=== PATIENT | female | born 1940 | race Caucasian/White ===

== ENCOUNTER → 2018-02-11 15:45 | Outpatient (CLI) | payer MEDICARE, OTHER, SELFPAY ==
--- NOTE | 2018-02-11 15:48 | BI_ITS ---
MAMMOGRAPHY - BILATERAL SCREENING 3-D FABIOLA SYNTHESIS REASON FOR EXAM: Female, 77 years old. Bilateral Screening 3-D tomosynthesis PERTINENT HISTORY: No significant family history. TECHNIQUE: 2-D mammograms and 3-D Fabiola synthesis of the breast (s) were performed. CAD was performed. COMPARISON: January 27, 2016. FINDINGS: The breast composition is composed of scattered fibroglandular density. Scattered benign calcifications are seen. No dense spiculated masses or suspicious microcalcifications are identified. No architectural distortion is identified. There is no skin thickening or retraction. There has been no significant change since the prior study. BI/SCREENING MAMM (CAD), BILAT IMPRESSION: No mammographic signs of malignancy. Routine yearly mammograms recommended. ASSESSMENT CATEGORY: BIRADS Category 2: Benign. A letter regarding these results will be sent to the patient by the facility within 30 days. FOLLOW UP RECOMMENDATION: Yearly follow up mammogram recommended. (A) Approximately 10% of breast cancers are not detected by mammography. A normal mammogram should not delay biopsy of a clinically suspicious abnormality. Electronically Signed: Dewey De Jesus MD at 8:09 EDT , Service support ,
== END ==
PROVIDERS: Family Provider Family Medicine; PCP Family Medicine; Visit Provider Family Medicine
DX: Z12.31 Encounter for screening mammogram for malignant neoplasm of breast (principal)
CPT/HCPCS: 77063; 77067

== ENCOUNTER → 2018-03-19 06:41 | Outpatient (CLI) | payer MEDICARE, OTHER, SELFPAY ==
[2018-03-19 08:24] LABS: Absolute Lymphocyte Count 1.09 X10^3/ul (0.83-4.51); Absolute Neutrophil Count 4.7 X10^3/uL (2.0-7.7); Basophil# 0.03 X10^3/uL; Basophil% 0.5 % (0-1); Hematocrit 42.9 % (37-47); Lymphocyte # 1.09 X10^3/ul (4.0); Lymphocyte % 16.6 % (19-41); Mean Corp Hgb Conc 32.6 g/gl (32-36); Mean Corpuscular Hgb 31.5 pg (27.0-32.0); Mean Corpuscular Volume 96.4 fL (81-99); Mean Platelet Vol. 10.5 fl (6.2-12.0); Monocyte# 0.57 X10^3/uL; Monocyte% 8.7 % (0-10); Neutrophil # 4.67 X10^3/uL (2.7-7.7); Platelet Count 251 K/mm3 (150-450); RBC Distribution Width CV 13.5 % (11.6-14.6); RBC Distribution Width SD 46.9 fl (35.1-43.9); Red Blood Count 4.45 M/mm3 (4.2-5.4); White Blood Count 6.6 K/mm3 (4.4-11.0)
[2018-03-19 08:39] LABS: POSITIVE COUNT NO; POSITIVE DIFFERENTIAL NO; POSITIVE MORPHOLOGY NO
[2018-03-19 08:52] LABS: Anion Gap 7 (5-15); BUN 26 mg/dL (7-18); BUN/Creat Ratio 28.7 RATIO (10-20); Calcium,Total 9.8 mg/dL (8.5-10.1); Chloride 101 mmol/L (98-107); Cholesterol 198 mg/dL (200); EST Glomerular Filtration Rate 64 mL/min (>60); Est Glom Filt Rate - Afr Amer 77 mL/min (>60); Glucose 92 mg/dL (74-106); High Density Lipoprotein 38 mg/dL; Potassium 3.6 mmol/L (3.5-5.1); Sodium Level 138 mmol/L (136-145); Thyroid Stim Hormone (TSH) 4.27 uIU/mL (0.358-3.74); Triglycerides 124 mg/dL; Very Low Density Lipoprotein 25 mg/dL (5-40)
--- NOTE | 2018-03-19 10:54 | STRESSREP_ITS ---
Stress Test Report Date: 03/19/2018 Procedure: Pharmacologic stress nuclear imaging study Indications: Chest pain; shortness of breath/dyspnea Consent: Per the patient Procedure: The patient underwent pharmacologic (Regadenoson) evaluation with a peak heart rate of 101 beats per minute (71 predicted maximal heart rate) and a peak blood pressure of 160/94 mmHg. The baseline ECG demonstrated atrial fibrillation. The peak pharmacologic ECG demonstrated no obvious ECG changes. There were no additional cardiac dysrhythmias pretest, during pharmacologic infusion, or recovery. There was no complaint of chest discomfort during pharmacologic infusion or recovery. The examination was discontinued secondary to completion of protocol. Impression: 1. Pharmacologic (Regadenoson) evaluation 2. Peak pharmacologic ECG with atrial fibrillation with no obvious ECG changes. 3. There were no additional cardiac dysrhythmias pretest, during pharmacologic infusion, or recovery 4. Nuclear images pending Myocardial perfusion imaging study: Technique: The patient was injected with 11.3 millicuries of technetium 99m Cardiolite and subsequently rest SPECT Cardiolite nuclear imaging was obtained in the horizontal long, vertical long, and short axis views. The patient underwent pharmacologic (Regadenoson) evaluation with a peak heart rate of 101 beats per minute (71 % percent predicted maximal heart rate) and a peak blood pressure of 160/94 mmHg. The patient was injected with 33.9 millicuries of technetium 99m Cardiolite and subsequently stress SPECT Cardiolite nuclear imaging was obtained in the horizontal long, vertical long, and short axis views. A gated Cardiolite study at peak stress was obtained. Interpretation: Rest and stress SPECT Cardiolite nuclear imaging status post realignment, normalization, and attenuation correction demonstrate relative uniform tracer uptake and myocardial perfusion appearing within normal limits. There is end systolic thickening and brightening. The gated Cardiolite study demonstrates myocardial thickening and inward wall motion. The reported LVEF is 83 %. Impression: 1. Rest and stress SPECT Cardiolite nuclear imaging demonstrate relative uniform tracer uptake and myocardial perfusion appearing within normal limits. 2. The gated Cardiolite study reports an LVEF of 83 %. This note was generated with Learn with [employer] software. It may contain incorrect words, spelling, and punctuation that were not noted in checking the note before signing.
== END ==
PROVIDERS: Family Provider Family Medicine; PCP Family Medicine; Visit Provider Physician Assistant Medical
DX: R07.9 Chest pain, unspecified (principal); R06.00 Dyspnea, unspecified; E78.00 Pure hypercholesterolemia, unspecified; E03.9 Hypothyroidism, unspecified; I10 Essential (primary) hypertension; Z96.649 Presence of unspecified artificial hip joint
CPT/HCPCS: 36415; 78452; 80048; 80061; 84443; 85025; 93017; A9500; A4216; J2785

== ENCOUNTER → 2018-03-28 14:31 | Outpatient (CLI) | payer MEDICARE, OTHER, SELFPAY ==
--- NOTE | 2018-03-28 14:31 | DT_ITS ---
This patient was seen during an EMR downtime March 24, 2018 - March 31, 2018. This patient may have a combination of paper and electronic documentation or all paper documentation. All documentation is viewable within the e-chart portion of [employer] for each patient visit.
--- NOTE | 2018-03-28 14:33 | ECHOD_ITS ---
Reason For Study: SOB Procedure This was a 2D Doppler, Color Flow transthoracic echocardiogram. Exam performed in department. Left Ventricle Normal LV size. Moderate concentric left ventricular hypertrophy. Left ventricular systolic function is normal. The estimated ejection fraction is 60 %. Unable to assess diastolic dysfunction due to arrhythmia. No regional wall motion abnormalities noted. Right Ventricle Normal RV size. Normal systolic function. Atria The left atrium is mildly enlarged. Normal right atrium. Mitral Valve Mild focal mitral valve calcification. Tricuspid Valve Normal tricuspid valve. Mild (1+) tricuspid valve insufficiency. Pulmonary artery systolic pressure is 36 mmHg. Aortic Valve Trisinus/trileaflet aortic valve. Mild focal aortic valve calcification. Mild (1+) eccentric aortic valve insufficiency. Pulmonic Valve The pulmonic valve is not well visualized. Great Vessels Calcified aortic root. The pulmonary artery is normal size. and partially collapses. Pericardium/Pleural No pericardial effusion. MMode/2D Measurements & Calculations LVIDd: 3.7 cm IVSd: 1.5 cm Ao root diam: 3.8 cm LVIDs: 2.2 cm LVPWd: 1.3 cm LA dimension: 4.6 cm RVDd: 2.6 cm FS: 40.5 % LAV(MOD-bp): 65.3 ml EDV(MOD-sp4): 60.2 ml SV(MOD-sp4): 36.0 ml LAV(MOD-bp) Indexed: 33.4 ml/m2 ESV(MOD-sp4): 24.2 ml LAV(MOD-sp2): 59.9 ml EF(MOD-sp4): 59.8 % LAV(MOD-sp4): 64.8 ml LA A4 area: 22.6 cm2 RA A4 area: 18.6 cm2 Doppler Measurements & Calculations MV E max regino: 123.0 cm/sec Ao V2 max: 129.6 cm/sec AI max regino: 464.8 cm/sec Ao max P.8 mmHg AI max P.5 mmHg AI dec slope: 205.5 cm/sec2 AI P1/2t: 662.5 msec LV V1 max: 99.8 cm/sec PA V2 max: 68.3 cm/sec TR max regino: 284.8 cm/sec LV V1 max P.0 mmHg TR max P.4 mmHg Interpretation Summary Normal LV size. Moderate concentric left ventricular hypertrophy. Left ventricular systolic function is normal. The estimated ejection fraction is 60 %. Unable to assess diastolic dysfunction due to arrhythmia. Mild (1+) eccentric aortic valve insufficiency. Ordering Physician: Tika Blanco/Rubio Hernández Referring Physician: Christopher Santacruz M.D. Performed By: Kasey Schmidt RDCS
== END ==
PROVIDERS: Family Provider Family Medicine; PCP Family Medicine; Visit Provider Physician Assistant Medical
DX: R07.9 Chest pain, unspecified (principal); R06.00 Dyspnea, unspecified; Z98.890 Other specified postprocedural states
CPT/HCPCS: 93306

== ENCOUNTER → 2018-04-29 15:40 | Outpatient (CLI) | payer MEDICARE, OTHER, SELFPAY ==
--- NOTE | 2018-04-29 15:44 | RAD_ITS ---
STUDY: X-RAY CHEST REASON FOR EXAM: Female, 77 years old. Shortness of breath. TECHNIQUE: PA and lateral views of the chest. COMPARISON: 06/30/2014. FINDINGS: There again are diffuse increased interstitial markings bilaterally for the most part unchanged since the prior examination. No new infiltrate is seen. There is no demonstrated pleural abnormality. There is borderline cardiomegaly. Normal mediastinum and lindsey. Normal visualized pulmonary arteries. There is atherosclerotic tortuosity of the aortic arch and descending thoracic aorta. There is demineralization of the osseous structures. Right shoulder prosthesis again seen. There is no demonstrated abnormality of the visualized soft tissue structures of the upper abdomen. RAD/Chest PA and Lateral IMPRESSION: Prominent markings unchanged prior exam likely due to mild pleural fibrosis. No new infiltrate is seen. Electronically Signed: Marvel Jensen MD at 3:21 EDT Tel , Service support ,
== END ==
PROVIDERS: Family Provider Family Medicine; PCP Family Medicine; Visit Provider Family Medicine
DX: R06.09 Other forms of dyspnea (principal)
CPT/HCPCS: 71046

== ENCOUNTER 2018-10-22 21:27 | Emergency (ER) | payer MEDICARE, OTHER, SELFPAY ==
[2018-10-22 21:29] VITALS: BP 145/96; PULSE 102; RESP 16; TEMP 36.6; O2SAT 98; BMI 33.5
[2018-10-22 22:42] VITALS: PULSE 102; RESP 17; O2SAT 96
--- NOTE | 2018-10-22 23:39 | ED.VISSUMM ---
- ER Visit Summary Date of Service: 10/22/18 Chief Complaint: Nosebleed History of Present Illness: The patient is a 77 F who presents with nosebleed. Her current one has been going on for 4 hours. She is on Xarelto. She states that over the last week she has had 3-4 episodes of epistaxis. This has usually been controlled with pressure but today's was lasting longer and she had some large clots. No chest pain shortness of breath lightheadedness dizziness. She hold her Xarelto yesterday and today. Physical Examination: Afebrile initial heart rate 102 vitals otherwise normal Moist mucous membranes Heart is normal rate Lungs are clear Abdomen soft Alert No active epistaxis I do not appreciate any dried blood currently Test Results: Not indicated Emergency Department Course and Treatment: Afrin was instilled in both naris. Thrombin gel was placed on the left. Bleeding has not recurred during her course here. She was advised to follow-up with ENT should her symptoms continue. She understands to return for new or worsening symptoms. Treatment Plan: [] Disposition: Discharge Impression: Epistaxis This note was generated with [employer] dictation software. It may contain incorrect words, spelling, and punctuation that were not noted in review of the chart prior to signing ED Disposition - Plan for ED Patient: Chief Complaint: Nosebleed Referrals: Christopher Santacruz MD [Primary Care Provider] -
--- NOTE | 2018-10-22 23:42 | ED.DEP ---
ED Disposition - Plan for ED Patient: Chief Complaint: Nosebleed Instructions: Nosebleed Referrals: Christopher Santacruz MD [Primary Care Provider] -
[2018-10-22] MEDS: Oxymetazoline 0.05% 1 SPRAY SPRAY.BTL NASAL (23:44)
[2018-10-22 23:53] VITALS: BP 179/83; PULSE 87; RESP 16; O2SAT 96
== END 2018-10-22 23:53 | disposition home or self-care (01) ==
PROVIDERS: Emergency Provider Emergency Medicine; Family Provider Family Medicine; PCP Family Medicine
DX: R04.0 Epistaxis (principal); I10 Essential (primary) hypertension; I48.91 Unspecified atrial fibrillation; Z86.73 Personal history of transient ischemic attack (TIA), and cerebral infarction without residual deficits
CPT/HCPCS: 30901; 99282

== ENCOUNTER → 2019-04-08 | Outpatient (CLI) | payer MEDICARE, OTHER, SELFPAY ==
[2018-11-21 13:11] VITALS: BMI 33.3
--- NOTE | 2019-04-08 15:59 | MRI_ITS ---
STUDY: MRI LUMBAR SPINE WITHOUT CONTRAST REASON FOR EXAM: Female, 78 years old. Low back pain, bilateral radiculopathy TECHNIQUE: Standardized fat and water weighted pulse sequences were obtained in the sagittal and axial planes. COMPARISON: MRI lumbar spine 03/24/2012 FINDINGS: T12-L1: There is interval worsening degenerative changes with new subchondral geodes and mild edema in the intravertebral discs. No significant central canal or foraminal stenosis There is stable severe lumbar spine levoscoliosis. Normal conus medullaris L1-2: There are mild Schmorl's nodes. There is minimal posterior bulging annulus. There is no central canal or foraminal stenosis. There is mild facet spondylosis. . L2-3: There is increasing loss of intervertebral disc space. No central canal or foraminal stenosis no disc protrusion mild facet spondylosis L3-4: There is mild progression of degenerative changes with new edema within the intervertebral disc. There are enlarging osteophytes and mild endplate irregularities. There is mild posterior bulging annulus. There is no significant central canal stenosis. There is no left foraminal stenosis. There is mild right foraminal stenosis L4-5: There is disc space narrowing which demonstrates interval worsening. There is no disc protrusion. There is borderline central canal narrowing. There is mild left foraminal narrowing. There is no significant right foraminal narrowing. There is increased loss of height when compared to prior exam L5-S1: There is disc space narrowing which demonstrate mild worsening when compared to prior exam. Moderate facet degenerative changes. There is no central canal stenosis there is mild right foraminal stenosis. There is no left foraminal stenosis. Normal visualized sacral ala. Normal visualized paraspinous soft tissue structures. MRI/Spine Lumbar (Routine) IMPRESSION: Stable severe lumbar spine levoscoliosis significant multilevel spondylosis with interval worsening when compared to prior exam Electronically Signed: Soto Daniels, at 23:46 EDT Tel , Service support ,
== END | disposition home or self-care (01) ==
LOC: MRI 15:54
PROVIDERS: Family Provider Family Medicine; PCP Family Medicine; Referring Provider Orthopaedic Surgery Orthopaedic Surgery of the Spine; Visit Provider Orthopaedic Surgery Orthopaedic Surgery of the Spine
DX: M51.36 Other intervertebral disc degeneration, lumbar region (principal)
CPT/HCPCS: 72148

== ENCOUNTER → 2019-07-01 15:19 | Outpatient (CLI) | payer MEDICARE, OTHER, SELFPAY ==
[2019-04-09 14:59] VITALS: BMI 32.1
[2019-07-01 17:28] LABS: Absolute Lymphocyte Count 1.31 X10^3/uL (0.83-4.51); Absolute Neutrophil Count 4.5 X10^3/uL (2.0-7.7); Basophil# 0.08 X10^3/uL; Basophil% 1.2 % (0-1); Eosinophil# 0.28 X10^3/uL; Eosinophils% 4.1 % (0-5); Hematocrit 43.6 % (37-47); Hemoglobin 14.4 g/dL (12.0-15.0); Lymphocyte # 1.31 X10^3/ul (4.0); Lymphocyte % 19.1 % (19-41); Mean Corpuscular Hgb 32.5 pg (27.0-32.0); Mean Corpuscular Volume 98.4 fL (81-99); Mean Platelet Vol. 10.2 fl (6.2-12.0); Monocyte# 0.66 X10^3/uL; Monocyte% 9.6 % (0-10); NRBC Flagged by Analyzer 0 % (0-5); Neutrophil # 4.52 X10^3/uL (2.7-7.7); Neutrophil % 65.7 % (47-70); Platelet Count 279 K/mm3 (150-450); RBC Distribution Width CV 13.3 % (11.6-14.6); RBC Distribution Width SD 48.5 fl (35.1-43.9); Red Blood Count 4.43 M/mm3 (4.2-5.4); White Blood Count 6.9 K/mm3 (4.4-11.0)
[2019-07-01 17:58] LABS: Anion Gap 7 (5-15); BUN 22 mg/dL (7-18); BUN/Creat Ratio 27.2 RATIO (10-20); Calcium,Total 9.8 mg/dL (8.5-10.1); Chloride 103 mmol/L (98-107); Cholesterol 216 mg/dL (200); Creatinine, Serum 0.81 mg/dL (0.55-1.02); EST Glomerular Filtration Rate 73 mL/min (>60); Est Glom Filt Rate - Afr Amer 88 mL/min (>60); Glucose 87 mg/dL (74-106); High Density Lipoprotein 44 mg/dL; Potassium 3.7 mmol/L (3.5-5.1); Sodium Level 140 mmol/L (136-145); Thyroid Stim Hormone (TSH) 4.04 uIU/mL (0.358-3.74); Triglycerides 118 mg/dL; Very Low Density Lipoprotein 24 mg/dL (5-40)
== END ==
PROVIDERS: Family Provider Family Medicine; PCP Family Medicine; Referring Provider Family Medicine; Visit Provider Family Medicine
DX: E03.9 Hypothyroidism, unspecified (principal); E78.00 Pure hypercholesterolemia, unspecified; M54.5 Low back pain; I10 Essential (primary) hypertension
CPT/HCPCS: 36415; 80048; 80061; 84443; 85025

== ENCOUNTER 2019-10-23 12:29 | Emergency (ER) | payer MEDICARE, OTHER, SELFPAY ==
[2019-07-23 15:18] VITALS: BMI 31.8
[2019-10-23 12:38] VITALS: BP 148/104; PULSE 71; RESP 18; TEMP 36.6; O2SAT 97; BMI 31.7
[2019-10-23 14:31] LABS: Hematocrit 41.7 % (37-47); Hemoglobin 13.4 g/dL (12.0-15.0); Mean Corp Hgb Conc 32.1 g/dL (32-36); Mean Corpuscular Hgb 32.4 pg (27.0-32.0); Mean Platelet Vol. 10.1 fl (6.2-12.0); Platelet Count 242 K/mm3 (150-450); RBC Distribution Width CV 13.4 % (11.6-14.6); RBC Distribution Width SD 49.7 fl (35.1-43.9); Red Blood Count 4.13 M/mm3 (4.2-5.4); White Blood Count 7.4 K/mm3 (4.4-11.0)
[2019-10-23] MEDS: Mixture 30 ML Bottle 5 ML TOPICAL (14:49)
[2019-10-23 14:53] VITALS: RESP 18
--- NOTE | 2019-10-23 15:21 | ED.VIS.GEN ---
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 no near-syncope or systemic sx. Narrative: Spontaneous onset nosebleed mostly from the right side. Some from the left, also swallowing blood. No vomiting. Spitting up clots. She is anticoagulated with a novel anticoagulant but did not take it this morning because of the bleeding. She is on for chronic A. fib. No recent illnesses or upper respiratory infection symptoms. She states she usually uses nasal saline daily to try to keep her nose moist. She has had this happen before. 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 (3) Chronic diastolic heart failure Status: Chronic (4) Essential hypertension Status: Chronic (5) Hyperlipidemia Status: Chronic (6) Persistent atrial fibrillation Status: Chronic Past Medical History - Allergies and Home Meds Allergies/Adverse Reactions: Allergies amlodipine Allergy (Verified 07/21/19 13:08) Swelling atorvastatin calcium [From Lipitor] Allergy (Verified 07/21/19 13:08) Unknown diltiazem Allergy (Verified 07/21/19 13:08) Swelling erythromycin base [Erythromycin Base] Allergy (Verified 07/21/19 13:08) Unknown Iodinated Contrast Media Allergy (Verified 07/21/19 13:08) Unknown latex Allergy (Verified 07/21/19 13:08) Unknown Penicillins Allergy (Verified 07/21/19 13:08) Rash pregabalin [From Lyrica] Allergy (Verified 07/21/19 13:08) Swelling Sulfa (Sulfonamide Antibiotics) Allergy (Verified 07/21/19 13:08) Other triamcinolone acetonide [From Kenalog] Allergy (Verified 07/21/19 13:08) Other bumetanide [From Bumex] Adverse Reaction (Severe, Verified 07/21/19 13:08) Red, Splotchy rash furosemide [From Lasix] Adverse Reaction (Severe, Verified 07/21/19 13:08) Red, splotchy rash clarithromycin [From Biaxin] Adverse Reaction (Verified 07/21/19 13:08) Other lisinopril Adverse Reaction (Verified 07/21/19 13:08) Other rosuvastatin calcium [From Crestor] Adverse Reaction (Verified 07/21/19 13:08) Other spironolactone Adverse Reaction (Verified 07/21/19 13:08) Low blood pressure tramadol HCl [From Ultram] Adverse Reaction (Verified 07/21/19 13:08) Vomiting Primary Care Physician: Luis Kaur MD [STAFF PHYSICIAN] - 2 Days (or on Saturday-- call today for appt (or saturday AM if not available today)) Surgical History: rotator cuff repair, total hip arthroplasty, - - D+C Lives: Alone Smoking Status: Never smoker Review of Systems General: Denies: Chills, Fever, Sweats Cardiovascular: Denies: Chest pain, Palpitations Respiratory: Denies: Dyspnea, Cough, Dyspnea on exertion Gastrointestinal: Denies: Abdominal pain, Nausea, Vomiting, Diarrhea, Melena, Hematochezia Genitourinary: Denies: Dysuria, Hematuria, Frequency Skin: Denies: Rash, Wounds Neurological: Denies: Headache, Weakness, Numbness Hematologic: Reports: Easy bruising, Easy bleeding Physical Exam Vital Signs/Narrative: Vital Signs Temp Pulse Resp BP Pulse Ox 10/23/19 14:53 18 10/23/19 12:38 97.9 F 71 18 148/104 H 97 Inital Vital Signs reviewed: Yes General: Well nourished, Well developed, No Acute Distress Head: Normocephalic, Atraumatic Eyes: Perrl, EOMI ENT: - - Blood in posterior oropharynx with mild active bleeding. Blood present in both nares, appears to be active from the right without pulsatile bleeding. Neck: Supple, Nontender Respiratory: No distress Skin: Normal color, No rash Neurological: Alert, Oriented x3, Cranial nerves II-XII grossly intact, Normal Strength, Normal Sensation Psychological: Normal affect, Normal Mood Diagnostic/Tx/Re-eval Laboratory Tests 10/23/19 10/23/19 Range/Units 14:25 13:58 WBC 7.4 Cancelled Corrected WBC Cancelled RBC 4.13 L Cancelled Hgb 13.4 Cancelled Hct 41.7 Cancelled MCV 101.0 H Cancelled MCH 32.4 H Cancelled MCHC 32.1 Cancelled RDW Std Deviation 49.7 H Cancelled RDW Coeff of Yojana 13.4 Cancelled Plt Count 242 Cancelled MPV 10.1 Cancelled Diff Path Review Cancelled - Medical Decision Making I initially had patient evacuate clots from her nose, followed by placing Trina mix solution into her nose, she inhaled it back to her throat, and I then followed with a pledget soaked in the same solution and holding pressure. After 15 minutes she was still oozing so I took another soaked pledget and placed it over the area anteriorly that appeared to be the source at the septum, and placed a nasal clip over it for 10 more minutes. She was still bleeding. I then mixed bovine thrombin and placed it with a piece of gauze against the affected area which seemed to control the bleeding temporarily, but before removing the gauze, bleeding restarted. Therefore, I remove the gauze, suctioned excess matrix and blood away, and reinforced thrombin matrix at the suspected site of bleeding. This also failed. I had the patient again evacuate her right nostril, placed another bolus of matrix against the suspected area of bleeding at the septum anteriorly. Initially bleeding seemed controlled and there was no posterior dripping, but she again started bleeding forward through this. Therefore, I had her blow her nose again evacuate the cavity, I placed another 1 cc of anesthetic that she inhaled, followed by a non-inflatable 5.5 cm rapid Rhino packing. This controlled the bleeding well. I reevaluated her several times afterwards to ensure this. She is feeling fine. I discussed with Dr. Kaur since it is Saturday, he prefers the patient to come as an outpatient after the weekend on Saturday or Saturday. Discussed with the patient she is comfortable with this plan we discussed reasons to return. - Critical Care Time Critical care time (excluding procedures): 30-74 minutes - 35 min, Including time spent:, Discussing w/Patient &/or Family/Clinical Education Academic Coordinator, Performing Direct Patient Care at Bedside - not including procedures Procedures Procedure(s): epistaxis control -- see above ED Disposition - Plan for ED Patient: Disposition: Home or Assisted Living Diagnosis: Acute anterior epistaxis Instructions: Nosebleed Referrals: Luis Kaur MD [STAFF PHYSICIAN] - 2 Days (or on Saturday-- call today for appt (or saturday AM if not available today))
[2019-10-23 17:19] VITALS: BP 123/77; PULSE 64; RESP 15; O2SAT 98
== END 2019-10-23 17:37 | disposition home or self-care (01) ==
PROVIDERS: Emergency Provider Emergency Medicine; Family Provider Family Medicine; PCP Family Medicine
DX: R04.0 Epistaxis (principal); E78.5 Hyperlipidemia, unspecified; I11.0 Hypertensive heart disease with heart failure; I25.10 Atherosclerotic heart disease of native coronary artery without angina pectoris; I50.32 Chronic diastolic (congestive) heart failure; I48.19 Other persistent atrial fibrillation; Z86.73 Personal history of transient ischemic attack (TIA), and cerebral infarction without residual deficits; Z88.0 Allergy status to penicillin; Z88.1 Allergy status to other antibiotic agents; Z88.2 Allergy status to sulfonamides; Z88.8 Allergy status to other drugs, medicaments and biological substances; Z91.040 Latex allergy status
CPT/HCPCS: 30901; 36415; 85027; 99284

== ENCOUNTER → 2019-12-01 14:50 | Outpatient (CLI) | payer MEDICARE, OTHER, SELFPAY ==
[2019-12-01 18:13] LABS: Absolute Lymphocyte Count 1.25 X10^3/uL (0.83-4.51); Absolute Neutrophil Count 4.9 X10^3/uL (2.0-7.7); Basophil# 0.06 X10^3/uL; Basophil% 0.8 % (0-1); Eosinophil# 0.16 X10^3/uL; Eosinophils% 2.3 % (0-5); Hematocrit 39.6 % (37-47); Hemoglobin 12.6 g/dL (12.0-15.0); Lymphocyte # 1.25 X10^3/ul (4.0); Lymphocyte % 17.7 % (19-41); Mean Corp Hgb Conc 31.8 g/dL (32-36); Mean Corpuscular Hgb 31.8 pg (27.0-32.0); Monocyte# 0.69 X10^3/uL; Monocyte% 9.7 % (0-10); NRBC Flagged by Analyzer 0 % (0-5); Neutrophil # 4.91 X10^3/uL (2.7-7.7); Neutrophil % 69.4 % (47-70); Platelet Count 239 K/mm3 (150-450); RBC Distribution Width CV 13.1 % (11.6-14.6); RBC Distribution Width SD 48.3 fl (35.1-43.9); Red Blood Count 3.96 M/mm3 (4.2-5.4); White Blood Count 7.1 K/mm3 (4.4-11.0)
[2019-12-01 18:39] LABS: Ferritin 47 ng/mL (8-252); Iron 104 ug/dL (50-170); Iron Binding Capacity,Total 352 ug/dL (250-450); Magnesium 2.3 mg/dL (1.6-2.6); PERCENT IRON SATURATION 29.5 % (15.0-55.0)
== END ==
PROVIDERS: PCP Family Medicine; Visit Provider Family Medicine
DX: D50.9 Iron deficiency anemia, unspecified (principal); E83.42 Hypomagnesemia
CPT/HCPCS: 36415; 82728; 83540; 83550; 83735; 85025

== ENCOUNTER 2020-01-01 16:47 | Observation (INO) | payer MEDICARE, OTHER, SELFPAY ==
[2020-01-01] VITALS (11 sets, daily range): BP systolic 129–157; BP diastolic 72–89; PULSE 62–85; RESP 16–21; TEMP 36.3–36.7; O2SAT 94–99; BMI 31.4; BMI 30.4
--- NOTE | 2020-01-01 16:58 | EKG12_ITS ---
Test Reason : Blood Pressure : / mmHG Vent. Rate : 075 BPM Atrial Rate : 078 BPM P-R Int : 000 ms QRS Dur : 076 ms QT Int : 384 ms P-R-T Axes : 000 050 073 degrees QTc Int : 428 ms Atrial fibrillation Abnormal ECG Confirmed by IVY DUPONT, FUNMILAYO ([id number]), deputy editor in chief SHAUNA BAEZ ([id number]) on 01/04/2020 1:47:45 PM Referred By: EFFIE Confirmed By:TOPHER HAYNES MD
--- NOTE | 2020-01-01 16:58 | CT_ITS ---
STUDY: CT BRAIN WITHOUT CONTRAST REASON FOR EXAM: Female, 79 years old. N/T RIGHT SIDE FACE, RIGHT ARM WEAKNESS RADIATION DOSAGE (If Supplied By Facility): CTDIvol = ( 44.99 ) mGy, DLP = ( 849.54 ) mGycm TECHNIQUE: Transaxial CT imaging of the brain was performed without administration of intravenous contrast material. Individualized dose optimization techniques were used for this CT. COMPARISON: June 08, 2010 and MRI dated October 03, 2013 FINDINGS: Normal soft tissue structures. Normal calvarium. There is mild cerebral atrophy with widening of the extra-axial spaces and ventricular dilatation. There are areas of decreased attenuation within the white matter tracts of the supratentorial brain, consistent with microvascular disease changes. Normal basal ganglia and thalami. Normal brainstem. Normal cerebellum. There is no intracranial hemorrhage. There are no findings of an acute ischemic infarction. There is persistent opacification of the right maxillary sinus cyst in with a history of sinusitis. CT/Brain/Head without Contrast IMPRESSION: Chronic involutional changes of the brain. Small vessel ischemia. Electronically Signed: Daniela Forbes MD at 18:24 EDT Tel , Service support ,
[2020-01-01 17:00] LABS: Bedside Glucose 74 mg/dL (70-110)
--- NOTE | 2020-01-01 17:03 | ED.DCSUM_ITS ---
History of Present Illness Chief Complaint: Neuro S/Sx Informant: Patient, Significant Other Onset: Yesterday Context: Sudden Onset Timing: Intermittent - Duration 30minutes to 45 minutes Quality and Location: Right Arm Parasthesia, Slurred Speech, - - Patient describes a right homonymous hemianopsia Onset: 2099 on December 30 Current Severity: Gone Maximum Severity: Mild Worsened by: Nothing Relieved by: Nothing Associated Symptoms: Negative for: Headache, Nausea, Vomiting, Chest Pain Narrative: Patient is an elderly woman who presents with strokelike symptoms that started last evening and duration was less than 60 minutes. She contacted her PCP who recommended she come to the emergency department. She presently has no symptoms. She states she has residual weakness right side secondary to remote traumatic injury. She denies headache, she denies visual, ocular auditory symptoms. [place] ringing or ears. She had difficulty with speech according the and remembering things. She also complained of numbness in her right hand and right side of her face. She had no other symptoms. Prior similar symptoms: Yes Recent Illness/Hospitalization: No - Past Medical History (1) AF (paroxysmal atrial fibrillation) Status: Chronic Comment: s/p cardioversion (2) Arterial ischemic stroke Status: Chronic Comment: r thalamus (3) Atherosclerotic heart disease of [place] coronary artery without angina pectoris Status: Chronic (4) Chronic diastolic heart failure Status: Chronic (5) Essential hypertension Status: Chronic (6) Hyperlipidemia Status: Chronic Past Medical History - Allergies and Home Meds Allergies/Adverse Reactions: Allergies amlodipine Allergy (Verified 01/01/20 16:53) Swelling atorvastatin calcium [From Lipitor] Allergy (Verified 01/01/20 16:53) Unknown diltiazem Allergy (Verified 01/01/20 16:53) Swelling erythromycin base [Erythromycin Base] Allergy (Verified 01/01/20 16:53) Unknown Iodinated Contrast Media Allergy (Verified 01/01/20 16:53) Unknown latex Allergy (Verified 01/01/20 16:53) Unknown Penicillins Allergy (Verified 01/01/20 16:53) Rash pregabalin [From Lyrica] Allergy (Verified 01/01/20 16:53) Swelling Sulfa (Sulfonamide Antibiotics) Allergy (Verified 01/01/20 16:53) Other triamcinolone acetonide [From Kenalog] Allergy (Verified 01/01/20 16:53) Other bumetanide [From Bumex] Adverse Reaction (Severe, Verified 01/01/20 16:53) Red, Splotchy rash furosemide [From Lasix] Adverse Reaction (Severe, Verified 01/01/20 16:53) Red, splotchy rash clarithromycin [From Biaxin] Adverse Reaction (Verified 01/01/20 16:53) Other lisinopril Adverse Reaction (Verified 01/01/20 16:53) Other rosuvastatin calcium [From Crestor] Adverse Reaction (Verified 01/01/20 16:53) Other spironolactone Adverse Reaction (Verified 01/01/20 16:53) Low blood pressure tramadol HCl [From Ultram] Adverse Reaction (Verified 01/01/20 16:53) Vomiting Primary Care Physician: Christopher Vizcarra MD [Primary Care Provider] - Prior records reviewed: Yes Surgical History: rotator cuff repair, total hip arthroplasty, - - D+C Lives: Spouse/ Significant Other Smoking Status: Never smoker Alcohol: None Drugs: None - Family History Maternal Family History: Family History (Last Reviewed 01/01/20 @ 17:48 by RYAN WhitakerC) Father CAD (coronary artery disease) Myocardial infarction Mother CVA (cerebral vascular accident) Brother COPD (chronic obstructive pulmonary disease) Colon cancer CAD (coronary artery disease) Paternal Family History: Family History (Last Reviewed 01/01/20 @ 17:48 by RYAN WhitakerC) Father CAD (coronary artery disease) Myocardial infarction Mother CVA (cerebral vascular accident) Brother COPD (chronic obstructive pulmonary disease) Colon cancer CAD (coronary artery disease) Review of Systems General: Denies: Chills, Fever, Sweats Eyes: Reports: Visual changes - bilaterally. Denies: Blurred Vision - bilaterally, Diplopia ENT: Denies: Bilateral ear pain, Rhinorrhea, Sore throat Cardiovascular: Denies: Chest pain, Palpitations Respiratory: Denies: Dyspnea, Cough, Dyspnea on exertion Gastrointestinal: Denies: Abdominal pain, Nausea, Vomiting, Diarrhea, Melena, Hematochezia Genitourinary: Denies: Dysuria, Hematuria, Frequency Musculoskeletal: Denies: Myalgias, Arthralgias, Neck pain, Back pain, Extremity Pain Skin: Denies: Rash, Wounds Neurological: Reports: Weakness, Parasthesia, Numbness Endocrine: Denies: Polyuria, Polydipsia Hematologic: Denies: Easy bruising, Easy bleeding STROKE Vital Signs/Narrative: Vital Signs Temp Pulse Resp BP Pulse Ox 01/01/20 16:48 97.9 F 76 21 H 141/77 H 99 Inital Vital Signs reviewed: Yes - NIHSS Initial 1a Level of Consciousness: 0 1b LOC Questions (Score 2 if aphasic/stupor): 0 1c LOC Commands (Only score 1st attempt): 0 2 Best Gaze (If aphasic, use reflexive mvmts.): 0 3 Visual: 0 4 Facial Palsy: 0 5 Motor Arm Right (UN = amputation/fusion): 0 5 Motor Arm Left: 0 6 Motor Leg Right: 0 6 Motor Leg Left: 0 7 Limb ataxia (Only + if out of proportion): 0 8 Sensory (Aphasia/stupor=0 or 1, coma=2): 0 9 Best Language: 0 10 Dysarthria (mute, coma=2, intubated=UN): 0 11 Extinction and Inattention (only scored if +): 0 Total Score: 0 General: Well nourished, Well developed, Obese Head: Normocephalic, Atraumatic. Negative for: Trauma, Tenderness Eyes: Perrl, EOMI. Negative for: Pale conjunctiva, Scleral icterus ENT: Moist mucous membranes, No rhinorrhea, TM's clear Neck: Supple, Nontender, No lymphadenopathy, No JVD Cardiovascular: Regular rate, No murmurs, Normal S1, Normal S2, Irregular Respiratory: No distress, CTA bilaterally, Chest nontender Abdomen: Soft, Nontender, Nondistended, Normal bowel sounds Back: Nontender, Normal Inspection Extremities: Nontender, No edema Skin: Normal color, No rash Neurological: Alert, Oriented x3, Cranial nerves II-XII grossly intact, Normal Strength, Normal Sensation, - - Patient has weakness right upper extremity if AB duct it past 60 degrees. She reports weakness secondary to traumatic injury. She also has weakness right lower extremity secondary to prior injury. Psychological: Normal affect Diagnostic/Tx/Re-eval Impressions Brain CT 01/01/20 16:58 IMPRESSION: Chronic involutional changes of the brain. Small vessel ischemia. Electronically Signed: Daniela Forbes MD at 18:24 EDT Tel , Service support , 01/01/20 16:58 Brain/Head without Contrast [CT] Stat 01/01/20 17:56 Brain without Contrast [MRI] Urgent 01/01/20 18:12 MRA Head ONLY without Contrast [MRI] Stat MRA Neck without Contrast [MRI] Stat Laboratory Results 01/01/20 01/01/20 01/01/20 16:56 17:00 17:00 WBC 6.7 RBC 4.15 L Hgb 13.5 Hct 41.5 MCV 100.0 H MCH 32.5 H MCHC 32.5 RDW Std Deviation 47.2 H RDW Coeff of Yojana 12.8 Plt Count 240 MPV 10.3 Immature Gran % (Auto) 0.600 Neut % (Auto) 64.8 Lymph % (Auto) 21.7 Elbert % (Auto) 9.3 Eos % (Auto) 2.7 Baso % (Auto) 0.9 Absolute Neuts (auto) 4.3 Absolute Lymphs (auto) 1.45 Nucleated RBC % 0 PT 13.9 INR 1.1 APTT 28.9 Sodium Potassium Chloride Carbon Dioxide Anion Gap BUN Creatinine Estim Creat Clear Calc Est GFR (MDRD) Af Amer Est GFR (MDRD) Non-Af BUN/Creatinine Ratio Glucose Calcium Troponin I Digoxin POC Glucose 74 01/01/20 01/01/20 17:00 17:00 WBC RBC Hgb Hct MCV MCH MCHC RDW Std Deviation RDW Coeff of Yojana Plt Count MPV Immature Gran % (Auto) Neut % (Auto) Lymph % (Auto) Elbert % (Auto) Eos % (Auto) Baso % (Auto) Absolute Neuts (auto) Absolute Lymphs (auto) Nucleated RBC % PT INR APTT Sodium 139 Potassium 4.0 Chloride 104 Carbon Dioxide 31.0 Anion Gap 4 L BUN 26 H Creatinine 0.85 Estim Creat Clear Calc 45.58 Est GFR (MDRD) Af Amer 83 Est GFR (MDRD) Non-Af 68 BUN/Creatinine Ratio 30.5 H Glucose 92 Calcium 10.1 Troponin I < 0.015 Digoxin 1.67 POC Glucose The head reveals chronic changes small vessel disease. Blood work is essentially unremarkable. BUN to creatinine ratio is elevated. - EKG Initial EKG Interpretation: Atrial Fibrillation - EKG reveals atrial fibrillation with a ventricular rate of 75. QRS duration 76 ms per QT duration 384 ms. Kinde is normal. There is no acute ischemic changes. The EKG is from prior dated July 07, 2014. At that time she was in a sinus rhythm. - Medical Decision Making Stroke Team Activated: No Reviewed Inclusion/Exclusion criteria: No Was Patient considered for Endovascular Intervention?: No IV Alteplase (t-PA) Administered: No No contraindications for IV Alteplase (t-PA) administration.: Yes Alteplase (t-PA) risks, benefits, alternative discussed: No ED Disposition - Plan for ED Patient: Disposition: Acute Care Hospital [facility] Diagnosis: TIA (transient ischemic attack), Atrial fibrillation Instructions: VIRAL SYNDROME (Adult) Referrals: Christopher Vizcarra MD [Primary Care Provider] -
[2020-01-01 17:23] LABS: Absolute Lymphocyte Count 1.45 X10^3/uL (0.83-4.51); Absolute Neutrophil Count 4.3 X10^3/uL (2.0-7.7); Basophil# 0.06 X10^3/uL; Basophil% 0.9 % (0-1); Eosinophil# 0.18 X10^3/uL; Eosinophils% 2.7 % (0-5); Hematocrit 41.5 % (37-47); Hemoglobin 13.5 g/dL (12.0-15.0); Lymphocyte # 1.45 X10^3/ul (4.0); Lymphocyte % 21.7 % (19-41); Mean Corp Hgb Conc 32.5 g/dL (32-36); Mean Corpuscular Hgb 32.5 pg (27.0-32.0); Mean Platelet Vol. 10.3 fl (6.2-12.0); Monocyte# 0.62 X10^3/uL; Monocyte% 9.3 % (0-10); NRBC Flagged by Analyzer 0 % (0-5); Neutrophil # 4.33 X10^3/uL (2.7-7.7); Neutrophil % 64.8 % (47-70); Platelet Count 240 K/mm3 (150-450); RBC Distribution Width CV 12.8 % (11.6-14.6); RBC Distribution Width SD 47.2 fl (35.1-43.9); Red Blood Count 4.15 M/mm3 (4.2-5.4); White Blood Count 6.7 K/mm3 (4.4-11.0)
--- NOTE | 2020-01-01 17:40 | PCM.HP.STD ---
Problem List (1) Essential hypertension Status: Chronic (2) Atherosclerotic heart disease of [place] coronary artery without angina pectoris Status: Chronic Qualifiers: [place] vs. transplanted heart: [place] heart Qualified Code(s): I25.10 - Atherosclerotic heart disease of [place] coronary artery without angina pectoris (3) Persistent atrial fibrillation Status: Chronic (4) Chronic diastolic heart failure Status: Chronic (5) Hyperlipidemia Status: Chronic Qualifiers: Hyperlipidemia type: pure hypercholesterolemia Qualified Code(s): E78.00 - Pure hypercholesterolemia, unspecified; E78.0 - Pure hypercholesterolemia (6) AF (paroxysmal atrial fibrillation) Status: Chronic Comment: s/p cardioversion (7) Arterial ischemic stroke Status: Chronic Comment: r thalamus History of Present Illness Date of Admission: 01/01/20 Chief Complaint: Right sided numbness, vision changes. The patient is a 79 year old F who presents to the emergency room due to right facial, arm and leg numbness and right eye vision changes. Patient reports last evening she was watching her tablet when she could no longer see the right side of the screen. Patient then states she attempted to roll herself to plug in the tablets and had difficulty pushing with her legs. She then noticed her right arm and right face felt numb. She states she sat in the chair until her symptoms resolve and later went to bed that night. She woke up this morning and symptoms remained resolved. She contacted her primary care physician to notify them and they referred her to the emergency room for further evaluation. Patient states she is having difficulty finding her words and reports recent forgetfulness. She states she has had difficulty paying bills and has mixed up insurance documents. voices concern over recent forgetfulness as well. Patient has a history of atrial fibrillation, hypertension, chronic diastolic CHF, history of right thalamic CVA, hypothyroidism, GERD. Patient states she has been off of her Eliquis since October due to epistaxis. She was recently seen by Dr. Chavez, ENT who approved patient resuming Eliquis. She has not yet began taking. Past Medical History Past Medical History (Chronic Problems): Chronic Problems (Last Reviewed 07/23/19 @ 15:[address] Rubio Hernández MD) Essential hypertension (Chronic) Atherosclerotic heart disease of [place] coronary artery without angina pectoris (Chronic) Persistent atrial fibrillation (Chronic) Chronic diastolic heart failure (Chronic) Hyperlipidemia (Chronic) AF (paroxysmal atrial fibrillation) (Chronic) s/p cardioversion Arterial ischemic stroke (Chronic) r thalamus Medical History: Medical History (Last Reviewed 07/23/19 @ 15:[address] Rubio Hernández MD) Essential hypertension (Chronic) I10 Atherosclerotic heart disease of [place] coronary artery without angina pectoris (Chronic) I25.10 Persistent atrial fibrillation (Chronic) I48.1 Chronic diastolic heart failure (Chronic) I50.32 Hyperlipidemia (Chronic) E78.5 AF (paroxysmal atrial fibrillation) (Chronic) I48.0 s/p cardioversion Arterial ischemic stroke (Chronic) I63.9 r thalamus Anemia D64.9 Ataxia R27.0 Hemarthrosis of knee M25.069 Hypothyroidism E03.9 Joint pain of leg M25.50 Osteoarthritis Spinal stenosis M48.00 Precordial chest pain R07.2 Shortness of breath R06.02 Syncope and collapse R55 Allergies amlodipine Allergy (Verified 01/01/20 16:53) Swelling atorvastatin calcium [From Lipitor] Allergy (Verified 01/01/20 16:53) Unknown diltiazem Allergy (Verified 01/01/20 16:53) Swelling erythromycin base [Erythromycin Base] Allergy (Verified 01/01/20 16:53) Unknown Iodinated Contrast Media Allergy (Verified 01/01/20 16:53) Unknown latex Allergy (Verified 01/01/20 16:53) Unknown Penicillins Allergy (Verified 01/01/20 16:53) Rash pregabalin [From Lyrica] Allergy (Verified 01/01/20 16:53) Swelling Sulfa (Sulfonamide Antibiotics) Allergy (Verified 01/01/20 16:53) Other triamcinolone acetonide [From Kenalog] Allergy (Verified 01/01/20 16:53) Other bumetanide [From Bumex] Adverse Reaction (Severe, Verified 01/01/20 16:53) Red, Splotchy rash furosemide [From Lasix] Adverse Reaction (Severe, Verified 01/01/20 16:53) Red, splotchy rash clarithromycin [From Biaxin] Adverse Reaction (Verified 01/01/20 16:53) Other lisinopril Adverse Reaction (Verified 01/01/20 16:53) Other rosuvastatin calcium [From Crestor] Adverse Reaction (Verified 01/01/20 16:53) Other spironolactone Adverse Reaction (Verified 01/01/20 16:53) Low blood pressure tramadol HCl [From [facility]] Adverse Reaction (Verified 01/01/20 16:53) Vomiting Home Medications: Ambulatory Orders Medication Instructions Recorded Cyanocobalamin [Vitamin B12] 500 mcg PO MoWeFr@0800 #30 tab 10/12/13 Levothyroxine [Synthroid] 112 mcg PO DAILY@0600 #30 tab 10/12/13 Multivitamins,Ther W-Minerals 1 tab PO DAILY #30 tab 10/12/13 [Multivitamin With Minerals ([facility])] Acetaminophen [Tylenol Extra 500 mg PO Q6H PRN PRN 07/05/14 Strength] Calcium Carb/Vitamin D3/Vit K1 2 ea PO DAILY 07/05/14 [Viactiv Soft Chew Tablet] Loratadine [Claritin] 10 mg PO PRN PRN 07/05/14 Magnesium Oxide 250 mg PO DAILY 07/05/14 Ferrous Gluconate 324 mg PO TUTHSA 10/22/18 apixaban 5 mg tablet 5 mg PO BID #60 tab 11/24/18 metoprolol succinate 50 mg 50 mg PO .COMPLEX #270 tab 02/09/19 tablet,extended release 24 hr omeprazole 40 mg capsule,delayed 40 mg PO DAILY #30 cap 04/09/19 release torsemide 20 mg tablet 20 mg PO BID #180 tab 04/09/19 digoxin 125 mcg (0.125 mg) tablet 125 mcg PO QDAY #90 tab 04/14/19 spironolactone 25 mg tablet 25 mg PO QAM #90 tab 07/23/19 Surgical History: Surgical History (Last Reviewed 01/01/20 @ 17:49 by AUGUSTUS Whitaker) H/O shoulder replacement Z96.619 History of cervical biopsy Z98.890 History of hip replacement Z96.649 Surgical History: rotator cuff repair, total hip arthroplasty, - - D+C, breast biopsy Psychiatric History: No pertinent psych hx 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 Lives: Spouse/ Significant Other Smoking Status: Never smoker Alcohol: None Drugs: None - *Family History Maternal Family History: Family History (Last Reviewed 01/01/20 @ 17:48 by AUGUSTUS Whitaker) Father CAD (coronary artery disease) Myocardial infarction Mother CVA (cerebral vascular accident) Brother COPD (chronic obstructive pulmonary disease) Colon cancer CAD (coronary artery disease) Paternal Family History: Family History (Last Reviewed 01/01/20 @ 17:48 by AUGUSTUS Whitaker) Father CAD (coronary artery disease) Myocardial infarction Mother CVA (cerebral vascular accident) Brother COPD (chronic obstructive pulmonary disease) Colon cancer CAD (coronary artery disease) Review of Systems Constitutional: Denies: Chills, Fever, Weight Change HEENT: Denies: Head Aches, Sinus Congestion, Sinus Drainage Cardiovascular: Reports: Edema - Chronic lower extremity swelling. Denies: Chest Pain, Palpitations Respiratory: Denies: Cough, Shortness of breath at rest, Sputum production Gastrointestinal: Denies: Abdominal Pain, Nausea, Vomiting Genitourinary: Denies: Dysuria Musculoskeletal: Denies: Joint Pain, Joint Tenderness Skin: Denies: Rash, Wounds Neurological: Reports: Numbness - Right arm, right face, right leg, - - Right eye vision changes, - - Memory difficulty, expressive aphasia. Denies: Focal weakness Psychiatric: Denies: Anxiety, Depression, Homicidal Ideations, Suicidal Ideations Hematologic/ Lymphatic: Denies: Easy Bruising, Easy Bleeding VTE Information - Inpt Only VTE Present on Admission: No VTE Mechan Device Prophylaxis: None VTE Pharm Prophylaxis ordered?: Yes - Physical Exam Vitals/I&O's: Vital Signs Temp Pulse Resp BP Pulse Ox 97.9 F 62 18 144/87 H 99 01/01/20 16:48 01/01/20 16:58 01/01/20 16:58 01/01/20 16:58 01/01/20 16:58 Oxygen Delivery Method Room Air Weight: 183 lb 3.266 oz Body Mass Index (BMI) 31.4 Finger Stick Blood Glucose 74 General: Alert, Oriented x3, Cooperative HEENT: Atraumatic, PERRLA, EOMI, Normocephalic Neck: Supple, No JVD, Negative Carotid Bruits Lungs: Clear to auscultation, Normal air movement Cardiovascular: - - Atrial fibrillation, rate controlled Abdomen: Bowel Sounds Present, Soft, Non Tender, Non-Distended Extremities: No clubbing, No cyanosis, Edema - +2 bilateral lower extremity edema Skin: No rashes, No breakdown Musculoskeletal: No Tenderness to Palpation of Joints or Extremities Neurological: Cranial nerves II-XII grossly intact, Neuro grossly intact Psych/Mental Status: Normal Affect, Appropriate Laboratory Results 01/01/20 16:56: POC Glucose 74 01/01/20 17:00: WBC 6.7, RBC 4.15 L, Hgb 13.5, Hct 41.5, MCV 100.0 H, MCH 32.5 H, MCHC 32.5, RDW Std Deviation 47.2 H, RDW Coeff of Yojana 12.8, Plt Count 240, MPV 10.3, Immature Gran % (Auto) 0.600, Neut % (Auto) 64.8, Lymph % (Auto) 21.7, [place] % (Auto) 9.3, Eos % (Auto) 2.7, Baso % (Auto) 0.9, Absolute Neuts (auto) 4.3, Absolute Lymphs (auto) 1.45, Nucleated RBC % 0 01/01/20 17:00: PT Pending, INR Pending, APTT Pending 01/01/20 17:00: Sodium Pending, Potassium Pending, Chloride Pending, Carbon Dioxide Pending, Anion Gap Pending, BUN Pending, Creatinine Pending, Est GFR (MDRD) Af Amer Pending, Est GFR (MDRD) Non-Af Pending, BUN/Creatinine Ratio Pending, Glucose Pending, Calcium Pending, Troponin I Pending Assessment/Plan 1. Probable TIA, History of right thalamic CVA-brain CT pending. CTA of head and neck pending. Obtain MRI of brain. Obtain echocardiogram. PT/OT/ST. Aspirin, statin. Resume Eliquis pending final read brain CT. Plan for neuro consult pending further imaging. 2. Persistent atrial fibrillation-off of Eliquis since October. Okay to resume per ENT. Continue metoprolol, resume Eliquis pending brain CT read. 3. Hypertension-stable, continue metoprolol, digoxin, spironolactone, torsemide. 4. Chronic diastolic CHF-+2 lower extremity edema. Patient reports legs are chronically swollen. No evidence of acute CHF. Echo March 2018 demonstrated an EF of 60%. Continue torsemide, spironolactone regimen. Jonathan wraps bilateral lower extremities. 5. Hypothyroidism-continue Synthroid regimen. 6. GERD-continue PPI. 7. Iron deficiency anemia-stable. DVT prophylaxis-Eliquis This patient was seen by AUGUSTUS Whitaker under the supervision of Dr. Fuentes.
[2020-01-01 17:45] LABS: Anion Gap 4 (5-15); BUN 26 mg/dL (7-18); BUN/Creat Ratio 30.5 RATIO (10-20); Calcium,Total 10.1 mg/dL (8.5-10.1); Chloride 104 mmol/L (98-107); Creatinine, Serum 0.85 mg/dL (0.55-1.02); EST Glomerular Filtration Rate 68 mL/min (>60); Est Glom Filt Rate - Afr Amer 83 mL/min (>60); Estimated Creatinine Clearance 45.58 ml/min; Glucose 92 mg/dL (74-106); Sodium Level 139 mmol/L (136-145)
[2020-01-01 17:51] LABS: International Normalized Ratio 1.1; Prothrombin Time (Protime)PT. 13.9 SECONDS (11.7-14.9)
[2020-01-01 17:52] LABS: Partial Thromboplast Time 28.9 Seconds (24.1-36.2)
--- NOTE | 2020-01-01 17:56 | MRI_ITS ---
STUDY: MRI BRAIN WITHOUT CONTRAST REASON FOR EXAM: Female, 79 years old. TIA -- rt face, arm , leg numbness last PM, vision change, lasted for 1 hour, prev stroke 2013 TECHNIQUE: Standardized multiplanar fat and water weighted pulse sequences were obtained. COMPARISON: CT head 01/01/2020. MRI head 10/03/2013. FINDINGS: No intracranial mass, mass effect, or midline shift. No territorial infarct or acute ischemia. No parenchymal hemorrhage. There is mild cerebral atrophy with widening of the extra-axial spaces and ventricular dilatation. There are multiple white matter hyperintensities, distributed throughout the deep white matter tracts of the cerebral hemispheres, consistent with moderate chronic white matter ischemic changes. There are prominent perivascular spaces (PVS) involving the basal ganglia. There is no extra-axial fluid accumulation. Normal flow voids within the major intracranial circulation suggesting patency by spin echo criteria. Normal sella turcica, pituitary gland, infundibular stalk, optic chiasm and hypothalamus. There are chronic white matter ischemic changes of the katelynn. The midbrain and medulla are otherwise normal. Normal basal cisterns. Normal bilateral temporal bones. Normal bilateral internal auditory canals. No demonstrated orbital abnormality, within the constraints of a routine brain study. Right maxillary sinus is opacified. Normal calvarium and skull base. Normal visualized soft tissue structures. MRI/Brain without Contrast IMPRESSION: 1. No acute findings. 2. Moderately extensive microvascular ischemic changes. Atrophy. 3. Chronic right maxillary sinusitis. Electronically Signed: Yoanna Woods MD at 21:21 EDT Tel , Service support ,
--- NOTE | 2020-01-01 18:01 | ECHOD_ITS ---
Reason For Study: TIA/CVA Procedure This was a 2D Doppler, Color Flow transthoracic echocardiogram. Exam performed portable in patient room. Left Ventricle Normal LV size. The estimated ejection fraction is 65 %. No evidence for diastolic dysfunction. No regional wall motion abnormalities noted. Right Ventricle Normal RV size. Normal systolic function. Atria The left atrium is mildly enlarged. The right atrium is moderately enlarged. No doppler evidence for ASD. Bubble contrast study negative for right to left interatrial shunt. Mitral Valve There is no mitral valve stenosis. Trivial mitral valve insufficiency. Tricuspid Valve There is no tricuspid stenosis. Trivial tricuspid valve insufficiency. Pulmonary artery systolic pressure is 40 mmHg. Aortic Valve Trisinus/trileaflet aortic valve. Aortic sclerosis, no stenosis. There is no aortic stenosis. Mild (1+) aortic valve insufficiency. Pulmonic Valve There is no pulmonic valvular stenosis. Mild (1+) pulmonic valve insufficiency. Great Vessels Normal aortic root. Pericardium/Pleural No pericardial effusion. Medication Performed a rapid injection of agitated mix of 9 cc saline and 1cc air to assess for atrial septal defect. MMode/2D Measurements & Calculations LVIDd: 4.1 cm IVSd: 1.1 cm Ao root diam: 3.8 cm LVIDs: 2.4 cm LVPWd: 1.2 cm RVDd: 3.1 cm FS: 41.5 % LAV(MOD-bp): 59.5 ml LVAd ap4: 15.7 cm2 SV(MOD-sp4): 27.3 ml LAV(MOD-bp) Indexed: 31.6 ml/m2 EDV(MOD-sp4): 37.2 ml LAV(MOD-sp2): 72.8 ml EDV(sp4-el): 39.4 ml LAV(MOD-sp4): 45.6 ml LVAs ap4: 7.0 cm2 ESV(MOD-sp4): 9.8 ml ESV(sp4-el): 9.8 ml EF(MOD-sp4): 73.5 % EF(sp4-el): 75.0 % SV(sp4-el): 29.5 ml LA A4 area: 17.5 cm2 LA dimension(2D): 5.2 cm RA A4 area: 19.8 cm2 Doppler Measurements & Calculations MV E max regino: 109.5 cm/sec Ao V2 max: 126.5 cm/sec AI max regino: 440.0 cm/sec Ao max P.4 mmHg AI max P.4 mmHg Ao V2 mean: 85.8 cm/sec AI dec slope: 144.5 cm/sec2 Ao mean P.3 mmHg AI P1/2t: 891.8 msec Ao V2 VTI: 21.4 cm LV V1 max: 91.7 cm/sec PA V2 max: 55.6 cm/sec TR max regino: 292.4 cm/sec LV V1 max P.4 mmHg TR max P.2 mmHg Interpretation Summary The estimated ejection fraction is 65 %. No evidence for diastolic dysfunction. The left atrium is mildly enlarged. The right atrium is moderately enlarged. Trivial mitral valve insufficiency. Trivial tricuspid valve insufficiency. Pulmonary artery systolic pressure is 40 mmHg. Mild (1+) aortic valve insufficiency. Ordering Physician: Suzette Underwood Referring Physician: Christopher Vizcarra Performed By: Leela Chang, ALDA, RVT
--- NOTE | 2020-01-01 18:12 | MRI_ITS ---
STUDY: MRA NECK WITHOUT CONTRAST REASON FOR EXAM: Female, 79 years old. TIA -- rt face, arm , leg numbness last PM, vision change, lasted for 1 hour, prev stroke 2012 TECHNIQUE: Source images were obtained, MIPs were performed. The study was performed unenhanced. COMPARISON: 10/03/2013. FINDINGS: RIGHT CAROTID ARTERIES: Normal right common carotid artery (CCA). Normal right common carotid bulb. Normal origin of the right internal carotid (ICA) artery without stenosis. Normal visualized cervical portion of the right internal carotid artery. Normal origin of the right external carotid artery (ECA). LEFT CAROTID ARTERIES: Normal left common carotid artery (CCA). Normal left common carotid bulb. Normal origin of the left internal carotid (ICA) artery without stenosis. Normal visualized cervical portion of the left internal carotid artery. Normal origin of the left external carotid artery (ECA). VERTEBRAL ARTERIES: Normal antegrade flow within the bilateral vertebral artery without a hemodynamically significant stenosis. MRI/MRA Neck without Contrast IMPRESSION: Normal bilateral cervical carotid and vertebral arteries. Electronically Signed: Yoanna Woods MD at 21:40 EDT Tel , Service support ,
--- NOTE | 2020-01-01 18:12 | MRI_ITS ---
STUDY: MRA OF THE HEAD WITHOUT CONTRAST REASON FOR EXAM: Female, 79 years old. TIA -- rt face, arm , leg numbness last PM, vision change, lasted for 1 hour, prev stroke 2012 TECHNIQUE: 3-D [id number] (TOF) imaging was performed with MIPs. The study was performed unenhanced. COMPARISON: 10/03/2013. FINDINGS: Normal bilateral petrous and cavernous carotid arteries. Normal anterior cerebral arteries. Nonvisualized anterior communicating artery. Normal M1 and M2 segments of the middle cerebral arteries, with normal M1 bifurcations. Posterior communicating arteries are not visualized. Normal bilateral vertebral arteries. Normal basilar artery with a normal basilar bifurcation. The visualized bilateral superior cerebellar (SCA) arteries are normal. Normal bilateral P1, P2 and visualized P3 segments of the posterior cerebral arteries. There is no demonstrated aneurysm of the [place]. There is no major vessel occlusion or significant stenosis. MRI/MRA Head ONLY without Contrast IMPRESSION: Normal MRA of the head Electronically Signed: Yoanna Woods MD at 21:28 EDT Tel , Service support ,
[2020-01-01 18:51] LABS: Digoxin Level 1.67 ng/mL (0.80-2.00)
[2020-01-01 20:04] LABS: Thyroid Stim Hormone (TSH) 0.79 uIU/mL (0.358-3.74)
--- NOTE | 2020-01-01 20:11 | ED.RN ---
notify inga levinpsych rn nurse that dysphagia screen not done, was charting nih and speaking on phone to other hospital and pt went to floor.
[2020-01-01] MEDS: Gabapentin 100 MG Capsule PO (22:39)
[2020-01-01] MEDS: Metoprolol(XL)Succ 100 MG Tablet PO (22:39)
[2020-01-01] MEDS: APIXABAN 5 MG TABLET PO (22:39)
[2020-01-02] VITALS (9 sets, daily range): BP systolic 120–131; BP diastolic 50–84; PULSE 67–98; RESP 18; TEMP 36.6–37.2; O2SAT 92–96
[2020-01-02] MEDS: Levothyroxine 112 MCG Tablet PO (04:44)
[2020-01-02 07:05] LABS: Cholesterol 176 mg/dL (200); High Density Lipoprotein 40 mg/dL; Triglycerides 119 mg/dL; Very Low Density Lipoprotein 24 mg/dL (5-40)
[2020-01-02] MEDS: Pantoprazole Sodium 40 MG Tablet PO (09:59)
[2020-01-02] MEDS: Metoprolol(XL)Succ 50 MG Tablet PO (09:59)
[2020-01-02] MEDS: APIXABAN 5 MG TABLET PO (10:00)
[2020-01-02] MEDS: Digoxin 125 MCG Tablet PO (10:01)
[2020-01-02] MEDS: Aspirin 81 MG TAB.CHEW PO (10:01)
--- NOTE | 2020-01-02 11:44 | DCINST_ITS ---
- Discharge Diagnoses Current Active Problems: Current Active and Chronic Problems (Last Reviewed 07/23/19 @ 15:[address] Rubio Hernández MD) TIA (transient ischemic attack) (Acute) Atrial fibrillation (Acute) You will use the following diet at home:: No restrictions Discharge Activity: Return to Normal Activity Call your doctor if you observe: Shortness of breath, Dizziness, Fainting spells, Chest pain Additional Instructions: RESUME home Eliquis regimen. Recommend saline nasal spray 2-3 times daily to keep nasal passages moist and prevent recurrent epistaxis. Allergies/Adverse Reactions: Allergies amlodipine Allergy (Verified 01/01/20 16:53) Swelling atorvastatin calcium [From Lipitor] Allergy (Verified 01/01/20 16:53) Unknown diltiazem Allergy (Verified 01/01/20 16:53) Swelling erythromycin base [Erythromycin Base] Allergy (Verified 01/01/20 16:53) Unknown Iodinated Contrast Media Allergy (Verified 01/01/20 16:53) Unknown latex Allergy (Verified 01/01/20 16:53) Unknown Penicillins Allergy (Verified 01/01/20 16:53) Rash pregabalin [From Lyrica] Allergy (Verified 01/01/20 16:53) Swelling Sulfa (Sulfonamide Antibiotics) Allergy (Verified 01/01/20 16:53) Other triamcinolone acetonide [From Kenalog] Allergy (Verified 01/01/20 16:53) Other bumetanide [From Bumex] Adverse Reaction (Severe, Verified 01/01/20 16:53) Red, Splotchy rash furosemide [From Lasix] Adverse Reaction (Severe, Verified 01/01/20 16:53) Red, splotchy rash clarithromycin [From Biaxin] Adverse Reaction (Verified 01/01/20 16:53) Other lisinopril Adverse Reaction (Verified 01/01/20 16:53) Other rosuvastatin calcium [From Crestor] Adverse Reaction (Verified 01/01/20 16:53) Other spironolactone Adverse Reaction (Verified 01/01/20 16:53) Low blood pressure tramadol HCl [From Ultram] Adverse Reaction (Verified 01/01/20 16:53) Vomiting Medications to take at Discharge Cyanocobalamin [Vitamin B12] 500 mcg PO MoWeFr@0800 #30 tab 10/12/13 Levothyroxine [Synthroid] 112 mcg PO DAILY@0600 #30 tab 10/12/13 Multivitamins,Ther W-Minerals [Multivitamin With Minerals (BKC)] 1 tab PO DAILY #30 tab 10/12/13 Acetaminophen [Tylenol] 500 mg PO Q6H PRN PRN 07/05/14 Calcium Carb/Vitamin D3/Vit K1 [Viactiv Soft Chew] 2 ea PO DAILY 07/05/14 Loratadine [Claritin] 10 mg PO PRN PRN 07/05/14 Ferrous Gluconate 324 mg PO TUTHSA 10/22/18 apixaban 5 mg tablet 5 mg PO BID #60 tab 11/24/18 torsemide 20 mg tablet 20 mg PO BID #180 tab 04/09/19 digoxin 125 mcg (0.125 mg) tablet 125 mcg PO QDAY #90 tab 04/14/19 spironolactone 25 mg tablet 25 mg PO QAM #90 tab 07/23/19 Baclofen 10 mg PO BID PRN PRN 01/01/20 Gabapentin [Neurontin] 100 mg PO QHS 01/01/20 Metoprolol Succinate 50 mg PO DAILY 01/01/20 Metoprolol Succinate 100 mg PO QHS 01/01/20 Omeprazole 20 mg PO MOWEFR 01/01/20 Primary Care Physician: Christopher Vizcarra MD [Primary Care Provider] - Please follow up with your Primary Care Physician in: 1 Week Test Results: Test results from this visit will be discussed in further detail at your follow- up appointment, if applicable. Please Follow Up With: Raymundo Marquez MD When: 1 Week Proposed Discharge Date: 01/02/20
--- NOTE | 2020-01-02 11:50 | DS.PCM_ITS ---
<Suzette Underwood - Last Filed: 01/02/20 11:56> Discharge Date and Diagnosis Date of Admission: 01/01/20 Date of Discharge: 01/02/20 - Primary Discharge Diagnosis Active and Suspected Problems (Last Reviewed 07/23/19 @ 15:[address] Rubio Hernández MD) 1. TIA, History of right thalamic CVA 2. Persistent atrial fibrillation 3. Hypertension 4. Chronic diastolic CHF- 5. Hypothyroidism 6. GERD 7. Iron deficiency anemia - Secondary Discharge Diagnosis Chronic Problems (Last Reviewed 07/23/19 @ 15:[address] Rubio Hernánedz MD) Essential hypertension (Chronic) Atherosclerotic heart disease of [place] coronary artery without angina pectoris (Chronic) Persistent atrial fibrillation (Chronic) Chronic diastolic heart failure (Chronic) Hyperlipidemia (Chronic) AF (paroxysmal atrial fibrillation) (Chronic) s/p cardioversion Arterial ischemic stroke (Chronic) r thalamus Hospital Course and Treatment Imaging Results: Diagnostic Data Brain CT 01/01/20 16:58 IMPRESSION: Chronic involutional changes of the brain. Small vessel ischemia. Electronically Signed: Daniela Forbes MD at 18:24 EDT Tel , Service support , Brain MRI 01/01/20 17:56 IMPRESSION: 1. No acute findings. 2. Moderately extensive microvascular ischemic changes. Atrophy. 3. Chronic right maxillary sinusitis. Electronically Signed: Yoanna Woods MD at 21:21 EDT Tel , Service support , Head MRA 01/01/20 18:12 IMPRESSION: Normal MRA of the head Electronically Signed: Yoanna Woods MD at 21:28 EDT Tel , Service support , Neck MRA 01/01/20 18:12 IMPRESSION: Normal bilateral cervical carotid and vertebral arteries. Electronically Signed: Yoanna Woods MD at 21:40 EDT Tel , Service support , Operations: None Procedures: 2-D Echocardiogram Summary of Care Provided: The patient is a 79 year old F admitted 01/01/2020 due to 20-minute episode of right-sided numbness with vision changes. 1. Probable TIA, History of right thalamic CVA-brain CT with chronic changes. MRI of brain demonstrates no acute findings, moderately extensive microvascular ischemic changes. Neck MRA demonstrates normal bilateral cervical carotid and vertebral arteries. Echocardiogram demonstrates an EF of 65%. Patient has been off of Eliquis since October due to prior epistaxis. Eliquis resumed. Follow- up with primary care physician in 1 week. Follow-up with neurology in 1 week as well. Patient has been seen by Dr. Marquez in the past with prior CVA. 2. Persistent atrial fibrillation-off of Eliquis since October. Okay to resume per ENT. Continue metoprolol, resume Eliquis. Recommend nasal saline spray 2-3 times per day to keep nasal passages moist and prevent further epistaxis. 3. Hypertension-stable, continue metoprolol, digoxin, torsemide. Patient's home med list has spironolactone which patient states she is no longer taking. 4. Chronic diastolic CHF- lower extremity edema. Patient reports legs are chronically swollen. No evidence of acute CHF. Echo March 2018 demonstrated an EF of 60%. Continue torsemide, spironolactone regimen. Recommend continued use of JOCELYNN hose bilateral lower extremities. Repeat echo as noted above. 5. Hypothyroidism-continue Synthroid regimen. 6. GERD-continue PPI. 7. Iron deficiency anemia-stable. General: Alert, Oriented x3, Cooperative HEENT: Atraumatic, PERRLA, EOMI, Normocephalic Neck: Supple, No JVD, Negative Carotid Bruits Lungs: Clear to auscultation, Normal air movement Cardiovascular: - - Atrial fibrillation, rate controlled Abdomen: Bowel Sounds Present, Soft, Non Tender, Non-Distended Extremities: No clubbing, No cyanosis, Edema - +1 bilateral lower extremity edema Skin: No rashes, No breakdown Musculoskeletal: No Tenderness to Palpation of Joints or Extremities Neurological: Cranial nerves II-XII grossly intact, Neuro grossly intact Psych/Mental Status: Normal Affect, Appropriate Patient seen and examined prior to discharge. Physical assessment as noted above. Patient is stable for discharge with follow up recommendations as noted above. This patient was seen by AUGUSTUS Whitaker under the supervision of Dr. Ram. - Physical Exam Vitals/I&O's: Vital Signs Temp Pulse Resp BP Pulse Ox 98.4 F 77 18 131/76 H 92 01/02/20 08:40 01/02/20 10:01 01/02/20 08:40 01/02/20 09:59 01/02/20 08:40 Oxygen Delivery Method Room Air Weight: 177 lb 4.026 oz Body Mass Index (BMI) 30.4 Finger Stick Blood Glucose 74 Intake and Output for Last 24 Hours 12/31/19 01/01/20 01/02/20 23:59 23:59 23:59 Intake Total 560 / 560 Balance 560 / 560 Laboratory Results 01/01/20 16:56: POC Glucose 74 01/01/20 17:00: WBC 6.7, RBC 4.15 L, Hgb 13.5, Hct 41.5, MCV 100.0 H, MCH 32.5 H , MCHC 32.5, RDW Std Deviation 47.2 H, RDW Coeff of [place] 12.8, Plt Count 240, MPV 10.3, Immature Gran % (Auto) 0.600, Neut % (Auto) 64.8, Lymph % (Auto) 21.7, [place] % (Auto) 9.3, Eos % (Auto) 2.7, Baso % (Auto) 0.9, Absolute Neuts (auto) 4.3, Absolute Lymphs (auto) 1.45, Nucleated RBC % 0 01/01/20 17:00: PT 13.9, INR 1.1, APTT 28.9 01/01/20 17:00: Sodium 139, Potassium 4.0, Chloride 104, Carbon Dioxide 31.0, Anion Gap 4 L, BUN 26 H, Creatinine 0.85, Estim Creat Clear Calc 45.58, Est GFR (MDRD) Af Amer 83, Est GFR (MDRD) Non-Af 68, BUN/Creatinine Ratio 30.5 H, Glucose 92, Calcium 10.1, Troponin I < 0.015, TSH 0.79 01/01/20 17:00: Digoxin 1.67 01/02/20 05:41: Triglycerides 119, Cholesterol 176, LDL Cholesterol 112, VLDL Cholesterol 24, HDL Cholesterol 40 Current Medications Acetaminophen (Tylenol) 650 mg PO Q6H PRN PRN PRN Reason: Pain Score 1-10/Temp > 100.7 F Apixaban (Eliquis) 5 mg PO BID [facility] Last Admin: 01/02/20 10:00 Dose: 5 mg Documented by: Aspirin (Aspirin, Baby) 81 mg PO DAILY@0800 [facility] Last Admin: 01/02/20 10:01 Dose: 81 mg Documented by: Atorvastatin Calcium (Lipitor) 80 mg PO QHS [facility] Last Admin: 01/01/20 21:21 Dose: Not Given Documented by: Baclofen (Lioresal) 10 mg PO BID PRN PRN PRN Reason: MUSCLE SPASM Digoxin (Lanoxin) 125 mcg PO DAILY [facility] Last Admin: 01/02/20 10:01 Dose: 125 mcg Documented by: [facility]) [facility] Last Admin: 01/01/20 22:39 Dose: 100 mg Documented by: Sodium Chloride () 250 mls @ 15 mls/hr IV .[id number] PRN PRN Reason: Saline Flush Sodium Chloride () 250 mls @ 15 mls/hr IV .[id number] PRN PRN Reason: Additional IVPB Infusion Levothyroxine Sodium (Synthroid) 112 mcg PO DAILY@0600 [facility] Last Admin: 01/02/20 04:44 Dose: 112 mcg Documented by: Metoprolol Succinate (Toprol Xl (Beta [place])) 50 mg PO [facility] Last Admin: 01/02/20 09:59 Dose: 50 mg Documented by: Metoprolol Succinate (Toprol Xl (Beta [place])) 100 mg PO QHS [facility] Last Admin: 01/01/20 22:39 Dose: 100 mg Documented by: Nystatin (Mycostatin Powder) 1 applic TOPICAL BID [facility]; Protocol Last Admin: 01/02/20 02:34 Dose: Not Given Documented by: Ondansetron HCl (Zofran) 4 mg IV Q8H PRN PRN PRN Reason: NAUSEA/VOMITING Pantoprazole Sodium (Protonix) 40 mg PO DAILY [facility] Last Admin: 01/02/20 09:59 Dose: 40 mg Documented by: Sodium Chloride () 10 - 40 ml IV UD PRN PRN Reason: SALINE FLUSH Spironolactone (Aldactone) 25 mg PO QAM [facility] Last Admin: 01/02/20 10:09 Dose: Not Given Documented by: Torsemide (Demadex) 20 mg PO BID [facility] Discharge Diet: No Restrictions Discharge Activity: Return to Normal Activity Call your doctor if you observe: Shortness of breath, Dizziness, Fainting spells, Chest pain Home Medications: Medications to take at Discharge Cyanocobalamin [Vitamin B12] 500 mcg PO MoWeFr@0800 #30 tab 10/12/13 Levothyroxine [Synthroid] 112 mcg PO DAILY@0600 #30 tab 10/12/13 Multivitamins,Ther W-Minerals [Multivitamin With Minerals (BKC)] 1 tab PO DAILY #30 tab 10/12/13 Acetaminophen [Tylenol] 500 mg PO Q6H PRN PRN 07/05/14 Calcium Carb/Vitamin D3/Vit K1 [Viactiv Soft Chew] 2 ea PO DAILY 07/05/14 Loratadine [Claritin] 10 mg PO PRN PRN 07/05/14 Ferrous Gluconate 324 mg PO TUTHSA 10/22/18 apixaban 5 mg tablet 5 mg PO BID #60 tab 11/24/18 torsemide 20 mg tablet 20 mg PO BID #180 tab 04/09/19 digoxin 125 mcg (0.125 mg) tablet 125 mcg PO QDAY #90 tab 04/14/19 spironolactone 25 mg tablet 25 mg PO QAM #90 tab 07/23/19 Baclofen 10 mg PO BID PRN PRN 01/01/20 Gabapentin [Neurontin] 100 mg PO QHS 01/01/20 Metoprolol Succinate 50 mg PO DAILY 01/01/20 Metoprolol Succinate 100 mg PO QHS 01/01/20 Omeprazole 20 mg PO MOWEFR 01/01/20 Primary Care Physician: Christopher Vizcarra MD [Primary Care Provider] - Please follow up with your Primary Care Physician in: 1 Week Please Follow Up With: Raymundo Marquez MD When: 1 Week Disposition: Home with Home Health Minutes spent on discharge:: 35 Patient Condition:: Stable Medical Necessity - Tobacco Use Smoking Status: Never smoker Meaningful Use Info Meaningful Use Diagnoses (Choose all that apply): None applicable <Wade Ram - Last Filed: 01/02/20 13:29> Discharge Date and Diagnosis - Secondary Discharge Diagnosis Chronic Problems (Last Reviewed 07/23/19 @ 15:[address] Rubio Hernández MD) Essential hypertension (Chronic) Atherosclerotic heart disease of [place] coronary artery without angina pectoris (Chronic) Persistent atrial fibrillation (Chronic) Chronic diastolic heart failure (Chronic) Hyperlipidemia (Chronic) AF (paroxysmal atrial fibrillation) (Chronic) s/p cardioversion Arterial ischemic stroke (Chronic) r thalamus Hospital Course and Treatment Summary of Care Provided: The patient is a 79 year old F [] - Physical Exam Vitals/I&O's: Vital Signs Temp Pulse Resp BP Pulse Ox 98.4 F 77 18 131/76 H 92 01/02/20 08:40 01/02/20 10:01 01/02/20 08:40 01/02/20 09:59 01/02/20 08:40 Oxygen Delivery Method Room Air Weight: 177 lb 4.026 oz Body Mass Index (BMI) 30.4 Finger Stick Blood Glucose 74 Intake and Output for Last 24 Hours 12/31/19 01/01/20 01/02/20 23:59 23:59 23:59 Intake Total 560 / 560 Balance 560 / 560 Laboratory Results 01/01/20 16:56: POC Glucose 74 01/01/20 17:00: WBC 6.7, RBC 4.15 L, Hgb 13.5, Hct 41.5, MCV 100.0 H, MCH 32.5 H , MCHC 32.5, RDW Std Deviation 47.2 H, RDW Coeff of [place]oj[place] 12.8, Plt Count 240, MPV 10.3, Immature Gran % (Auto) 0.600, Neut % (Auto) 64.8, Lymph % (Auto) 21.7, [place] % (Auto) 9.3, Eos % (Auto) 2.7, Baso % (Auto) 0.9, Absolute Neuts (auto) 4.3, Absolute Lymphs (auto) 1.45, Nucleated RBC % 0 01/01/20 17:00: PT 13.9, INR 1.1, APTT 28.9 01/01/20 17:00: Sodium 139, Potassium 4.0, Chloride 104, Carbon Dioxide 31.0, Anion Gap 4 L, BUN 26 H, Creatinine 0.85, Estim Creat Clear Calc 45.58, Est GFR (MDRD) Af Amer 83, Est GFR (MDRD) Non-Af 68, BUN/Creatinine Ratio 30.5 H, Glucose 92, Calcium 10.1, Troponin I < 0.015, TSH 0.79 01/01/20 17:00: Digoxin 1.67 01/02/20 05:41: Triglycerides 119, Cholesterol 176, LDL Cholesterol 112, VLDL Cholesterol 24, HDL Cholesterol 40 Current Medications Acetaminophen (Tylenol) 650 mg PO Q6H PRN PRN PRN Reason: Pain Score 1-10/Temp > 100.7 F Apixaban (Eliquis) 5 mg PO BID [facility] Last Admin: 01/02/20 10:00 Dose: 5 mg Documented by: Aspirin (Aspirin, Baby) 81 mg PO DAILY@0800 [facility] Last Admin: 01/02/20 10:01 Dose: 81 mg Documented by: Atorvastatin Calcium (Lipitor) 80 mg PO QHS [facility] Last Admin: 01/01/20 21:21 Dose: Not Given Documented by: Baclofen (Lioresal) 10 mg PO BID PRN PRN PRN Reason: MUSCLE SPASM Digoxin (Lanoxin) 125 mcg PO DAILY [facility] Last Admin: 01/02/20 10:01 Dose: 125 mcg Documented by: Gabapentin (Neurontin) 100 mg PO QHS [facility] Last Admin: 01/01/20 22:39 Dose: 100 mg Documented by: Sodium Chloride () 250 mls @ 15 mls/hr IV .[id number] PRN PRN Reason: Saline Flush Sodium Chloride () 250 mls @ 15 mls/hr IV .[id number] PRN PRN Reason: Additional IVPB Infusion Levothyroxine Sodium (Synthroid) 112 mcg PO DAILY@0600 [facility] Last Admin: 01/02/20 04:44 Dose: 112 mcg Documented by: Metoprolol Succinate (Toprol Xl (Beta Leslie)) 50 mg PO QAM [facility] Last Admin: 01/02/20 09:59 Dose: 50 mg Documented by: Metoprolol Succinate (Toprol Xl (Beta Leslie)) 100 mg PO QHS [facility] Last Admin: 01/01/20 22:39 Dose: 100 mg Documented by: Nystatin (Mycostatin Powder) 1 applic TOPICAL BID [facility]; Protocol Last Admin: 01/02/20 12:41 Dose: Not Given Documented by: Ondansetron HCl (Zofran) 4 mg IV Q8H PRN PRN PRN Reason: NAUSEA/VOMITING Pantoprazole Sodium (Protonix) 40 mg PO DAILY [facility] Last Admin: 01/02/20 09:59 Dose: 40 mg Documented by: Sodium Chloride () 10 - 40 ml IV UD PRN PRN Reason: SALINE FLUSH Spironolactone (Aldactone) 25 mg PO QAM [facility] Last Admin: 01/02/20 10:09 Dose: Not Given Documented by: Torsemide (Demadex) 20 mg PO BID [facility] Addendum: Dr. Ram I personally examined the patient and reviewed the chart. I agree with the above. 79-year-old female with previous history of a stroke presents to the emergency room her right facial, arm and leg numbness. She also had a change in vision in her right eye. This is all since resolved and she had an MRI of her brain as well as an MRI of her head and neck all of which were negative, indicating a possible TIA. She was supposed to be on Eliquis for paroxysmal A. fib however in October she had a nosebleed and it was discontinued. She has since had her nosebleed area cauterized therefore given the TIA, will restart her Eliquis and have her follow-up with her gutter mouth cutter as well as make an outpatient appointment with neurology here to discuss the role of transitioning to only aspirin and holding Eliquis. OBSV E&M: [id number] Observation care discharge
--- NOTE | 2020-01-02 16:22 | CM.UR ---
Had met with patient face to face earlier today to discuss home health care. She chose [facility]. States have had them before. Patient also mentioned that she recently found numerous checks she wrote out but she never mailed. Asked if she would like SW to come to home as well. She is agreeable. explained she can make recommendations for a payee if needed but recommended she talk to family first. States son Tom is coming into town to help get stuff straightened out. Explained will still send SW to see if there are any resources they can benefit from. Verb agreement. Spoke with son, Tom at this time who states he'll be in town tomorrow. discussed the items his mom expressed to me as concerns. States he is aware of them and coming to help straighten it all out. States he will try to set up as much for automatic payments, etc. Faxed consult to [facility] at this time. Ana Cloe RN, CCM.
== END 2020-01-02 11:49 | disposition home or self-care (01) ==
LOC: ED 18:56 → PCU 19:58
PROVIDERS: Admitting Provider Nurse Practitioner Family; Emergency Provider Emergency Medicine; PCP Family Medicine; Visit Provider Family Medicine
DX: G45.9 Transient cerebral ischemic attack, unspecified (principal); I48.19 Other persistent atrial fibrillation; R29.700 NIHSS score 0; I11.0 Hypertensive heart disease with heart failure; E03.9 Hypothyroidism, unspecified; E78.5 Hyperlipidemia, unspecified; I50.32 Chronic diastolic (congestive) heart failure; K21.9 Gastro-esophageal reflux disease without esophagitis; D50.9 Iron deficiency anemia, unspecified; R47.81 Slurred speech; H53.461 Homonymous bilateral field defects, right side; M19.90 Unspecified osteoarthritis, unspecified site; R94.31 Abnormal electrocardiogram [ECG] [EKG]; I08.3 Combined rheumatic disorders of mitral, aortic and tricuspid valves; R20.2 Paresthesia of skin; I25.10 Atherosclerotic heart disease of native coronary artery without angina pectoris; Z79.899 Other long term (current) drug therapy; Z79.01 Long term (current) use of anticoagulants
CPT/HCPCS: 36415; 70450; 70544; 70547; 70551; 80048; 80061; 80162; 82962; 84443; 84484; 85025; 85610; 85730; 92611; 93005; 93306; 94762; 97162; 97166; 97802; 99218; 99284; A4216; G0378

== ENCOUNTER → 2020-05-31 16:18 | Outpatient (CLI) | payer MEDICARE, OTHER, SELFPAY ==
[2020-03-10 17:42] VITALS: BMI 30.8
[2020-05-31 18:24] LABS: ALB/GLOB Ratio 0.7 RATIO (0.9-2.4); AST(SGOT) 26 U/L (15-37); Alanine Aminotransfer ALT/SGPT 25 U/L (13-56); Albumin, Serum 3.2 g/dL (3.2-5.0); Alkaline Phosphatase 82 U/L (45-117); Anion Gap 8 (5-15); BUN 25 mg/dL (7-18); BUN/Creat Ratio 29.5 RATIO (10-20); Calcium,Total 9.5 mg/dL (8.5-10.1); Chloride 103 mmol/L (98-107); Creatinine, Serum 0.85 mg/dL (0.55-1.02); EST Glomerular Filtration Rate 69 mL/min (>60); Est Glom Filt Rate - Afr Amer 83 mL/min (>60); Globulin 4.3 g/dL (2.2-4.2); Glucose 90 mg/dL (74-106); Potassium 4.1 mmol/L (3.5-5.1); Protein, Total 7.5 g/dL (6.4-8.2); Sodium Level 138 mmol/L (136-145); Thyroid Stim Hormone (TSH) 4.29 uIU/mL (0.358-3.74)
== END ==
PROVIDERS: PCP Family Medicine; Visit Provider Family Medicine
DX: E03.9 Hypothyroidism, unspecified (principal); I48.91 Unspecified atrial fibrillation
CPT/HCPCS: 36415; 80053; 84443

== ENCOUNTER → 2021-03-14 15:48 | Outpatient (CLI) | payer MEDICARE, OTHER, SELFPAY ==
[2020-11-10 15:15] VITALS: BMI 30.8
--- NOTE | 2021-03-14 15:55 | RAD_ITS ---
STUDY: X-RAY CHEST REASON FOR EXAM: Female, 80 years old. Exertional SOB TECHNIQUE: Frontal and lateral views COMPARISON: 04/29/2018 FINDINGS: The lungs are expanded. Interstitial densities bilaterally, right more than left. Normal size heart. Normal mediastinum and lindsey. Normal visualized pulmonary arteries. Calcified aortic arch and descending thoracic aorta. Exaggerated kyphosis of the thoracic spine. Right humeral prosthesis is noted. There is no demonstrated abnormality of the visualized soft tissue structures of the upper abdomen. RAD/Chest PA and Lateral IMPRESSION: Interstitial prominence. Electronically Signed: Mark Hobbs DO at 16:10 EDT Tel [phone], Service support ,
[2021-03-14 17:39] LABS: Absolute Lymphocyte Count 1.26 X10^3/uL (0.83-4.51); Absolute Neutrophil Count 5.4 X10^3/uL (2.0-7.7); Basophil# 0.06 X10^3/uL; Basophil% 0.8 % (0-1); Eosinophil# 0.24 X10^3/uL; Eosinophils% 3.1 % (0-5); Hematocrit 41.6 % (37-47); Hemoglobin 13.6 g/dL (12.0-15.0); Lymphocyte # 1.26 X10^3/ul (0.83-4.51); Lymphocyte % 16.5 % (19-41); Mean Corp Hgb Conc 32.7 g/dL (32-36); Mean Corpuscular Hgb 31.9 pg (27.0-32.0); Mean Corpuscular Volume 97.7 fL (81-99); Mean Platelet Vol. 10.5 fl (6.2-12.0); Monocyte# 0.65 X10^3/uL; Monocyte% 8.5 % (0-10); NRBC Flagged by Analyzer 0 % (0-5); Neutrophil # 5.42 X10^3/uL (2.7-7.7); Neutrophil % 70.8 % (47-70); Platelet Count 272 K/mm3 (150-450); RBC Distribution Width CV 13.4 % (11.6-14.6); Red Blood Count 4.26 M/mm3 (4.2-5.4); White Blood Count 7.7 K/mm3 (4.4-11.0)
[2021-03-14 18:17] LABS: ALB/GLOB Ratio 0.8 RATIO (0.9-2.4); AST(SGOT) 24 U/L (15-37); Alanine Aminotransfer ALT/SGPT 24 U/L (13-56); Albumin, Serum 3.5 g/dL (3.2-5.0); Alkaline Phosphatase 86 U/L (45-117); Anion Gap 8 (5-15); BUN 28 mg/dL (7-18); BUN/Creat Ratio 33.8 RATIO (10-20); Chloride 104 mmol/L (98-107); Creatinine, Serum 0.83 mg/dL (0.55-1.02); EST Glomerular Filtration Rate 70 mL/min (>60); Est Glom Filt Rate - Afr Amer 85 mL/min (>60); Globulin 4.4 g/dL (2.2-4.2); Glucose 95 mg/dL (74-106); Potassium 4.2 mmol/L (3.5-5.1); Protein, Total 7.9 g/dL (6.4-8.2); Sodium Level 139 mmol/L (136-145); Thyroid Stim Hormone (TSH) 3.02 uIU/mL (0.358-3.74)
[2021-03-14 18:27] LABS: BNP,B-Type NATRIURETIC PEPTIDE 224.8 pg/mL (0-100)
== END ==
PROVIDERS: PCP Family Medicine; Referring Provider Family Medicine; Visit Provider Family Medicine
DX: I48.91 Unspecified atrial fibrillation (principal); R06.00 Dyspnea, unspecified; E03.9 Hypothyroidism, unspecified
CPT/HCPCS: 36415; 71046; 80053; 83880; 84443; 85025

== ENCOUNTER 2021-04-02 16:25 | Emergency (ER) | payer MEDICARE, OTHER, SELFPAY ==
[2020-11-10 15:15] VITALS: BMI 30.8
[2021-04-02 16:26] VITALS: BP 132/95; PULSE 130; RESP 16; TEMP 37.1; O2SAT 96; BMI 29.6
--- NOTE | 2021-04-02 17:00 | EX.ED.DYSGE1 ---
HPI History of Present Illness Chief Complaint: Nosebleed Narrative Narrative: Patient presenting secondary to a nosebleed. Patient has a history of multiple nosebleeds in the past. She has a history of A. rizwana, on Eliquis for anticoagulation. Patient states that at about 1 PM she had a onset of spontaneous bleeding out of her left nostril. Patient reports that she has had a nose clamp on for a couple of hours and has not had relief of the bleeding and is actually spitting up large clots that are running down the back of her throat. Patient denies there is any trauma associated with this, no pain associated with this. No changes in her medications recently. Patient has had nosebleeds in the past that required packing. She sees Dr. Wes Patel. [facility] Medical History (Updated 04/02/21 @ 17:[address] 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 Chronic diastolic heart failure Chronic low back pain without sciatica CVA (cerebral vascular accident) Essential hypertension Hemarthrosis of knee History of CVA (cerebrovascular accident) (10/06/13) Hyperlipidemia Hypothyroidism Joint pain of leg Minimal cognitive impairment Obstructive sleep apnea Osteoarthritis Persistent atrial fibrillation Precordial chest pain Secondary pulmonary arterial hypertension Shortness of breath Spinal stenosis Syncope and collapse TIA (transient ischemic attack) (01/01/20) Home Medications cyanocobalamin (vitamin B-12) 500 mcg PO MoWeFr@0800 #30 tab 10/12/13 [Rx Last Taken Unknown] levothyroxine 112 mcg PO DAILY@0600 #30 tab 10/12/13 [Rx Last Taken 07/07/14] multivitamin,la-miwy-owuaxrxl 1 tab PO DAILY #30 tab 10/12/13 [Rx Last Taken Unknown] calcium-vitamin D3-vitamin K 2 ea PO DAILY 07/05/14 [History Last Taken Unknown] loratadine 10 mg PO PRN PRN 07/05/14 [History Last Taken Unknown] ferrous gluconate 324 mg PO TUTHSA 10/22/18 [History Last Taken Unknown] gabapentin 100 mg PO QHS 01/01/20 [History Last Taken Unknown] spironolactone 25 mg tablet 12.5 mg PO QAM #90 tab 04/04/20 [Rx Last Taken Unknown] torsemide 20 mg tablet 20 mg PO BID #180 tab 05/04/20 [Rx Last Taken Unknown] acetaminophen 500 mg tablet 500 mg PO Q6H PRN PRN 09/29/20 [History Last Taken Unknown] nitroglycerin 0.4 mg sublingual tablet 0.4 mg SUBLINGUAL Q5-15M PRN #25 tab 09/29/20 [Rx Last Taken Unknown] baclofen 10 mg tablet 10 mg PO TID PRN #90 tab 11/10/20 [Rx Last Taken Unknown] clotrimazole-betamethasone 1 %-0.05 % lotion 1 applic TOPICAL ONCE PRN ml 11/10/20 [History Last Taken Unknown] metoprolol succinate 100 mg tablet,extended release 24 hr See Rx Instructions .ROUTE .COMPLEX #90 tab 12/13/20 [Rx Last Taken Unknown] metoprolol succinate 50 mg tablet,extended release 24 hr See Rx Instructions .ROUTE .COMPLEX #90 tab 12/13/20 [Rx Last Taken Unknown] apixaban 5 mg tablet See Rx Instructions .ROUTE .COMPLEX #180 tab 03/03/21 [Rx Last Taken Unknown] digoxin 125 mcg (0.125 mg) tablet See Rx Instructions .ROUTE .COMPLEX #90 tab 03/03/21 [Rx Last Taken Unknown] cephalexin 500 mg PO Q12 #10 capsule 04/02/21 [Rx Last Taken Unknown] Allergy/AdvReac Type Severity Reaction Status Date / Time amlodipine Allergy Swelling Verified 04/02/21 17:11 atorvastatin calcium Allergy Unknown Verified 04/02/21 17:11 [From Lipitor] diltiazem Allergy Swelling Verified 04/02/21 17:11 erythromycin base Allergy Unknown Verified 04/02/21 17:11 [Erythromycin Base] Iodinated Contrast Media Allergy Unknown Verified 04/02/21 17:11 latex Allergy Unknown Verified 04/02/21 17:11 Penicillins Allergy Rash Verified 04/02/21 17:11 pregabalin [From Lyrica] Allergy Swelling Verified 04/02/21 17:11 Sulfa (Sulfonamide Allergy Other Verified 04/02/21 17:11 Antibiotics) triamcinolone acetonide Allergy Other Verified 04/02/21 17:11 [From Kenalog] bumetanide [From Bumex] AdvReac Severe Red, Verified 04/02/21 17:11 Splotchy rash furosemide [From Lasix] AdvReac Severe Red, Verified 04/02/21 17:11 splotchy rash clarithromycin [From Biaxin] AdvReac Other Verified 04/02/21 17:11 lisinopril AdvReac Other Verified 04/02/21 17:11 rosuvastatin calcium AdvReac Other Verified 04/02/21 17:11 [From Crestor] spironolactone AdvReac Low blood Verified 04/02/21 17:11 pressure tramadol HCl [From Ultram] AdvReac Vomiting Verified 04/02/21 17:11 Family History Father CAD (coronary artery disease) Myocardial infarction Mother CVA (cerebral vascular accident) Brother COPD (chronic obstructive pulmonary disease) Colon cancer CAD (coronary artery disease) Surgical History H/O shoulder replacement History of cardioversion (2013) History of cervical biopsy History of hip replacement History of left heart catheterization (11/04/09) Social History Smoking Status: Never smoker alcohol intake: never substance use type: does not use caffeine: No what type of physical activity do you participate in: none seatbelt use: always do you feel safe at home: Yes ROS ROS ED Constitutional Constitutional ED: Denies fever(s) ENT ENT ED: Reports other Details: Nosebleed Cardiovascular Cardiovascular: Denies chest pain Respiratory/Chest Respiratory/Chest: Denies dyspnea Gastrointestinal Gastrointestinal: Denies vomiting Psychiatric Psychiatric: Denies anxiety EXAM Physical Exam Const Vital Signs: 04/02/21 16:26 Temperature 98.7 F Temperature Source Temporal Pulse Rate 130 H Respiratory Rate 16 Blood Pressure 132/95 H Blood Pressure Mean 107 Pulse Ox 96 Oxygen Delivery Method Room Air Positive well nourished and well developed General Appearance ED: well developed and other Elderly female who is actively spitting up blood upon arrival HEENT HEENT Narrative: Patient has active bleeding coming from the left nostril. She is spitting up large clots. She appears to be protecting her airway. Eyes Eyes Narrative: Bloody drainage coming from the patient's left lacrimal duct Resp normal respiratory effort and clear to auscultation bilaterally Cardio Rate: other Other Details: Tachycardic and irregular, 2+ radial pulses Neuro oriented x3 Sensorium / Orientation: alert Skin no rashes or lesions noted MDM MDM MDM Narrative Medical decision making narrative: Patient presented secondary to a nosebleed. Nose was packed as noted in the procedure note. Patient was observed in the emergency department and did not have any repeat bleeding episodes. Patient's hemoglobin is stable at 12.9. Patient at this point I believe is appropriate for outpatient management. Patient will be discharged with a course of Keflex. Patient is established with Dr. Patel, she was recommended to follow-up. She was educated on signs and symptoms which to return. Lab Data Labs: Laboratory Results - last 24 hr 04/02/21 17:05 WBC 8.9 RBC 3.99 L Hgb 12.9 Hct 39.5 MCV 99.0 MCH 32.3 H MCHC 32.7 RDW Std Deviation 48.4 H RDW Coeff of Yojana 13.2 Plt Count 234 MPV 10.8 Procedures Other Procedures Procedure(s): Patient presented secondary to epistaxis. Patient was having bleeding going down her posterior pharynx despite clamping the nose it became apparent that she was going to require packing. Patient expressed clots from her nostril I was not able to visualize an area that would be amenable to cautery. A 5.5 cm anterior Rhino Rocket was placed and was inflated. Discharge Plan Triage Chief Complaint: Nosebleed ED Provider: Chidi Mason Dx/Rx/DC Orders Clinical Impression: Epistaxis Instructions: ED Epistaxis (Adult) Prescriptions: New cephalexin 500 mg capsule 500 mg PO Q12 Qty: 10 RF: 0 No Action nitroglycerin 0.4 mg tablet, sublingual 0.4 mg SUBLINGUAL Q5-15M PRN (Reason: chest pain) Qty: 25 RF: 3 clotrimazole-betamethasone 1-0.05 % lotion 1 applic TOPICAL ONCE PRNRF: 0 baclofen 10 mg tablet 10 mg PO TID PRN (Reason: Muscle Spasm) Qty: 90 RF: 4 cyanocobalamin (vitamin B-12) 500 MCG tablet 500 mcg PO MoWeFr@0800 Qty: 30 RF: 0 levothyroxine 112 MCG tablet 112 mcg PO DAILY@0600 Qty: 30 RF: 0 multivitamin,td-iyps-jlfrkitl 1 TABLET tablet 1 tab PO DAILY Qty: 30 RF: 0 ferrous gluconate 324 MG tablet 324 mg PO TUTHSA RF: 0 gabapentin 100 MG capsule 100 mg PO QHS RF: 0 calcium-vitamin D3-vitamin K 1 EACH tablet,chewable 2 ea PO DAILY RF: 0 loratadine 10 MG tablet 10 mg PO PRN PRN (Reason: ALLERGIES) RF: 0 spironolactone 25 mg tablet 12.5 mg PO QAM Qty: 90 RF: 3 Hold Instructions: low BP's torsemide 20 mg tablet 20 mg PO BID Qty: 180 RF: 3 acetaminophen 500 mg tablet 500 mg PO Q6H PRN PRN (Reason: Pain) RF: 0 metoprolol succinate 50 mg tablet extended release 24 hr See Rx Instructions .ROUTE .COMPLEX Qty: 90 RF: 3 metoprolol succinate 100 mg tablet extended release 24 hr See Rx Instructions .ROUTE .COMPLEX Qty: 90 RF: 3 Eliquis 5 mg tablet See Rx Instructions .ROUTE .COMPLEX Qty: 180 RF: 3 Hold Instructions: Severe Nosebleeds digoxin 125 mcg (0.125 mg) tablet See Rx Instructions .ROUTE .COMPLEX Qty: 90 RF: 3 Primary Care Provider: Christopher Vizcarra Referrals: Christopher Vizcarra MD [Primary Care Provider] - Wes Chavez MD [STAFF PHYSICIAN] - 3-5 Days Disposition Disposition: Home, self care
[2021-04-02 17:13] LABS: Hematocrit 39.5 % (37-47); Hemoglobin 12.9 g/dL (12.0-15.0); Mean Corp Hgb Conc 32.7 g/dL (32-36); Mean Corpuscular Hgb 32.3 pg (27.0-32.0); Mean Platelet Vol. 10.8 fl (6.2-12.0); Platelet Count 234 K/mm3 (150-450); RBC Distribution Width CV 13.2 % (11.6-14.6); RBC Distribution Width SD 48.4 fl (35.1-43.9); Red Blood Count 3.99 M/mm3 (4.2-5.4); White Blood Count 8.9 K/mm3 (4.4-11.0)
[2021-04-02 18:23] VITALS: BP 128/66; PULSE 78; RESP 17; O2SAT 95
== END 2021-04-02 18:26 | disposition home or self-care (01) ==
PROVIDERS: Emergency Provider Emergency Medicine; PCP Family Medicine
DX: R04.0 Epistaxis (principal); I48.91 Unspecified atrial fibrillation; Z79.01 Long term (current) use of anticoagulants; I48.0 Paroxysmal atrial fibrillation; I25.10 Atherosclerotic heart disease of native coronary artery without angina pectoris; I11.0 Hypertensive heart disease with heart failure; I50.32 Chronic diastolic (congestive) heart failure; G47.33 Obstructive sleep apnea (adult) (pediatric); M54.5 Low back pain; G89.29 Other chronic pain; Z86.73 Personal history of transient ischemic attack (TIA), and cerebral infarction without residual deficits; M19.90 Unspecified osteoarthritis, unspecified site; Z79.899 Other long term (current) drug therapy; E03.9 Hypothyroidism, unspecified; E78.5 Hyperlipidemia, unspecified
CPT/HCPCS: 30901; 85027; 99282

== ENCOUNTER → 2021-05-11 12:34 | Outpatient (CLI) | payer MEDICARE, OTHER, SELFPAY ==
[2021-05-11 11:22] VITALS: BMI 31.8
[2021-05-11 15:58] LABS: Anion Gap 12 (5-15); BUN 17 mg/dL (7-18); BUN/Creat Ratio 21.3 RATIO (10-20); Calcium,Total 9.4 mg/dL (8.5-10.1); Chloride 107 mmol/L (98-107); EST Glomerular Filtration Rate 73 mL/min (>60); Est Glom Filt Rate - Afr Amer 89 mL/min (>60); Glucose 71 mg/dL (74-106); Potassium 4.6 mmol/L (3.5-5.1); Sodium Level 139 mmol/L (136-145)
[2021-05-11 16:05] LABS: Iron 79 ug/dL (50-170)
[2021-05-11 16:16] LABS: Digoxin Level 0.61 ng/mL (0.80-2.00)
[2021-05-12 08:28] LABS: Vitamin B12 318 pg/mL (211-911)
== END ==
PROVIDERS: Nurse Practitioner Family; Physician Assistant Medical; PCP Family Medicine; Referring Provider Family Medicine; Visit Provider Family Medicine
DX: I48.91 Unspecified atrial fibrillation (principal); I11.0 Hypertensive heart disease with heart failure; I50.32 Chronic diastolic (congestive) heart failure; Z86.2 Personal history of diseases of the blood and blood-forming organs and certain disorders involving the immune mechanism; G31.84 Mild cognitive impairment of uncertain or unknown etiology
CPT/HCPCS: 36415; 80048; 80162; 82607; 83540

== ENCOUNTER 2021-11-15 16:30 | Outpatient (CLI) | payer MEDICAID, SELFPAY ==
[2021-11-15 17:52] LABS: Hematocrit 38.2 % (37-47); Hemoglobin 11.9 g/dL (12.0-15.0); Mean Corp Hgb Conc 31.2 g/dL (32-36); Mean Corpuscular Hgb 31.6 pg (27.0-32.0); Mean Corpuscular Volume 101.3 fL (81-99); Mean Platelet Vol. 10.4 fl (6.2-12.0); Platelet Count 273 K/mm3 (150-450); RBC Distribution Width CV 13.5 % (11.6-14.6); RBC Distribution Width SD 50.2 fl (35.1-43.9); Red Blood Count 3.77 M/mm3 (4.2-5.4); White Blood Count 6.8 K/mm3 (4.4-11.0)
[2021-11-15 18:24] LABS: BNP,B-Type NATRIURETIC PEPTIDE 211.4 pg/mL (0-100)
[2021-11-15 18:28] LABS: Vitamin D,25 Hydroxy 36.8 ng/mL
[2021-11-16 08:12] LABS: ALB/GLOB Ratio 0.8 RATIO (0.9-2.4); AST(SGOT) 27 U/L (15-37); Alanine Aminotransfer ALT/SGPT 27 U/L (13-56); Albumin, Serum 3.3 g/dL (3.2-5.0); Alkaline Phosphatase 89 U/L (45-117); Anion Gap 11 (5-15); BUN 26 mg/dL (7-18); BUN/Creat Ratio 29.4 RATIO (10-20); Calcium,Total 9.9 mg/dL (8.5-10.1); Chloride 104 mmol/L (98-107); Cholesterol 202 mg/dL (200); Creatinine, Serum 0.88 mg/dL (0.55-1.02); EST Glomerular Filtration Rate 65 mL/min (>60); Est Glom Filt Rate - Afr Amer 79 mL/min (>60); Globulin 4.3 g/dL (2.2-4.2); Glucose 79 mg/dL (74-106); High Density Lipoprotein 46 mg/dL; Potassium 3.8 mmol/L (3.5-5.1); Protein, Total 7.6 g/dL (6.4-8.2); Sodium Level 139 mmol/L (136-145); Thyroid Stim Hormone (TSH) 2.22 uIU/mL (0.358-3.74); Triglycerides 109 mg/dL; Very Low Density Lipoprotein 22 mg/dL (5-40)
== END 2021-11-15 23:59 | disposition short-term general hospital (02) ==
PROVIDERS: PCP Family Medicine; Referring Provider Family Medicine; Visit Provider Family Medicine
DX: Z00.00 Encounter for general adult medical examination without abnormal findings (principal); I50.32 Chronic diastolic (congestive) heart failure; E55.9 Vitamin D deficiency, unspecified
CPT/HCPCS: 36415; 80053; 80061; 82306; 83880; 84443; 85027

== ENCOUNTER 2021-11-28 15:48 | Outpatient (CLI) | payer MEDICARE, SELFPAY ==
[2021-11-28 17:43] LABS: Absolute Lymphocyte Count 1.59 X10^3/uL (0.83-4.51); Absolute Neutrophil Count 4.4 X10^3/uL (2.0-7.7); Basophil# 0.06 X10^3/uL; Basophil% 0.9 % (0-1); Eosinophil# 0.16 X10^3/uL; Eosinophils% 2.4 % (0-5); Hemoglobin 11.8 g/dL (12.0-15.0); Lymphocyte # 1.59 X10^3/ul (0.83-4.51); Lymphocyte % 23.5 % (19-41); Mean Corp Hgb Conc 31.9 g/dL (32-36); Mean Corpuscular Hgb 31.9 pg (27.0-32.0); Monocyte% 8.8 % (0-10); NRBC Flagged by Analyzer 0 % (0-5); Neutrophil # 4.35 X10^3/uL (2.7-7.7); Neutrophil % 64.1 % (47-70); Platelet Count 255 K/mm3 (150-450); RBC Distribution Width SD 48.4 fl (35.1-43.9); White Blood Count 6.8 K/mm3 (4.4-11.0)
[2021-11-28 17:48] LABS: CRP 3.38 mg/L (0.0-3.0)
[2021-11-28 18:02] LABS: Erythrocyte Sedimentation Rate 46 mm/hr (0-30)
[2021-11-30 10:09] LABS: Immunoglobulin G 1235 mg/dL (586-1602)
== END 2021-11-28 23:59 | disposition home or self-care (01) ==
LOC: MFPLAB 15:51
PROVIDERS: PCP Family Medicine; Referring Provider Family Medicine; Visit Provider Family Medicine
DX: L12.0 Bullous pemphigoid (principal)
CPT/HCPCS: 36415; 82784; 85025; 85652; 86140

== ENCOUNTER → 2022-02-21 | Outpatient (CLI) | payer MEDICARE, SELFPAY ==
[2022-02-21 17:56] LABS: Absolute Lymphocyte Count 1.35 X10^3/uL (0.83-4.51); Absolute Neutrophil Count 5.8 X10^3/uL (2.0-7.7); Basophil# 0.06 X10^3/uL; Basophil% 0.7 % (0-1); Eosinophil# 0.22 X10^3/uL; Eosinophils% 2.7 % (0-5); Hematocrit 40.7 % (37-47); Hemoglobin 12.9 g/dL (12.0-15.0); Lymphocyte # 1.35 X10^3/ul (0.83-4.51); Lymphocyte % 16.5 % (19-41); Mean Corp Hgb Conc 31.7 g/dL (32-36); Mean Corpuscular Hgb 30.9 pg (27.0-32.0); Mean Corpuscular Volume 97.6 fL (81-99); Mean Platelet Vol. 10.8 fl (6.2-12.0); Monocyte# 0.67 X10^3/uL; Monocyte% 8.2 % (0-10); NRBC Flagged by Analyzer 0 % (0-5); Neutrophil # 5.83 X10^3/uL (2.7-7.7); Neutrophil % 71.4 % (47-70); Platelet Count 265 K/mm3 (150-450); RBC Distribution Width CV 14.8 % (11.6-14.6); RBC Distribution Width SD 53.4 fl (35.1-43.9); Red Blood Count 4.17 M/mm3 (4.2-5.4); White Blood Count 8.2 K/mm3 (4.4-11.0)
[2022-02-21 17:57] LABS: Hematocrit 40.9 % (37-47); Hemoglobin 12.9 g/dL (12.0-15.0); Mean Corp Hgb Conc 31.5 g/dL (32-36); Mean Corpuscular Hgb 30.6 pg (27.0-32.0); Mean Corpuscular Volume 97.1 fL (81-99); Mean Platelet Vol. 10.7 fl (6.2-12.0); Platelet Count 272 K/mm3 (150-450); RBC Distribution Width CV 14.9 % (11.6-14.6); RBC Distribution Width SD 53.6 fl (35.1-43.9); Red Blood Count 4.21 M/mm3 (4.2-5.4); White Blood Count 8.2 K/mm3 (4.4-11.0)
[2022-02-21 18:18] LABS: ALB/GLOB Ratio 0.8 RATIO (0.9-2.4); AST(SGOT) 22 U/L (15-37); Alanine Aminotransfer ALT/SGPT 24 U/L (13-56); Albumin, Serum 3.3 g/dL (3.2-5.0); Alkaline Phosphatase 95 U/L (45-117); Anion Gap 6 (5-15); BUN 18 mg/dL (7-18); BUN/Creat Ratio 23.1 RATIO (10-20); Calcium,Total 9.8 mg/dL (8.5-10.1); Chloride 105 mmol/L (98-107); Creatinine, Serum 0.78 mg/dL (0.55-1.02); EST Glomerular Filtration Rate 75 mL/min (>60); Est Glom Filt Rate - Afr Amer 91 mL/min (>60); Globulin 4.1 g/dL (2.2-4.2); Glucose 100 mg/dL (74-106); Potassium 4.1 mmol/L (3.5-5.1); Protein, Total 7.4 g/dL (6.4-8.2); Sodium Level 139 mmol/L (136-145); T4 Free Direct 1.26 ng/dL (0.76-1.46); Thyroid Stim Hormone (TSH) 2.42 uIU/mL (0.358-3.74)
[2022-02-21 18:37] LABS: BNP,B-Type NATRIURETIC PEPTIDE 127.8 pg/mL (0-100)
[2022-02-21 18:38] LABS: Hemoglobin A1c 5.4 % (3.8-5.6)
[2022-02-21 18:40] LABS: International Normalized Ratio 1.1; Prothrombin Time (Protime)PT. 14.1 SECONDS (11.7-14.9)
== END | disposition home or self-care (01) ==
LOC: MFPLAB 15:51
PROVIDERS: Nurse Practitioner Family; PCP Family Medicine; Referring Provider Family Medicine; Visit Provider Family Medicine
DX: R04.0 Epistaxis (principal)
CPT/HCPCS: 36415; 80053; 83036; 83880; 84439; 84443; 85025; 85027; 85610

== ENCOUNTER → 2022-07-23 | Outpatient (CLI) | payer MEDICARE, SELFPAY ==
[2022-07-23 18:13] LABS: Hematocrit 42.5 % (37-47); Hemoglobin 13.7 g/dL (12.0-15.0); Mean Corp Hgb Conc 32.2 g/dL (32-36); Mean Corpuscular Hgb 32.1 pg (27.0-32.0); Mean Corpuscular Volume 99.5 fL (81-99); Platelet Count 284 K/mm3 (150-450); RBC Distribution Width CV 14.1 % (11.6-14.6); RBC Distribution Width SD 51.2 fl (35.1-43.9); Red Blood Count 4.27 M/mm3 (4.2-5.4); White Blood Count 8.3 K/mm3 (4.4-11.0)
[2022-07-23 18:30] LABS: ALB/GLOB Ratio 0.7 RATIO (0.9-2.4); AST(SGOT) 21 U/L (15-37); Alanine Aminotransfer ALT/SGPT 29 U/L (13-56); Albumin, Serum 3.2 g/dL (3.2-5.0); Alkaline Phosphatase 91 U/L (45-117); Anion Gap 7 (5-15); BUN 20 mg/dL (7-18); BUN/Creat Ratio 19.4 RATIO (10-20); Calcium,Total 9.7 mg/dL (8.5-10.1); Chloride 102 mmol/L (98-107); Creatinine, Serum 1.03 mg/dL (0.55-1.02); EST Glomerular Filtration Rate 54 mL/min (>60); Est Glom Filt Rate - Afr Amer 66 mL/min (>60); Globulin 4.3 g/dL (2.2-4.2); Glucose 122 mg/dL (74-106); Potassium 3.3 mmol/L (3.5-5.1); Protein, Total 7.5 g/dL (6.4-8.2); Sodium Level 139 mmol/L (136-145)
[2022-07-23 19:53] LABS: BNP,B-Type NATRIURETIC PEPTIDE 102.8 pg/mL (0-100)
== END | disposition home or self-care (01) ==
LOC: MFPLAB 16:04
PROVIDERS: PCP Family Medicine; Visit Provider Family Medicine
DX: I50.30 Unspecified diastolic (congestive) heart failure (principal)
CPT/HCPCS: 36415; 80053; 83880; 85027

== ENCOUNTER → 2022-10-16 | Outpatient (CLI) | payer MEDICARE, SELFPAY ==
[2022-10-16 17:56] LABS: Anion Gap 10 (5-15); BUN 32 mg/dL (7-18); BUN/Creat Ratio 36.7 RATIO (10-20); Calcium,Total 9.9 mg/dL (8.5-10.1); Chloride 99 mmol/L (98-107); Creatinine, Serum 0.87 mg/dL (0.55-1.02); EST Glomerular Filtration Rate 66 mL/min (>60); Est Glom Filt Rate - Afr Amer 80 mL/min (>60); Glucose 87 mg/dL (74-106); Potassium 3.8 mmol/L (3.5-5.1); Sodium Level 138 mmol/L (136-145)
== END | disposition home or self-care (01) ==
LOC: MFPLAB 14:50
PROVIDERS: PCP Family Medicine; Visit Provider Family Medicine
DX: R60.0 Localized edema (principal); I50.30 Unspecified diastolic (congestive) heart failure
CPT/HCPCS: 36415; 80048; 83880

== ENCOUNTER → 2022-11-08 | Outpatient (CLI) | payer MEDICARE, SELFPAY ==
[2022-11-08 16:32] LABS: Anion Gap 4 (5-15); BUN 20 mg/dL (7-18); BUN/Creat Ratio 21.8 RATIO (10-20); Chloride 103 mmol/L (98-107); Creatinine, Serum 0.92 mg/dL (0.55-1.02); EST Glomerular Filtration Rate 62 mL/min (>60); Est Glom Filt Rate - Afr Amer 75 mL/min (>60); Glucose 101 mg/dL (74-106); Potassium 3.7 mmol/L (3.5-5.1); Sodium Level 139 mmol/L (136-145)
== END | disposition home or self-care (01) ==
LOC: MTLAB 12:50
PROVIDERS: PCP Family Medicine; Referring Provider Family Medicine; Visit Provider Family Medicine
DX: R60.0 Localized edema (principal); I50.30 Unspecified diastolic (congestive) heart failure
CPT/HCPCS: 36415; 80048; 83880

== ENCOUNTER 2022-11-19 17:08 | Outpatient (RCR) | payer MEDICARE, SELFPAY ==
--- NOTE | 2022-11-21 08:53 | HP.OTEVAL ---
Patient's Visit Information DIXIE BURROUGHS is a 81 year old F, referred to Occupational Therapy by Dr. Ricky Kellogg MD, with a diagnosis of LE swelling. Date of Evaluation: 11/20/22 Occupational Therapist: Tika Weeks, OTR/L, CHT - Subjective This 81 year old female was seen for OT eval with dx of BLE lymphedema. pt state a year ago she had a blister on her leg and her dr. took care of it. pt states she has struggled with recurrent blisters that seep for over 4-6 months. pt states she is putting anti stick gauze over her blisters but they don't really get better. pt states she currently has 7 blister. pts caregiver is with her today and confirms. pt arrives with gaze on LE. pt states she sits a lot of the day. will even fall asleep at the kitchen table for 3-4 hours. pt states she just starts to do book work and she falls asleep. pt does sleep in reg. bed. pt states she is on water pill so she is up often to go to the bathroom. - Pain BLE 1 Pain Intensity Range: 3 - Lymphedema (Circumferential Measure) Mid-foot: right 22.5cm left 22.5cm Ankle: right 28cm left 28cm Lower calf: right 27cm left 28cm Largest calf: right 38cm left 40cm Below knee: right 40cm left 38cm - Lower Limb Functional Index Lower Extremity Functional Score: 6 - Goals Demonstrate a 20% reduction in edema by d/c: Yes Demonstrate adequate knowledge skin care/prec by 2nd week: Yes Demonstrate adequate knowledge therapeutic exercises by d/c: Yes Select approp compression garment w/donning/care/wear by d/c: Yes Voice need to replace compression garment every 4-6mo by dc: Yes - Rehabilitation General Assessment: pt arrives to OT with LE edema and seeping wounds ranging in size from 1cmx1.3cm on bilateral LE seepage is yellow in color no odder, pt has thin skin is at risk to continue with seeping wounds- pt would benefit from wound center consultation. today therapist ed. pt and caregiver on not sitting with legs down- use of surepress wraps and absorbing gauze. along with skin care precautions. will see if pt can tolerate surepress wraps- if not will possible need alternative to mtg. swelling. Therapist ed. on POC once wounds stop seeping would rec'd compression socks 20-30mmHg. [employer] as they are more of a cotton sock and would be easier to get on and her skin my tolerate better. pt and pts caregiver demo understanding. therapist ed. pt on need to keep legs elevated not sitting for hours. therapist rec.'d legs not down for more than 45 min. pt and pts caregiver demo understanding. Rehabilitation Potential: Questionable - Anticipated Interventions Education re assistive Equipment, Education re Diagnosis, Education re Life-long lymphedema Management, Education re Self-Bandaging Techniques, Education re Skin Care and Precautions, Education re Correct Donning Tech,Care&Wearing Sched Comp Garments, Caregiver Training, Home Program Other Interventions: pt may benefit from Wound Center consultation - Visit Plan TEXT: Thank you for the opportunity to evaluate your patient. For Medicare and Medicare HMO plans, please review the plan of care and approve it. It will need to be FAXED BACK to us at [phone] for Medicare purposes. Please let me know if there are questions or concerns regarding this plan of care. Physician Signature: Date:
--- NOTE | 2023-01-30 15:19 | HP.OTDCNRP_ITS ---
DIXIE BURROUGHS was seen in my office for initial evaluation on 11/20/22. The following Plan of Care was established for this patient: Pt was seen for OT eval only. No further apts were scheduled and due to time lapse in services pt is d.c. Anticipated Interventions: Education re assistive Equipment, Education re Diagnosis, Education re Life-long lymphedema Management, Education re Self- Bandaging Techniques, Education re Skin Care and Precautions, Education re Correct Donning Tech,Care&Wearing Sched Comp Garments, Caregiver Training, Home Program Other Interventions: pt may benefit from Wound Center consultation This patient was last seen in our office . Pertinent comments regarding their Occupational therapy will appear below: At this point I will be discontinuing this patient from occupational therapy. I would be happy to see this patient again in the future if found appropriate by the physician. Thank you! Tika Weeks, OTR/L, CHT
== END 2022-11-19 19:00 | disposition home or self-care (01) ==
LOC: OT 17:08
PROVIDERS: PCP Family Medicine; Referring Provider Family Medicine; Visit Provider Family Medicine
DX: R60.0 Localized edema (principal)
CPT/HCPCS: 97166; 97530

== ENCOUNTER → 2022-12-07 | Outpatient (CLI) | payer MEDICARE, SELFPAY ==
[2022-12-07 18:13] LABS: Absolute Lymphocyte Count 1.39 X10^3/uL (0.83-4.51); Absolute Neutrophil Count 5.9 X10^3/uL (2.0-7.7); Basophil# 0.07 X10^3/uL; Basophil% 0.8 % (0-1); Eosinophil# 0.22 X10^3/uL; Eosinophils% 2.6 % (0-5); Hematocrit 38.9 % (37-47); Hemoglobin 12.6 g/dL (12.0-15.0); Lymphocyte # 1.39 X10^3/ul (0.83-4.51); Lymphocyte % 16.5 % (19-41); Mean Corp Hgb Conc 32.4 g/dL (32-36); Mean Corpuscular Hgb 32.4 pg (27.0-32.0); Mean Platelet Vol. 10.5 fl (6.2-12.0); Monocyte# 0.84 X10^3/uL; NRBC Flagged by Analyzer 0 % (0-5); Neutrophil % 69.9 % (47-70); Platelet Count 306 K/mm3 (150-450); RBC Distribution Width CV 14.1 % (11.6-14.6); RBC Distribution Width SD 51.6 fl (35.1-43.9); Red Blood Count 3.89 M/mm3 (4.2-5.4); White Blood Count 8.4 K/mm3 (4.4-11.0)
[2022-12-07 18:44] LABS: ALB/GLOB Ratio 0.7 RATIO (0.9-2.4); AST(SGOT) 27 U/L (15-37); Alanine Aminotransfer ALT/SGPT 25 U/L (13-56); Albumin, Serum 2.9 g/dL (3.2-5.0); Alkaline Phosphatase 112 U/L (45-117); Anion Gap 9 (5-15); BUN 25 mg/dL (7-18); Calcium,Total 9.5 mg/dL (8.5-10.1); Chloride 104 mmol/L (98-107); Creatinine, Serum 0.86 mg/dL (0.55-1.02); EST Glomerular Filtration Rate 67 mL/min (>60); Est Glom Filt Rate - Afr Amer 81 mL/min (>60); Globulin 4.2 g/dL (2.2-4.2); Glucose 99 mg/dL (74-106); Potassium 3.3 mmol/L (3.5-5.1); Prealbumin 16.4 mg/dL (20.0-40.0); Protein, Total 7.1 g/dL (6.4-8.2); Sodium Level 141 mmol/L (136-145)
== END | disposition home or self-care (01) ==
LOC: MFPLAB 14:58
PROVIDERS: PCP Family Medicine; Referring Provider Family Medicine; Visit Provider Internal Medicine
DX: L97.929 Non-pressure chronic ulcer of unspecified part of left lower leg with unspecified severity (principal)
CPT/HCPCS: 36415; 80053; 84134; 85025; 86140

== ENCOUNTER 2022-12-10 15:15 | Outpatient (RCR) | payer MEDICARE, SELFPAY ==
[2022-12-06 10:27] VITALS: BP 153/99; PULSE 111; RESP 22; TEMP 37.1
--- NOTE | 2022-12-06 13:36 | PCM.WC.HP ---
History of Present Illness Date of Service: 12/06/22 Chief Complaint: Bilateral Lower Extremity Ulcer History of Wound: Ms. Saucedo is an 81-year-old who presents today due to nonhealing bilateral lower extremity ulcerations. Initially noted in September, she denies any known precipitating factor but prior to this, has had worsening bilateral lower extremity swelling and blistering. Has been trying to manage this at home without any significant improvement. Has noted worsening of left lower extremity posterior ulcers. Was on antibiotics briefly in September. She also states that she was put on steroids as well. None of this helped. Mostly sedentary sitting for long hours. Has been unable to wear compression consistently due to pain and difficulty with putting it on. No chills, fever or feeling of unwell. FOR[facility]LY [facility] Medical History (Updated 12/06/22 @ 13:[address] 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 Bilateral edema of lower extremity Cataracts, bilateral Cerebrovascular disease Chronic diastolic heart failure Chronic low back pain without sciatica CVA (cerebral vascular accident) Essential hypertension Frequent nosebleeds Hemarthrosis of knee History of CVA (cerebrovascular accident) (10/06/13) History of TIA (transient ischemic attack) Hyperlipidemia Hypothyroidism Joint pain of leg Left leg cellulitis Minimal cognitive impairment Obstructive sleep apnea Osteoarthritis Persistent atrial fibrillation Precordial chest pain Secondary pulmonary arterial hypertension Shingles Shortness of breath Spinal stenosis Syncope and collapse TIA (transient ischemic attack) (01/01/20) Ulcer of left lower extremity with fat layer exposed Ulcer of right lower extremity with fat layer exposed Home Medications levothyroxine 112 mcg tablet 112 mcg PO DAILY@0600 #30 tabs 10/12/13 [Rx Last Taken 07/07/14] multivitamin,vo-sasv-qhwltvit 27 mg-0.4 mg tablet 1 tab PO DAILY #30 tabs 10/12/13 [Rx Last Taken Unknown] loratadine 10 mg tablet 10 mg PO PRN PRN ALLERGIES 07/05/14 [History Last Taken Unknown] ferrous gluconate 324 mg (37.5 mg iron) tablet 324 mg PO TUTHSA 10/22/18 [History Last Taken Unknown] nitroglycerin 0.4 mg sublingual tablet 0.4 mg sublingual Q5-15M PRN chest pain #25 tabs 09/29/20 [Rx Last Taken Unknown] clotrimazole-betamethasone 1 %-0.05 % lotion 1 applic topical ONCE PRN OTHER 11/10/20 [History Last Taken Unknown] valacyclovir 1 gram tablet (Valtrex) 1,000 mg PO TID #21 tabs 11/27/21 [Rx Last Taken Unknown] digoxin 125 mcg (0.125 mg) tablet See Rx Instructions .Route .COMPLEX #90 tabs 04/06/22 [Rx Last Taken Unknown] spironolactone 25 mg tablet 12.5 mg PO QAM 1/ tab is temporary so please give 90 tablets #90 tabs 06/28/22 [Rx Last Taken Unknown] torsemide 20 mg tablet 20 mg PO BID #180 tabs 06/28/22 [Rx Last Taken Unknown] sertraline 25 mg tablet 75 mg PO DAILY 10/02/22 [History Last Taken Unknown] apixaban 5 mg tablet 5 mg PO BID #180 tabs 10/19/22 [Rx Last Taken Unknown] metoprolol succinate 50 mg tablet,extended release 24 hr 25 mg PO BID #180 tabs 10/26/22 [Rx Last Taken Unknown] owfmylbawwbo-fwy-gppbxec-FA 200 mg-0.4 mg chewable tablet tab PO 12/06/22 [History Last Taken Unknown] Allergy/AdvReac Type Severity Reaction Status Date / Time amlodipine Allergy Swelling Verified 12/06/22 11:03 atorvastatin calcium Allergy Unknown Verified 12/06/22 11:03 [From Lipitor] diltiazem Allergy Swelling Verified 12/06/22 11:03 erythromycin base Allergy Unknown Verified 12/06/22 11:03 [Erythromycin Base] Iodinated Contrast Media Allergy Unknown Verified 12/06/22 11:03 latex Allergy Unknown Verified 12/06/22 11:03 Penicillins Allergy Rash Verified 10/02/22 15:26 pregabalin [From Lyrica] Allergy Swelling Verified 12/06/22 11:03 Sulfa (Sulfonamide Allergy Other Verified 12/06/22 11:03 Antibiotics) triamcinolone acetonide Allergy Other Verified 12/06/22 11:03 [From Kenalog] bumetanide [From Bumex] AdvReac Severe Red, Verified 12/06/22 11:03 Splotchy rash furosemide [From Lasix] AdvReac Severe Red, Verified 12/06/22 11:03 splotchy rash clarithromycin [From Biaxin] AdvReac Other Verified 12/06/22 11:03 lisinopril AdvReac Other Verified 12/06/22 11:03 rosuvastatin calcium AdvReac Other Verified 12/06/22 11:03 [From Crestor] spironolactone AdvReac Low blood Verified 12/06/22 11:03 pressure tramadol HCl [From Ultram] AdvReac Vomiting Verified 12/06/22 11:03 Family History Father CAD (coronary artery disease) Myocardial infarction Mother CVA (cerebral vascular accident) Brother COPD (chronic obstructive pulmonary disease) Colon cancer CAD (coronary artery disease) Surgical History H/O shoulder replacement History of cardioversion (2013) History of cervical biopsy History of hip replacement History of left heart catheterization (11/04/09) Social History Smoking Status: Never smoker alcohol intake: never substance use type: does not use caffeine: No what type of physical activity do you participate in: none seatbelt use: always do you feel safe at home: Yes ROS Constitutional Constitutional: Denies difficulty sleeping, fatigue, fever(s), increased appetite or night sweats Eyes Eyes: Denies bloody eye, burning, change in eye color, discharge from eye(s), discongugate gaze, excessive blinking or irritation ENT HEENT: Denies dysphagia, ear discharge, epistaxis, foreign body in nose, halitosis, headache(s), hoarseness, lip swelling or loss taste/smell Cardiovascular Cardiovascular: Reports edema and leg ulcers; Denies bluish discoloration of hand/feet, chest pain with activity, cold extremities, cyanosis or paroxysmal nocturnal dyspnea Respiratory/Chest Respiratory/Chest: Denies difficulty clearing secretions, excessive phlegm production, hemoptysis, hoarseness, inability to speak, mouth breathing or pain on inspiration Gastrointestinal Gastrointestinal: Denies chewing difficulty, coffee ground emesis, cramping, diarrhea, dry heaves or early satiety Genitourinary Genitourinary: Denies anuria, difficulty urinating, flank pain, genital pain, hematuria or itching Musculoskeletal Musculoskeletal: Reports extremity pain; Denies muscle spasms, muscle weakness, numbness, radiating pain into limb or tingling Integumentary Integumentary: Denies change in pigmentation, furuncle, hirsutism, jaundice, nail changes, photosensitivity or pruritus Neurologic Neurologic: Denies confusion, convulsions, disequilibrium, focal weakness, headache(s), lack of coordination or loss of vision Psychiatric Psychiatric: Denies depression, difficulty concentrating, hallucinations, homicidal ideation, hopelessness, irritability or memory loss Endocrine Endocrinology: Denies cold intolerance, deepening of the voice, excessive sweating, fatigue, flushing, heat intolerance or increase in ring/shoe/hat size Hematologic/Lymphatic Hematologic/Lymphatic: Denies easy bruising or lymphadenopathy Allergic/Immunologic Allergic/Immunologic: Denies itchy eyes, lip swelling, rhinitis, throat swelling, tongue swelling, hives, urticaria or wheezing Vital Signs Vital Signs Vital Signs: 12/06/22 10:27 Temperature 98.7 F Temperature Source Temporal Pulse Rate 111 H Respiratory Rate 22 H Blood Pressure 153/99 H Blood Pressure Mean 117 Blood Pressure Source Monitor Physical Exam Const alert, oriented x3 and no apparent distress General Appearance: cooperative, comfortable and well kempt HEENT normocephalic, head/scalp atraumatic and hearing grossly normal bilaterally Head and Scalp: normal to inspection and normocephalic Eyes EOMs intact bilaterally Neck full ROM and supple General: normal visual inspection Resp normal respiratory effort and normal air movement Effort and Inspection: able to speak in complete sentences Cardio regular rate, S1 normal heart sound and S2 normal heart sound Rhythm: abnormal rhythm GI soft to palpation and non-tender Extremity General Extremity: edema Skin Wounds: wounds noted Neuro oriented x3, CN's II-XII intact bilaterally, moves all extremities and no focal motor deficits Psych mental status grossly normal, thought process normal, cooperative, affect normal and speech normal Debridement Note Debridement Note Wound debrided: Left lower extremity (medial) Type of Debridement: Excisional debridement Anesthesia Used: 5% Lidocaine Gel Depth: Down to and including healthy tissue and in the subcutaneous layer Percentage of wound debrided: 100 Instrument Used: 3mm curette Tissue Removed: Slough and devitalized tissue Severity: Fat Layer Exposed Amount of bleeding with debridement: Mild Bleeding Controlled with: Pressure Patient tolerated procedure: Patient tolerated procedure well Post-Debridement Measurements and Additional Note: Post-Debridement Measurements/Treatment - Nurse 1 - General Ulcer Assessment Start: 12/06/22 10:27 Freq: Status: Active Protocol: YECENIA Activity Type Activity Date Activity User E-sign Co-sign Detail Recorded Client Recorded Date Recorded By Document 12/06/22 10:27 DL [id number] 12/06/22 10:59 DL 12/06/22 10:27 WC - Today's Visit Information Type of service Initial Visit Arrival Mode Ambulatory, Walker Transfer Assistance None Patient Identification Verified (Name & Yes ) Patient Requires Transmission-Based No Precautions Vital Signs Temperature (97.8 F-99.1 F) 98.7 F Temperature Source Temporal Pulse Rate (60-100) 111 H Pulse Location Monitor Respiratory Rate (12-18) 22 H Respiratory rate source Observation Blood Pressure (90/60-120/80) 153/99 H Blood Pressure Mean 117 Source Monitor Pain Scale: 0-10 Numeric Is Patient Pain Free? Yes Lower Extremity Assessment/ Foot Assessment/ Toe Nail Assessment Left -Posterior Tibial Palpable No -Posterior Tibial Doppler Monophasic -Dorsalis Pedis Palpable No -Dorsalis Pedis Doppler Monophasic -Extremity Color Red,Hemosiderin -Hair Growth on Legs No -Hair Growth on Toes No -Temperature of Extremity Warm -Capillary Refill Greater than 3 Seconds -Dependent Rubor Yes -Blanched when Elevated No -Lipodermatosclerosis No -Other Deformity No -Prior Foot Ulcer No -Charcot Joint No -Prior Amputation No -Thick Yes -Discolored Yes -Deformed Yes -Improper Length & Hygeine No Right -Posterior Tibial Palpable No -Posterior Tibial Doppler Monophasic -Dorsalis Pedis Palpable No -Dorsalis Pedis Doppler Monophasic -Extremity Color Red,Hemosiderin -Hair Growth on Legs No -Hair Growth on Toes No -Temperature of Extremity Warm -Capillary Refill Greater than 3 Seconds -Dependent Rubor Yes -Blanched when Elevated Yes -Lipodermatosclerosis No -Other Deformity No -Prior Foot Ulcer No -Charcot Joint No -Prior Amputation No -Thick Yes -Discolored Yes -Deformed Yes -Improper Length & Hygeine No Neuropathy Assessment Feet - Top Side and Bottom <Entered> (a) Communication Assessment Preferred language Hungarian Able to Read Yes Able to Write Yes Communication Tools None Right Hearing Abillity Normal Left Hearing Abillity Normal Visual Assistive Devices Glasses Teaching Assessment Preferences Verbal,Written, Demonstration Barriers to Learning None Readiness To Learn Good Willingness to Engage in Self Management Med Activies Readiness to Engage in Self Management Med Activities Anxiety Level Calm Cooperation Cooperative Perception Coherent Interest in Health Problem Asks Questions Education Importance Acknowledges Need Does Patient Smoke tobacco or other No substances Smoking Status Never smoker Is Patient Diabetic No Functional Assessment Recent Decline in Ability to Perform Denies Any Declines Culture/Moravian/Logistics Planning Manager Cultural/Moravian Needs that may affect No Treatment Plan Would you allow our hospital seating captain to No meet you for the purpose of spiritual/ emotional support? Logistics Planning Manager to contact place of christianity No Teaching: Wound Center Discharge Instructions -Person Taught Patient Dressing Your Wound -Person Taught Patient *Welcome to the Wound Center -Person Taught Patient (a) 1 - + WC - Nurse 1 - General Ulcer Measurement Start: 12/06/22 10:27 Freq: Status: Active Protocol: Activity Type Activity Date Activity User E-sign Co-sign Detail Recorded Client Recorded Date Recorded By Document 12/06/22 10:27 DL [id number] 12/06/22 10:59 DL 12/06/22 10:27 Wound Center Nurse 1 #3 LLE Post Cluster -Current Size (cm) - Length 8.4 -Current Size (cm) - Width 5 -Current Size (cm) - Depth 0.1 -Total Square Cm 42.0 -Photo Taken Yes -Exudate Amt Medium -Exudate Type Serosanguineous -Wound Margin Distinct, Outline Attached -Granulation Amt None Present (0 %) -Necrosis Amt Large (67-100%) -Necrotic Tissue Type Adherent Slough -Structure Exposed N/A -Texture (Samantha-wound Skin Appearance) Localized Edema ,Scarring -Moisture (Samantha-wound Skin Appearance) No Abnormality -Color (Samantha-wound Skin Appearance) Erythema -Temperature (Samantha-wound Skin No Abnormality Appearance) (Pt Warm) -Tenderness on Palpation (Samantha-wound No Skin Appearance) -Ulcer Cleansing Rinsed/ Irrigated with Saline -Foul Odor after Cleansing No -Anesthetic Used 5% Lidocaine Gel #2 LLE Med -Current Size (cm) - Length 1.1 -Current Size (cm) - Width 0.5 -Current Size (cm) - Depth 0.1 -Total Square Cm 0.55 -Photo Taken Yes -Exudate Amt Medium -Exudate Type Serosanguineous -Wound Margin Distinct, Outline Attached -Granulation Amt None Present (0 %) -Necrosis Amt Large (67-100%) -Necrotic Tissue Type Adherent Slough -Structure Exposed N/A -Texture (Samantha-wound Skin Appearance) Localized Edema ,Scarring -Moisture (Samantha-wound Skin Appearance) No Abnormality -Color (Samantha-wound Skin Appearance) Erythema -Temperature (Samantha-wound Skin No Abnormality Appearance) (Pt Warm) -Tenderness on Palpation (Samantha-wound No Skin Appearance) -Ulcer Cleansing Rinsed/ Irrigated with Saline -Foul Odor after Cleansing No -Anesthetic Used 5% Lidocaine Gel #1 RLE MED -Current Size (cm) - Length 0.5 -Current Size (cm) - Width 1.1 -Current Size (cm) - Depth 0.1 -Total Square Cm 0.55 -Photo Taken Yes -Exudate Amt Medium -Exudate Type Serosanguineous -Wound Margin Distinct, Outline Attached -Granulation Amt None Present (0 %) -Necrosis Amt Large (67-100%) -Necrotic Tissue Type Adherent Slough -Structure Exposed N/A -Texture (Samantha-wound Skin Appearance) Scarring -Moisture (Samantha-wound Skin Appearance) No Abnormality -Color (Samantha-wound Skin Appearance) Erythema -Temperature (Samantha-wound Skin No Abnormality Appearance) (Pt Warm) -Tenderness on Palpation (Samantha-wound No Skin Appearance) -Ulcer Cleansing Soap and Water -Foul Odor after Cleansing No -Anesthetic Used 5% Lidocaine Gel Right Calf (cm) 41 Right Ankle (cm) 26 Left Calf (cm) 42 Left Ankle (cm) 25.5 WC - Nurse 2 - General Ulcer CM Notes Start: 12/06/22 10:27 Freq: Status: Active Protocol: Activity Type Activity Date Activity User E-sign Co-sign Detail Recorded Client Recorded Date Recorded By Document 12/06/22 11:18 MW [id number] 12/06/22 11:36 MW 12/06/22 11:18 Wound Center Nurse 2 #3 LLE Post Cluster -Time 11:18 -Correct Patient Yes -Correct Side, Site, Position Yes -Correct Procedure Yes -Procedure Performed Yes -Type of Procedure Debridement -Clinical Debridement Subcutaneous -Tissue Removed Subcutaneous -Post Debridement (cm) - Length 8.5 -Post Debridement (cm) - Width 5.6 -Post Debridement (cm) - Depth 0.1 -Total Square (Post) (cm) 47.60 -Area of Debridement (cm) - Length 8.5 -Area of Debridement (cm) - Width 5.6 -Total Square (Area) (cm) 47.60 -Tunneling No -Undermining/Tunneling No -Circular Undermining No -Wound/Ulcer Outcome Not Healed -Ulcer Cleansing Rinsed/ Irrigated with Saline -Foul Odor after Cleansing No -Bioengineered Tissue No -Bleeding Controlled with Pressure -Treatment Response Procedure Tolerated Well -Offloading No -Debridement - Subq, 1st 20sq cm Yes #2 LLE Med -Time 11:20 -Correct Patient Yes -Correct Side, Site, Position Yes -Correct Procedure Yes -Procedure Performed Yes -Type of Procedure Debridement -Clinical Debridement Subcutaneous -Post Debridement (cm) - Length 1.5 -Post Debridement (cm) - Width 0.7 -Post Debridement (cm) - Depth 0.1 -Total Square (Post) (cm) 1.05 -Area of Debridement (cm) - Length 1.5 -Area of Debridement (cm) - Width 0.7 -Total Square (Area) (cm) 1.05 -Tunneling No -Undermining/Tunneling No -Circular Undermining No -Wound/Ulcer Outcome Not Healed -Ulcer Cleansing Rinsed/ Irrigated with Saline -Foul Odor after Cleansing No -Bioengineered Tissue No -Bleeding Controlled with Pressure -Treatment Response Procedure Tolerated Well -Offloading No -Debridement - Subq, 1st 20sq cm No #1 RLE MED -Time 11:20 -Correct Patient Yes -Correct Side, Site, Position Yes -Correct Procedure Yes -Procedure Performed Yes -Type of Procedure Debridement -Clinical Debridement Subcutaneous -Tissue Removed Subcutaneous -Post Debridement (cm) - Length 1.0 -Post Debridement (cm) - Width 1.0 -Post Debridement (cm) - Depth 0.1 -Total Square (Post) (cm) 1.00 -Area of Debridement (cm) - Length 1.0 -Area of Debridement (cm) - Width 1.0 -Total Square (Area) (cm) 1.00 -Tunneling No -Undermining/Tunneling No -Circular Undermining No -Wound/Ulcer Outcome Not Healed -Ulcer Cleansing Rinsed/ Irrigated with Saline -Foul Odor after Cleansing No -Bioengineered Tissue No -Bleeding Controlled with Pressure -Treatment Response Procedure Tolerated Well -Offloading No -Debridement - Subq, 1st 20sq cm No Pain Scale: 0-10 Numeric Is Patient Pain Free? Yes - Nurse 3 - General Ulcer D/C NN Start: 12/06/22 10:27 Freq: Status: Active Protocol: Activity Type Activity Date Activity User E-sign Co-sign Detail Recorded Client Recorded Date Recorded By Document 12/06/22 12:15 DL [id number] 12/06/22 12:19 DL 12/06/22 12:15 Wound Care Center Nurse 3 #3 LLE Post Cluster -Ulcer Cleansing Rinsed/ Irrigated with Saline -Foul Odor after Cleansing No -Primary Dressing Applied Aquacel AG 4x4, Optilok 6.5x10 -Primary Dressing Covered/Secured with Dry Gauze & Roll Gauze -Aquacel AG 4x4 1 -Optilok 6.5x10 1 #2 LLE Med -Ulcer Cleansing Rinsed/ Irrigated with Saline -Other Dressing Aqaucel Ag, Superabsorber -Primary Dressing Covered/Secured with Dry Gauze & Roll Gauze, Secured with Tape #1 RLE MED -Ulcer Cleansing Rinsed/ Irrigated with Saline -Foul Odor after Cleansing No -Other Dressing aquacel Ag -Primary Dressing Covered/Secured with Dry Gauze & Roll Gauze, Secured with Tape triston -Multi-Layered Wrap Application Multi-Layer Comp - Bilat ($ ) Treatment Response Procedure Tolerated Well Pain Scale: 0-10 Numeric Is Patient Pain Free? Yes - Visit Discharge Discharge Condition Stable Ambulatory Status Ambulatory, Walker Transportation Private [facility] Facility Type Home Health Orders Sent Yes Additional Wound Wound debrided: Right lower extremity (medial) Type of Debridement: Excisional debridement Anesthesia Used: 5% Lidocaine Gel Depth: Down to and including healthy tissue and in the subcutaneous layer Percentage of wound debrided: 100 Instrument Used: 3mm curette Tissue Removed: Slough and devitalized tissue Severity: Fat Layer Exposed Amount of bleeding with debridement: Mild Bleeding Controlled with: Pressure Patient tolerated procedure: Patient tolerated procedure well Additional Wound Wound debrided: Left lower extremity (posterior cluster) Type of Debridement: Excisional debridement Anesthesia Used: 5% Lidocaine Gel Depth: Down to and including healthy tissue and in the subcutaneous layer Percentage of wound debrided: 100 Instrument Used: 5mm curette Tissue Removed: Slough and devitalized tissue Severity: Fat Layer Exposed Amount of bleeding with debridement: Mild Bleeding Controlled with: Pressure Patient tolerated procedure: Patient tolerated procedure well Charges/Coding Visit Charges Office Visits / Consults: [id number] OV L4 New Procedures Integumentary [id number]: [id number] Julieth subq tissue 20 sq cm/< Assessment/Plan Assessment/Plan (1) Ulcer of right lower extremity with fat layer exposed: CODE(S): L97.912 - Non-pressure chronic ulcer of unspecified part of right lower leg with fat layer exposed (2) Ulcer of left lower extremity with fat layer exposed: CODE(S): L97.922 - Non-pressure chronic ulcer of unspecified part of left lower leg with fat layer exposed (3) Left leg cellulitis: CODE(S): L03.116 - Cellulitis of left lower limb (4) Bilateral edema of lower extremity: CODE(S): R60.0 - Localized edema (5) Secondary pulmonary arterial hypertension: CODE(S): I27.21 - Secondary pulmonary arterial hypertension (6) Chronic diastolic heart failure: CODE(S): I50.32 - Chronic diastolic (congestive) heart failure PLAN: Plan Debridement done as documented above, procedure was well-tolerated. Significant left lower extremity pain, erythema and warmth concerning for cellulitis. Cultures taken from the lower extremity ulcer (posterior). Will empirically start on Keflex and doxycycline for left leg cellulitis. Will review culture and sensitivity and change if needed. For now, Aquacel extra to all ulcers, cover with gauze and superabsorbent dressing. Due to significant bilateral lower extremity edema and difficulty with compression use, will start 3M for compression. Apply lightly. Come in for nurse visit on Saturday and change. Lengthy discussion had with patient on the need for leg elevation and exercise as tolerated. Documented history of pulmonary hypertension and chronic diastolic heart failure which could also be contributing to her lower extremity edema, she follows up with cardiology. She states that she is working on increasing her protein intake. Vitamin C, D and zinc also recommended. CBC, CMP, CRP and pre albumin ordered, will review. Her questions were answered and she was advised to call with any further questions or concerns. Follow-up in a week with me. This note was generated with Searchlesation software. It may contain incorrect words, spelling, and punctuation that were not noted in checking the note before signing.
[2022-12-10 15:22] VITALS: BP 160/79; PULSE 99; RESP 22; TEMP 36.4
== END 2022-12-18 23:59 | disposition home or self-care (01) ==
LOC: WC 15:15
PROVIDERS: PCP Family Medicine; Visit Provider Internal Medicine
DX: L97.912 Non-pressure chronic ulcer of unspecified part of right lower leg with fat layer exposed (principal); L97.922 Non-pressure chronic ulcer of unspecified part of left lower leg with fat layer exposed; I11.0 Hypertensive heart disease with heart failure; I50.32 Chronic diastolic (congestive) heart failure; I25.10 Atherosclerotic heart disease of native coronary artery without angina pectoris; G89.29 Other chronic pain; L90.5 Scar conditions and fibrosis of skin; L03.116 Cellulitis of left lower limb; G62.9 Polyneuropathy, unspecified; E78.5 Hyperlipidemia, unspecified; R60.0 Localized edema
CPT/HCPCS: 11042; 11045; 29581; 87070; 87075; 87077; 87186; 87205; 99213; G0463

== ENCOUNTER 2022-12-15 15:17 | Emergency (ER) | payer MEDICARE, SELFPAY ==
[2022-12-15] VITALS (7 sets, daily range): BP systolic 143–182; BP diastolic 75–156; PULSE 80–95; RESP 16–20; TEMP 36.6; O2SAT 94–96; BMI 33.6
--- NOTE | 2022-12-15 15:31 | CT_ITS ---
We are attempting to reach an attending provider to discuss findings. An addendum with communication details will be sent when the communication is complete. INDICATION: Head injury on anticoagulation EXAMINATION: CT BRAIN - CT Head or Brain W/O Contrast Injection TECHNIQUE: Multiple axial images were obtained of the head without intravenous contrast. A radiation dose optimization technique was used for this scan. IV Contrast dosage and agent: None. COMPARISON: 01/01/2020 FINDINGS: BRAIN PARENCHYMA: Acute parenchymal hemorrhage right thalamus with mild adjacent edema, 0.9 x 0.9 x 0.8 cm. No acute territorial infarction. No intracranial mass or mass effect. Volume loss with low attenuation of the periventricular white matter typical of chronic small vessel disease. Posterior fossa structures are unremarkable. CSF SPACES: Appropriate for age. No hydrocephalus. Basal cisterns are patent. CALVARIUM, SKULL BASE, PARANASAL SINUSES AND MASTOID AIR CELLS: Persistent opacification right maxillary sinus. No acute fractures. CT/Brain/Head without Contrast IMPRESSION: Acute parenchymal hematoma right thalamus. Volume loss with low attenuation of the periventricular white matter typical of chronic small vessel disease. Electronically Signed: Toby Hill MD at 16:35 EST ,
--- NOTE | 2022-12-15 15:31 | CT_ITS ---
INDICATION: Trauma, fall, injury EXAMINATION: CT FACIAL BONES - CT Maxillofacial W/O Contrast Injection TECHNIQUE: Helically acquired images were obtained of the facial bones. A radiation dose optimization technique was used for this scan. IV Contrast dosage and agent: None. COMPARISON: Noncontrast head CT same date FINDINGS: SOFT TISSUES: Mild right sided facial swelling. No discrete fluid collections. VISUALIZED PARANASAL SINUSES: Total opacification right maxillary sinus with mild bony sclerosis. VISUALIZED MASTOID AIR CELLS: Clear. FACIAL BONES, MANDIBLE AND TMJs: No displaced facial bone fracture. No lytic or blastic abnormality. VISUALIZED DENTITION: No periodontal osseous erosion. ORBITAL CONTENTS: Both globes, extraocular muscles and retrobulbar fat appear unremarkable. CT/Sinus/Facial Bone IMPRESSION: No acute fracture of the maxillofacial bones. Chronic right maxillary sinusitis with total opacification. Electronically Signed: Toby Hill MD at 16:39 EST ,
--- NOTE | 2022-12-15 15:31 | EKG12_ITS ---
Test Reason : Blood Pressure : / mmHG Vent. Rate : 072 BPM Atrial Rate : 000 BPM P-R Int : 000 ms QRS Dur : 072 ms QT Int : 358 ms P-R-T Axes : 000 042 109 degrees QTc Int : 392 ms Atrial fibrillation Low voltage QRS Nonspecific T wave abnormality Poor R wave progression Abnormal ECG Confirmed by SHANNON DUPONT, ADORE ([id number]), society editor ANG STARKS ([id number]) on 12/18/2022 9:11:00 AM Referred By: Confirmed By:ADORE ORTEGA MD
--- NOTE | 2022-12-15 15:35 | ED.VIS.FALL ---
HPI HPI - Fall History of Present Illness Chief Complaint: Fall Narrative Narrative: 82-year-old female, lives at home alone, had a mechanical fall this morning. She states she has a high bed and usually sits on the side of it. She has a quad cane next to her to get up and then reaches for her rollator. She states that earlier this morning, she was sitting on the edge of the bed, used her quad cane, and reached for the rollator, but fell forward, and the handle of the rollator hit her right upper lip. She denies hitting her head otherwise or loss of consciousness, but does take a blood thinner for atrial fibrillation. She had to lay on the floor for an hour and a half because she was trapped by the quad cane and her walker. She was able to get to the phone. Regarding the cut above her right upper lip and under her nose, she states that her tetanus immunization was last year. She denies other injuries. No neck pain. While she states she does not have a headache per se, she states that it feels different. No other symptoms. 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 Bilateral edema of lower extremity Cataracts, bilateral Cerebrovascular disease Chronic diastolic heart failure Chronic low back pain without sciatica CVA (cerebral vascular accident) Essential hypertension Frequent nosebleeds Hemarthrosis of knee History of CVA (cerebrovascular accident) (10/06/13) History of TIA (transient ischemic attack) Hyperlipidemia Hypothyroidism Joint pain of leg Left leg cellulitis Minimal cognitive impairment Obstructive sleep apnea Osteoarthritis Persistent atrial fibrillation Precordial chest pain Secondary pulmonary arterial hypertension Shingles Shortness of breath Spinal stenosis Syncope and collapse TIA (transient ischemic attack) (01/01/20) Ulcer of left lower extremity with fat layer exposed Ulcer of right lower extremity with fat layer exposed Home Medications levothyroxine 112 mcg tablet 112 mcg PO DAILY@0600 #30 tabs 10/12/13 [Rx Last Taken 07/07/14] multivitamin,co-uojk-xrujsqov 27 mg-0.4 mg tablet 1 tab PO DAILY #30 tabs 10/12/13 [Rx Last Taken Unknown] loratadine 10 mg tablet 10 mg PO PRN PRN ALLERGIES 09/15/14 [History Last Taken Unknown] ferrous gluconate 324 mg (37.5 mg iron) tablet 324 mg PO TUTHSA 10/22/18 [History Last Taken Unknown] nitroglycerin 0.4 mg sublingual tablet 0.4 mg sublingual Q5-15M PRN chest pain #25 tabs 09/29/20 [Rx Last Taken Unknown] clotrimazole-betamethasone 1 %-0.05 % lotion 1 applic topical ONCE PRN OTHER 11/10/20 [History Last Taken Unknown] valacyclovir 1 gram tablet (Valtrex) 1,000 mg PO TID #21 tabs 11/27/21 [Rx Last Taken Unknown] digoxin 125 mcg (0.125 mg) tablet See Rx Instructions .Route .COMPLEX #90 tabs 04/06/22 [Rx Last Taken Unknown] spironolactone 25 mg tablet 12.5 mg PO QAM 1 tab is temporary so please give 90 tablets #90 tabs 06/28/22 [Rx Last Taken Unknown] torsemide 20 mg tablet 20 mg PO BID #180 tabs 06/28/22 [Rx Last Taken Unknown] sertraline 25 mg tablet 75 mg PO DAILY 10/02/22 [History Last Taken Unknown] apixaban 5 mg tablet 5 mg PO BID #180 tabs 10/19/22 [Rx Last Taken Unknown] metoprolol succinate 50 mg tablet,extended release 24 hr 25 mg PO BID #180 tabs 10/26/22 [Rx Last Taken Unknown] qipfmuqkqopi-hwm-hdpsuyy-FA 200 mg-0.4 mg chewable tablet tab PO 12/06/22 [History Last Taken Unknown] Allergy/AdvReac Type Severity Reaction Status Date / Time amlodipine Allergy Swelling Verified 12/06/22 11:03 atorvastatin calcium Allergy Unknown Verified 12/06/22 11:03 [From Lipitor] diltiazem Allergy Swelling Verified 12/06/22 11:03 erythromycin base Allergy Unknown Verified 12/06/22 11:03 [Erythromycin Base] Iodinated Contrast Media Allergy Unknown Verified 12/06/22 11:03 latex Allergy Unknown Verified 12/06/22 11:03 Penicillins Allergy Rash Verified 10/02/22 15:26 pregabalin [From Lyrica] Allergy Swelling Verified 12/06/22 11:03 Sulfa (Sulfonamide Allergy Other Verified 12/06/22 11:03 Antibiotics) triamcinolone acetonide Allergy Other Verified 12/06/22 11:03 [From Kenalog] bumetanide [From Bumex] AdvReac Severe Red, Verified 12/06/22 11:03 Splotchy rash furosemide [From Lasix] AdvReac Severe Red, Verified 12/06/22 11:03 splotchy rash clarithromycin [From Biaxin] AdvReac Other Verified 12/06/22 11:03 lisinopril AdvReac Other Verified 12/06/22 11:03 rosuvastatin calcium AdvReac Other Verified 12/06/22 11:03 [From Crestor] spironolactone AdvReac Low blood Verified 12/06/22 11:03 pressure tramadol HCl [From Ultram] AdvReac Vomiting Verified 12/06/22 11:03 Family History Father CAD (coronary artery disease) Myocardial infarction Mother CVA (cerebral vascular accident) Brother COPD (chronic obstructive pulmonary disease) Colon cancer CAD (coronary artery disease) Surgical History H/O shoulder replacement History of cardioversion (2013) History of cervical biopsy History of hip replacement History of left heart catheterization (11/04/09) Social History Smoking Status: Never smoker alcohol intake: never substance use type: does not use caffeine: No what type of physical activity do you participate in: none seatbelt use: always do you feel safe at home: Yes ROS ROS ED ROS Narrative Constitutional: No fever, no chills. HEENT: No sore throat. No neck pain. No loss of vision. No rhinorrhea.Cut above right upper lip and under nose. Cardiovascular: No chest pain. No palpitations. No pedal edema. Respiratory: No cough, no shortness of breath. Abdominal: No abdominal pain. No nausea. No vomiting. Genitourinary: No dysuria. No hematuria. Musculoskeletal: No myalgias. Left knee pain, cannot keep left arm and leg still, feels restless. Neurologic: No headaches, but states feels different.. No dizziness. No lightheadedness. Skin: No rash. No change in color. Psychiatric: No depression. No anxiety. EXAM Physical Exam Narrative Exam Narrative: Afebrile. Vital signs noted. GCS 15. ABCs intact. HEENT: Normocephalic. Atraumatic. PERRL, EOMI. Neck soft and supple. No point tenderness or step off. 0.5 cm laceration above right upper lip, no active bleeding. Cardiovascular: Regular rate and rhythm. No murmurs, rubs, or gallops appreciated. Respiratory: No tachypnea. Lungs clear to auscultation bilaterally. Gastrointestinal: Abdomen soft, nontender, with normoactive bowel sounds. No rebound or guarding. Neurological: Awake. Alert. Nonfocal, nonlateralizing. Skin: No rash. Normal color. No pallor. Musculoskeletal: No pedal edema. Full range of motion extremities. Pelvis stable. Const Vital Signs: 12/15/22 15:20 12/15/22 15:19 Temperature 97.9 F Temperature Source Temporal Pulse Rate 95 Respiratory Rate 20 H Respiratory Effort Normal Blood Pressure 182/156 H Blood Pressure Mean 164 Pulse Ox 96 96 Oxygen Delivery Method Nasal Cannula Nasal Cannula Oxygen Flow Rate (L/min) 2 2 MDM MDM MDM Narrative Medical decision making narrative: Given her head injury on anticoagulation, CT of the brain and maxillofacial will be obtained. With suspicion for CHF, laboratory work was performed. This was along with chest x-ray, knee x-ray because she stated she had left knee pain to the statistical technician, pelvis x-ray was also obtained. In review of her laboratory work, she has a normal white count of 8.4, hemoglobin normal at 13.2, platelet count normal at 300. BMP is grossly unremarkable with a normal sodium of 142 and a normal potassium of 3.5, BUN is slightly elevated at 19 with a creatinine of 0.72. She was given 5 mg of hydralazine for elevated blood pressure. BNP only slightly elevated at 188.6. I interpreted her chest x-ray and see no evidence of CHF, or pneumonia. There is cardiomegaly. I reviewed the radiology report which confirms this. I reviewed her pelvic x-ray and interpreted it and see no evidence of an acute fracture. Radiology report on this was also reviewed. I reviewed the report on her facial CT which shows no evidence of an acute fracture. I did receive a call from the radiologist and discussed the results with him directly. There is a thalamic bleed on the right/hematoma without significant edema or mass shift that is approximately 9 mm. As she has a traumatic intraparenchymal bleed, I discussed with the patient the need for transfer. She would like to go to [facility] as her first choice. I then discussed the patient with Dr. Lynn with trauma services, along with Dr. Torrez. She has been accepted to the emergency department there. Based on the situation and her being on an anticoagulant, they suggested either [facility] or [facility] be started. I placed the order for [facility], and will arrange for transfer. Currently, patient is in stable condition. Critical care time 32 minutes. Disposition is transfer in stable but guarded condition. Lab Data Attestation: I reviewed the patient's lab results. Labs: Laboratory Results - last 24 hr 12/15/22 12/15/22 12/15/22 15:44 15:44 15:44 WBC 8.4 RBC 4.14 L Hgb 13.2 Hct 40.4 MCV 97.6 MCH 31.9 MCHC 32.7 RDW Std Deviation 50.2 H RDW Coeff of Yojana 13.9 Plt Count 300 MPV 9.8 Immature Gran % (Auto) 0.200 Neut % (Auto) 80.3 H Lymph % (Auto) 11.4 L Baldwin % (Auto) 5.6 Eos % (Auto) 1.5 Baso % (Auto) 1.0 Absolute Neuts (auto) 6.7 Absolute Lymphs (auto) 0.96 Nucleated RBC % 0 Sodium 142 Potassium 3.5 Chloride 106 Carbon Dioxide 31.0 Anion Gap 5 BUN 19 H Creatinine 0.72 Estim Creat Clear Calc 35.26 Est GFR (MDRD) Af Amer 100 Est GFR (MDRD) Non-Af 83 BUN/Creatinine Ratio 26.5 H Glucose 103 Calcium 10.1 Total Creatine Kinase 42 B-Natriuretic Peptide 188.6 H Radiography Diagnostic Testing: Clinical Impression(s) from Imaging Studies Brain CT 12/15/22 15:31 IMPRESSION: Acute parenchymal hematoma right thalamus. Volume loss with low attenuation of the periventricular white matter typical of chronic small vessel disease. Electronically Signed: Toby Hill MD at 16:35 EST , ADDENDUM: 12/15/22 1653 IMPRESSION: Acute parenchymal hematoma right thalamus. Volume loss with low attenuation of the periventricular white matter typical of chronic small vessel disease. N.B. : The above Results were Read Back by Toby Hill MD to Fahad Orta MD, and understanding confirmed on 12/15/2022 16:46:54 (ET). Electronically Signed: Toby Hill MD at 16:35 EST , Facial/Sinus 12/15/22 15:31 IMPRESSION: No acute fracture of the maxillofacial bones. Chronic right maxillary sinusitis with total opacification. Electronically Signed: Toby Hill MD at 16:39 EST , Pelvis X-Ray 12/15/22 15:39 IMPRESSION: No acute bony abnormality. Electronically Signed: Toby Hill MD at 16:56 EST , Chest X-Ray 12/15/22 16:13 IMPRESSION: Cardiomegaly with mild vascular prominence. Electronically Signed: Toby Hill MD at 16:54 EST , Knee X-Ray 12/15/22 16:16 IMPRESSION: Degenerative changes without acute bony abnormality. Electronically Signed: Toby Hill MD at 16:51 EST , Critical Care Time Critical care time (excluding procedures): 30-74 minutes (32 minutes), Including time spent:, Discussing w/Patient &/or Family/Claims Correspondence Clerk, Discussing w/Consultants, Arranging Admission or Transfer and Performing Direct Patient Care at Bedside Discharge Plan Triage Chief Complaint: Fall ED Provider: Fahad Orta Dx/Rx/DC Orders Clinical Impression: Intracranial hemorrhage following injury, Anticoagulant long-term use, Persistent atrial fibrillation, Essential hypertension, Facial laceration Prescriptions: No Action nitroglycerin 0.4 mg tablet, sublingual 0.4 mg SUBLINGUAL Q5-15M PRN (Reason: chest pain) Qty: 25 3RF Rx Instructions: do not exceed 3 doses per episode clotrimazole-betamethasone 1-0.05 % lotion 1 applic TOPICAL ONCE PRN (Reason: OTHER) valacyclovir [Valtrex] 1 gram tablet 1,000 mg PO TID Qty: 21 0RF sertraline 25 mg tablet 75 mg PO DAILY levothyroxine 112 MCG tablet 112 mcg PO DAILY@0600 Qty: 30 0RF Label Comments: TREATS HYPOTHYROIDISM multivitamin,ma-qoxj-yfqlowmk 1 TABLET tablet 1 tab PO DAILY Qty: 30 0RF Label Comments: DIETARY SUPPLEMENT ferrous gluconate 324 MG tablet 324 mg PO TUTHSA VIACTIV Multi-Vitamin 200-0.4 mg Tablet,Chewable PO loratadine 10 MG tablet 10 mg PO PRN PRN (Reason: ALLERGIES) Label Comments: ANTIHISTAMINE digoxin 125 mcg (0.125 mg) tablet See Rx Instructions .ROUTE .COMPLEX Qty: 90 3RF Dose Instruction: TAKE 1 TABLET BY MOUTH EVERY DAY Rx Instructions: TAKE 1 TABLET BY MOUTH EVERY DAY torsemide 20 mg tablet 20 mg PO BID Qty: 180 3RF spironolactone 25 mg tablet 12.5 mg PO QAM Qty: 90 3RF Hold Instructions: low BP's apixaban 5 mg tablet 5 mg PO BID Qty: 180 3RF Hold Instructions: On hold for now: nosebleeds metoprolol succinate 50 mg tablet extended release 24 hr 25 mg PO BID Qty: 180 3RF Primary Care Provider: Ricky Kellogg Referrals: Ricky Kellogg MD [Primary Care Provider] - Disposition Disposition: Acute Care Hospital Discharge Location: [facility]
--- NOTE | 2022-12-15 15:39 | RAD_ITS ---
INDICATION: Trauma, fall EXAMINATION/TECHNIQUE: X-RAY - XR Pelvis 1 or 2 Views COMPARISON: None. FINDINGS: PELVIC BONES: No displaced fracture, destructive or sclerotic lesions. Note that overlapping bowel shadows may however obscure fine detail. Sacroiliac joints are unremarkable. No widening of the pubic symphysis. HIPS: Right hip prosthesis partially imaged, no pathologic lucency. No left hip fracture. SOFT TISSUES: Vascular calcifications present. RAD/Pelvis 1 or 2 Views IMPRESSION: No acute bony abnormality. Electronically Signed: Toby Hill MD at 16:56 EST ,
[2022-12-15 16:03] LABS: Absolute Lymphocyte Count 0.96 X10^3/uL (0.83-4.51); Absolute Neutrophil Count 6.7 X10^3/uL (2.0-7.7); Basophil# 0.08 X10^3/uL; Eosinophil# 0.13 X10^3/uL; Eosinophils% 1.5 % (0-5); Hematocrit 40.4 % (37-47); Hemoglobin 13.2 g/dL (12.0-15.0); Lymphocyte # 0.96 X10^3/ul (0.83-4.51); Lymphocyte % 11.4 % (19-41); Mean Corp Hgb Conc 32.7 g/dL (32-36); Mean Corpuscular Hgb 31.9 pg (27.0-32.0); Mean Corpuscular Volume 97.6 fL (81-99); Mean Platelet Vol. 9.8 fl (6.2-12.0); Monocyte# 0.47 X10^3/uL; Monocyte% 5.6 % (0-10); NRBC Flagged by Analyzer 0 % (0-5); Neutrophil # 6.74 X10^3/uL (2.7-7.7); Neutrophil % 80.3 % (47-70); Platelet Count 300 K/mm3 (150-450); RBC Distribution Width CV 13.9 % (11.6-14.6); RBC Distribution Width SD 50.2 fl (35.1-43.9); Red Blood Count 4.14 M/mm3 (4.2-5.4); White Blood Count 8.4 K/mm3 (4.4-11.0)
[2022-12-15 16:07] LABS: BNP,B-Type NATRIURETIC PEPTIDE 188.6 pg/mL (0-100)
[2022-12-15 16:12] LABS: Anion Gap 5 (5-15); BUN 19 mg/dL (7-18); BUN/Creat Ratio 26.5 RATIO (10-20); CPK Total, Creatine Kinase 42 U/L (26-192); Calcium,Total 10.1 mg/dL (8.5-10.1); Chloride 106 mmol/L (98-107); Creatinine, Serum 0.72 mg/dL (0.55-1.02); EST Glomerular Filtration Rate 83 mL/min (>60); Est Glom Filt Rate - Afr Amer 100 mL/min (>60); Estimated Creatinine Clearance 35.26 ml/min; Glucose 103 mg/dL (74-106); Potassium 3.5 mmol/L (3.5-5.1); Sodium Level 142 mmol/L (136-145)
--- NOTE | 2022-12-15 16:13 | RAD_ITS ---
INDICATION: shortness of breath EXAMINATION/TECHNIQUE: X-RAY - portable supine AP chest x-ray COMPARISON: 03/14/2021 FINDINGS: LINES/DEVICES: None. LUNGS: Mild vascular prominence with background of coarse interstitial markings. No consolidations or pleural effusions. MEDIASTINUM AND CARDIOVASCULAR STRUCTURES: Stable mild cardiomegaly. BONES AND SOFT TISSUES: Right shoulder prosthesis. No acute bony changes. RAD/Chest 1 View (Portable) IMPRESSION: Cardiomegaly with mild vascular prominence. Electronically Signed: Toby Hill MD at 16:54 EST ,
--- NOTE | 2022-12-15 16:16 | RAD_ITS ---
INDICATION: Trauma, fall, pain EXAMINATION/TECHNIQUE: X-RAY - LEFT XR Knee 1 or 2 Views 2 VIEWS COMPARISON: None. FINDINGS: SOFT TISSUES: No soft tissue swelling or gas. No radiopaque foreign body. BONES/JOINTS: No acute fracture. Moderately severe tricompartmental degenerative changes. No sclerotic or destructive changes observed. RAD/Knee 1 or 2 Views IMPRESSION: Degenerative changes without acute bony abnormality. Electronically Signed: Toby Hill MD at 16:51 EST ,
[2022-12-15] MEDS: hydrALAZINE 20 MG/ML Vial 5 MG IV (16:48)
[2022-12-15] MEDS: Labetalol (Prefilled) 20 MG/4 ML IV ×2 (17:06→17:41)
[2022-12-15 17:14] LABS: International Normalized Ratio 1.2; Partial Thromboplast Time 38.1 Seconds (24.1-36.2); Prothrombin Time (Protime)PT. 15.1 SECONDS (11.7-14.9)
--- NOTE | 2022-12-15 18:14 | ED.RN ---
Patient remains NPO per doctor's order. Dysphagia screen not completed.
== END 2022-12-15 18:22 | disposition short-term general hospital (02) ==
PROVIDERS: Emergency Provider Emergency Medicine; PCP Family Medicine; Visit Provider Emergency Medicine
DX: S06.300A Unspecified focal traumatic brain injury without loss of consciousness, initial encounter (principal); I11.0 Hypertensive heart disease with heart failure; I50.32 Chronic diastolic (congestive) heart failure; I48.19 Other persistent atrial fibrillation; S01.81XA Laceration without foreign body of other part of head, initial encounter; W19.XXXA Unspecified fall, initial encounter; Z79.01 Long term (current) use of anticoagulants; I25.10 Atherosclerotic heart disease of native coronary artery without angina pectoris; E78.5 Hyperlipidemia, unspecified
CPT/HCPCS: 70450; 70486; 71045; 72170; 73560; 80048; 82550; 83880; 85025; 85610; 85730; 93005; 99285; J7168; A4216; J3490

== ENCOUNTER 2023-01-10 18:33 | Inpatient (IN) | payer MEDICARE, SELFPAY ==
[2023-01-10 18:43] VITALS: BP 134/79; PULSE 108; RESP 18; TEMP 36.8; O2SAT 93; BMI 27.9
[2023-01-10 19:00] VITALS: PULSE 108; RESP 16; O2SAT 93
--- NOTE | 2023-01-10 20:36 | PCM.HP.STD ---
HPI - General General Date of Admission: 01/10/23 Date of Service: 01/11/23 Chief Complaint: Here for rehabilitation. HPI Narrative DIXIE BURROUGHS, is a 82 Female who presents with followin12/15/2022 [facility] Emergency Department fell, hit head, on Eliquis. CT brain showed right intracranial hemorrhage. Transfer to [facility]. Neurosurgery recommend no surgery. Failed modified barium swallow, G-tube inserted. Tube feeding via G-tube. 12/24/2022 Admit to [facility] in [place]. PT/OT/ST. 01/10/2023 Admit to TCU with debility, here for rehabilitation, strengthening, prior to discharge home. Resident lives in [place], [place], but her family live in [place], [place]. [facility] Medical History AF (paroxysmal atrial fibrillation) Anemia Ataxia Atherosclerotic heart disease of [place] coronary artery without angina pectoris Bilateral edema of lower extremity Cataracts, bilateral Cerebrovascular disease Chronic diastolic heart failure Chronic low back pain without sciatica CVA (cerebral vascular accident) Essential hypertension Frequent nosebleeds Hemarthrosis of knee History of CVA (cerebrovascular accident) (10/06/13) History of TIA (transient ischemic attack) Hyperlipidemia Hypothyroidism Joint pain of leg Left leg cellulitis Minimal cognitive impairment Obstructive sleep apnea Osteoarthritis Persistent atrial fibrillation Precordial chest pain Secondary pulmonary arterial hypertension Shingles Shortness of breath Spinal stenosis Syncope and collapse TIA (transient ischemic attack) (01/01/20) Ulcer of left lower extremity with fat layer exposed Ulcer of right lower extremity with fat layer exposed Home Medications loratadine 10 mg tablet 10 mg PO PRN PRN ALLERGIES 07/05/14 [History Last Taken Unknown] ferrous gluconate 324 mg (37.5 mg iron) tablet 324 mg PO TUTHSA Supplement 10/22/18 [History Last Taken Unknown] nitroglycerin 0.4 mg sublingual tablet 0.4 mg sublingual Q5-15M PRN chest pain #25 tabs 09/29/20 [Rx Last Taken Unknown] clotrimazole-betamethasone 1 %-0.05 % lotion 1 applic topical ONCE PRN OTHER 11/10/20 [History Last Taken Unknown] sertraline 25 mg tablet 75 mg feeding tube DAILY Mood 10/02/22 [History Last Taken Unknown] sffuhedgakcq-nfi-tladdbv-FA 200 mg-0.4 mg chewable tablet 1 tab PO DAILY Supplement 12/06/22 [History Last Taken Unknown] acetaminophen 650 mg tablet 650 mg PO Q6H PRN Pain 1-10 01/10/23 [History Last Taken Unknown] aluminum-mag hydroxide-simethicone 200 mg-200 mg-20 mg/5 mL oral susp 5 ml PO Q3H PRN Constipation 01/10/23 [History Last Taken Unknown] amlodipine 5 mg tablet 5 mg PO DAILY BP 01/10/23 [History Last Taken Unknown] apixaban 5 mg tablet 5 mg PO BID Blood Thinner 01/10/23 [History Last Taken Unknown] bisacodyl 5 mg rectal suppository 10 mg ID X1 PRN Constipation 01/10/23 [History Last Taken Unknown] cholecalciferol (vitamin D3) 25 mcg (1,000 unit) tablet 25 mcg feeding tube DAILY Supplement 01/10/23 [History Last Taken Unknown] digoxin 125 mcg (0.125 mg) tablet 125 mcg feeding tube DAILY Heart 01/10/23 [History Last Taken Unknown] levothyroxine 112 mcg tablet 150 mcg feeding tube DAILY@0600 Thyroid 01/10/23 [History Last Taken Unknown] magnesium hydroxide 400 mg/5 mL oral suspension (Milk of Magnesia) 2,400 mg feeding tube X1 Constipation 01/10/23 [History Last Taken Unknown] metoprolol succinate 50 mg tablet,extended release 24 hr 37.5 mg PO BID BP 01/10/23 [History Last Taken Unknown] multivitamin,rt-ooxf-efckjugs 27 mg-0.4 mg tablet 1 tablet PO DAILY Supplement 01/10/23 [History Last Taken Unknown] spironolactone 25 mg tablet 12.5 mg feeding tube QAM BP 01/10/23 [History Last Taken Unknown] torsemide 20 mg tablet 20 mg feeding tube BID CHF 01/10/23 [History Last Taken Unknown] valacyclovir 1 gram tablet (Valtrex) 1,000 mg PO TID Check with primary doctor 01/10/23 [History Last Taken Unknown] Allergy/AdvReac Type Severity Reaction Status Date / Time amlodipine Allergy Swelling Verified 12/06/22 11:03 atorvastatin calcium Allergy Unknown Verified 12/06/22 11:03 [From Lipitor] diltiazem Allergy Swelling Verified 12/06/22 11:03 erythromycin base Allergy Unknown Verified 12/06/22 11:03 [Erythromycin Base] Iodinated Contrast Media Allergy Unknown Verified 12/06/22 11:03 latex Allergy Unknown Verified 12/06/22 11:03 Penicillins Allergy Rash Verified 10/02/22 15:26 pregabalin [From Lyrica] Allergy Swelling Verified 12/06/22 11:03 Sulfa (Sulfonamide Allergy Other Verified 12/06/22 11:03 Antibiotics) triamcinolone acetonide Allergy Other Verified 12/06/22 11:03 [From Kenalog] bumetanide [From Bumex] AdvReac Severe Red, Verified 12/06/22 11:03 Splotchy rash furosemide [From Lasix] AdvReac Severe Red, Verified 12/06/22 11:03 splotchy rash clarithromycin [From Biaxin] AdvReac Other Verified 12/06/22 11:03 lisinopril AdvReac Other Verified 12/06/22 11:03 rosuvastatin calcium AdvReac Other Verified 12/06/22 11:03 [From Crestor] spironolactone AdvReac Low blood Verified 12/06/22 11:03 pressure tramadol HCl [From Ultram] AdvReac Vomiting Verified 12/06/22 11:03 Family History Father CAD (coronary artery disease) Myocardial infarction Mother CVA (cerebral vascular accident) Brother COPD (chronic obstructive pulmonary disease) Colon cancer CAD (coronary artery disease) Surgical History H/O shoulder replacement History of cardioversion (2013) History of cervical biopsy History of hip replacement History of left heart catheterization (11/04/09) no surgical history Social History (Updated 01/10/23 @ 20:[address] Chase Irvin MD) housing: assisted living facility Smoking Status: Never smoker alcohol intake: never substance use type: does not use caffeine: No what type of physical activity do you participate in: none seatbelt use: always do you feel safe at home: Yes ROS Gastrointestinal Gastrointestinal: Reports dysphagia Neurologic Neurologic: Reports abnormal movements and focal weakness Vital Signs Vital Signs Vital Signs: 01/10/23 18:43 Temperature 98.3 F Temperature Source Temporal Pulse Rate 108 H Respiratory Rate 18 Blood Pressure 134/79 H Blood Pressure Mean 97 Blood Pressure Source Monitor Blood Pressure Position Semi-Fowlers Blood Pressure Location Right Arm Pulse Ox 93 Oxygen Delivery Method Room Air Physical Exam Const alert General Appearance: cooperative HEENT normocephalic Eyes PERRL and EOMs intact bilaterally Neck supple, no JVD and no carotid bruits Resp normal respiratory effort, normal air movement and clear to auscultation bilaterally Cardio regular rate and regular rhythm GI normal to inspection, nondistended, normoactive bowel sounds, non-tender and non-distended GI Narrative: G-tube. Extremity normal capillary refill General Extremity: Negative for edema Skin no rashes or lesions noted General Skin Exam: no breakdown Neuro Neuro Narrative: Left hemiparesis. Psych affect normal Appearance: appropriate Results Lab / Micro Data Result Diagrams: 01/11/23 04:58 01/11/23 04:58 Micro: Microbiology 01/10/23 19:00 Nasal Secretion SARS-CoV-2 Antigen (Rapid) - Final Assessment & Plan Assessment/Plan (1) Debility: (2) Intracranial hemorrhage on right side following injury: (3) Dysphagia: (4) Hypothyroidism: (5) Allergic rhinitis: (6) Iron deficiency anemia: (7) Coronary artery disease: (8) Atrial fibrillation: (9) Depression: (10) Heart failure with preserved ejection fraction: (11) Obstructive sleep apnea: PLAN: Plan 82 year old female with below past medical history hospitalized for right intracranial hemorrhage, complicated by dysphagia requiring g-tube placement, admitted to TCU with debility, here for rehabilitation, strengthening, prior to discharge home. Debility - PT/OT. Dysphagia - ST. Pain - Tylenol 975mg q8 Bowel - Dulcolax 10mg pr x 1 prn, MOM 30ml po x 1 prn. Adult immunization - Administer pneumonia vaccine, covid19 vaccine, flu vaccine as appropriate. DVT prophylaxis - Hold, brain bleed. Hypertension - Metoprolol succinate 37.5mg bid, Amlodipine 5mg daily. Chronic diastolic heart failure - Metoprolol succinate 37.5mg bid, Digoxin 125mcg daily, Aldactone 12.5mg daily, Torsemide 20mg daily. Nutrition - Jevity 1.5 55ml/hour. Hypothyroidism - Levothyroxine 150mcg daily. Indigestion - Mylanta II 15ml po q6h prn. Skin irritation - Calmoseptine topical bid. Tinea Corporis - Nystatin powder topical bid. Depression - Sertraline 75mg daily, stable chronic fci use, GDR not recommended.
[2023-01-10] MEDS: Jevity 1.5 1,000 ML 55 ML GT (22:10)
[2023-01-11 05:54] LABS: Absolute Lymphocyte Count 1.45 X10^3/uL (0.83-4.51); Absolute Neutrophil Count 6.2 X10^3/uL (2.0-7.7); Basophil# 0.07 X10^3/uL; Basophil% 0.8 % (0-1); Eosinophil# 0.51 X10^3/uL; Eosinophils% 5.7 % (0-5); Hematocrit 39.8 % (37-47); Hemoglobin 12.9 g/dL (12.0-15.0); Lymphocyte # 1.45 X10^3/ul (0.83-4.51); Lymphocyte % 16.2 % (19-41); Mean Corp Hgb Conc 32.4 g/dL (32-36); Mean Corpuscular Hgb 32.1 pg (27.0-32.0); Mean Platelet Vol. 10.8 fl (6.2-12.0); Monocyte# 0.72 X10^3/uL; NRBC Flagged by Analyzer 0 % (0-5); Neutrophil # 6.18 X10^3/uL (2.7-7.7); Platelet Count 304 K/mm3 (150-450); RBC Distribution Width CV 13.7 % (11.6-14.6); RBC Distribution Width SD 50.1 fl (35.1-43.9); Red Blood Count 4.02 M/mm3 (4.2-5.4)
[2023-01-11] MEDS: Menthol/Lanolin/Calamine/Znox 113 GM Tube 1 APPLIC TOPICAL ×2 (06:12→17:21)
[2023-01-11] MEDS: Nystatin Powder 15gm Bottle 1 APPLIC TOPICAL ×2 (06:13→17:21)
[2023-01-11] MEDS: amLODIPine 5 MG Tablet GT (06:13)
[2023-01-11] MEDS: Levothyroxine 150 MCG Tablet GT (06:14)
[2023-01-11] MEDS: Sertraline 50 MG Tablet 75 MG GT (06:14)
[2023-01-11 06:15] VITALS: BP 132/82; PULSE 90
[2023-01-11] MEDS: Digoxin 125 MCG Tablet GT (06:15)
[2023-01-11 06:17] VITALS: BP 132/82; PULSE 90
[2023-01-11] MEDS: Metoprolol(XL)Succ 50 MG Tablet 37.5 MG PO ×2 (06:17→17:18)
[2023-01-11 06:19] LABS: Anion Gap 7 (5-15); BUN 33 mg/dL (7-18); BUN/Creat Ratio 47.8 RATIO (10-20); Calcium,Total 9.8 mg/dL (8.5-10.1); Chloride 101 mmol/L (98-107); Creatinine, Serum 0.69 mg/dL (0.55-1.02); EST Glomerular Filtration Rate 86 mL/min (>60); Est Glom Filt Rate - Afr Amer 104 mL/min (>60); Estimated Creatinine Clearance 36.81 ml/min; Glucose 120 mg/dL (74-106); Potassium 3.3 mmol/L (3.5-5.1); Sodium Level 140 mmol/L (136-145)
[2023-01-11] MEDS: Acetaminophen 650 MG/20 ML UDC GT (06:42)
[2023-01-11] MEDS: Potassium Chloride Oral Soln 20 MEQ/15 ML UDC 40 MEQ GT (09:59)
[2023-01-11] MEDS: Spironolactone 25 MG Tablet 12.5 MG GT (10:00)
[2023-01-11] MEDS: Tuberculin,Purif.prot.deriv. 50 TU/ML Vial 0.1 ML ID (10:00)
--- NOTE | 2023-01-11 11:47 | NURSING ---
Core Machine Tender Note; activity Asset: Nola Peoples is independent in her choice of daily activities but will nee some assistance with setting up some of the word puzzles due to her stroke. She has a smartphone she will use along with reading or looking at [employer] magazines. She did state her family will visit w/her daily and is not interested in group activities at this time, will continue to do social visit and encourage small group activities for social well-being.
[2023-01-11] MEDS: Acetaminophen 650 MG/20 ML UDC 975 MG GT ×2 (13:53→21:56)
--- NOTE | 2023-01-11 15:35 | CHAPLAIN ---
Type of Pastoral Visit _x__ Initial Visit ___ Follow-up Visit ___ On-call Visit ___ General Patient Visit ___ Spiritual Assessment ___ Family Conference ___ Bereavement ___ Rapid Response ___ Code Blue ___ Other (describe below) Pastoral Care Referral From _x__ Patient ___ Family ___ Nurse ___ Physician ___ Mattress And Boxsprings Supervisor ___ Machine Strap Buckler ___ Other (describe below) Sacrament/Intervention ___ Active listening ___ Anointing ___ Yazidi ___ Bereavement ___ Communion ___ Geena exploration ___ ___ Life review _x__ Prayer ___ Reconciliation ___ Sacrament of Sick _x__ Supportive presence ___ Wedding ___ Other (describe below) Pastoral Comments introduced self and role to patient; pt is trying to rest so she asked if just a prayer could be given now; offered prayer; pt welcomes this educational sign language interpreter to return at another time; son of pt is in the room at bedside and also offered support; pt is member of the [employer]; pt says her concern is recovery from the stroke
[2023-01-11 16:00] VITALS: BP 132/82; PULSE 74; RESP 16; TEMP 37; O2SAT 98
--- NOTE | 2023-01-11 16:35 | CASEMGMT ---
Social Work Met with patient to complete initial assessment. Introduced self and role. Verified contacts. Son, Tom, present in room and pt granted permission to complete assessment with son present. Discussed code status and MOLST form. Educated to code status options in depth. Pt requesting DNR-CCA, no intubation. Pt noted, once feeding tube is removed, pt's wish is to not have another one placed. MOLST placed in Dr folder. Verbally notified STEAM HOIST OPERATOR of DNR, to place bracelet, and have DNR form signed. SW educated to [facility] insurance with NRD 01/14 and continued stay is not guaranteed with each review. Pt lived at home alone, with DESIGN ANALYST assistance, prior to stroke on Dec 14, 2022. Since stroke, pt was at [facility] (unclear if that was MI or SNF) however, pt/son report, pt was not receiving the care she needed and family moved her back to [facility]. Pt has [facility] [facility] [employer] 4 hrs, M-W-F, and another aid once/wk and MOW 5x/wk. SW provided resources for grab bars and medical alerts. Discussed DC plan A and B. Pt explained she is in her second marriage of 30 years. lives at [facility]. Pt wants to be with but says [facility] doesn't provide good care or answers call-lights timely and prefers to be elsewhere. has son, Corbin, and dtr Patrizia, that live in the [facility]. Son, Tom, is from [place] and very involved and POA. Tom is advocating for [facility] or [facility], if pt cannot return home. Pt is agreeable to these options. Pt/son and this worker discussed further about pt's mental health. Pt admits to being anxiety and depressed at times as evidenced by staying hyper-focused on completing tasks, i.e bills, paperwork, and not being able to move on to another task until it is completed. Son provided the example of pt has stayed up for 24 hours straight, sitting in the same spot, not going to bed, until paperwork was completed, and has done that more than once. 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 Son stated pt was started on Zoloft by PCP about 6-8 months ago and has not seen a major improvement. Pt admits to not wanting to move on with tasks, getting overwhelmed by having too many things to do, or not wanting to get out of bed to start her day. Pt is agreeable to psychiatry referral and medication management. Pt actively does Teletherapy with Nell Navarro at [facility]. Pt started with her about 15 years ago d/t issues with pt's stepdtr. Pt shared dtr is a recovering alcoholic and prior to recovery, there were many issues that impacted pt and . Since was placed in a SNF in 2019, pt began completing therapy individually and focusing on her anxiety/depression. SW provided ongoing active listening and support. Educated to the connection of physical and mental health in recovery, especially since a stroke, and those impacts. SW offered to notify Dr. Irvin on history and request for ongoing mental health care. Pt and son expressed appreciation. SW offered ongoing supportive visits and following for discharge planning. SW left written communication for Dr. Irvin on psychiatry referral and medication management during stay. Anca Mallory, WEIGHT GUESSER SWING DRIVER
[2023-01-11 17:18] VITALS: BP 132/85; PULSE 64
--- NOTE | 2023-01-11 18:31 | PN.TCU_ITS ---
Subjective Subjective Reviewed SW note. Resident suffering depression, anxiety, possible obsessive compulsive disorder. Objective Data Objective Data Vital Signs: Vital Signs Temp Pulse Resp BP Pulse Ox O2 Del Method 98.6 F 64 16 132/85 H 98 Room Air 01/11/23 16:00 01/11/23 17:18 01/11/23 16:00 01/11/23 17:18 01/11/23 16:00 01/11/23 16:00 Oxygen Delivery Method Room Air Weight: 73.936 kg Body Mass Index (BMI) 27.9 Lab / Micro Data Result Diagrams: 01/11/23 04:58 01/11/23 04:58 Labs: Laboratory Results - last 24 hr 01/11/23 04:58: WBC 9.0, RBC 4.02 L, Hgb 12.9, Hct 39.8, MCV 99.0, MCH 32.1 H, MCHC 32.4, RDW Std Deviation 50.1 H, RDW Coeff of Yojana 13.7, Plt Count 304, MPV 10.8, Immature Gran % (Auto) 0.300, Neut % (Auto) 69.0, Lymph % (Auto) 16.2 L, Pennington % (Auto) 8.0, Eos % (Auto) 5.7 H, Baso % (Auto) 0.8, Absolute Neuts (auto) 6.2, Absolute Lymphs (auto) 1.45, Nucleated RBC % 0 01/11/23 04:58: Sodium 140, Potassium 3.3 L, Chloride 101, Carbon Dioxide 32.0, Anion Gap 7, BUN 33 H, Creatinine 0.69, Estim Creat Clear Calc 36.81, Est GFR (MDRD) Af Amer 104, Est GFR (MDRD) Non-Af 86, BUN/Creatinine Ratio 47.8 H, Glucose 120 H, Calcium 9.8 Micro: Microbiology 01/10/23 19:00 Nasal Secretion SARS-CoV-2 Antigen (Rapid) - Final Assessment & Plan Assessment/Plan (1) Depression: (2) Anxiety: (3) Obsessive compulsive disorder: PLAN: Plan Depression - Sertraline 75mg daily. Schedule appointment with Dr. Argueta to help with medication management. Anxiety - Schedule appointment with Dr. Argueta to help with medication management. Obsessive compulsive disorder - Schedule appointment with Dr. Argueta to help with medication management.
[2023-01-11 21:24] VITALS: PULSE 76; RESP 18; O2SAT 92
[2023-01-11] MEDS: Jevity 1.5. 1,000 ML Bottle 240 ML GT (21:57)
[2023-01-12] MEDS: Nystatin Powder 15gm Bottle 1 APPLIC TOPICAL ×2 (04:57→18:49)
[2023-01-12] MEDS: Menthol/Lanolin/Calamine/Znox 113 GM Tube 1 APPLIC TOPICAL ×2 (04:57→18:48)
[2023-01-12] MEDS: Levothyroxine 150 MCG Tablet GT (04:59)
[2023-01-12] MEDS: Torsemide 20 MG Tablet GT (04:59)
[2023-01-12] MEDS: Sertraline 50 MG Tablet 75 MG GT (04:59)
[2023-01-12] MEDS: Acetaminophen 650 MG/20 ML UDC 975 MG GT ×3 (05:00→22:02)
[2023-01-12 05:02] VITALS: BP 133/82; PULSE 77
[2023-01-12] MEDS: Metoprolol(XL)Succ 50 MG Tablet 37.5 MG PO ×2 (05:02→18:49)
[2023-01-12 08:05] LABS: Anion Gap 5 (5-15); BUN 29 mg/dL (7-18); BUN/Creat Ratio 42.3 RATIO (10-20); Calcium,Total 9.9 mg/dL (8.5-10.1); Chloride 105 mmol/L (98-107); Creatinine, Serum 0.69 mg/dL (0.55-1.02); EST Glomerular Filtration Rate 87 mL/min (>60); Est Glom Filt Rate - Afr Amer 105 mL/min (>60); Estimated Creatinine Clearance 36.81 ml/min; Glucose 103 mg/dL (74-106); Potassium 3.5 mmol/L (3.5-5.1); Sodium Level 140 mmol/L (136-145)
[2023-01-12] MEDS: amLODIPine 5 MG Tablet GT (08:29)
[2023-01-12] MEDS: Spironolactone 25 MG Tablet 12.5 MG GT (08:29)
[2023-01-12 08:30] VITALS: BP 128/75; PULSE 64
[2023-01-12] MEDS: Digoxin 125 MCG Tablet GT (08:30)
[2023-01-12 08:43] VITALS: PULSE 78; RESP 16; O2SAT 98
--- NOTE | 2023-01-12 12:34 | NURSING ---
Held lunch time jevity due to patient eating 25% of meal and having lulu crackers and applesauce with speech. Patient states that she feels full and is afraid of feeling sick with having more.
[2023-01-12 13:55] VITALS: BP 128/80; PULSE 79; RESP 16; TEMP 36.8; O2SAT 98
--- NOTE | 2023-01-12 15:18 | PCM.CONS.GEN ---
Assessment & Plan Assessment/Plan (1) Chronic pain of toe of left foot: (2) Chronic pain of toe of right foot: (3) Tinea unguium: PLAN: Plan Patient seen and evaluated Recommended lotion application daily to the foot and lower extremity. Instructed to not rub lotion between digits. I reviewed the patient's case. The etiology of thickened toenails was briefly reviewed including fungus or microtrauma. The nails 1, 2, 3, 4, and 5 of the left and right foot were debrided with a nail nipper after verbal consent was obtained without incident. The nails 1, 2, 3, 4, and 5 of the left and right foot were debrided in length and thickness to reduce pressure, potential fungal load, and to prevent wound formation. The patient tolerated this well. The patient elects proceed with palliative care only at this time with the nails and will hold off on further work-up. To follow-up with the [facility] and ankle Center if needed in the future for any foot or ankle problems. She would like to continue to have nails trimmed in her salon as they also paint them. To wear protective and supportive shoes. To check feet daily and keep webspaces clean and dry. To moisturize skin to preserve skin integrity was also recommended. Podiatry to sign off Please do not hesitate to reach out for any questions or concerns podiatry will be happy to reevaluate. Chidi Arce Jr. D.P.M. [facility] [phone] HPI Consult Data Date of Consult: 01/12/23 HPI Narrative Reason for Consultation: Thickened, elongated nails 1 through 5 of the left and right foot HPI Narrative: DIXIE BURROUGHS, is a 82 F who presents to the [facility] transitional care unit for strengthening and rehabilitation prior to discharge home. She was consulted to podiatry for elongated, thickened nails 1 through 5 of the left and right foot. She states she normally has her nails done at the salon but due to recent health issues was unable to keep this appointment. Patient is not diabetic. She asked for assistance today in trimming her nails. [facility] Medical History AF (paroxysmal atrial fibrillation) Anemia Ataxia Atherosclerotic heart disease of [place] coronary artery without angina pectoris Bilateral edema of lower extremity Cataracts, bilateral Cerebrovascular disease Chronic diastolic heart failure Chronic low back pain without sciatica CVA (cerebral vascular accident) Essential hypertension Frequent nosebleeds Hemarthrosis of knee History of CVA (cerebrovascular accident) (10/06/13) History of TIA (transient ischemic attack) Hyperlipidemia Hypothyroidism Joint pain of leg Left leg cellulitis Minimal cognitive impairment Obstructive sleep apnea Osteoarthritis Persistent atrial fibrillation Precordial chest pain Secondary pulmonary arterial hypertension Shingles Shortness of breath Spinal stenosis Syncope and collapse TIA (transient ischemic attack) (01/01/20) Ulcer of left lower extremity with fat layer exposed Ulcer of right lower extremity with fat layer exposed Home Medications loratadine 10 mg tablet 10 mg PO PRN PRN ALLERGIES 07/05/14 [History Last Taken Unknown] ferrous gluconate 324 mg (37.5 mg iron) tablet 324 mg PO TUTHSA Supplement 10/22/18 [History Last Taken Unknown] nitroglycerin 0.4 mg sublingual tablet 0.4 mg sublingual Q5-15M PRN chest pain #25 tabs 09/29/20 [Rx Last Taken Unknown] clotrimazole-betamethasone 1 %-0.05 % lotion 1 applic topical ONCE PRN OTHER 11/10/20 [History Last Taken Unknown] sertraline 25 mg tablet 75 mg feeding tube DAILY Mood 10/02/22 [History Last Taken Unknown] vjidwyfgguuy-ioj-knfqjjh-FA 200 mg-0.4 mg chewable tablet 1 tab PO DAILY Supplement 12/06/22 [History Last Taken Unknown] acetaminophen 650 mg tablet 650 mg PO Q6H PRN Pain 1-10 01/10/23 [History Last Taken Unknown] aluminum-mag hydroxide-simethicone 200 mg-200 mg-20 mg/5 mL oral susp 5 ml PO Q3H PRN Constipation 01/10/23 [History Last Taken Unknown] amlodipine 5 mg tablet 5 mg PO DAILY BP 01/10/23 [History Last Taken Unknown] apixaban 5 mg tablet 5 mg PO BID Blood Thinner 01/10/23 [History Last Taken Unknown] bisacodyl 5 mg rectal suppository 10 mg [place] X1 PRN Constipation 01/10/23 [History Last Taken Unknown] cholecalciferol (vitamin D3) 25 mcg (1,000 unit) tablet 25 mcg feeding tube DAILY Supplement 01/10/23 [History Last Taken Unknown] digoxin 125 mcg (0.125 mg) tablet 125 mcg feeding tube DAILY Heart 01/10/23 [History Last Taken Unknown] levothyroxine 112 mcg tablet 150 mcg feeding tube DAILY@0600 Thyroid 01/10/23 [History Last Taken Unknown] magnesium hydroxide 400 mg/5 mL oral suspension (Milk of Magnesia) 2,400 mg feeding tube X1 Constipation 01/10/23 [History Last Taken Unknown] metoprolol succinate 50 mg tablet,extended release 24 hr 37.5 mg PO BID BP 01/10/23 [History Last Taken Unknown] multivitamin,qc-qekd-olfausbp 27 mg-0.4 mg tablet 1 tablet PO DAILY Supplement 01/10/23 [History Last Taken Unknown] spironolactone 25 mg tablet 12.5 mg feeding tube QAM BP 01/10/23 [History Last Taken Unknown] torsemide 20 mg tablet 20 mg feeding tube BID CHF 01/10/23 [History Last Taken Unknown] valacyclovir 1 gram tablet (Valtrex) 1,000 mg PO TID Check with primary doctor 01/10/23 [History Last Taken Unknown] Allergy/AdvReac Type Severity Reaction Status Date / Time amlodipine Allergy Swelling Verified 12/06/22 11:03 atorvastatin calcium Allergy Unknown Verified 12/06/22 11:03 [From Lipitor] diltiazem Allergy Swelling Verified 12/06/22 11:03 erythromycin base Allergy Unknown Verified 12/06/22 11:03 [Erythromycin Base] Iodinated Contrast Media Allergy Unknown Verified 12/06/22 11:03 latex Allergy Unknown Verified 12/06/22 11:03 Penicillins Allergy Rash Verified 10/02/22 15:26 pregabalin [From Lyrica] Allergy Swelling Verified 12/06/22 11:03 Sulfa (Sulfonamide Allergy Other Verified 12/06/22 11:03 Antibiotics) triamcinolone acetonide Allergy Other Verified 12/06/22 11:03 [From Kenalog] bumetanide [From Bumex] AdvReac Severe Red, Verified 12/06/22 11:03 Splotchy rash furosemide [From Lasix] AdvReac Severe Red, Verified 12/06/22 11:03 splotchy rash clarithromycin [From Biaxin] AdvReac Other Verified 12/06/22 11:03 lisinopril AdvReac Other Verified 12/06/22 11:03 rosuvastatin calcium AdvReac Other Verified 12/06/22 11:03 [From Crestor] spironolactone AdvReac Low blood Verified 12/06/22 11:03 pressure tramadol HCl [From Ultram] AdvReac Vomiting Verified 12/06/22 11:03 Family History Father CAD (coronary artery disease) Myocardial infarction Mother CVA (cerebral vascular accident) Brother COPD (chronic obstructive pulmonary disease) Colon cancer CAD (coronary artery disease) Surgical History H/O shoulder replacement History of cardioversion (2013) History of cervical biopsy History of hip replacement History of left heart catheterization (11/04/09) Social History (Updated 01/10/23 @ 20:[address] Chase Irvin MD) housing: assisted living facility Smoking Status: Never smoker alcohol intake: never substance use type: does not use caffeine: No what type of physical activity do you participate in: none seatbelt use: always do you feel safe at home: Yes ROS Constitutional Constitutional: Denies body ache(s), chills or fever(s) Eyes Eyes: Denies blurry vision, change in vision or diplopia ENT HEENT: Denies dysphagia, nasal congestion or sore throat Cardiovascular Cardiovascular: Denies chest pain, claudication or cold extremities Respiratory/Chest Respiratory/Chest: Denies chest congestion, cough or dyspnea Gastrointestinal Gastrointestinal: Denies abdominal pain, constipation, diarrhea, nausea or vomiting Genitourinary Genitourinary: Denies dysuria, flank pain, urinary frequency or urinary hesitancy Musculoskeletal Musculoskeletal: Denies joint pain, joint stiffness or joint swelling Integumentary Integumentary: Denies lesions, pruritus or rash Neurologic Neurologic: Denies numbness, seizures or tingling Psychiatric Psychiatric: Denies confusion Endocrine Endocrinology: Denies cold intolerance or heat intolerance Hematologic/Lymphatic Hematologic/Lymphatic: Denies lymphadenopathy Allergic/Immunologic Allergic/Immunologic: Denies asthma Physical Exam Const alert, oriented x3 and no apparent distress General Appearance: cooperative HEENT normocephalic Eyes General Eye: normal appearance of both eyes Neck General: normal visual inspection Lymph Lymphatic: no lymphadenopathy noted and no lymphedema noted Resp normal respiratory effort Cardio regular rate and regular rhythm Extremity normal capillary refill, no calf tenderness and no pedal edema Extremity Narrative: DP and PT pulses weakly palpable. Capillary fill time less than 5 seconds to the digits. Hair growth absent to the digits/foot with normal temperature gradient. Musculoskeletal: Muscle strength 5 of 5 age-appropriate no pain to palpation to bones of foot or ankle. Pain to palpation of nails 1 through 5 of the left and right foot. Dermatologic: Skin is xerotic in nature to the plantar foot. Varicosities noted to the lower extremity bilateral. Nails 1, 2, 3, 4, and 5 of the left and right foot are thickened, elongated, painted, crumbly, incurvated, with subungual debris's. No rashes or lesions noted, no subcutaneous nodules, no ecchymosis noted bilaterally. Skin no rashes or lesions noted, skin turgor normal and no jaundice Neuro oriented x3 and moves all extremities Lab / Micro Data Result Diagrams: 01/11/23 04:58 01/12/23 07:09 Labs: Laboratory Results - last 24 hr 01/12/23 07:09: Sodium 140, Potassium 3.5, Chloride 105, Carbon Dioxide 30.0, Anion Gap 5, BUN 29 H, Creatinine 0.69, Estim Creat Clear Calc 36.81, Est GFR (MDRD) Af Amer 105, Est GFR (MDRD) Non-Af 87, BUN/Creatinine Ratio 42.3 H, Glucose 103, Calcium 9.9 Micro: Microbiology 01/12/23 06:30 Nasal Secretion SARS-CoV-2 Antigen (Rapid) - Final
[2023-01-12 18:49] VITALS: BP 128/80; PULSE 79
[2023-01-12] MEDS: Jevity 1.5. 1,000 ML Bottle 240 ML GT ×2 (18:52→22:03)
--- NOTE | 2023-01-13 02:29 | NURSING ---
Podiatry consult marked as complete for toe pain. Seen per Dr. Arce on 01/12. Toenails trimmed and toe pain addressed- refer to provider note.
[2023-01-13] MEDS: Sertraline 50 MG Tablet 75 MG GT (05:25)
[2023-01-13] MEDS: Levothyroxine 150 MCG Tablet GT (05:25)
[2023-01-13] MEDS: Torsemide 20 MG Tablet GT (05:25)
[2023-01-13] MEDS: Menthol/Lanolin/Calamine/Znox 113 GM Tube 1 APPLIC TOPICAL ×2 (05:25→18:38)
[2023-01-13] MEDS: Nystatin Powder 15gm Bottle 1 APPLIC TOPICAL ×2 (05:25→18:38)
[2023-01-13 05:26] VITALS: BP 126/69; PULSE 71
[2023-01-13] MEDS: Metoprolol(XL)Succ 50 MG Tablet 37.5 MG PO ×2 (05:26→18:39)
[2023-01-13] MEDS: Acetaminophen 650 MG/20 ML UDC 975 MG GT ×3 (05:28→22:00)
[2023-01-13 08:37] VITALS: BP 119/67; PULSE 68
[2023-01-13] MEDS: Digoxin 125 MCG Tablet GT (08:37)
[2023-01-13] MEDS: Spironolactone 25 MG Tablet 12.5 MG GT (08:39)
[2023-01-13] MEDS: amLODIPine 5 MG Tablet GT (08:39)
[2023-01-13 13:27] VITALS: BP 130/80; PULSE 78; RESP 16; TEMP 36.4; O2SAT 98
[2023-01-13 18:39] VITALS: PULSE 88
[2023-01-13] MEDS: Jevity 1.5. 1,000 ML Bottle 240 ML GT ×2 (18:39→22:00)
[2023-01-13 20:16] VITALS: BP 127/69; PULSE 84; RESP 19; TEMP 36.6; O2SAT 97
[2023-01-13 20:17] VITALS: PULSE 84; RESP 19; O2SAT 97
[2023-01-14 04:58] VITALS: BP 130/87; PULSE 86
[2023-01-14] MEDS: Metoprolol(XL)Succ 50 MG Tablet 37.5 MG PO (04:58)
[2023-01-14] MEDS: Sertraline 50 MG Tablet 75 MG GT (04:59)
[2023-01-14] MEDS: Nystatin Powder 15gm Bottle 1 APPLIC TOPICAL ×2 (05:00→17:41)
[2023-01-14] MEDS: Levothyroxine 150 MCG Tablet GT (05:00)
[2023-01-14] MEDS: Torsemide 20 MG Tablet GT (05:00)
[2023-01-14] MEDS: Acetaminophen 650 MG/20 ML UDC 975 MG GT (05:01)
[2023-01-14] MEDS: Menthol/Lanolin/Calamine/Znox 113 GM Tube 1 APPLIC TOPICAL ×2 (05:41→17:42)
[2023-01-14 08:46] VITALS: PULSE 80
[2023-01-14] MEDS: Digoxin 125 MCG Tablet GT (08:46)
[2023-01-14] MEDS: amLODIPine 5 MG Tablet GT (08:48)
[2023-01-14] MEDS: Spironolactone 25 MG Tablet 12.5 MG GT (08:48)
--- NOTE | 2023-01-14 09:58 | PCM.PN.DRR ---
TCU RX Drug Regimen Review Subjective: TCU Admission. 82 YOF presented to the ER with a fall while on Eliquis. Hospitalized for right intracranial hemorrhage, complicated by dysphagia requiring g-tube placement. Admitted to [facility] in [place]. Admitted to TCU with debility for strengthening and rehabilitation. Objective: Allergies amlodipine Allergy (Verified 12/06/22 11:03) Swelling atorvastatin calcium [From Lipitor] Allergy (Verified 12/06/22 11:03) Unknown diltiazem Allergy (Verified 12/06/22 11:03) Swelling erythromycin base [Erythromycin Base] Allergy (Verified 12/06/22 11:03) Unknown Iodinated Contrast Media Allergy (Verified 12/06/22 11:03) Unknown latex Allergy (Verified 12/06/22 11:03) Unknown Penicillins Allergy (Verified 10/02/22 15:26) Rash pregabalin [From Lyrica] Allergy (Verified 12/06/22 11:03) Swelling Sulfa (Sulfonamide Antibiotics) Allergy (Verified 12/06/22 11:03) Other triamcinolone acetonide [From Kenalog] Allergy (Verified 12/06/22 11:03) Other bumetanide [From Bumex] Adverse Reaction (Severe, Verified 12/06/22 11:03) Red, Splotchy rash furosemide [From Lasix] Adverse Reaction (Severe, Verified 12/06/22 11:03) Red, splotchy rash clarithromycin [From Biaxin] Adverse Reaction (Verified 12/06/22 11:03) Other lisinopril Adverse Reaction (Verified 12/06/22 11:03) Other rosuvastatin calcium [From Crestor] Adverse Reaction (Verified 12/06/22 11:03) Other spironolactone Adverse Reaction (Verified 12/06/22 11:03) Low blood pressure tramadol HCl [From Ultram] Adverse Reaction (Verified 12/06/22 11:03) Vomiting Current Medications Generic Name Dose Route Start Last Admin Trade Name Freq PRN Reason Stop Dose Admin Acetaminophen 975 mg 01/11/23 14:00 01/14/23 05:01 Acetaminophen 650 Mg/20 Ml Udc GT 975 mg Q8 KARLA Administration Al Hydroxide/Mg Hydroxide 15 ml 01/10/23 19:23 Mag Hydrox/Al Hydrox/Simeth 30 Ml Udc GT Q6H PRN PRN HEARTBURN Amlodipine Besylate 5 mg 01/12/23 08:00 01/14/23 08:48 Amlodipine 5 Mg Tablet GT 5 mg DAILY@0800 KARLA Administration Bisacodyl 10 mg 01/10/23 19:25 Bisacodyl 10 Mg Suppository RC X1 PRN Constipation Calamine/Phenol 1 applic 01/11/23 06:00 01/14/23 05:41 Menthol/Lanolin/Calamine/Znox 113 Gm Tube TOPICAL 1 applic BID [facility] Administration Protocol Digoxin 125 mcg 01/12/23 08:00 01/14/23 08:46 Digoxin 125 Mcg Tablet GT 125 mcg DAILY@0800 [facility] Administration Enteral Nutritional Formula 240 ml 01/14/23 08:00 01/14/23 08:56 Jevity 1.5. 1,000 Ml Bottle GT Not Given 0800,1200,1700,2200 [facility] Levothyroxine Sodium 150 mcg 01/11/23 06:00 01/14/23 05:00 Levothyroxine 150 Mcg Tablet GT 150 mcg DAILY@0600 KARLA Administration Magnesium Hydroxide 30 ml 01/10/23 19:06 Magnesium Hydroxide 30 Ml Udc GT X1 PRN Constipation Metoprolol Succinate 37.5 mg 01/11/23 06:00 01/14/23 04:58 Metoprolol(Xl)Succ 50 Mg Tablet PO 37.5 mg BID [facility] Administration Nystatin 1 applic 01/11/23 06:00 01/14/23 05:00 Nystatin Powder 15gm Bottle TOPICAL 1 applic BID [facility] Administration Protocol Sertraline HCl 75 mg 01/11/23 06:00 01/14/23 04:59 Sertraline 50 Mg Tablet GT 75 mg DAILY KARLA Administration Sodium Chloride 10 - 40 ml 01/10/23 19:06 0.9% Saline Lock 10 Ml Syringe IV UD PRN SALINE FLUSH Spironolactone 12.5 mg 01/11/23 10:00 01/14/23 08:48 Spironolactone 25 Mg Tablet GT 12.5 mg QAM KARLA Administration Torsemide 20 mg 01/12/23 06:00 01/14/23 05:00 Torsemide 20 Mg Tablet GT 20 mg DAILY KARLA Administration Tuberculin PPD 0.1 ml 01/18/23 10:00 Tuberculin,Purif.Prot.Deriv. 50 Tu/Ml Vial ID 01/18/23 10:01 X1 ONE Problem List (Last Reviewed 01/10/23 @ 20:[address] Chase Irvin MD) Tinea unguium (Acute) Chronic pain of toe of right foot (Acute) Chronic pain of toe of left foot (Acute) Obsessive compulsive disorder (Acute) Anxiety (Acute) Obstructive sleep apnea (Acute) Heart failure with preserved ejection fraction (Acute) Depression (Acute) Atrial fibrillation (Acute) Coronary artery disease (Acute) Iron deficiency anemia (Acute) Allergic rhinitis (Acute) Hypothyroidism (Acute) Dysphagia (Acute) Intracranial hemorrhage on right side following injury (Acute) Debility (Acute) Vital Signs Temp Pulse Resp BP Pulse Ox O2 Del Method 97.8 F 80 19 H 130/87 H 97 Room Air 01/13/23 20:16 01/14/23 08:46 01/13/23 20:17 01/14/23 04:58 01/13/23 20:17 01/13/23 20:17 Oxygen Delivery Method Room Air Weight: 73.936 kg Body Mass Index (BMI) 27.9 Sodium 140 mmol/L (136-145) 01/12/23 07:09 Potassium 3.5 mmol/L (3.5-5.1) 01/12/23 07:09 Chloride 105 mmol/L (98-107) 01/12/23 07:09 Carbon Dioxide 30.0 mmol/L (21.0-32.0) 01/12/23 07:09 Anion Gap 5 (5-15) 01/12/23 07:09 BUN 29 mg/dL (7-18) H 01/12/23 07:09 Creatinine 0.69 mg/dL (0.55-1.02) 01/12/23 07:09 Est GFR (MDRD) Af Amer 105 mL/min (>60) 01/12/23 07:09 Est GFR (MDRD) Non-Af 87 mL/min (>60) 01/12/23 07:09 BUN/Creatinine Ratio 42.3 RATIO (10-20) H 01/12/23 07:09 Glucose 103 mg/dL (74-106) 01/12/23 07:09 Assessment/Plan: 1. Pain: acetaminophen 975mg GT Q8. Please continue to monitor for increased pain. 2. Bowel: bisacodyl 10mg RC x1 PRN constipation and MOM 30mL GT x1 PRN constipation. Resident has not had any doses so far. Please continue to monitor for constipation and PRN usage. Last documented bowel movement 01/14. No PRN doses have been given. 3. Hypertension/CHF: metoprolol succinate 37.5mg PO BID, amlodipine 5mg GT daily, digoxin 12.5mg GT daily spironolactone 12.5mg GT daily and torsemide 20mg GT daily. Please continue to monitor BP (last 130/87), HR (last 80), swelling, vomiting, renal function and potassium (last 3.5mmol/L). Please consider ordering a digoxin level if clinically appropriate as the last level was from 05/11/21. Thanks. Please consider changing metoprolol succinate to tartrate as the long acting formulation can not be crushed for G-tube administration. Thanks. 4. Hypothyroidism: levothyroxine 150mcg GT daily. Please continue to monitor TSH (last 02/21/22) and S/S of hypo/hyperthyroidism. 5. Indigestion: Mylanta II 15mL GT Q6H PRN heartburn. No PRN doses have been given. Please continue to monitor for S/S of heartburn and PRN usage. Assessment/Plan for indications treated with psychotropic medications: 1. Depression: sertraline 75mg GT daily. Please see physician note regarding GDR. Patient to have appointment with Dr. Argueta. Please continue to monitor for suicidal ideation (black box warning), falls/fractures (BEERs list) and sodium (last 140mmol/L). Medical chart and medication regimen reviewed. The following medication irregularities or issues were identified: *1. Digoxin 12.5mg GT daily. Please consider ordering a digoxin level if clinically appropriate as the last level was from 05/11/21. Thanks. *2. Metoprolol succinate 37.5mg PO BID. Please consider changing metoprolol succinate to tartrate as the long acting formulation can not be crushed for G-tube administration. Thanks. Date of Note:: 01/14/23
[2023-01-14 13:21] VITALS: BP 98/56; PULSE 69; RESP 18; TEMP 36.3; O2SAT 99
[2023-01-14] MEDS: Acetaminophen 325 MG Tablet 975 MG PO ×2 (13:44→22:17)
--- NOTE | 2023-01-14 15:49 | NURSING ---
Patient updated that staff member tested covid positive. Son updated by phone.
[2023-01-14 17:41] VITALS: BP 129/70; PULSE 88
[2023-01-14] MEDS: Metoprolol Tartrate 25 MG Tablet 37.5 MG PO (17:41)
[2023-01-15] MEDS: Acetaminophen 325 MG Tablet 975 MG PO ×3 (06:05→21:59)
[2023-01-15 06:06] VITALS: BP 111/81; PULSE 86
[2023-01-15] MEDS: Metoprolol Tartrate 25 MG Tablet 37.5 MG PO ×2 (06:06→18:09)
[2023-01-15] MEDS: Levothyroxine 150 MCG Tablet PO (06:07)
[2023-01-15] MEDS: Sertraline 50 MG Tablet 75 MG PO (06:08)
[2023-01-15] MEDS: Torsemide 20 MG Tablet PO (06:08)
[2023-01-15] MEDS: Nystatin Powder 15gm Bottle 1 APPLIC TOPICAL ×2 (06:24→18:12)
[2023-01-15] MEDS: Menthol/Lanolin/Calamine/Znox 113 GM Tube 1 APPLIC TOPICAL ×2 (06:24→18:11)
[2023-01-15 08:35] VITALS: BP 107/56; PULSE 77
[2023-01-15] MEDS: Digoxin 125 MCG Tablet PO (08:35)
[2023-01-15] MEDS: amLODIPine 5 MG Tablet PO (08:36)
[2023-01-15 08:44] VITALS: BP 107/56; PULSE 77
--- NOTE | 2023-01-15 09:19 | NURSING ---
Pt did not need jevity bolus due to eating over 50% at breakfast.
[2023-01-15] MEDS: Spironolactone 25 MG Tablet 12.5 MG PO (10:41)
[2023-01-15 15:07] VITALS: BP 119/73; PULSE 73; RESP 22; TEMP 36.4; O2SAT 93
--- NOTE | 2023-01-15 16:17 | CHAPLAIN ---
Type of Pastoral Visit ___ Initial Visit _x__ Follow-up Visit ___ On-call Visit ___ General Patient Visit ___ Spiritual Assessment ___ Family Conference ___ Bereavement ___ Rapid Response ___ Code Blue ___ Other (describe below) Pastoral Care Referral From _x__ Patient ___ Family ___ Nurse ___ Physician ___ Associate Account Manager ___ Treasury Representative ___ Other (describe below) Sacrament/Intervention _x__ Active listening ___ Anointing ___ Voodoo ___ Bereavement ___ Communion ___ Geena exploration ___ _x__ Life review _x_ Prayer ___ Reconciliation ___ Sacrament of Sick _x__ Supportive presence ___ Wedding ___ Other (describe below) Pastoral Comments patient remembers the first brief meeting with this rn orthopaedic and invites the same in to visit today; pt believes she has had some improvements and even small ones but encouraged; pt welcomes time to talk about life and current affair; pt is hopeful about a return to home/family; pt asks for prayer support
[2023-01-15 18:09] VITALS: BP 119/73; PULSE 73
[2023-01-15 22:00] VITALS: O2SAT 94
[2023-01-16] VITALS (7 sets, daily range): BP systolic 97–129; BP diastolic 57–81; PULSE 64–98; RESP 18–21; TEMP 36.4; O2SAT 94–98; BMI 27.0
[2023-01-16] MEDS: Sertraline 50 MG Tablet 75 MG PO (06:36)
[2023-01-16] MEDS: Metoprolol Tartrate 25 MG Tablet 37.5 MG PO ×2 (06:37→18:35)
[2023-01-16] MEDS: Levothyroxine 150 MCG Tablet PO (06:37)
[2023-01-16] MEDS: Torsemide 20 MG Tablet PO (06:37)
[2023-01-16] MEDS: Acetaminophen 325 MG Tablet 975 MG PO ×3 (06:38→22:16)
[2023-01-16] MEDS: Nystatin Powder 15gm Bottle 1 APPLIC TOPICAL ×2 (06:39→18:41)
[2023-01-16] MEDS: Menthol/Lanolin/Calamine/Znox 113 GM Tube 1 APPLIC TOPICAL ×2 (06:39→18:35)
[2023-01-16] MEDS: Digoxin 125 MCG Tablet PO (08:47)
[2023-01-16] MEDS: amLODIPine 5 MG Tablet PO (08:51)
--- NOTE | 2023-01-16 11:08 | CASEMGMT ---
Addendum entered by Anca Mallory 01/17/23 12:41: Spoke with both SNFs and pt is accepted. [facility] is [facility] but does have OON benefits. [facility] is in network. SW updated son via email of OON benefits and both acceptance. Confirmed [facility] is [facility]. [facility] did provide videos for a virtual tour for pt. SW forwarded to son and will show pt. Will continue to follow. Original Note: Social Work IDT met with patient and son, Tom, via conference call for care plan meeting. Discussed patient's progress in PT/OT/ST/SN. Educated to [facility] insurance with NRD 01/22 and EDC 01/31. IDT is recommending SNF stay at [facility], at this time. Pt and son are in agreement for a referral to [facility] then [facility] second. SW to place referrals to both SNFs. Pt and son is aware the SNF will be private pay. Will continue to follow. Referral made to [facility] to [facility] and [facility]. BIMS () and PHQ-9 () completed for MDS assessment. SW explored positive responses. Pt reports all positive answers are due to stroke and being fidgety, that is difficult to focus on activities and feeling more tired than usual. Pt denies being depressed. SW to monitor. JOSE MARTIN Vidal
[2023-01-16] MEDS: Spironolactone 25 MG Tablet 12.5 MG PO (11:57)
--- NOTE | 2023-01-16 15:54 | NURSING ---
Flushed PEG tube with 60mL of water to keep patent, no issues.
[2023-01-17] MEDS: Nystatin Powder 15gm Bottle 1 APPLIC TOPICAL ×2 (05:57→17:51)
[2023-01-17] MEDS: Menthol/Lanolin/Calamine/Znox 113 GM Tube 1 APPLIC TOPICAL ×2 (05:58→17:50)
[2023-01-17 05:59] VITALS: PULSE 97
[2023-01-17] MEDS: Levothyroxine 150 MCG Tablet PO (05:59)
[2023-01-17] MEDS: Torsemide 20 MG Tablet PO (05:59)
[2023-01-17] MEDS: Acetaminophen 325 MG Tablet 975 MG PO ×3 (05:59→20:30)
[2023-01-17] MEDS: Metoprolol Tartrate 25 MG Tablet 37.5 MG PO ×2 (05:59→17:46)
[2023-01-17 06:01] VITALS: BP 127/68; PULSE 97; RESP 17
[2023-01-17] MEDS: Sertraline 50 MG Tablet 75 MG PO (06:01)
--- NOTE | 2023-01-17 06:49 | NURSING ---
Patient requesting her thyroid pill to be given at least 30 minutes before other meds in the morning and the time was changed to 0500 per patient request.
[2023-01-17 08:06] VITALS: PULSE 68
[2023-01-17] MEDS: amLODIPine 5 MG Tablet PO (08:06)
[2023-01-17] MEDS: Digoxin 125 MCG Tablet PO (08:06)
[2023-01-17] MEDS: Spironolactone 25 MG Tablet 12.5 MG PO (08:07)
[2023-01-17 09:26] VITALS: PULSE 68; RESP 16; O2SAT 91
[2023-01-17] MEDS: NYSTATIN 500,000 UNIT/5 ML UDC 500000 UNIT PO ×3 (11:43→20:30)
[2023-01-17 13:25] VITALS: BP 121/71; PULSE 76; RESP 18; TEMP 36.2; O2SAT 96
--- NOTE | 2023-01-17 17:20 | RAD_ITS ---
STUDY: X-RAY - ABDOMEN/PELVIS REASON FOR EXAM: Female, 82 years old. Nausea TECHNIQUE: Frontal views COMPARISON: None. FINDINGS: Normal visualized lung bases. There is an unremarkable bowel gas pattern. There is no demonstrated free abdominal air. There is a gastrostomy tube in place over the stomach. Normal soft tissue structures. There is a right hip prosthesis in place. Degenerative vertebral changes and scoliosis at the lumbar spine. RAD/Abdomen Single View IMPRESSION: No acute pathology of the abdomen and pelvis. Electronically Signed: Mark Hobbs DO at 18:21 EDT Reading Location ID and State: [facility] / [place] Tel [phone], Service support ,
[2023-01-17 17:46] VITALS: BP 121/71; PULSE 76
[2023-01-17] MEDS: Lactulose 20 GM/30 ML UDC GT (20:29)
[2023-01-18 00:02] LABS: Mucous, Urine 0 SEEN /hpf (<or=2+); Red Blood Cells-Urine 0 SEEN /hpf (0-5)
[2023-01-18 00:05] LABS: Color, Urine Yellow (Yellow); Glucose, Dipstick Normal (Normal); Ketone-Dipstick Negative (Negative); Leukocyte Esterase-Dipstick 100 /ul (Negative); Nitrite-Dipstick Negative (Negative); Occult Blood-Urine 10 /ul (Negative); Protein-Dipstick 15 mg/dl (Negative); Urine Bilirubin Dipstick Negative (Negative); Urine Clarity Clear (Clear); Urine Urobilinogen Normal (Normal)
[2023-01-18 00:24] LABS: Bacteria 2+ /hpf (None Seen); Squamous Epithelial Cells - UA 10-25 SEEN /hpf (5-10); White Blood Cells 10-25 SEEN /hpf (0-5)
[2023-01-18] MEDS: Menthol/Lanolin/Calamine/Znox 113 GM Tube 1 APPLIC TOPICAL ×2 (04:55→17:48)
[2023-01-18] MEDS: Nystatin Powder 15gm Bottle 1 APPLIC TOPICAL ×2 (04:55→17:50)
[2023-01-18] MEDS: Levothyroxine 150 MCG Tablet PO (04:57)
[2023-01-18] MEDS: Acetaminophen 325 MG Tablet 975 MG PO ×3 (05:52→20:13)
[2023-01-18 05:53] VITALS: BP 122/80; PULSE 66
[2023-01-18] MEDS: Metoprolol Tartrate 25 MG Tablet 37.5 MG PO ×2 (05:53→17:49)
[2023-01-18] MEDS: Sertraline 50 MG Tablet 75 MG PO (05:54)
[2023-01-18] MEDS: Torsemide 20 MG Tablet PO (05:55)
[2023-01-18] MEDS: NYSTATIN 500,000 UNIT/5 ML UDC 500000 UNIT PO ×4 (05:55→20:13)
[2023-01-18 05:56] LABS: Absolute Lymphocyte Count 1.61 X10^3/uL (0.83-4.51); Absolute Neutrophil Count 5.5 X10^3/uL (2.0-7.7); Basophil# 0.09 X10^3/uL; Basophil% 1.1 % (0-1); Eosinophil# 0.43 X10^3/uL; Eosinophils% 5.1 % (0-5); Hematocrit 41.7 % (37-47); Hemoglobin 13.3 g/dL (12.0-15.0); Lymphocyte # 1.61 X10^3/ul (0.83-4.51); Lymphocyte % 19.1 % (19-41); Mean Corp Hgb Conc 31.9 g/dL (32-36); Mean Corpuscular Hgb 31.6 pg (27.0-32.0); Mean Platelet Vol. 10.7 fl (6.2-12.0); Monocyte# 0.71 X10^3/uL; Monocyte% 8.4 % (0-10); NRBC Flagged by Analyzer 0 % (0-5); Neutrophil # 5.53 X10^3/uL (2.7-7.7); Neutrophil % 65.8 % (47-70); Platelet Count 305 K/mm3 (150-450); RBC Distribution Width CV 14.1 % (11.6-14.6); RBC Distribution Width SD 51.1 fl (35.1-43.9); Red Blood Count 4.21 M/mm3 (4.2-5.4); White Blood Count 8.4 K/mm3 (4.4-11.0)
[2023-01-18 06:00] VITALS: BMI 27.0
[2023-01-18 06:35] LABS: Anion Gap 4 (5-15); BUN 26 mg/dL (7-18); Calcium,Total 9.9 mg/dL (8.5-10.1); Chloride 105 mmol/L (98-107); Creatinine, Serum 0.63 mg/dL (0.55-1.02); EST Glomerular Filtration Rate 95 mL/min (>60); Est Glom Filt Rate - Afr Amer 115 mL/min (>60); Estimated Creatinine Clearance 36.81 ml/min; Glucose 100 mg/dL (74-106); Potassium 3.1 mmol/L (3.5-5.1); Sodium Level 140 mmol/L (136-145)
[2023-01-18] MEDS: Spironolactone 25 MG Tablet 12.5 MG PO (09:23)
[2023-01-18 09:24] VITALS: BP 122/80; PULSE 66
[2023-01-18] MEDS: Digoxin 125 MCG Tablet PO (09:24)
[2023-01-18] MEDS: Potassium Chloride Oral Tablet 20 MEQ 60 MEQ PO (09:25)
[2023-01-18] MEDS: amLODIPine 5 MG Tablet PO (09:25)
[2023-01-18] MEDS: Ondansetron ODT 4 MG Tablet 8 MG PO (09:29)
[2023-01-18 10:00] VITALS: PULSE 84; RESP 16; O2SAT 95
--- NOTE | 2023-01-18 10:13 | NURSING ---
Stock Replenisher Note; MDS Complete
[2023-01-18] MEDS: Tuberculin,Purif.prot.deriv. 50 TU/ML Vial 0.1 ML ID (10:37)
[2023-01-18 14:27] VITALS: BP 124/72; PULSE 79; RESP 18; TEMP 36.3; O2SAT 96
[2023-01-18 17:49] VITALS: PULSE 79
[2023-01-19] MEDS: Levothyroxine 150 MCG Tablet PO (05:08)
[2023-01-19 05:13] VITALS: BMI 27.1
[2023-01-19] MEDS: NYSTATIN 500,000 UNIT/5 ML UDC 500000 UNIT PO ×4 (06:22→22:06)
[2023-01-19] MEDS: Torsemide 20 MG Tablet PO (06:23)
[2023-01-19] MEDS: Acetaminophen 325 MG Tablet 975 MG PO ×3 (06:23→22:06)
[2023-01-19] MEDS: Sertraline 50 MG Tablet 75 MG PO (06:23)
[2023-01-19 06:24] VITALS: BP 132/86; PULSE 99
[2023-01-19] MEDS: Nystatin Powder 15gm Bottle 1 APPLIC TOPICAL ×2 (06:24→18:35)
[2023-01-19] MEDS: Metoprolol Tartrate 25 MG Tablet 37.5 MG PO ×2 (06:24→18:33)
[2023-01-19] MEDS: Menthol/Lanolin/Calamine/Znox 113 GM Tube 1 APPLIC TOPICAL ×2 (06:24→18:35)
[2023-01-19] MEDS: Potassium Chloride Oral Tablet 20 MEQ PO (08:33)
[2023-01-19 08:34] VITALS: BP 118/77; PULSE 64
[2023-01-19] MEDS: amLODIPine 5 MG Tablet PO (08:34)
[2023-01-19] MEDS: Digoxin 125 MCG Tablet PO (08:34)
[2023-01-19] MEDS: Spironolactone 25 MG Tablet 12.5 MG PO (09:54)
[2023-01-19 10:00] VITALS: PULSE 80; RESP 18; O2SAT 93
--- NOTE | 2023-01-19 11:05 | NURSING ---
dr florentino updated on urine culture results, no new orders at this time. does want pt to have lactulose via PEG tube for constipation per KUB results.
[2023-01-19] MEDS: Lactulose 20 GM/30 ML UDC GT (13:25)
[2023-01-19 14:39] VITALS: BP 94/61; PULSE 81; RESP 18; TEMP 36.2; O2SAT 94
--- NOTE | 2023-01-19 18:00 | NURSING ---
LACTULOSE GIVEN AT 1330. STILL NO RESULTS.
[2023-01-19 18:31] VITALS: BP 126/75; PULSE 101
[2023-01-19 18:33] VITALS: BP 126/75; PULSE 101
[2023-01-19] MEDS: Magnesium Hydroxide 30 ML UDC PO (22:05)
[2023-01-20] MEDS: Levothyroxine 150 MCG Tablet PO (04:45)
[2023-01-20] MEDS: Menthol/Lanolin/Calamine/Znox 113 GM Tube 1 APPLIC TOPICAL ×2 (04:45→17:05)
[2023-01-20] MEDS: Nystatin Powder 15gm Bottle 1 APPLIC TOPICAL ×2 (04:46→17:06)
[2023-01-20 05:48] VITALS: BMI 27.2
[2023-01-20] MEDS: Acetaminophen 325 MG Tablet 975 MG PO ×3 (06:06→21:54)
[2023-01-20 06:07] VITALS: BP 122/83; PULSE 99
[2023-01-20] MEDS: Metoprolol Tartrate 25 MG Tablet 37.5 MG PO ×2 (06:07→17:07)
[2023-01-20] MEDS: Sertraline 50 MG Tablet 75 MG PO (06:08)
[2023-01-20] MEDS: Torsemide 20 MG Tablet PO (06:08)
[2023-01-20] MEDS: NYSTATIN 500,000 UNIT/5 ML UDC 500000 UNIT PO ×4 (06:13→21:53)
[2023-01-20 08:09] LABS: Anion Gap 6 (5-15); BUN 25 mg/dL (7-18); BUN/Creat Ratio 34.9 RATIO (10-20); Calcium,Total 10.1 mg/dL (8.5-10.1); Chloride 106 mmol/L (98-107); Creatinine, Serum 0.72 mg/dL (0.55-1.02); EST Glomerular Filtration Rate 83 mL/min (>60); Est Glom Filt Rate - Afr Amer 100 mL/min (>60); Estimated Creatinine Clearance 36.81 ml/min; Glucose 100 mg/dL (74-106); Potassium 4.3 mmol/L (3.5-5.1); Sodium Level 139 mmol/L (136-145)
[2023-01-20] MEDS: Potassium Chloride Oral Tablet 20 MEQ PO (08:28)
[2023-01-20 08:29] VITALS: BP 125/71; PULSE 66
[2023-01-20] MEDS: amLODIPine 5 MG Tablet PO (08:29)
[2023-01-20] MEDS: Digoxin 125 MCG Tablet PO (08:29)
[2023-01-20 08:39] VITALS: BP 125/71; PULSE 66
[2023-01-20] MEDS: Spironolactone 25 MG Tablet 12.5 MG PO (10:57)
[2023-01-20 12:10] VITALS: PULSE 63; RESP 18; O2SAT 96
--- NOTE | 2023-01-20 12:55 | NURSING ---
SSE GIVEN AT 11:15 PER ORDER. RESULTS AT 11:45 OF MED,HARD/FORMED STOOL. PT TOLERATED WELL WILL CONTINUE TO MONITOR.
[2023-01-20 15:26] VITALS: BP 138/79; PULSE 88; RESP 16; TEMP 36.7; O2SAT 89
[2023-01-20 17:07] VITALS: BP 138/79; PULSE 88
[2023-01-21] MEDS: Menthol/Lanolin/Calamine/Znox 113 GM Tube 1 APPLIC TOPICAL ×2 (04:46→16:40)
[2023-01-21] MEDS: Nystatin Powder 15gm Bottle 1 APPLIC TOPICAL ×2 (04:46→16:40)
[2023-01-21] MEDS: Levothyroxine 150 MCG Tablet PO (04:46)
[2023-01-21] MEDS: Acetaminophen 325 MG Tablet 975 MG PO ×3 (05:58→21:57)
[2023-01-21 05:59] VITALS: BP 117/76; PULSE 94
[2023-01-21] MEDS: Metoprolol Tartrate 25 MG Tablet 37.5 MG PO ×2 (05:59→16:39)
[2023-01-21] MEDS: Sertraline 50 MG Tablet 75 MG PO (05:59)
[2023-01-21] MEDS: NYSTATIN 500,000 UNIT/5 ML UDC 500000 UNIT PO ×4 (05:59→21:57)
[2023-01-21] MEDS: Torsemide 20 MG Tablet PO (06:00)
[2023-01-21 07:55] VITALS: PULSE 94
[2023-01-21] MEDS: Digoxin 125 MCG Tablet PO (07:55)
[2023-01-21] MEDS: amLODIPine 5 MG Tablet PO (07:55)
[2023-01-21] MEDS: Potassium Chloride Oral Tablet 20 MEQ PO (07:55)
[2023-01-21] MEDS: Spironolactone 25 MG Tablet 12.5 MG PO (07:56)
--- NOTE | 2023-01-21 13:43 | MDS.RN ---
Information for the mds was obtained from review of the clinical record, interview of resident, staff, and direct observation of resident's care.
[2023-01-21 14:35] VITALS: BP 109/73; PULSE 91; RESP 16; TEMP 36.2; O2SAT 93
[2023-01-21 16:39] VITALS: PULSE 91
[2023-01-21 22:00] VITALS: PULSE 79; RESP 18; O2SAT 93
[2023-01-22] MEDS: Levothyroxine 150 MCG Tablet PO (05:10)
[2023-01-22] MEDS: Menthol/Lanolin/Calamine/Znox 113 GM Tube 1 APPLIC TOPICAL ×2 (06:19→17:10)
[2023-01-22] MEDS: NYSTATIN 500,000 UNIT/5 ML UDC 500000 UNIT PO ×4 (06:19→22:28)
[2023-01-22] MEDS: Acetaminophen 325 MG Tablet 975 MG PO ×3 (06:19→22:27)
[2023-01-22] MEDS: Torsemide 20 MG Tablet PO (06:19)
[2023-01-22] MEDS: Sertraline 50 MG Tablet 75 MG PO (06:20)
[2023-01-22 06:22] VITALS: BP 124/64; PULSE 69
[2023-01-22] MEDS: Metoprolol Tartrate 25 MG Tablet 37.5 MG PO ×2 (06:22→17:07)
[2023-01-22] MEDS: Nystatin Powder 15gm Bottle 1 APPLIC TOPICAL ×2 (06:30→17:11)
[2023-01-22] MEDS: Potassium Chloride Oral Tablet 20 MEQ PO (09:10)
[2023-01-22 09:11] VITALS: BP 111/62; PULSE 70
[2023-01-22] MEDS: Digoxin 125 MCG Tablet PO (09:11)
[2023-01-22] MEDS: amLODIPine 5 MG Tablet PO (09:14)
[2023-01-22] MEDS: Spironolactone 25 MG Tablet 12.5 MG PO (09:15)
[2023-01-22 09:51] VITALS: BP 111/62; PULSE 74; RESP 18; TEMP 36.4; O2SAT 92
[2023-01-22 10:00] VITALS: O2SAT 95
[2023-01-22 10:28] VITALS: BMI 27.0
--- NOTE | 2023-01-22 10:36 | NURSING ---
Addendum entered by Magalie Donohue 01/23/23 10:26: Called and left [facility]/ medical records, requesting return call to have records sent today if possible. Original Note: Call from Dr. Marcos, updated her that consult order says she was consulted to removed PEG. She needs records on what kind was placed to determine if can be removed at bedside. Faxed med record request to [facility]. Will update Dr. Marcos when info received.
--- NOTE | 2023-01-22 10:52 | CON.PCM.SX_ITS ---
Assessment & Plan Assessment/Plan (1) PEG (percutaneous endoscopic gastrostomy) adjustment/replacement/removal: PLAN: Plan We will get the operative report of her PEG tube placement to find out what kind of tube was placed whether it can be removed externally or should be removed endoscopically. Did also discussed with patient's son Ean over the phone. Patient is currently tolerating a diet well p.o. Mary Ann Marcos M.D. Pager: [phone] [facility] [address] [place] [address], Outpatient Pavilion, [address] [place] [address] Office: [phone] HPI Consult Data Date of Consult: 01/23/23 HPI Narrative HPI Narrative: DIXIE BURROUGHS, is a 82 F who mended to the TCU after having a stroke and being transferred from in [place]. Patient did have a PEG tube placed while she was at . Patient states she has not been using it for about a week and she has been able to tolerate food. 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 Bilateral edema of lower extremity Cataracts, bilateral Cerebrovascular disease Chronic diastolic heart failure Chronic low back pain without sciatica CVA (cerebral vascular accident) Essential hypertension Frequent nosebleeds Hemarthrosis of knee History of CVA (cerebrovascular accident) (10/06/13) History of TIA (transient ischemic attack) Hyperlipidemia Hypothyroidism Joint pain of leg Left leg cellulitis Minimal cognitive impairment Obstructive sleep apnea Osteoarthritis Persistent atrial fibrillation Precordial chest pain Secondary pulmonary arterial hypertension Shingles Shortness of breath Spinal stenosis Syncope and collapse TIA (transient ischemic attack) (01/01/20) Ulcer of left lower extremity with fat layer exposed Ulcer of right lower extremity with fat layer exposed Home Medications loratadine 10 mg tablet 10 mg PO PRN PRN ALLERGIES 07/05/14 [History Last Taken Unknown] ferrous gluconate 324 mg (37.5 mg iron) tablet 324 mg PO TUTHSA Supplement 10/22/18 [History Last Taken Unknown] nitroglycerin 0.4 mg sublingual tablet 0.4 mg sublingual Q5-15M PRN chest pain #25 tabs 09/29/20 [Rx Last Taken Unknown] clotrimazole-betamethasone 1 %-0.05 % lotion 1 applic topical ONCE PRN OTHER 11/10/20 [History Last Taken Unknown] sertraline 25 mg tablet 75 mg feeding tube DAILY Mood 10/02/22 [History Last Taken Unknown] nbjjnhdoalxe-zaq-nuekayp-FA 200 mg-0.4 mg chewable tablet 1 tab PO DAILY Supple ment 12/06/22 [History Last Taken Unknown] acetaminophen 650 mg tablet 650 mg PO Q6H PRN Pain 1-10 01/10/23 [History Last Taken Unknown] aluminum-mag hydroxide-simethicone 200 mg-200 mg-20 mg/5 mL oral susp 5 ml PO Q3H PRN Constipation 01/10/23 [History Last Taken Unknown] amlodipine 5 mg tablet 5 mg PO DAILY BP 01/10/23 [History Last Taken Unknown] apixaban 5 mg tablet 5 mg PO BID Blood Thinner 01/10/23 [History Last Taken Unknown] bisacodyl 5 mg rectal suppository 10 mg MA X1 PRN Constipation 01/10/23 [History Last Taken Unknown] cholecalciferol (vitamin D3) 25 mcg (1,000 unit) tablet 25 mcg feeding tube DAILY Supplement 01/10/23 [History Last Taken Unknown] digoxin 125 mcg (0.125 mg) tablet 125 mcg feeding tube DAILY Heart 01/10/23 [History Last Taken Unknown] levothyroxine 112 mcg tablet 150 mcg feeding tube DAILY@0600 Thyroid 01/10/23 [History Last Taken Unknown] magnesium hydroxide 400 mg/5 mL oral suspension (Milk of Magnesia) 2,400 mg feeding tube X1 Constipation 01/10/23 [History Last Taken Unknown] metoprolol succinate 50 mg tablet,extended release 24 hr 37.5 mg PO BID BP 0 01/10/23 [History Last Taken Unknown] multivitamin,aa-vxbu-qtgdgtpg 27 mg-0.4 mg tablet 1 tablet PO DAILY Supplement 01/10/23 [History Last Taken Unknown] spironolactone 25 mg tablet 12.5 mg feeding tube QAM BP 01/10/23 [History Last Taken Unknown] torsemide 20 mg tablet 20 mg feeding tube BID CHF 01/10/23 [History Last Taken Unknown] valacyclovir 1 gram tablet (Valtrex) 1,000 mg PO TID Check with primary doctor 01/10/23 [History Last Taken Unknown] Allergy/AdvReac Type Severity Reaction Status Date / Time amlodipine Allergy Swelling Verified 12/06/22 11:03 atorvastatin calcium Allergy Unknown Verified 12/06/22 11:03 [From Lipitor] diltiazem Allergy Swelling Verified 12/06/22 11:03 erythromycin base Allergy Unknown Verified 12/06/22 11:03 [Erythromycin Base] Iodinated Contrast Media Allergy Unknown Verified 12/06/22 11:03 latex Allergy Unknown Verified 12/06/22 11:03 Penicillins Allergy Rash Verified 10/02/22 15:26 pregabalin [From Lyrica] Allergy Swelling Verified 12/06/22 11:03 Sulfa (Sulfonamide Allergy Other Verified 12/06/22 11:03 Antibiotics) triamcinolone acetonide Allergy Other Verified 12/06/22 11:03 [From Kenalog] bumetanide [From Bumex] AdvReac Severe Red, Verified 12/06/22 11:03 Splotchy rash furosemide [From Lasix] AdvReac Severe Red, Verified 12/06/22 11:03 splotchy rash clarithromycin [From Biaxin] AdvReac Other Verified 12/06/22 11:03 lisinopril AdvReac Other Verified 12/06/22 11:03 rosuvastatin calcium AdvReac Other Verified 12/06/22 11:03 [From Crestor] spironolactone AdvReac Low blood Verified 12/06/22 11:03 pressure tramadol HCl [From Ultram] AdvReac Vomiting Verified 12/06/22 11:03 Family History Father CAD (coronary artery disease) Myocardial infarction Mother CVA (cerebral vascular accident) Brother COPD (chronic obstructive pulmonary disease) Colon cancer CAD (coronary artery disease) Surgical History H/O shoulder replacement History of cardioversion (2013) History of cervical biopsy History of hip replacement History of left heart catheterization (11/04/09) Social History (Updated 01/10/23 @ 20:[address] Chase Irvin MD) housing: assisted living facility Smoking Status: Never smoker alcohol intake: never substance use type: does not use caffeine: No what type of physical activity do you participate in: none seatbelt use: always do you feel safe at home: Yes Physical Exam Const alert Lab / Micro Data Result Diagrams: 01/18/23 05:11 01/20/23 07:00 Micro: Microbiology 01/22/23 06:30 Nasal Secretion SARS-CoV-2 Antigen (Rapid) - Final
[2023-01-22 17:07] VITALS: PULSE 93
[2023-01-23] MEDS: Nystatin Powder 15gm Bottle 1 APPLIC TOPICAL ×2 (06:07→17:34)
[2023-01-23] MEDS: Menthol/Lanolin/Calamine/Znox 113 GM Tube 1 APPLIC TOPICAL ×2 (06:07→17:29)
[2023-01-23] MEDS: Levothyroxine 150 MCG Tablet PO (06:08)
[2023-01-23 06:51] VITALS: BP 150/87; PULSE 88
[2023-01-23] MEDS: Acetaminophen 325 MG Tablet 975 MG PO ×3 (06:51→21:16)
[2023-01-23] MEDS: Metoprolol Tartrate 25 MG Tablet 37.5 MG PO ×2 (06:51→17:36)
[2023-01-23] MEDS: NYSTATIN 500,000 UNIT/5 ML UDC 500000 UNIT PO (06:51)
[2023-01-23] MEDS: Torsemide 20 MG Tablet PO (06:51)
[2023-01-23] MEDS: Sertraline 50 MG Tablet 75 MG PO (06:52)
[2023-01-23 08:59] VITALS: BP 105/57; PULSE 65
[2023-01-23] MEDS: Digoxin 125 MCG Tablet PO (08:59)
[2023-01-23] MEDS: Potassium Chloride Oral Tablet 20 MEQ PO (08:59)
[2023-01-23] MEDS: amLODIPine 5 MG Tablet PO (08:59)
[2023-01-23] MEDS: Spironolactone 25 MG Tablet 12.5 MG PO (09:00)
[2023-01-23 09:06] VITALS: BP 105/57; PULSE 65
[2023-01-23 13:48] VITALS: BP 118/58; PULSE 86; RESP 18; TEMP 37.6; O2SAT 93
--- NOTE | 2023-01-23 15:25 | NURSING ---
Addendum entered by Brien Ladd 01/23/23 17:25: DR. OLEARY WILL PULL PEG TUBE TOMORROW 01/24/23 AT BED SIDE AT 10:45 AM. PT WILL BE NPO 4 HRS BEFORE AND 4 HOURS AFTER. RN AWARE Original Note: IN TO SEE PT. PLANS TO REMOVE PEG TUBE ON 01/24/23 AROUND 11AM. PT IS TO BE NPO 4 HOURS BEFORE AND AFTER PROCEDURE. DR. OLEARY STATED SHE WOULD CALL TO LET US KNOW FOR SURE WHAT TIME. BUT KNOW BREAKFAST OR LUNCH FOR PT. RN AWARE
--- NOTE | 2023-01-23 17:05 | PN_ITS ---
Progress Note was able to get pt PEG records- placed by IR [employer] [facility] 20 Fr--and on exam it is at 4 cm at the skin. Will plan to pull at bedside tomorrow about 10:45 am- pt will be NPO 4 hrs before and after---ok for meds w sips.
--- NOTE | 2023-01-23 17:18 | EX.PCM.CON.S ---
Assessment & Plan Assessment/Plan (1) PEG (percutaneous endoscopic gastrostomy) adjustment/replacement/removal: PLAN: Plan Will get records from for the type of PEG placed to know whether I can remove at bedside or need EGD. Also d/w Tom her son. Pt and son agreeable with plan. HPI Consult Data Date of Consult: 01/22/23 HPI Narrative Reason for Consultation: Peg removal HPI Narrative: DIXIE BURROUGHS, is a 82 F who admitted to TCU s/p CVA which she was initially transferred to from [place] in late Nov, pt was admitted to TCU 01/10. Pt had Peg placed at and has been currently eating by mouth for about 1 week and no longer needs the tube. Pt would like it removed. 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 Bilateral edema of lower extremity Cataracts, bilateral Cerebrovascular disease Chronic diastolic heart failure Chronic low back pain without sciatica CVA (cerebral vascular accident) Essential hypertension Frequent nosebleeds Hemarthrosis of knee History of CVA (cerebrovascular accident) (10/06/13) History of TIA (transient ischemic attack) Hyperlipidemia Hypothyroidism Joint pain of leg Left leg cellulitis Minimal cognitive impairment Obstructive sleep apnea Osteoarthritis Persistent atrial fibrillation Precordial chest pain Secondary pulmonary arterial hypertension Shingles Shortness of breath Spinal stenosis Syncope and collapse TIA (transient ischemic attack) (01/01/20) Ulcer of left lower extremity with fat layer exposed Ulcer of right lower extremity with fat layer exposed Home Medications loratadine 10 mg tablet 10 mg PO PRN PRN ALLERGIES 07/05/14 [History Last Taken Unknown] ferrous gluconate 324 mg (37.5 mg iron) tablet 324 mg PO TUTHSA Supplement 10/22/18 [History Last Taken Unknown] nitroglycerin 0.4 mg sublingual tablet 0.4 mg sublingual Q5-15M PRN chest pain #25 tabs 09/29/20 [Rx Last Taken Unknown] clotrimazole-betamethasone 1 %-0.05 % lotion 1 applic topical ONCE PRN OTHER 11/10/20 [History Last Taken Unknown] sertraline 25 mg tablet 75 mg feeding tube DAILY Mood 10/02/22 [History Last Taken Unknown] hnnqqwkysvzo-nub-mmuikke-FA 200 mg-0.4 mg chewable tablet 1 tab PO DAILY Supplement 12/06/22 [History Last Taken Unknown] acetaminophen 650 mg tablet 650 mg PO Q6H PRN Pain 1-10 01/10/23 [History Last Taken Unknown] aluminum-mag hydroxide-simethicone 200 mg-200 mg-20 mg/5 mL oral susp 5 ml PO Q3H PRN Constipation 01/10/23 [History Last Taken Unknown] amlodipine 5 mg tablet 5 mg PO DAILY BP 01/10/23 [History Last Taken Unknown] apixaban 5 mg tablet 5 mg PO BID Blood Thinner 01/10/23 [History Last Taken Unknown] bisacodyl 5 mg rectal suppository 10 mg [place] X1 PRN Constipation 01/10/23 [History Last Taken Unknown] cholecalciferol (vitamin D3) 25 mcg (1,000 unit) tablet 25 mcg feeding tube DAILY Supplement 01/10/23 [History Last Taken Unknown] digoxin 125 mcg (0.125 mg) tablet 125 mcg feeding tube DAILY Heart 01/10/23 [History Last Taken Unknown] levothyroxine 112 mcg tablet 150 mcg feeding tube DAILY@0600 Thyroid 01/10/23 [History Last Taken Unknown] magnesium hydroxide 400 mg/5 mL oral suspension (Milk of Magnesia) 2,400 mg feeding tube X1 Constipation 01/10/23 [History Last Taken Unknown] metoprolol succinate 50 mg tablet,extended release 24 hr 37.5 mg PO BID BP 01/10/23 [History Last Taken Unknown] multivitamin,bb-daab-jsdpypvg 27 mg-0.4 mg tablet 1 tablet PO DAILY Supplement 01/10/23 [History Last Taken Unknown] spironolactone 25 mg tablet 12.5 mg feeding tube QAM BP 01/10/23 [History Last Taken Unknown] torsemide 20 mg tablet 20 mg feeding tube BID CHF 01/10/23 [History Last Taken Unknown] valacyclovir 1 gram tablet (Valtrex) 1,000 mg PO TID Check with primary doctor 01/10/23 [History Last Taken Unknown] Allergy/AdvReac Type Severity Reaction Status Date / Time amlodipine Allergy Swelling Verified 12/06/22 11:03 atorvastatin calcium Allergy Unknown Verified 12/06/22 11:03 [From Lipitor] diltiazem Allergy Swelling Verified 12/06/22 11:03 erythromycin base Allergy Unknown Verified 12/06/22 11:03 [Erythromycin Base] Iodinated Contrast Media Allergy Unknown Verified 12/06/22 11:03 latex Allergy Unknown Verified 12/06/22 11:03 Penicillins Allergy Rash Verified 10/02/22 15:26 pregabalin [From Lyrica] Allergy Swelling Verified 12/06/22 11:03 Sulfa (Sulfonamide Allergy Other Verified 12/06/22 11:03 Antibiotics) triamcinolone acetonide Allergy Other Verified 12/06/22 11:03 [From Kenalog] bumetanide [From Bumex] AdvReac Severe Red, Verified 12/06/22 11:03 Splotchy rash furosemide [From Lasix] AdvReac Severe Red, Verified 12/06/22 11:03 splotchy rash clarithromycin [From Biaxin] AdvReac Other Verified 12/06/22 11:03 lisinopril AdvReac Other Verified 12/06/22 11:03 rosuvastatin calcium AdvReac Other Verified 12/06/22 11:03 [From Crestor] spironolactone AdvReac Low blood Verified 12/06/22 11:03 pressure tramadol HCl [From Ultram] AdvReac Vomiting Verified 12/06/22 11:03 Family History Father CAD (coronary artery disease) Myocardial infarction Mother CVA (cerebral vascular accident) Brother COPD (chronic obstructive pulmonary disease) Colon cancer CAD (coronary artery disease) Surgical History H/O shoulder replacement History of cardioversion (2013) History of cervical biopsy History of hip replacement History of left heart catheterization (11/04/09) Social History (Updated 01/10/23 @ 20:[address] Chase Irvin MD) housing: assisted living facility Smoking Status: Never smoker alcohol intake: never substance use type: does not use caffeine: No what type of physical activity do you participate in: none seatbelt use: always do you feel safe at home: Yes ROS Constitutional Constitutional: Denies anorexia Eyes Eyes: Reports loss of vision ENT HEENT: Denies dysphagia Cardiovascular Cardiovascular: Denies chest pain Respiratory/Chest Respiratory/Chest: Denies cough Gastrointestinal Gastrointestinal: Denies abdominal pain, constipation, nausea or vomiting Musculoskeletal Musculoskeletal: Denies joint swelling Integumentary Integumentary: Denies jaundice Psychiatric Psychiatric: Denies anxiety Hematologic/Lymphatic Hematologic/Lymphatic: Denies easy bleeding Physical Exam Const alert, oriented x3 and no apparent distress General Appearance: cooperative HEENT Head and Scalp: normal to inspection Resp normal respiratory effort Cardio Rate: regular rate GI soft to palpation, non-tender and non-distended GI Narrative: PEG present- currently at 7cm at skin--pt is currently eating/ has abdominal binder on Inspection: GI tube present Skin no rashes or lesions noted Neuro Neuro Narrative: left UE has involuntary twitches. Speech: speech normal Psych affect normal Lab / Micro Data Result Diagrams: 01/18/23 05:11 01/20/23 07:00 Charges/Coding Visit Charges Inpatient E&M: 71796 Init Hosp L3
[2023-01-23 17:36] VITALS: BP 118/58; PULSE 86
[2023-01-23 20:00] VITALS: PULSE 84; RESP 18; O2SAT 96
[2023-01-24] VITALS (7 sets, daily range): BP systolic 84–145; BP diastolic 56–88; PULSE 71–96; RESP 16–17; TEMP 36.5; O2SAT 93–95
[2023-01-24] MEDS: Levothyroxine 150 MCG Tablet PO (05:00)
[2023-01-24] MEDS: Sertraline 50 MG Tablet 75 MG PO (05:50)
[2023-01-24] MEDS: Torsemide 20 MG Tablet PO (05:50)
[2023-01-24] MEDS: Nystatin Powder 15gm Bottle 1 APPLIC TOPICAL ×2 (05:50→18:48)
[2023-01-24] MEDS: Menthol/Lanolin/Calamine/Znox 113 GM Tube 1 APPLIC TOPICAL ×2 (05:50→18:47)
[2023-01-24] MEDS: Metoprolol Tartrate 25 MG Tablet 37.5 MG PO ×2 (05:50→22:01)
[2023-01-24] MEDS: Acetaminophen 325 MG Tablet 975 MG PO ×3 (05:50→22:00)
--- NOTE | 2023-01-24 10:49 | NURSING ---
CALLED PT SON AND UPDATED HIM ON DR. OLEARY TAKING THE PEG TUBE OUT TODAY. SON VERY HAPPY AND THANKED THIS NURSE.
--- NOTE | 2023-01-24 11:23 | NURSING ---
Dr. Marcos came up to unit, removed pt's PEG tube at 1110 with no complications. Sterile gauze placed to area. Clean area and cover with gauze while healing. Pt allowed to eat/drink in 4 hours.
--- NOTE | 2023-01-24 11:50 | PN.SURG_ITS ---
Subjective Subjective Patient has no complaints. Objective Data Objective Data Vital Signs: Vital Signs Temp Pulse Resp BP Pulse Ox O2 Del Method 99.6 F H 92 18 128/86 H 96 Room Air 01/23/23 13:48 01/24/23 05:50 01/23/23 20:00 01/24/23 05:50 01/23/23 20:00 01/23/23 20:00 Oxygen Delivery Method Room Air Weight: 157 lb 6 oz Body Mass Index (BMI) 27.0 Intake & Output: Intake and Output for Last 24 Hours 01/22/23 01/23/23 01/24/23 23:59 23:59 23:59 Intake Total 1160 / 1160 740 / 740 Balance 1160 / 1160 740 / 740 Lab / Micro Data Result Diagrams: 01/18/23 05:11 01/20/23 07:00 Micro: Microbiology 01/22/23 06:30 Nasal Secretion SARS-CoV-2 Antigen (Rapid) - Final 01/17/23 23:50 Urine, Clean Catch Urine Culture - Final Mixed Gram Pos & Gram Neg Org 01/15/23 06:22 Nasal Secretion SARS-CoV-2 Antigen (Rapid) - Final 01/14/23 05:45 Nasal Secretion SARS-CoV-2 Antigen (Rapid) - Final 01/12/23 06:30 Nasal Secretion SARS-CoV-2 Antigen (Rapid) - Final 01/10/23 19:00 Nasal Secretion SARS-CoV-2 Antigen (Rapid) - Final Physical Exam Const oriented x3 and no apparent distress Resp normal respiratory effort GI GI Narrative: PEG tube in place. Soft, nontender. PEG tube removed with traction?patient tolerated well. 4 x 4 gauze placed over the top. Assessment & Plan Assessment/Plan (1) PEG (percutaneous endoscopic gastrostomy) adjustment/replacement/removal: PLAN: Plan Patient tolerated removal of PEG tube with no issues. Keep patient n.p.o. for another 4 hours and okay to go back to regular diet. Keep 4 x 4 gauze over this area until it is healed. Also called and left voicemail for patient's son letting him know the procedure went well. Mary Ann Marcos M.D. Pager: [phone] [facility] [address] [place] [address], Outpatient Pavilion, [address] [place] [id number] Office: [phone] Charges/Coding Visit Charges Inpatient E&M: 23214 Subs Hosp L3
[2023-01-24] MEDS: Potassium Chloride Oral Tablet 20 MEQ PO (16:41)
[2023-01-25] VITALS (7 sets, daily range): BP systolic 95–114; BP diastolic 49–69; PULSE 83–89; RESP 14–18; TEMP 36.5–36.9; O2SAT 94–99
[2023-01-25 07:48] LABS: Absolute Lymphocyte Count 1.32 X10^3/uL (0.83-4.51); Absolute Neutrophil Count 7.5 X10^3/uL (2.0-7.7); Basophil# 0.07 X10^3/uL; Basophil% 0.7 % (0-1); Eosinophil# 0.26 X10^3/uL; Eosinophils% 2.6 % (0-5); Hemoglobin 14.5 g/dL (12.0-15.0); Lymphocyte # 1.32 X10^3/ul (0.83-4.51); Lymphocyte % 13.1 % (19-41); Mean Corp Hgb Conc 32.2 g/dL (32-36); Mean Corpuscular Hgb 32.2 pg (27.0-32.0); Mean Corpuscular Volume 99.8 fL (81-99); Mean Platelet Vol. 10.2 fl (6.2-12.0); Monocyte# 0.82 X10^3/uL; Monocyte% 8.2 % (0-10); NRBC Flagged by Analyzer 0 % (0-5); Neutrophil # 7.52 X10^3/uL (2.7-7.7); Neutrophil % 74.8 % (47-70); Platelet Count 287 K/mm3 (150-450); RBC Distribution Width CV 14.4 % (11.6-14.6); RBC Distribution Width SD 52.7 fl (35.1-43.9); Red Blood Count 4.51 M/mm3 (4.2-5.4); White Blood Count 10.1 K/mm3 (4.4-11.0)
[2023-01-25] MEDS: Levothyroxine 150 MCG Tablet PO (08:15)
[2023-01-25 08:32] LABS: Anion Gap 5 (5-15); BUN 25 mg/dL (7-18); BUN/Creat Ratio 39.4 RATIO (10-20); Chloride 106 mmol/L (98-107); Creatinine, Serum 0.63 mg/dL (0.55-1.02); EST Glomerular Filtration Rate 95 mL/min (>60); Est Glom Filt Rate - Afr Amer 115 mL/min (>60); Estimated Creatinine Clearance 36.81 ml/min; Glucose 97 mg/dL (74-106); Potassium 3.7 mmol/L (3.5-5.1); Sodium Level 137 mmol/L (136-145)
[2023-01-25] MEDS: Menthol/Lanolin/Calamine/Znox 113 GM Tube 1 APPLIC TOPICAL ×2 (08:52→18:56)
[2023-01-25] MEDS: Nystatin Powder 15gm Bottle 1 APPLIC TOPICAL ×2 (08:53→18:57)
[2023-01-25] MEDS: Metoprolol Tartrate 25 MG Tablet 37.5 MG PO (08:53)
[2023-01-25] MEDS: Sertraline 50 MG Tablet 75 MG PO (08:54)
[2023-01-25] MEDS: Acetaminophen 325 MG Tablet 975 MG PO ×3 (08:54→22:33)
[2023-01-25] MEDS: Torsemide 20 MG Tablet PO (08:54)
[2023-01-25] MEDS: Spironolactone 25 MG Tablet 12.5 MG PO (09:47)
[2023-01-25] MEDS: Digoxin 125 MCG Tablet PO (09:47)
[2023-01-25] MEDS: amLODIPine 5 MG Tablet PO (09:47)
[2023-01-25] MEDS: Potassium Chloride Oral Tablet 20 MEQ PO (09:50)
--- NOTE | 2023-01-25 13:05 | PCM.PN.SRG ---
Subjective Subjective Currently having lunch-- has no complaints about her abdomen. Objective Data Objective Data Vital Signs: Vital Signs Temp Pulse Resp BP Pulse Ox O2 Del Method 97.7 F L 84 18 95/49 L 99 Room Air 01/25/23 08:13 01/25/23 10:00 01/25/23 10:00 01/25/23 12:17 01/25/23 10:00 01/25/23 10:00 Oxygen Delivery Method Room Air Weight: 157 lb 6 oz Body Mass Index (BMI) 27.0 Intake & Output: Intake and Output for Last 24 Hours 01/23/23 01/24/23 01/25/23 23:59 23:59 23:59 Intake Total 740 / 740 240 / 240 480 / 480 Balance 740 / 740 240 / 240 480 / 480 Lab / Micro Data Result Diagrams: 01/25/23 07:40 01/25/23 07:40 Labs: Laboratory Results - last 24 hr 01/25/23 07:40: WBC 10.1, RBC 4.51, Hgb 14.5, Hct 45.0, MCV 99.8 H, MCH 32.2 H, MCHC 32.2, RDW Std Deviation 52.7 H, RDW Coeff of [place] 14.4, Plt Count 287, MPV 10.2, Immature Gran % (Auto) 0.600, Neut % (Auto) 74.8 H, Lymph % (Auto) 13.1 L, [place] % (Auto) 8.2, Eos % (Auto) 2.6, Baso % (Auto) 0.7, Absolute Neuts (auto) 7.5, Absolute Lymphs (auto) 1.32, Nucleated RBC % 0 01/25/23 07:40: Sodium 137, Potassium 3.7, Chloride 106, Carbon Dioxide 26.0, Anion Gap 5, BUN 25 H, Creatinine 0.63, Estim Creat Clear Calc 36.81, Est GFR (MDRD) Af Amer 115, Est GFR (MDRD) Non-Af 95, BUN/Creatinine Ratio 39.4 H, Glucose 97, Calcium 10.0 Micro: Microbiology 01/22/23 06:30 Nasal Secretion SARS-CoV-2 Antigen (Rapid) - Final 01/17/23 23:50 Urine, Clean Catch Urine Culture - Final Mixed Gram Pos & Gram Neg Org 01/15/23 06:22 Nasal Secretion SARS-CoV-2 Antigen (Rapid) - Final 01/14/23 05:45 Nasal Secretion SARS-CoV-2 Antigen (Rapid) - Final 01/12/23 06:30 Nasal Secretion SARS-CoV-2 Antigen (Rapid) - Final 01/10/23 19:00 Nasal Secretion SARS-CoV-2 Antigen (Rapid) - Final Physical Exam Narrative Abdomen: previous PEG site dressed clean dry and intact soft, nontender Assessment & Plan Assessment/Plan (1) PEG (percutaneous endoscopic gastrostomy) adjustment/replacement/removal: PLAN: Plan Patient is doing well PEG site healing continue continue covering with 4 x 4 until healed. Call with any questions Mary Ann Marcos M.D. Pager: [phone] [facility] [address] [place] [address], [address] [place] [address] Office: [phone]
[2023-01-25] MEDS: Arthritis Pain Compound 60 CLICK TUBE TOPICAL (18:56)
[2023-01-26] MEDS: Levothyroxine 150 MCG Tablet PO (05:30)
[2023-01-26 06:15] VITALS: BP 118/73; PULSE 69
[2023-01-26] MEDS: Metoprolol Tartrate 25 MG Tablet 37.5 MG PO ×2 (06:15→18:28)
[2023-01-26] MEDS: Acetaminophen 325 MG Tablet 975 MG PO ×3 (06:16→22:09)
[2023-01-26] MEDS: Baclofen 10 MG Tablet 5 MG PO (06:17)
[2023-01-26] MEDS: Torsemide 20 MG Tablet PO (06:17)
[2023-01-26] MEDS: Sertraline 50 MG Tablet 75 MG PO (06:18)
[2023-01-26] MEDS: Menthol/Lanolin/Calamine/Znox 113 GM Tube 1 APPLIC TOPICAL ×2 (06:23→18:28)
[2023-01-26] MEDS: Nystatin Powder 15gm Bottle 1 APPLIC TOPICAL ×2 (06:23→18:29)
[2023-01-26] MEDS: Arthritis Pain Compound 60 CLICK TUBE TOPICAL ×2 (10:05→18:28)
[2023-01-26] MEDS: Potassium Chloride Oral Tablet 20 MEQ PO (10:06)
[2023-01-26 10:07] VITALS: PULSE 88
[2023-01-26] MEDS: Digoxin 125 MCG Tablet PO (10:07)
[2023-01-26 14:38] VITALS: BP 154/67; PULSE 89; RESP 16; TEMP 36.5; O2SAT 93
[2023-01-26 18:28] VITALS: PULSE 89
[2023-01-27] MEDS: Arthritis Pain Compound 60 CLICK TUBE TOPICAL ×2 (05:13→17:45)
[2023-01-27] MEDS: Levothyroxine 150 MCG Tablet PO (05:18)
[2023-01-27 06:02] VITALS: BP 132/72; PULSE 68
[2023-01-27] MEDS: Metoprolol Tartrate 25 MG Tablet 37.5 MG PO ×2 (06:02→17:44)
[2023-01-27] MEDS: Torsemide 20 MG Tablet PO (06:06)
[2023-01-27] MEDS: Sertraline 50 MG Tablet 75 MG PO (06:07)
[2023-01-27] MEDS: Acetaminophen 325 MG Tablet 975 MG PO ×3 (06:08→21:33)
[2023-01-27] MEDS: Nystatin Powder 15gm Bottle 1 APPLIC TOPICAL ×2 (06:17→17:48)
[2023-01-27] MEDS: Menthol/Lanolin/Calamine/Znox 113 GM Tube 1 APPLIC TOPICAL ×2 (06:17→17:51)
[2023-01-27 08:15] VITALS: PULSE 68
[2023-01-27] MEDS: Digoxin 125 MCG Tablet PO (08:15)
[2023-01-27] MEDS: Potassium Chloride Oral Tablet 20 MEQ PO (08:16)
[2023-01-27 14:31] VITALS: BP 103/61; PULSE 89; RESP 16; TEMP 36.9; O2SAT 96
[2023-01-27 17:44] VITALS: PULSE 86
[2023-01-27 19:44] VITALS: PULSE 72; RESP 20; O2SAT 92
[2023-01-27] MEDS: Baclofen 10 MG Tablet 5 MG PO (19:58)
[2023-01-28] MEDS: Nystatin Powder 15gm Bottle 1 APPLIC TOPICAL ×2 (04:59→13:53)
[2023-01-28] MEDS: Levothyroxine 150 MCG Tablet PO (04:59)
[2023-01-28] MEDS: Menthol/Lanolin/Calamine/Znox 113 GM Tube 1 APPLIC TOPICAL ×2 (05:46→13:52)
[2023-01-28] MEDS: Arthritis Pain Compound 60 CLICK TUBE TOPICAL ×2 (05:46→17:34)
[2023-01-28] MEDS: Torsemide 20 MG Tablet PO (05:46)
[2023-01-28 05:47] VITALS: BP 128/77; PULSE 101
[2023-01-28] MEDS: Acetaminophen 325 MG Tablet 975 MG PO ×3 (05:47→22:09)
[2023-01-28] MEDS: Metoprolol Tartrate 25 MG Tablet 37.5 MG PO ×2 (05:47→17:34)
[2023-01-28] MEDS: Sertraline 50 MG Tablet 75 MG PO (05:48)
[2023-01-28 08:23] VITALS: BP 121/68; PULSE 72
[2023-01-28] MEDS: Potassium Chloride Oral Tablet 20 MEQ PO (08:23)
[2023-01-28] MEDS: Digoxin 125 MCG Tablet PO (08:23)
[2023-01-28 10:00] VITALS: PULSE 110; RESP 20; O2SAT 97
[2023-01-28] MEDS: Baclofen 10 MG Tablet 5 MG PO (10:16)
--- NOTE | 2023-01-28 11:57 | ED.RN ---
Pt coughing on eggs at breakfast. Non productive. Rt lung crackles in all lobes. Left note for Dr Irvin. RN aware.
[2023-01-28 14:36] VITALS: BP 72/46; PULSE 109; RESP 17; TEMP 36.4; O2SAT 94
[2023-01-28 15:25] VITALS: BP 99/69; PULSE 96
--- NOTE | 2023-01-28 15:35 | NURSING ---
Pt coughing while eating eggs for breakfast. Cough weak and non-productive. Auscultated lungs; RT lung crackles in all lobes. Left note for Dr Irvin.
--- NOTE | 2023-01-28 16:09 | CASEMGMT ---
Social Work Insurance issued LCD 01/30, DC 01/31. SW emailed son to update him. Son would like to speak with therapists about pt's progress, and he is interested in appealing. Son would also to inquire to nursing about changes in pt's blood pressure. SW referred son to call nurse's station. SW updated [employer] TECHNICIAN to contact son for update. SW provided son appeal information. SW spoke with pt and updated on DC date. Plan remains DC to [facility], private pay with part B PT/OT/ST. Discussed transport. Pt agreeable to cot transport. [facility] Scheduled cot transport via [facility] [employer] nut picker. PASRR completed. Plan: DC 01/31, [place], [facility], part B PT/OT/ST JOSE MARTIN Vidal
[2023-01-28 17:34] VITALS: BP 124/78; PULSE 77
--- NOTE | 2023-01-28 18:20 | RAD_ITS ---
STUDY: XR Chest 2 Views 01/28/2023 6:26 PM REASON FOR EXAM: Female, 82 years old. CHEST PAIN Aspiration. COMPARISON: 12.15.22 TECHNIQUE: XR Chest 2 Views FINDINGS: There is no demonstrated pleural abnormality. Total right shoulder arthroplasty. Pulmonary fibrosis. Normal heart size. Normal mediastinum. Normal lindsey. Prominent appearing increased interstitial lung markings. Normal visualized pulmonary arteries. There is atherosclerotic calcification of the aortic arch with tortuosity. There are diffuse degenerative changes of the visualized thoracic spine. There is degenerative osteoarthritis of the bilateral shoulders. There is no demonstrated abnormality of the visualized soft tissue structures of the upper abdomen. RAD/Chest PA and Lateral IMPRESSION: There are no acute findings. Electronically Signed: Ameya Kulkarni MD at 18:54 EDT ,
--- NOTE | 2023-01-28 19:16 | DS.PCM_ITS ---
Providers Date of Admission: 01/10/23 Primary Care Physician: Dr. Ricky Kellogg MD Consultations 01/11/23 13:27 Consult: Podiatry Routine Consulting Provider: Chidi Arce Reason for Consult: toe pain EMERGENT Consult: No Notified: Yes Date Notified: 01/11/23 Time Notified: 13:27 Method of Notification: Text Comments:: pt seen on 01/12/23- rounded on unit 01/21/23 17:11 Consult: General Surgery Routine Consulting Provider: Mary Ann Marcos Reason for Consult: PEG removal. EMERGENT Consult: No Notified: Yes Date Notified: 01/21/23 Time Notified: 17:11 Method of Notification: Verbal Reason For Visit: CVA Diagnosis Discharge Diagnosis (1) PEG (percutaneous endoscopic gastrostomy) adjustment/replacement/removal: Status: Acute Code(s): Z43.1 - Encounter for attention to gastrostomy Plan Depression - Sertraline 75mg daily. Schedule appointment with Dr. Argueta to help with medication management. Anxiety - Schedule appointment with Dr. Argueta to help with medication management. Obsessive compulsive disorder - Schedule appointment with Dr. Argueta to help with medication management. Medications at Discharge Home Medications acetaminophen 325 mg tablet 975 mg PO Q8 #0 tabs 01/28/23 baclofen 10 mg tablet 5 mg PO TID PRN Muscle Spasm #0 tabs 01/28/23 digoxin 125 mcg (0.125 mg) tablet 125 mcg PO DAILY@0800 #0 tabs 01/28/23 levothyroxine 150 mcg tablet 150 mcg PO DAILY@0500 #0 tabs 01/28/23 menthol 0.44 %-zinc oxide 20.6 % topical ointment (Calmoseptine) 1 applic topical BID #0 grams 01/28/23 metoprolol tartrate 25 mg tablet 37.5 mg PO BID #0 tabs 01/28/23 nystatin 100,000 unit/gram topical powder (Nyamyc) 1 applic topical BID #0 grams 01/28/23 potassium chloride 20 mEq tablet,extended release(part/cryst) (Klor-Con M) 20 meq PO DAILYCM #0 tabs 01/28/23 sertraline 50 mg tablet 75 mg PO DAILY #0 tabs 01/28/23 torsemide 20 mg tablet 20 mg PO DAILY #0 tabs 01/28/23 Hospital Course Operations None Procedures Peg tube placement Summary of Care Provided Minutes Spent on Discharge: 35 Hospital Course: 82 year old female with below past medical history hospitalized for right intracranial hemorrhage, complicated by dysphagia requiring g-tube placement, admitted to TCU with debility, here for rehabilitation, strengthening, prior to discharge home. Resident to see Dr. Argueta for depression, anxiety, obsessive compulsive disorder. 01/24/2023 Dr. Marcos removed PEG. 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 Discharge to [facility] 01/31/2023, Intermediate, Part B PT/OT/ST. Physical Exam Const alert General Appearance: cooperative HEENT normocephalic Eyes PERRL and EOMs intact bilaterally Neck supple, no JVD and no carotid bruits Resp normal respiratory effort, normal air movement and clear to auscultation bilaterally Cardio regular rate and regular rhythm GI normal to inspection, nondistended, normoactive bowel sounds, non-tender and non-distended Extremity normal capillary refill General Extremity: Negative for edema Skin no rashes or lesions noted General Skin Exam: no breakdown Neuro Neuro Narrative: Left sided hemiparesis. Gait (Neuro): spastic hemiparesis Psych affect normal Appearance: appropriate Weight / BMI Weight Weight: 71.384 kg Body Mass Index (BMI) 27.0 ABG / Lab / Microbiology Data Result Diagrams: 01/25/23 07:40 01/25/23 07:40 Microbiology: Microbiology 01/22/23 06:30 Nasal Secretion SARS-CoV-2 Antigen (Rapid) - Final 01/17/23 23:50 Urine, Clean Catch Urine Culture - Final Mixed Gram Pos & Gram Neg Org 01/15/23 06:22 Nasal Secretion SARS-CoV-2 Antigen (Rapid) - Final 01/14/23 05:45 Nasal Secretion SARS-CoV-2 Antigen (Rapid) - Final 01/12/23 06:30 Nasal Secretion SARS-CoV-2 Antigen (Rapid) - Final 01/10/23 19:00 Nasal Secretion SARS-CoV-2 Antigen (Rapid) - Final Radiography Diagnostic Testing: Radiology Impression Chest X-Ray 01/28/23 18:20 IMPRESSION: There are no acute findings. Electronically Signed: Ameya Kulkarni MD at 18:54 EDT , D/C Instructions Discharge Diet: No restrictions and - (small portions, 1:1 supervision, no straws; fortified foods tid as able) Discharge Activity: Return to Normal Activity, May Shower and Use Walker Weight Bearing Status: Weight bearing as tolerated Call your doctor if you observe: Fever of 101 or Higher, Inability to urinate, Inability to have a bowel movement, Shortness of breath, Dizziness, Fainting spells, Swelling in the ankles, Chest pain and Uncontrolled pain Additional Instructions: small portions, 1:1 supervision, no straws; fortified foods tid as able Please Follow Up With: Eddie Argueta, DO When: As scheduled. Meaningful Use Info Meaningful Use Diagnoses (Choose all that apply): Hemorrhagic CVA CVA Therapy Assessed for PT,OT and/or ST?: Yes Discharge Plan Admission Admit Date/Time: 01/10/23 18:33 Primary Reason for Your Visit: Debility. Attending Provider: Chase Irvin Chi Primary Care Provider: Ricky Kellogg Consulting Providers: Chidi Arce ; Mary Ann Marcso Instructions Additional Instructions / Restrictions: small portions, 1:1 supervision, no straws; fortified foods tid as able Discharge Orders/Prescriptions Prescriptions: New acetaminophen 325 mg Tablet 975 mg PO Q8 Qty: 0 0RF torsemide 20 mg Tablet 20 mg PO DAILY Qty: 0 0RF levothyroxine 150 mcg Tablet 150 mcg PO DAILY@0500 Qty: 0 0RF digoxin 125 mcg (0.125 mg) Tablet 125 mcg PO DAILY@0800 Qty: 0 0RF sertraline 50 mg Tablet 75 mg PO DAILY Qty: 0 0RF baclofen 10 mg Tablet 5 mg PO TID PRN (Reason: Muscle Spasm) Qty: 0 0RF menthol-zinc oxide [Calmoseptine] 0.44-20.6 % Ointment 1 applic topical BID Qty: 0 0RF Protocol: *Topical Application Instructions APPLICATION INSTRUCTIONS: Apply to buttock potassium chloride [Klor-Con M20] 20 mEq Tablet,Er Particles/Crystals 20 meq PO DAILYCM Qty: 0 0RF nystatin [Nyamyc] 100,000 unit/gram Powder 1 applic topical BID Qty: 0 0RF Protocol: *Topical Application Instructions APPLICATION INSTRUCTIONS: Apply to groin metoprolol tartrate 25 mg Tablet 37.5 mg PO BID Qty: 0 0RF Discontinued nitroglycerin 0.4 mg tablet, sublingual 0.4 mg SUBLINGUAL Q5-15M PRN (Reason: chest pain) Qty: 25 3RF Rx Instructions: do not exceed 3 doses per episode clotrimazole-betamethasone 1-0.05 % lotion 1 applic TOPICAL ONCE PRN (Reason: OTHER) sertraline 25 mg tablet 75 mg feeding tube DAILY ferrous gluconate 324 MG tablet 324 mg PO TUTHSA VIACTIV Multi-Vitamin 200-0.4 mg Tablet,Chewable 1 tab PO DAILY torsemide 20 mg tablet 20 mg feeding tube BID metoprolol succinate 50 mg tablet extended release 24 hr 37.5 mg PO BID valacyclovir [Valtrex] 1 gram tablet 1,000 mg PO TID spironolactone 25 mg tablet 12.5 mg feeding tube QAM digoxin 125 mcg (0.125 mg) tablet 125 mcg feeding tube DAILY Rx Instructions: TAKE 1 TABLET BY MOUTH EVERY DAY levothyroxine 112 MCG tablet 150 mcg feeding tube DAILY@0600 Label Comments: TREATS HYPOTHYROIDISM multivitamin,[id number] 1 TABLET tablet 1 tablet PO DAILY Label Comments: DIETARY SUPPLEMENT apixaban 5 mg tablet 5 mg PO BID bisacodyl 5 mg Suppository 10 mg MD X1 PRN (Reason: Constipation) amlodipine 5 mg Tablet 5 mg PO DAILY acetaminophen 650 mg Tablet 650 mg PO Q6H PRN (Reason: Pain 1-10) magnesium hydroxide [Milk of Magnesia] 400 mg/5 mL Suspension 2,400 mg feeding tube X1 alum-mag hydroxide-simeth [Mylanta] 200-200-20 mg/5 mL Suspension 5 ml PO Q3H PRN (Reason: Constipation) cholecalciferol (vitamin D3) 25 mcg (1,000 unit) Tablet 25 mcg feeding tube DAILY loratadine 10 MG tablet 10 mg PO PRN PRN (Reason: ALLERGIES) Label Comments: ANTIHISTAMINE Referrals / Follow Up: Ricky Kellogg MD [Primary Care Provider] - Disposition Disposition (needs filled in before D/C Order can be placed): NonSkilled NH/Intermed Care
--- NOTE | 2023-01-28 19:26 | PCM.TXEXTCAR ---
Diet Diet Order/Speech Therapy: 01/24/23 13:07 Diet: Regular - General Type of Dietary Supplement:: 8 oz CIB @ B, EP @ L&D Is pt able to select menu?: Yes Diet Comments: small portions, 1:1 supervision, no straws; fortified foods tid as able Routine Orders/Code Status Code Status: DNRCC-A (No intubation.) Wound(s) cleft: Wound Type: Moisture associated Dressing Change: Calmoseptine BLE scabbing: Wound Type: Scabs from previous blisters PEG site: Wound Type: Surgical Incision Dressing Change: Dry Sterile Dressing Therapies Weight Bearing: Weight bearing as tolerated Extremity Affected:: Bilateral Lower Physical Therapy: Eval and Treat Occupational Therapy: Eval and Treat Speech Therapy: Eval and Treat Problem/Diagnosis (1) PEG (percutaneous endoscopic gastrostomy) adjustment/replacement/removal: Status: Acute Code(s): Z43.1 - Encounter for attention to gastrostomy Plan Depression - Sertraline 75mg daily. Schedule appointment with Dr. Argueta to help with medication management. Anxiety - Schedule appointment with Dr. Argueta to help with medication management. Obsessive compulsive disorder - Schedule appointment with Dr. Argueta to help with medication management. Allergies/Procedures Done in Hospital Allergies amlodipine Allergy (Verified 12/06/22 11:03) Swelling atorvastatin calcium [From Lipitor] Allergy (Verified 12/06/22 11:03) Unknown diltiazem Allergy (Verified 12/06/22 11:03) Swelling erythromycin base [Erythromycin Base] Allergy (Verified 12/06/22 11:03) Unknown Iodinated Contrast Media Allergy (Verified 12/06/22 11:03) Unknown latex Allergy (Verified 12/06/22 11:03) Unknown Penicillins Allergy (Verified 10/02/22 15:26) Rash pregabalin [From Lyrica] Allergy (Verified 12/06/22 11:03) Swelling Sulfa (Sulfonamide Antibiotics) Allergy (Verified 12/06/22 11:03) Other triamcinolone acetonide [From Kenalog] Allergy (Verified 12/06/22 11:03) Other bumetanide [From Bumex] Adverse Reaction (Severe, Verified 12/06/22 11:03) Red, Splotchy rash furosemide [From Lasix] Adverse Reaction (Severe, Verified 12/06/22 11:03) Red, splotchy rash clarithromycin [From Biaxin] Adverse Reaction (Verified 12/06/22 11:03) Other lisinopril Adverse Reaction (Verified 12/06/22 11:03) Other rosuvastatin calcium [From Crestor] Adverse Reaction (Verified 12/06/22 11:03) Other spironolactone Adverse Reaction (Verified 12/06/22 11:03) Low blood pressure tramadol HCl [From Ultram] Adverse Reaction (Verified 12/06/22 11:03) Vomiting Procedures: Peg tube placement (Removed 01/24/2023.) Type of Care/Length of Stay Estimated LOS: More Than 30 Days Type of Care Needed: Intermediate Rehab Potential: Fair Prognosis: Fair Additional Orders/Day of Discharge Additional Orders: part B therapies Day of Discharge: 01/31/23 Dietary and Speech Recommendations Dietitian Recommendations/Changes: Provide small portions at meals per res request. Will discontinue Jevity 1.5 240 ml if po intake <50% at meals as no longer indicated Will continue to provide 8 oz CIB w/ breakfast and ensure pudding at lunch and dinner for increased nutrition if consumed. Will continue to provide fortified foods at meals as able. Daily weights. Follow Up Care Please Follow Up With: Eddie Argueta DO When: WILLIAN Discharge Plan Admission Admit Date/Time: 01/10/23 18:33 Primary Reason for Your Visit: Debility. Attending Provider: Chase Irvin Chi Primary Care Provider: Ricky Kellogg Consulting Providers: Chidi Arce ; Mary Ann Marcos Instructions Additional Instructions / Restrictions: small portions, 1:1 supervision, no straws; fortified foods tid as able Discharge Orders/Prescriptions Prescriptions: New acetaminophen 325 mg Tablet 975 mg PO Q8 Qty: 0 0RF torsemide 20 mg Tablet 20 mg PO DAILY Qty: 0 0RF levothyroxine 150 mcg Tablet 150 mcg PO DAILY@0500 Qty: 0 0RF digoxin 125 mcg (0.125 mg) Tablet 125 mcg PO DAILY@0800 Qty: 0 0RF sertraline 50 mg Tablet 75 mg PO DAILY Qty: 0 0RF baclofen 10 mg Tablet 5 mg PO TID PRN (Reason: Muscle Spasm) Qty: 0 0RF menthol-zinc oxide [Calmoseptine] 0.44-20.6 % Ointment 1 applic topical BID Qty: 0 0RF Protocol: *Topical Application Instructions APPLICATION INSTRUCTIONS: Apply to buttock potassium chloride [Klor-Con M20] 20 mEq Tablet,Er Particles/Crystals 20 meq PO DAILYCM Qty: 0 0RF nystatin [Nyamyc] 100,000 unit/gram Powder 1 applic topical BID Qty: 0 0RF Protocol: *Topical Application Instructions APPLICATION INSTRUCTIONS: Apply to groin metoprolol tartrate 25 mg Tablet 37.5 mg PO BID Qty: 0 0RF Discontinued nitroglycerin 0.4 mg tablet, sublingual 0.4 mg SUBLINGUAL Q5-15M PRN (Reason: chest pain) Qty: 25 3RF Rx Instructions: do not exceed 3 doses per episode clotrimazole-betamethasone 1-0.05 % lotion 1 applic TOPICAL ONCE PRN (Reason: OTHER) sertraline 25 mg tablet 75 mg feeding tube DAILY ferrous gluconate 324 MG tablet 324 mg PO TUTHSA VIACTIV Multi-Vitamin 200-0.4 mg Tablet,Chewable 1 tab PO DAILY torsemide 20 mg tablet 20 mg feeding tube BID metoprolol succinate 50 mg tablet extended release 24 hr 37.5 mg PO BID valacyclovir [Valtrex] 1 gram tablet 1,000 mg PO TID spironolactone 25 mg tablet 12.5 mg feeding tube QAM digoxin 125 mcg (0.125 mg) tablet 125 mcg feeding tube DAILY Rx Instructions: TAKE 1 TABLET BY MOUTH EVERY DAY levothyroxine 112 MCG tablet 150 mcg feeding tube DAILY@0600 Label Comments: TREATS HYPOTHYROIDISM multivitamin,[id number] 1 TABLET tablet 1 tablet PO DAILY Label Comments: DIETARY SUPPLEMENT apixaban 5 mg tablet 5 mg PO BID bisacodyl 5 mg Suppository 10 mg [place] X1 PRN (Reason: Constipation) amlodipine 5 mg Tablet 5 mg PO DAILY acetaminophen 650 mg Tablet 650 mg PO Q6H PRN (Reason: Pain 1-10) magnesium hydroxide [Milk of Magnesia] 400 mg/5 mL Suspension 2,400 mg feeding tube X1 alum-mag hydroxide-simeth [Mylanta] 200-200-20 mg/5 mL Suspension 5 ml PO Q3H PRN (Reason: Constipation) cholecalciferol (vitamin D3) 25 mcg (1,000 unit) Tablet 25 mcg feeding tube DAILY loratadine 10 MG tablet 10 mg PO PRN PRN (Reason: ALLERGIES) Label Comments: ANTIHISTAMINE Referrals / Follow Up: Ricky Kellogg MD [Primary Care Provider] - Disposition Disposition (needs filled in before D/C Order can be placed): NonSkilled NH/Intermed Care
[2023-01-29] MEDS: Levothyroxine 150 MCG Tablet PO (06:03)
[2023-01-29] MEDS: Sertraline 50 MG Tablet 75 MG PO (06:31)
[2023-01-29] MEDS: Acetaminophen 325 MG Tablet 975 MG PO ×3 (06:32→21:17)
[2023-01-29 06:33] VITALS: BP 140/87; PULSE 99
[2023-01-29] MEDS: Torsemide 20 MG Tablet PO (06:33)
[2023-01-29] MEDS: Metoprolol Tartrate 25 MG Tablet 37.5 MG PO ×2 (06:33→17:51)
[2023-01-29] MEDS: Menthol/Lanolin/Calamine/Znox 113 GM Tube 1 APPLIC TOPICAL ×2 (06:34→17:54)
[2023-01-29] MEDS: Nystatin Powder 15gm Bottle 1 APPLIC TOPICAL ×2 (06:34→17:54)
[2023-01-29] MEDS: Arthritis Pain Compound 60 CLICK TUBE TOPICAL ×2 (06:34→17:52)
[2023-01-29 07:44] VITALS: BP 131/74; PULSE 60
[2023-01-29] MEDS: Digoxin 125 MCG Tablet PO (07:44)
[2023-01-29] MEDS: Potassium Chloride Oral Tablet 20 MEQ PO (07:44)
[2023-01-29] MEDS: Baclofen 10 MG Tablet 5 MG PO (09:58)
[2023-01-29 10:00] VITALS: BMI 27.1
[2023-01-29 13:46] VITALS: BP 92/57; PULSE 106; RESP 16; TEMP 36.5; O2SAT 94
[2023-01-29 17:51] VITALS: PULSE 106
[2023-01-29 20:08] VITALS: PULSE 78; RESP 18; O2SAT 96
[2023-01-29 20:25] VITALS: BP 123/66; PULSE 78; RESP 18; TEMP 36.3; O2SAT 96
[2023-01-30] MEDS: Levothyroxine 150 MCG Tablet PO (05:21)
[2023-01-30] MEDS: Arthritis Pain Compound 60 CLICK TUBE TOPICAL ×2 (05:23→17:36)
[2023-01-30] MEDS: Menthol/Lanolin/Calamine/Znox 113 GM Tube 1 APPLIC TOPICAL ×2 (05:23→17:35)
[2023-01-30] MEDS: Nystatin Powder 15gm Bottle 1 APPLIC TOPICAL ×2 (05:24→17:34)
[2023-01-30 06:12] VITALS: BP 122/73; PULSE 99
[2023-01-30] MEDS: Sertraline 50 MG Tablet 75 MG PO (06:12)
[2023-01-30] MEDS: Metoprolol Tartrate 25 MG Tablet 37.5 MG PO ×2 (06:12→17:35)
[2023-01-30] MEDS: Torsemide 20 MG Tablet PO (06:13)
[2023-01-30] MEDS: Acetaminophen 325 MG Tablet 975 MG PO ×3 (06:13→22:20)
[2023-01-30] MEDS: Potassium Chloride Oral Tablet 20 MEQ PO (08:07)
[2023-01-30 08:08] VITALS: BP 117/81; PULSE 83
[2023-01-30] MEDS: Digoxin 125 MCG Tablet PO (08:08)
[2023-01-30 13:39] VITALS: BP 97/68; PULSE 65; RESP 14; TEMP 37.1; O2SAT 96
[2023-01-30] MEDS: Baclofen 10 MG Tablet 5 MG PO (13:46)
[2023-01-30 17:35] VITALS: BP 128/70; PULSE 93
[2023-01-31] MEDS: Levothyroxine 150 MCG Tablet PO (05:24)
[2023-01-31] MEDS: Arthritis Pain Compound 60 CLICK TUBE TOPICAL (06:11)
[2023-01-31 06:12] VITALS: BP 136/85; PULSE 101
[2023-01-31] MEDS: Metoprolol Tartrate 25 MG Tablet 37.5 MG PO (06:12)
[2023-01-31] MEDS: Sertraline 50 MG Tablet 75 MG PO (06:12)
[2023-01-31] MEDS: Torsemide 20 MG Tablet PO (06:13)
[2023-01-31] MEDS: Acetaminophen 325 MG Tablet 975 MG PO (06:13)
[2023-01-31] MEDS: Menthol/Lanolin/Calamine/Znox 113 GM Tube 1 APPLIC TOPICAL (06:15)
[2023-01-31] MEDS: Nystatin Powder 15gm Bottle 1 APPLIC TOPICAL (06:15)
[2023-01-31 08:01] VITALS: PULSE 96
[2023-01-31] MEDS: Digoxin 125 MCG Tablet PO (08:01)
[2023-01-31] MEDS: Potassium Chloride Oral Tablet 20 MEQ PO (08:01)
[2023-01-31 09:34] VITALS: PULSE 95; RESP 16; O2SAT 96
--- NOTE | 2023-01-31 10:47 | CASEMGMT ---
Social Work BIMS () and PHQ-9 (07/17) completed for MDS assessment. Pt reports positive responses remain related to change in functional status, being fidgety, and not having the ability to function at her baseline. Pt is discharging to a SNF and will receive ongoing follow up. JOSE MARTIN VidalW
[2023-01-31] MEDS: Baclofen 10 MG Tablet 5 MG PO (11:41)
[2023-01-31 14:00] VITALS: BP 136/85; PULSE 95; RESP 16; TEMP 37.1; O2SAT 96
== END 2023-01-31 13:15 | disposition intermediate care facility (04) | DRG 949 ==
PROVIDERS: Admitting Provider Family Medicine Geriatric Medicine; PCP Family Medicine; Visit Provider Family Medicine Geriatric Medicine
DX: S06.34AD Traumatic hemorrhage of right cerebrum with loss of consciousness status unknown, subsequent encounter (principal); I50.32 Chronic diastolic (congestive) heart failure; I48.19 Other persistent atrial fibrillation; I11.0 Hypertensive heart disease with heart failure; D50.9 Iron deficiency anemia, unspecified; B35.4 Tinea corporis; B35.1 Tinea unguium; I25.10 Atherosclerotic heart disease of native coronary artery without angina pectoris; Z93.1 Gastrostomy status; E03.9 Hypothyroidism, unspecified; G47.33 Obstructive sleep apnea (adult) (pediatric); E78.5 Hyperlipidemia, unspecified; W19.XXXD Unspecified fall, subsequent encounter; F41.9 Anxiety disorder, unspecified; I69.391 Dysphagia following cerebral infarction; R13.10 Dysphagia, unspecified; F32.A Depression, unspecified; Z79.899 Other long term (current) drug therapy; Z79.890 Hormone replacement therapy; Z79.01 Long term (current) use of anticoagulants; F42.9 Obsessive-compulsive disorder, unspecified
CPT/HCPCS: 36415; 71046; 74018; 80048; 81001; 85025; 87086; 87088; 87426; 87811; 92526; 92610; 92611; 97110; 97116; 97162; 97166; 97530; 97535; 97802; 97803

== ENCOUNTER → 2023-02-01 | Outpatient (REF) | payer MEDICARE, SELFPAY ==
[2023-02-01 07:01] LABS: Absolute Lymphocyte Count 1.63 X10^3/uL (0.83-4.51); Basophil# 0.08 X10^3/uL; Basophil% 0.9 % (0-1); Eosinophil# 0.35 X10^3/uL; Eosinophils% 3.9 % (0-5); Hematocrit 42.2 % (37-47); Hemoglobin 13.8 g/dL (12.0-15.0); Lymphocyte # 1.63 X10^3/ul (0.83-4.51); Lymphocyte % 18.2 % (19-41); Mean Corp Hgb Conc 32.7 g/dL (32-36); Mean Corpuscular Hgb 32.2 pg (27.0-32.0); Mean Corpuscular Volume 98.6 fL (81-99); Mean Platelet Vol. 10.7 fl (6.2-12.0); Monocyte# 0.86 X10^3/uL; Monocyte% 9.6 % (0-10); NRBC Flagged by Analyzer 0 % (0-5); Neutrophil # 6.03 X10^3/uL (2.7-7.7); Neutrophil % 67.1 % (47-70); Platelet Count 313 K/mm3 (150-450); RBC Distribution Width CV 14.1 % (11.6-14.6); RBC Distribution Width SD 51.6 fl (35.1-43.9); Red Blood Count 4.28 M/mm3 (4.2-5.4)
[2023-02-01 07:36] LABS: AST(SGOT) 24 U/L (15-37); Alanine Aminotransfer ALT/SGPT 24 U/L (13-56); Anion Gap 5 (5-15); BUN 26 mg/dL (7-18); BUN/Creat Ratio 39.9 RATIO (10-20); Chloride 104 mmol/L (98-107); Creatinine, Serum 0.65 mg/dL (0.55-1.02); EST Glomerular Filtration Rate 92 mL/min (>60); Est Glom Filt Rate - Afr Amer 112 mL/min (>60); Glucose 97 mg/dL (74-106); Magnesium 2.3 mg/dL (1.6-2.6); Potassium 3.8 mmol/L (3.5-5.1); Sodium Level 136 mmol/L (136-145); Thyroid Stim Hormone (TSH) 8.47 uIU/mL (0.358-3.74)
[2023-02-01 07:39] LABS: Digoxin Level 0.96 ng/mL (0.80-2.00)
== END ==
LOC: OLS.WHLEAS 05:00
PROVIDERS: PCP Family Medicine; Visit Provider Internal Medicine
DX: I48.0 Paroxysmal atrial fibrillation (principal); S06.30AD Unspecified focal traumatic brain injury with loss of consciousness status unknown, subsequent encounter; R53.81 Other malaise; G31.84 Mild cognitive impairment of uncertain or unknown etiology; G47.33 Obstructive sleep apnea (adult) (pediatric)
CPT/HCPCS: 36415; 80048; 80162; 83735; 84443; 84450; 84460; 85025

== ENCOUNTER 2023-02-03 12:34 | Observation (INO) | payer MEDICARE, SELFPAY ==
[2023-02-03] VITALS (13 sets, daily range): BP systolic 143–188; BP diastolic 85–117; PULSE 90–117; RESP 17–28; TEMP 36.1–37; O2SAT 92–98; BMI 32.0; BMI 28.4; BMI 24.7
--- NOTE | 2023-02-03 12:50 | CT_ITS ---
We are attempting to reach an attending provider to discuss findings. An addendum with communication details will be sent when the communication is complete. HISTORY: Neuro deficit, acute, stroke suspected. TECHNIQUE: Multiple axial images were obtained of the head without intravenous contrast. A radiation dose optimization technique was used for this scan. 248 images. COMPARISON: 12/15/2022. FINDINGS: BRAIN PARENCHYMA: Multiple foci and zones of low attenuation in the bilateral cerebral white matter compatible with chronic small vessel ischemic gliosis. No acute intra-axial hemorrhage identified with interval resolution of the right thalamic hemorrhage. CSF SPACES: Generalized volume loss. No midline shift or other significant mass effect. No acute extra-axial hemorrhage seen. OTHER: Intact calvarium. Chronic right maxillary sinusitis with atelectasis. Bilateral lens resections. ASPECTS Score for Acute Strokes: 10 CT/STROKE Brain/Head without Cont IMPRESSION: No acute intracranial process identified. Chronic involutional and white matter changes. Resolution of right thalamic hemorrhage. Electronically Signed: Carlene Alan MD at 13:09 EDT ,
--- NOTE | 2023-02-03 12:50 | EKG12_ITS ---
Test Reason : STROKE ALERT Blood Pressure : / mmHG Vent. Rate : 095 BPM Atrial Rate : 000 BPM P-R Int : 000 ms QRS Dur : 072 ms QT Int : 336 ms P-R-T Axes : 000 -20 -62 degrees QTc Int : 422 ms Atrial fibrillation Septal infarct , age undetermined Inferior infarct , age undetermined Abnormal ECG Confirmed by RAOUL HOOD ([id number]), development editor ANG STARKS ([id number]) on 02/06/2023 1:37:11 PM Referred By: BLAYNE Confirmed By:RAOUL HOOD
[2023-02-03 12:59] LABS: Absolute Lymphocyte Count 1.34 X10^3/uL (0.83-4.51); Absolute Neutrophil Count 6.8 X10^3/uL (2.0-7.7); Basophil# 0.07 X10^3/uL; Basophil% 0.7 % (0-1); Eosinophil# 0.31 X10^3/uL; Eosinophils% 3.3 % (0-5); Hematocrit 41.6 % (37-47); Hemoglobin 13.4 g/dL (12.0-15.0); Lymphocyte # 1.34 X10^3/ul (0.83-4.51); Lymphocyte % 14.3 % (19-41); Mean Corp Hgb Conc 32.2 g/dL (32-36); Mean Corpuscular Hgb 31.7 pg (27.0-32.0); Mean Corpuscular Volume 98.3 fL (81-99); Mean Platelet Vol. 10.1 fl (6.2-12.0); Monocyte# 0.78 X10^3/uL; Monocyte% 8.4 % (0-10); NRBC Flagged by Analyzer 0 % (0-5); Neutrophil # 6.79 X10^3/uL (2.7-7.7); Neutrophil % 72.8 % (47-70); Platelet Count 329 K/mm3 (150-450); RBC Distribution Width CV 13.9 % (11.6-14.6); RBC Distribution Width SD 50.3 fl (35.1-43.9); Red Blood Count 4.23 M/mm3 (4.2-5.4); White Blood Count 9.3 K/mm3 (4.4-11.0)
[2023-02-03 13:09] LABS: International Normalized Ratio 1.1
[2023-02-03 13:10] LABS: Partial Thromboplast Time 34.7 Seconds (24.1-36.2)
[2023-02-03 13:16] LABS: Anion Gap 3 (5-15); BUN 29 mg/dL (7-18); BUN/Creat Ratio 33.7 RATIO (10-20); Calcium,Total 9.9 mg/dL (8.5-10.1); Chloride 110 mmol/L (98-107); Creatinine, Serum 0.86 mg/dL (0.55-1.02); EST Glomerular Filtration Rate 67 mL/min (>60); Est Glom Filt Rate - Afr Amer 81 mL/min (>60); Glucose 103 mg/dL (74-106); Potassium 4.1 mmol/L (3.5-5.1); Sodium Level 139 mmol/L (136-145); Troponin-I HS 18 pg/mL (3.0-54.0)
[2023-02-03] MEDS: LORazepam 2 MG/ML Syringe 1 MG IV (13:39)
--- NOTE | 2023-02-03 13:59 | EX.ED.DYSGE1 ---
HPI History of Present Illness Chief Complaint: Neuro S/Sx Narrative Narrative: Patient is a 82-year-old female who is presenting to the ER from [facility] with strokelike concerns. Patient was last known normal by son at 1030 this morning. He was talking to her on the phone, and patient was talking clearly with no difficulty. Patient had a significant change since 10:30 AM when son went to go see her at the nursing facility. Patient was not speaking and was aphasic. Patient's son stated this was a complete change from talking on the phone at 10:30 AM, and now patient is speaking in minimal words at this time. Patient also states that the patient was working with a nurse at the nursing facility going over medications, milligrams, and setting up her medications. Patient was at [facility] for 3 weeks previously, patient had a hemorrhagic stroke about 6 weeks ago. At the hemorrhagic stroke, patient was sent to [facility]. Patient then came back to the [facility] for 3 weeks and then was placed to the current retirement facility she is at. Patient had a recent fall. No trauma. Patient has no headache. Patient has no neck pain, chest pain or shortness of breath. Patient does have a resting tremor, patient son states that the tremors are worse today. When discussing patient's case and testing that would be done, it was noted that patient does have an IV dye allergy. Patient thinks she may have a rash to the IV dye or iodine contrast. Patient is not aware of any type of airway issue, angioedema, or any difficulty breathing with IV dye. opto mechanical technician was doing investigating as well, and found out that there was a critical allergy that was listed in a cardiology note from years ago. Patient will not be given IV dye today on the side of caution. In speaking to the patient, her mouth is extremely dry. Patient does have a resting tremor that is slightly worse at this time according to son. Patient will call commands, she will squeeze the hands, she will move her feet, she does follow commands with no difficulty. Patient has no facial droop. Patient speaking in 1 or 2 words. Patient son is at bedside, he is an excellent source of history. Patient on no blood thinners that we are aware of. Patient has multiple allergies, please hear nursing report. Patient also has significant past medical history that is positive for focal traumatic brain injury, mild cognitive impairment, obstructive sleep apnea, pulmonary artery hypertension, diagnosis heart failure, A-fib, hypertension, anxiety, depression. Please see to the long-term report for complete medical history. Pertinent positive medications at the patient on his digoxin and levothyroxine, please see her MAR as well Patient is a DNR CCA, DO NOT INTUBATE [facility] Medical History AF (paroxysmal atrial fibrillation) Anemia Ataxia Atherosclerotic heart disease of [place] coronary artery without angina pectoris Bilateral edema of lower extremity Cataracts, bilateral Cerebrovascular disease Chronic diastolic heart failure Chronic low back pain without sciatica CVA (cerebral vascular accident) Essential hypertension Frequent nosebleeds Hemarthrosis of knee History of CVA (cerebrovascular accident) (10/06/13) History of TIA (transient ischemic attack) Hyperlipidemia Hypothyroidism Joint pain of leg Left leg cellulitis Minimal cognitive impairment Obstructive sleep apnea Osteoarthritis Persistent atrial fibrillation Precordial chest pain Secondary pulmonary arterial hypertension Shingles Shortness of breath Spinal stenosis Syncope and collapse TIA (transient ischemic attack) (01/01/20) Ulcer of left lower extremity with fat layer exposed Ulcer of right lower extremity with fat layer exposed Home Medications acetaminophen 325 mg tablet 975 mg PO Q8 #0 tabs 01/28/23 [Rx Last Taken 02/03/23] baclofen 10 mg tablet 5 mg PO TID PRN Muscle Spasm #0 tabs 01/28/23 [Rx Last Taken 02/03/23] digoxin 125 mcg (0.125 mg) tablet 125 mcg PO DAILY@0800 #0 tabs 01/28/23 [Rx Last Taken 02/03/23] levothyroxine 150 mcg tablet 150 mcg PO DAILY@0500 #0 tabs 01/28/23 [Rx Last Taken 02/03/23] metoprolol tartrate 25 mg tablet 37.5 mg PO BID #0 tabs 01/28/23 [Rx Last Taken 02/03/23] nystatin 100,000 unit/gram topical powder (Nyamyc) 1 applic topical BID #0 grams 01/28/23 [Rx Last Taken 02/03/23] potassium chloride 20 mEq tablet,extended release(part/cryst) (Klor-Con M) 20 meq PO DAILYCM #0 tabs 01/28/23 [Rx Last Taken 02/03/23] sertraline 50 mg tablet 75 mg PO DAILY #0 tabs 01/28/23 [Rx Last Taken 02/03/23] torsemide 20 mg tablet 20 mg PO DAILY #0 tabs 01/28/23 [Rx Last Taken 02/03/23] zinc oxide 20 % topical ointment 1 applic topical BID RASH 02/03/23 [History Last Taken 02/03/23] Allergy/AdvReac Type Severity Reaction Status Date / Time amlodipine Allergy Swelling Verified 02/03/23 13:31 atorvastatin calcium Allergy Unknown Verified 02/03/23 13:31 [From Lipitor] diltiazem Allergy Swelling Verified 02/03/23 13:31 erythromycin base Allergy Unknown Verified 02/03/23 13:31 [Erythromycin Base] Iodinated Contrast Media Allergy Unknown Verified 02/03/23 13:31 latex Allergy Unknown Verified 02/03/23 13:31 Penicillins Allergy Rash Verified 02/03/23 13:31 pregabalin [From Lyrica] Allergy Swelling Verified 02/03/23 13:31 Sulfa (Sulfonamide Allergy Other Verified 02/03/23 13:31 Antibiotics) triamcinolone acetonide Allergy Other Verified 02/03/23 13:31 [From Kenalog] bumetanide [From Bumex] AdvReac Severe Red, Verified 02/03/23 13:31 Splotchy rash furosemide [From Lasix] AdvReac Severe Red, Verified 02/03/23 13:31 splotchy rash clarithromycin [From Biaxin] AdvReac Other Verified 02/03/23 13:31 lisinopril AdvReac Other Verified 02/03/23 13:31 rosuvastatin calcium AdvReac Other Verified 02/03/23 13:31 [From Crestor] spironolactone AdvReac Low blood Verified 02/03/23 13:31 pressure tramadol HCl [From Ultram] AdvReac Vomiting Verified 02/03/23 13:31 Family History Father CAD (coronary artery disease) Myocardial infarction Mother CVA (cerebral vascular accident) Brother COPD (chronic obstructive pulmonary disease) Colon cancer CAD (coronary artery disease) Surgical History H/O shoulder replacement History of cardioversion (2013) History of cervical biopsy History of hip replacement History of left heart catheterization (11/04/09) Social History (Updated 01/10/23 @ 20:[address] Chase Irvin MD) housing: assisted living facility Smoking Status: Never smoker alcohol intake: never substance use type: does not use caffeine: No what type of physical activity do you participate in: none seatbelt use: always do you feel safe at home: Yes ROS ROS ED ROS Narrative REVIEW OF SYSTEMS: Unless otherwise stated in this report the patient's positive and negative responses for review of systems for constitutional, eyes, ENT, cardiovascular, respiratory, gastrointestinal, neurological, , musculoskeletal, and integument systems and related systems to the presenting problem are either stated in the history of present illness or were not pertinent or were negative for the symptoms and/or complaints related to the presenting medical problem. EXAM Physical Exam Narrative Exam Narrative: Vital signs reviewed and patient is not hypoxic. General: The patient appears well and in no apparent distress. Patient is resting comfortably on cart, but she does have resting tremors that are slightly worse than baseline according to son. Patient is aphasic, she is only speaking 1 or 2 words intermittently. Patient does follow commands appropriately.. Not toxic, lethargic, or listless. Skin: Warm, dry, no pallor noted. There is no rash noted. Head: Normocephalic, atraumatic, patient was speaking remotely in 1 or 2 words, but overall is aphasic. No facial changes, no slurred speech, no facial droop. Patient does have a positive gag reflex. Eye: Normal conjunctiva, no drainage, EOMI. PERRL. Ears, Nose, Mouth, and Throat: oral mucosa is extremely dry. Nares patent. Mouth without vesicles. Ear canals patent. Tm's without Erythema Cardiovascular: Regular Rate and Rhythm, no murmurs, gallops, or rubs Respiratory: Patient is in no distress, no accessory muscle use, lungs are clear to auscultation, no wheezing, rales or rhonchi Back: non-tender, no CVA tenderness bilaterally to percussion. NO CTLS midline or paracervicl tenderness to palpation. GI: Soft, no tenderness to palpation, no masses appreciated. No rebound, guarding, or rigidity noted. Musculoskeletal: The patient has full range of motion of all extremities and joints with no difficulty. Patient has no motor, no sensory deficits. Neurological: A&O x4, normal speech, no focal neurological deficits. NIH 3, patient is not able to say age, month, patient does have mild to moderate aphasia as well. Psychiatric: Cooperative Const Vital Signs: 02/03/23 12:43 02/03/23 12:43 02/03/23 13:00 Temperature 97.3 F L 97.3 F L Temperature Source Temporal Oral Pulse Rate 115 H 113 H 117 H Respiratory Rate 24 H 24 H 28 H Blood Pressure 143/98 H 143/98 H 159/94 H Blood Pressure Mean 113 113 115 Pulse Ox 98 98 98 Oxygen Delivery Method Room Air Room Air Room Air 02/03/23 13:16 02/03/23 13:20 02/03/23 13:32 Temperature Temperature Source Pulse Rate 103 H 104 H Respiratory Rate 27 H 26 H Blood Pressure 156/96 H 149/117 H Blood Pressure Mean 116 127 Pulse Ox 94 93 Oxygen Delivery Method Room Air Room Air Room Air 02/03/23 14:00 02/03/23 14:30 02/03/23 14:45 Temperature Temperature Source Pulse Rate 97 95 Respiratory Rate 17 24 H Blood Pressure 159/108 H 173/105 H 170/110 H Blood Pressure Mean 125 127 130 Pulse Ox 92 93 Oxygen Delivery Method Room Air Room Air 02/03/23 14:45 02/03/23 14:45 02/03/23 15:15 Temperature 97 F L Temperature Source Temporal Pulse Rate 90 Respiratory Rate 18 Blood Pressure 165/110 H 170/110 H 154/85 H Blood Pressure Mean 128 130 108 Pulse Ox 94 Oxygen Delivery Method Room Air [facility] Lab Data Attestation: I reviewed the patient's lab results. Labs: Laboratory Results - last 24 hr 02/03/23 02/03/23 02/03/23 12:45 12:45 12:45 WBC 9.3 RBC 4.23 Hgb 13.4 Hct 41.6 MCV 98.3 MCH 31.7 MCHC 32.2 RDW Std Deviation 50.3 H RDW Coeff of Yojana 13.9 Plt Count 329 MPV 10.1 Immature Gran % (Auto) 0.500 Neut % (Auto) 72.8 H Lymph % (Auto) 14.3 L Sandoval % (Auto) 8.4 Eos % (Auto) 3.3 Baso % (Auto) 0.7 Absolute Neuts (auto) 6.8 Absolute Lymphs (auto) 1.34 Nucleated RBC % 0 PT 14.0 INR 1.1 APTT 34.7 Sodium 139 Potassium 4.1 Chloride 110 H Carbon Dioxide 26.0 Anion Gap 3 L BUN 29 H Creatinine 0.86 Est GFR (MDRD) Af Amer 81 Est GFR (MDRD) Non-Af 67 BUN/Creatinine Ratio 33.7 H Glucose 103 Calcium 9.9 Troponin I High Sens 18 Radiography Chest X-Ray - ED: 1 View and Read by ED Physician (Chest x-ray shows no acute cardiopulmonary disease, no infiltrate, no effusion) Diagnostic Testing: Clinical Impression(s) from Imaging Studies Brain CT 02/03/23 12:50 IMPRESSION: No acute intracranial process identified. Chronic involutional and white matter changes. Resolution of right thalamic hemorrhage. Electronically Signed: Carlene Alan MD at 13:09 EDT Reading Location ID and State: [facility] / [place] Tel , Service support , ADDENDUM: 02/03/23 1316 IMPRESSION: No acute intracranial process identified. Chronic involutional and white matter changes. Resolution of right thalamic hemorrhage. N.B. : The above Results were Read Back by Carlene Alan MD to Dr Noe Zambrano MD, and understanding confirmed on 02/03/2023 13:09:53 (ET). Electronically Signed: Carlene Alan MD at 13:09 EDT , Chest X-Ray 02/03/23 14:05 IMPRESSION: No significant interval change. Chronic interstitial opacities in the lungs. Electronically Signed: Carlene Alan MD at 14:15 EDT , EKG Initial EKG: Attestation: I personally reviewed and interpreted this EKG as follows: Comments: EKG interpretation. Irregular irregular rhythm at 95 beats a minute. Normal axis deviation. No acute ST elevation, artifact noted, nonspecific ST changes. QTc of 422 Additional Tests and Interventions Additional Tests or Interventions: Patient signed has been at bedside, he has been extremely helpful with patient's history, physical, and information. 1308 CT was read as negative by the radiologist, verbal report was given on the phone 1314 I spoke to the neurologist from the [facility]. Dr. Wetzel. She agreed there is no other further recommendation at this time. She is aware of the IV contrast/iodine contrast that we are unaware of exactly what the allergy is, anywhere from a rash to a possible critical allergy . She agreed to not perform CTA of the head neck at this time, just to perform the MRI of the brain without contrast and MRI of the brain on the inpatient floor. No other recommendations at this time the patient can be admitted at [facility]. Patient has bilateral blood pressures were done, please see nursing notes. Patient's blood pressures were 165/110 in left arm, 170/110 in the right arm, IV labetalol was going to be given for a one-time dose, then patient's blood pressure was 150 over 80 approx 30 minutes later when the IV labetalol was going to be given. IV labetalol was not given. There was a lengthy conversation with Dr. Rma, admitting hospitalist. He had a lengthy conversation with the son about patient's future potential TIAs, stroke care, possible hospice or palliative care. Please see his consultation note. Patient had a urine test ordered by the admitting hospitalist prior to going up to the hospital floor, Dr. Ram will follow up on the results of this. Patient will be admitted to the PCU for observation. Patient was comfortable after the dose of Ativan that she was given. Patient's son was very thankful for help and care in the ER. Discharge Plan Dx/Rx/DC Orders Clinical Impression: TIA (transient ischemic attack) Disposition Disposition: Acute Care Hospital [facility] [place] Discharge Date/Time: 02/03/23 15:45
--- NOTE | 2023-02-03 14:05 | RAD_ITS ---
HISTORY: Neuro deficit, acute, stroke suspected. TECHNIQUE: XR Chest 1 View. COMPARISON: 01/28/2023. FINDINGS: CARDIOMEDIASTINAL BORDERS: Unchanged mild cardiomegaly, prominent pulmonary arteries of the [place], and calcification of the aorta. LUNGS: Persistent mild interstitial opacities in the lungs. PLEURA: No pleural effusion or pneumothorax seen. OSSEOUS STRUCTURES: Right shoulder arthroplasty. RAD/Chest 1 View IMPRESSION: No significant interval change. Chronic interstitial opacities in the lungs. Electronically Signed: Carlene Alan MD at 14:15 EDT ,
--- NOTE | 2023-02-03 15:22 | ED.RN ---
PER DR TRUONG, [facility] CANCELLED AT THIS TIME. UNABLE TO OBTAIN
[2023-02-03] MEDS: Aspirin 300 MG Suppository RC (15:31)
--- NOTE | 2023-02-03 16:11 | CDU_ITS ---
Reason For Study: CVA Rt. Velocities/BP Lt. Velocities/BP Prox CCA 38.1/9.7 cm/sec. Prox CCA 54.3/11.6 cm/sec. Mid CCA 45.6/9 cm/sec. Mid CCA 55.2/14.2 cm/sec. Dist CCA 88.3/17.9 cm/sec. Dist CCA 62.2/14.2 cm/sec. Prox ICA 43.3/12.6 cm/sec. Prox ICA 45.6/14.2 cm/sec. Mid ICA 39.7/12.6 cm/sec. Mid ICA 53.5/16 cm/sec. Dist ICA 40.9/15.1 cm/sec. Dist ICA 31.9/10.2 cm/sec. Rt. ICA/CCA = 0.95. Lt. ICA/CCA = 0.97. Prox ECA 121.1/9.7 cm/sec. Prox ECA 50.9/7.2 cm/sec. Rt. Vert. 24.7/7.2 cm/sec. Lt. Vert. 27.3/5.2 cm/sec. Right Extracranial There is heterogeneous, irregular atherosclerotic plaque noted in the right common carotid artery. There is heterogeneous, smooth atherosclerotic plaque noted in the right internal carotid artery. There is homogeneous, smooth atherosclerotic plaque noted in the right external carotid artery. Antegrade flow is noted in the right vertebral artery. Left Extracranial There is homogeneous, smooth atherosclerotic plaque noted in the left common carotid artery. There is heterogeneous, irregular atherosclerotic plaque noted in the left internal carotid artery. There is homogeneous, smooth atherosclerotic plaque noted in the left external carotid artery. Antegrade flow is noted in the left vertebral artery. Procedure Carotid Duplex 88248. This is a Carotid Duplex examination using B-mode, color flow and specral Doppler. Exam performed portable in patient room. VL/Carotid Duplex Ultrasound Interpretation Summary Mild (<50%) stenosis right extracranial internal carotid. Mild (<50%) stenosis left extracranial internal carotid. Patent and antegrade vertebrals bilaterally. Ordering Physician: Wade Ram Referring Physician: Sabino Kellogg MD Performed By: Alessandra Valdez RVT
--- NOTE | 2023-02-03 16:11 | ECHOD_ITS ---
Reason For Study: TIA/CVA Procedure This was a 2D Doppler, Color Flow transthoracic echocardiogram. Technically difficult due to patient flailing left arm. Exam performed portable in patient room. Left Ventricle Normal left ventricle. The estimated ejection fraction is 55-60 %. Right Ventricle Normal right ventricle. Normal systolic function. Atria Normal left atrium. Normal right atrium. Mitral Valve There is mild to moderate mitral annular calcification. Trivial mitral valve insufficiency. Aortic Valve Normal aortic valve. Trivial aortic valve insufficiency. Pulmonic Valve The pulmonic valve is not well visualized. Great Vessels Normal aortic root. Pericardium/Pleural No pericardial effusion. MMode/2D Measurements & Calculations LVIDd: 4.6 cm IVSd: 1.2 cm Ao root diam: 4.1 cm LVIDs: 3.3 cm LVPWd: 1.1 cm FS: 29.5 % LAV(MOD-bp): 73.6 ml LVAd ap4: 16.7 cm2 SV(MOD-sp4): 26.8 ml LAV(MOD-sp2): 77.0 ml LVLd ap4: 5.6 cm LAV(MOD-sp4): 70.6 ml EDV(MOD-sp4): 43.1 ml EDV(sp4-el): 42.6 ml LVAs ap4: 9.1 cm2 LVLs ap4: 4.8 cm ESV(MOD-sp4): 16.4 ml ESV(sp4-el): 14.7 ml EF(MOD-sp4): 62.1 % EF(sp4-el): 65.6 % SV(sp4-el): 27.9 ml LA A4 area: 23.5 cm2 RA A4 area: 17.3 cm2 Doppler Measurements & Calculations MV E max sunny: 34.4 cm/sec Lat Peak E' Sunny: 9.3 cm/sec Med Peak E' Sunny: 5.4 cm/sec MV A max sunny: 88.0 cm/sec E/E' lat: 3.7 E/E' med: 6.4 MV E/A: 0.39 Ao V2 max: 127.6 cm/sec AI max sunny: 534.9 cm/sec LV V1 max: 95.4 cm/sec Ao max P.7 mmHg AI max P.5 mmHg LV V1 max P.7 mmHg Ao V2 mean: 94.6 cm/sec AI dec slope: 166.5 cm/sec2 LV V1 mean P.8 mmHg Ao mean P.9 mmHg AI P1/2t: 941.0 msec LV V1 mean: 61.5 cm/sec Ao V2 VTI: 19.4 cm LV V1 VTI: 16.5 cm AV (velocity ratio): 0.85 PA V2 max: 113.1 cm/sec TR max sunny: 293.7 cm/sec PA V2 mean: 76.9 cm/sec TR max P.5 mmHg ECHO/Echo Complete Interpretation Summary The estimated ejection fraction is 55-60 %. Normal LV systolic function. No previous study to compare Ordering Physician: Wade Ram Performed By: Kena Abdul RCS
--- NOTE | 2023-02-03 16:14 | HP.PCM.HOS_ITS ---
HPI - General General Date of Admission: 02/03/23 HPI Narrative DIXIE BURROUGHS, is a 82 F who presents from a residential with concerns of a stroke. According to her son he spoke to her this morning and she was completely lucid and normal on the phone with normal speech and this was around 10:30 in the morning. And then he came in to visit her later in the afternoon and she was nonverbal and her speech was garbled. 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 Prior to my evaluation she had been given some Ativan and is unable to take part in these discussions. CT of the brain is negative for new hemorrhagic stroke and it shows that her old thalamic stroke from 6 weeks ago had resolved. There is no leukocytosis or fever and no signs of another illness, chest x-ray was unremarkable. Unfortunate CTA of the head and neck could not be done because there is some concern for significant allergy to contrast dye. [facility] Medical History AF (paroxysmal atrial fibrillation) Anemia Ataxia Atherosclerotic heart disease of [place] coronary artery without angina pectoris Bilateral edema of lower extremity Cataracts, bilateral Cerebrovascular disease Chronic diastolic heart failure Chronic low back pain without sciatica CVA (cerebral vascular accident) Essential hypertension Frequent nosebleeds Hemarthrosis of knee History of CVA (cerebrovascular accident) (10/06/13) History of TIA (transient ischemic attack) Hyperlipidemia Hypothyroidism Joint pain of leg Left leg cellulitis Minimal cognitive impairment Obstructive sleep apnea Osteoarthritis Persistent atrial fibrillation Precordial chest pain Secondary pulmonary arterial hypertension Shingles Shortness of breath Spinal stenosis Syncope and collapse TIA (transient ischemic attack) (01/01/20) Ulcer of left lower extremity with fat layer exposed Ulcer of right lower extremity with fat layer exposed Home Medications acetaminophen 325 mg tablet 975 mg PO Q8 #0 tabs 01/28/23 [Rx Last Taken 02/03/23] baclofen 10 mg tablet 5 mg PO TID PRN Muscle Spasm #0 tabs 01/28/23 [Rx Last Taken 02/03/23] digoxin 125 mcg (0.125 mg) tablet 125 mcg PO DAILY@0800 #0 tabs 01/28/23 [Rx Last Taken 02/03/23] levothyroxine 150 mcg tablet 150 mcg PO DAILY@0500 #0 tabs 01/28/23 [Rx Last Taken 02/03/23] metoprolol tartrate 25 mg tablet 37.5 mg PO BID #0 tabs 01/28/23 [Rx Last Taken 02/03/23] nystatin 100,000 unit/gram topical powder (Nyamyc) 1 applic topical BID #0 grams 01/28/23 [Rx Last Taken 02/03/23] potassium chloride 20 mEq tablet,extended release(part/cryst) (Klor-Con M) 20 meq PO DAILYCM #0 tabs 01/28/23 [Rx Last Taken 02/03/23] sertraline 50 mg tablet 75 mg PO DAILY #0 tabs 01/28/23 [Rx Last Taken 02/03/23] torsemide 20 mg tablet 20 mg PO DAILY #0 tabs 01/28/23 [Rx Last Taken 02/03/23] zinc oxide 20 % topical ointment 1 applic topical BID RASH 02/03/23 [History Last Taken 02/03/23] Allergy/AdvReac Type Severity Reaction Status Date / Time amlodipine Allergy Swelling Verified 02/03/23 13:31 atorvastatin calcium Allergy Unknown Verified 02/03/23 13:31 [From Lipitor] diltiazem Allergy Swelling Verified 02/03/23 13:31 erythromycin base Allergy Unknown Verified 02/03/23 13:31 [Erythromycin Base] Iodinated Contrast Media Allergy Unknown Verified 02/03/23 13:31 latex Allergy Unknown Verified 02/03/23 13:31 Penicillins Allergy Rash Verified 02/03/23 13:31 pregabalin [From Lyrica] Allergy Swelling Verified 02/03/23 13:31 Sulfa (Sulfonamide Allergy Other Verified 02/03/23 13:31 Antibiotics) triamcinolone acetonide Allergy Other Verified 02/03/23 13:31 [From Kenalog] bumetanide [From Bumex] AdvReac Severe Red, Verified 02/03/23 13:31 Splotchy rash furosemide [From Lasix] AdvReac Severe Red, Verified 02/03/23 13:31 splotchy rash clarithromycin [From Biaxin] AdvReac Other Verified 02/03/23 13:31 lisinopril AdvReac Other Verified 02/03/23 13:31 rosuvastatin calcium AdvReac Other Verified 02/03/23 13:31 [From Crestor] spironolactone AdvReac Low blood Verified 02/03/23 13:31 pressure tramadol HCl [From Ultram] AdvReac Vomiting Verified 02/03/23 13:31 Family History Father CAD (coronary artery disease) Myocardial infarction Mother CVA (cerebral vascular accident) Brother COPD (chronic obstructive pulmonary disease) Colon cancer CAD (coronary artery disease) Surgical History H/O shoulder replacement History of cardioversion (2013) History of cervical biopsy History of hip replacement History of left heart catheterization (11/04/09) Social History (Updated 01/10/23 @ 20:[address] Chase Irvin MD) housing: assisted living facility Smoking Status: Never smoker alcohol intake: never substance use type: does not use caffeine: No what type of physical activity do you participate in: none seatbelt use: always do you feel safe at home: Yes ROS Review of Systems ROS Unobtainable: due to mental status Vital Signs Vital Signs Vital Signs: 02/03/23 12:43 02/03/23 12:43 02/03/23 13:00 Temperature 97.3 F L 97.3 F L Temperature Source Temporal Oral Pulse Rate 115 H 113 H 117 H Respiratory Rate 24 H 24 H 28 H Blood Pressure 143/98 H 143/98 H 159/94 H Blood Pressure Mean 113 113 115 Blood Pressure Source Blood Pressure Position Blood Pressure Location Pulse Ox 98 98 98 Oxygen Delivery Method Room Air Room Air Room Air 02/03/23 13:16 02/03/23 13:20 02/03/23 13:32 Temperature Temperature Source Pulse Rate 103 H 104 H Respiratory Rate 27 H 26 H Blood Pressure 156/96 H 149/117 H Blood Pressure Mean 116 127 Blood Pressure Source Blood Pressure Position Blood Pressure Location Pulse Ox 94 93 Oxygen Delivery Method Room Air Room Air Room Air 02/03/23 14:00 02/03/23 14:30 02/03/23 14:45 Temperature Temperature Source Pulse Rate 97 95 Respiratory Rate 17 24 H Blood Pressure 159/108 H 173/105 H 170/110 H Blood Pressure Mean 125 127 130 Blood Pressure Source Blood Pressure Position Blood Pressure Location Pulse Ox 92 93 Oxygen Delivery Method Room Air Room Air 02/03/23 14:45 02/03/23 14:45 02/03/23 15:15 Temperature 97 F L Temperature Source Temporal Pulse Rate 90 Respiratory Rate 18 Blood Pressure 165/110 H 170/110 H 154/85 H Blood Pressure Mean 128 130 108 Blood Pressure Source Blood Pressure Position Blood Pressure Location Pulse Ox 94 Oxygen Delivery Method Room Air 02/03/23 16:05 Temperature 97.6 F L Temperature Source Temporal Pulse Rate 105 H Respiratory Rate 18 Blood Pressure 155/110 H Blood Pressure Mean 125 Blood Pressure Source Monitor Blood Pressure Position Semi-Fowlers Blood Pressure Location Right Arm Pulse Ox 98 Oxygen Delivery Method Room Air Weight Weight: 162 lb 11.218 oz Body Mass Index (BMI) 24.7 Physical Exam Narrative General: Alert but sleepy, disoriented, Cooperative, No apparent distress HEENT: Atraumatic, PERRLA, EOMI, Normocephalic Oral: Dry mucosa Neck: Supple, No JVD Lungs: Diminished, Normal air movement, No rhonchi, No wheeze, No rales Cardiovascular: Tachycardic, Regular Rhythm, Normal S1, Normal S2, No murmurs Abdomen: Soft, Non Tender, Non-Distended, No Hepato-splenomegaly Extremities: No edema, Capillary Refill Less than 3 Seconds Skin: No rashes, No breakdown Musculoskeletal: No Tenderness to Palpation of Joints or Extremities Neurological: Significant choreatic movements that occurred after her last stroke unable to obtain an appropriate NIH Psych/Mental Status: Flat affect Results Lab / Micro Data Result Diagrams: 02/03/23 12:45 02/03/23 12:45 Labs: Laboratory Results - last 24 hr 02/03/23 12:45: WBC 9.3, RBC 4.23, Hgb 13.4, Hct 41.6, MCV 98.3, MCH 31.7, MCHC 32.2, RDW Std Deviation 50.3 H, RDW Coeff of [place]oj[place] 13.9, Plt Count 329, MPV 10.1, Immature Gran % (Auto) 0.500, Neut % (Auto) 72.8 H, Lymph % (Auto) 14.3 L, [place] % (Auto) 8.4, Eos % (Auto) 3.3, Baso % (Auto) 0.7, Absolute Neuts (auto) 6.8, Absolute Lymphs (auto) 1.34, Nucleated RBC % 0 02/03/23 12:45: PT 14.0, INR 1.1, APTT 34.7 02/03/23 12:45: Sodium 139, Potassium 4.1, Chloride 110 H, Carbon Dioxide 26.0, Anion Gap 3 L, BUN 29 H, Creatinine 0.86, Est GFR (MDRD) Af Amer 81, Est GFR (MDRD) Non-Af 67, BUN/Creatinine Ratio 33.7 H, Glucose 103, Calcium 9.9, Troponin I High Sens [address] 02/03/23 12:50 IMPRESSION: No acute intracranial process identified. Chronic involutional and white matter changes. Resolution of right thalamic hemorrhage. Electronically Signed: Carlene Alan MD at 13:09 EDT Reading Location ID and State: [facility] / [place] Tel , Service support , ADDENDUM: 02/03/23 1316 IMPRESSION: No acute intracranial process identified. Chronic involutional and white matter changes. Resolution of right thalamic hemorrhage. N.B. : The above Results were Read Back by Carlene Alan MD to Dr Noe Zambrano MD, and understanding confirmed on 02/03/2023 13:09:53 (ET). Electronically Signed: Carlene Alan MD at 13:09 EDT , Chest X-Ray 02/03/23 14:05 IMPRESSION: No significant interval change. Chronic interstitial opacities in the lungs. Electronically Signed: Carlene Alan MD at 14:15 EDT , Assessment & Plan Assessment/Plan (1) CVA (cerebral vascular accident): QUALIFIERS: CVA mechanism: unspecified Qualified Code(s): I63.9 - Cerebral infarction, unspecified PLAN: Plan 1. Rule out CVA in the setting of A-fib with a recent history of hemorrhagic stroke ? She was doing fine until this morning when her son noticed that she was not talking ? Work-up so far in the ER is unremarkable, CT of the brain is negative with no head bleed ? We will obtain an MRI and an echo in the morning she is allergic to contrast so can do an MRA of the head without contrast and then carotid Dopplers ? Given her age and her symptomatology we will check a UA just to be sure that this is not infectious ? She may need medication for the MRI given her chorea and it is possible that we may not get a good image, this was discussed with the son ? I had a 30-minute discussion with the son on advance care planning given the fact that her [id number] score is a 7 which puts her stroke risk at around 10 %/year. We discussed the fact that she has had episodes of significant nosebleeds as well as the recent thalamic hemorrhage 6 weeks ago. She has a high risk of recurrent ischemic strokes but she is also at risk for hemorrhagic issues given her history. We discussed prognosis as well as goals of care if her mental status does not improve. He is receptive to hospice but not at the moment. I also brought up with him that she is having difficulty eating and she recently had a PEG tube removed and that he will have to think about whether or not she would want another PEG tube inserted if she is unable to past her dysphagia evaluation ? We will allow permissive hypertension for now as she is unable to take medications 2. HTN/HLD/A-fib/chronic diastolic CHF ? We will allow permissive hypertension ? We will have as needed labetalol and hydralazine available ? Can restart her home medications in the next 24 to 48 hours if she passes her dysphagia evaluations ? She is allergic to statins, will continue with gentle IV fluid hydration as she is unable to take any oral fluid 3. Hypothyroidism ? Stable ? Can continue Synthroid when able to take p.o. 4. Anxiety/depression ? Stable ? Can continue with her home Zoloft when she is able to take p.o. DVT: SCDs 78 minutes was spent in direct patient care as well as documentation, chart review, discussing her care with colleagues Charges/Coding Visit Charges Inpatient E&M: 74338 Init Hosp L3 Procedures Hospitalists Procedures: [id number] Advncd Care Plan 30 Min
[2023-02-03] MEDS: 0.9% Normal Saline 1,000 ML 75 ML IV (16:47)
[2023-02-04] VITALS (10 sets, daily range): BP systolic 140–180; BP diastolic 72–116; PULSE 91–115; RESP 16–20; TEMP 36.4–37.1; O2SAT 93–96; BMI 24.7
[2023-02-04] MEDS: 0.9% Normal Saline 1,000 ML 75 ML IV ×2 (03:34→15:59)
[2023-02-04 06:07] LABS: Glucose, Dipstick Normal (Normal); Ketone-Dipstick 5 mg/dl (Negative); Leukocyte Esterase-Dipstick Negative /ul (Negative); Nitrite-Dipstick Negative (Negative); Occult Blood-Urine 10 /ul (Negative); Protein-Dipstick 15 mg/dl (Negative); Specific Gravity, Urine 1.015 (1.002-1.030); Urine Bilirubin Dipstick Negative (Negative); Urine Urobilinogen Normal (Normal); Urine pH 6.5 (5.0 - 8.0)
[2023-02-04 06:11] LABS: Color, Urine Yellow (Yellow); Urine Clarity Clear (Clear)
[2023-02-04 06:47] LABS: Absolute Lymphocyte Count 1.04 X10^3/uL (0.83-4.51); Absolute Neutrophil Count 6.8 X10^3/uL (2.0-7.7); Basophil# 0.08 X10^3/uL; Basophil% 0.9 % (0-1); Eosinophil# 0.24 X10^3/uL; Eosinophils% 2.7 % (0-5); Hematocrit 42.1 % (37-47); Hemoglobin 13.5 g/dL (12.0-15.0); Lymphocyte # 1.04 X10^3/ul (0.83-4.51); Lymphocyte % 11.6 % (19-41); Mean Corp Hgb Conc 32.1 g/dL (32-36); Mean Corpuscular Hgb 31.9 pg (27.0-32.0); Mean Corpuscular Volume 99.5 fL (81-99); Mean Platelet Vol. 10.2 fl (6.2-12.0); Monocyte# 0.78 X10^3/uL; Monocyte% 8.7 % (0-10); NRBC Flagged by Analyzer 0 % (0-5); Neutrophil # 6.79 X10^3/uL (2.7-7.7); Neutrophil % 75.8 % (47-70); Platelet Count 306 K/mm3 (150-450); RBC Distribution Width CV 14.1 % (11.6-14.6); RBC Distribution Width SD 51.3 fl (35.1-43.9); Red Blood Count 4.23 M/mm3 (4.2-5.4)
[2023-02-04 07:13] LABS: Anion Gap 6 (5-15); BUN 19 mg/dL (7-18); Calcium,Total 9.8 mg/dL (8.5-10.1); Chloride 108 mmol/L (98-107); Cholesterol 168 mg/dL (200); Creatinine, Serum 0.59 mg/dL (0.55-1.02); EST Glomerular Filtration Rate 103 mL/min (>60); Est Glom Filt Rate - Afr Amer 124 mL/min (>60); Glucose 85 mg/dL (74-106); High Density Lipoprotein 31 mg/dL; Potassium 3.8 mmol/L (3.5-5.1); Sodium Level 138 mmol/L (136-145); Triglycerides 115 mg/dL; Very Low Density Lipoprotein 23 mg/dL (5-40)
--- NOTE | 2023-02-04 09:15 | MRI_ITS ---
EXAM: MR HEAD WITHOUT INTRAVENOUS CONTRAST CLINICAL INDICATION: CVA TECHNIQUE: Multiplanar and multisequence MR images of the brain were obtained without intravenous contrast. This report was created using [employer] report generation technology. COMPARISON: MRI brain without contrast 01/01/2020. CT head without contrast 02/03/2023. FINDINGS: BRAIN AND EXTRA-AXIAL SPACES: T2 FLAIR hyperintensity foci in the periventricular white matter are confluent chronic white matter ischemic changes. The included the bilateral centrum semiovale. No intra- or extra-axial hemorrhage. No intracranial mass or mass effect. Posterior fossa structures are unremarkable. No hydrocephalus. Basal cisterns are patent. No diffusion restriction to suspect acute or subacute ischemic infarct. No remote cortical-based ischemic infarct. SELLA: Unremarkable. Normal sella turcica, pituitary gland, infundibular stalk, optic chiasm and hypothalamus. AUDITORY SYSTEM: Unremarkable. The internal auditory canals are patent. BONES/JOINTS: Unremarkable. No discrete lytic or blastic abnormalities. SINUSES: Unremarkable as visualized. Clear. MASTOID AIR CELLS: Unremarkable as visualized. Clear. ORBITS: Unremarkable as visualized. Both globes, extraocular muscles, optic nerves and retrobulbar fat appear unremarkable. VASCULATURE: Unremarkable as visualized. Normal flow voids in the major intracranial circulation. MRI/Brain without Contrast IMPRESSION: 1. No MRI evidence of acute or subacute ischemic infarct or acute intracranial abnormality. 2. Progression of chronic white matter ischemic changes in both cerebral hemispheres when compared to 01/01/2020. Electronically Signed: Fahad Carrington MD at 10:51 EDT ,
--- NOTE | 2023-02-04 09:15 | MRI_ITS ---
STUDY: MRA OF THE HEAD WITHOUT CONTRAST REASON FOR EXAM: Female, 82 years old. CVA TECHNIQUE: 3-D [id number] (TOF) imaging was performed with MIPs. The study was performed unenhanced. COMPARISON: MRA head 01/01/2020. FINDINGS: Normal bilateral petrous carotid arteries. Minimal nonocclusive plaque in the right medial paraclinoid internal carotid artery. Widely patent cavernous segments of the right internal carotid artery with a normal supraclinoid bifurcation. Minimal occlusive plaque in the posterior C4 cavernous segment of the left internal carotid artery. Widely patent cavernous segments of the left internal card artery with a normal left supraclinoid ICA bifurcation. High-grade stenosis at the right A1 A2 junction. Widely patent remaining right A1 segment. 50% stenosis in the proximal half of the left A1 segment. Normal intact anterior communicating artery (ACOM). Segmental high-grade stenosis of the midline A2 segments and the anterior pericallosal arteries. Less than 50% stenosis of the right distal M1 segment and bifurcation. Minimal irregular plaques without significant stenosis of the right M2 segments. Minimal plaques along the left M1 segment and M2 segments without significant stenosis. 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 The aneurysmal sac is directed cephalad. This was previously approximately 3 mm long with a 3 mm wide fundus and a 2 mm wide neck. No visible right posterior communicating artery (PCOM). No visible left posterior communicating artery (PCOM). Minimal plaques without significant stenosis along the intradural segments of the vertebral arteries, right is slightly more dominant. 50% stenosis of the distal basilar artery proximal to the origins of the superior cerebellar arteries. High-grade stenosis at the origin of the left superior cerebellar artery with multiple high-grade segmental stenosis. Widely patent right superior cerebellar artery. High-grade stenosis of the right P1 segment origin. High-grade segmental stenosis of both posterior cerebral arteries (P2 and P3 segments). There is a saccular aneurysm of the left distal M1 segment as described above. No acute or subacute ischemic infarct throughout the brain parenchyma. MRI/MRA Head ONLY without Contrast IMPRESSION: 1. 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 The aneurysmal sac is directed cephalad. This was previously approximately 3 mm long, 3 mm wide fundus and a 2 mm wide neck. This is feasible for endovascular coil therapy. 2. High-grade stenosis of the right A1 A2 junction, 50% stenosis in the proximal half of the left A1 segment and segmental high-grade stenosis of the midline A2 segments and the anterior pericallosal arteries. This is unchanged. 3. Less than 50% stenosis of the right distal M1 segment and bifurcation with minimal irregular plaques along the right M2 segments. This is unchanged. 4. 50% stenosis of the distal basilar artery proximal to the origins of the superior cerebellar arteries. This is unchanged. 5. High-grade stenosis at the origin of the most superior cerebellar artery and segmental high-grade stenosis of the remaining left superior cerebellar artery. Widely patent right superior cerebellar artery. These are unchanged. 6. High-grade stenosis of the right P1 segment portion and segmental high-grade stenosis of the bilateral P2 and P3 segments of both posterior cerebral arteries. These are unchanged. Electronically Signed: Fahad Carrington MD at 11:11 EDT ,
--- NOTE | 2023-02-04 09:38 | PCM.PN.HOSP ---
Reason for Visit Reason for Visit: Diagnoses Cerebral infarction, unspecified (02/03/23) Concern for stroke. Abnormal imaging MRI. Objective Data Objective Data Vital Signs: Vital Signs Temp Pulse Resp BP Pulse Ox O2 Del Method 97.5 F L 106 H 18 140/94 H 94 Room Air 02/04/23 07:21 02/04/23 07:21 02/04/23 07:21 02/04/23 07:21 02/04/23 07:21 02/04/23 07:21 Oxygen Delivery Method Room Air Weight: 162 lb 11.218 oz Body Mass Index (BMI) 24.7 Intake & Output: Intake and Output for Last 24 Hours 02/02/23 02/03/23 02/04/23 23:59 23:59 23:59 Intake Total 0 / 0 808.75 / 808.75 Balance 0 / 0 808.75 / 808.75 Lab / Micro Data Result Diagrams: 02/04/23 06:03 02/04/23 06:03 Labs: Laboratory Results - last 24 hr 02/03/23 12:45: WBC 9.3, RBC 4.23, Hgb 13.4, Hct 41.6, MCV 98.3, MCH 31.7, MCHC 32.2, RDW Std Deviation 50.3 H, RDW Coeff of [place] 13.9, Plt Count 329, MPV 10.1, Immature Gran % (Auto) 0.500, Neut % (Auto) 72.8 H, Lymph % (Auto) 14.3 L, [place] % (Auto) 8.4, Eos % (Auto) 3.3, Baso % (Auto) 0.7, Absolute Neuts (auto) 6.8, Absolute Lymphs (auto) 1.34, Nucleated RBC % 0 02/03/23 12:45: PT 14.0, INR 1.1, APTT 34.7 02/03/23 12:45: Sodium 139, Potassium 4.1, Chloride 110 H, Carbon Dioxide 26.0, Anion Gap 3 L, BUN 29 H, Creatinine 0.86, Est GFR (MDRD) Af Amer 81, Est GFR (MDRD) Non-Af 67, BUN/Creatinine Ratio 33.7 H, Glucose 103, Calcium 9.9, Troponin I High Sens 18 02/04/23 05:15: Urine Color Yellow, Urine Clarity Clear, Urine pH 6.5, Ur Specific [place] 1.015, Urine Protein 15 H, Urine Glucose (UA) Normal, Urine Ketones 5 H, Urine Occult Blood 10 H, Urine Nitrite Negative, Urine Bilirubin Negative, Urine Urobilinogen Normal, Ur Leukocyte Esterase Negative 02/04/23 06:03: WBC 9.0, RBC 4.23, Hgb 13.5, Hct 42.1, MCV 99.5 H, MCH 31.9, MCHC 32.1, RDW Std Deviation 51.3 H, RDW Coeff of [place]oj[place] 14.1, Plt Count 306, MPV 10.2, Immature Gran % (Auto) 0.300, Neut % (Auto) 75.8 H, Lymph % (Auto) 11.6 L, [place] % (Auto) 8.7, Eos % (Auto) 2.7, Baso % (Auto) 0.9, Absolute Neuts (auto) 6.8, Absolute Lymphs (auto) 1.04, Nucleated RBC % 0 02/04/23 06:03: Sodium 138, Potassium 3.8, Chloride 108 H, Carbon Dioxide 24.0, Anion Gap 6, BUN 19 H, Creatinine 0.59, Estim Creat Clear Calc 43.00, Est GFR (MDRD) Af Amer 124, Est GFR (MDRD) Non-Af 103, BUN/Creatinine Ratio 32.0 H, Glucose 85, Calcium 9.8, Triglycerides 115, Cholesterol 168, LDL Cholesterol 114, VLDL Cholesterol 23, HDL Cholesterol 31 L Radiography Diagnostic Testing: Radiology Impression Brain CT 02/03/23 12:50 IMPRESSION: No acute intracranial process identified. Chronic involutional and white matter changes. Resolution of right thalamic hemorrhage. Chest X-Ray 02/03/23 14:05 IMPRESSION: No significant interval change. Chronic interstitial opacities in the lungs. Electronically Signed: Carlene Alan MD at 14:15 EDT , Physical Exam Narrative Seen and examined. Patient was admitted yesterday for concern of stroke as she was nonverbal initially but then garbled speech. Patient also found decreased right-sided strength. Was in about 6 weeks ago for hemorrhagic stroke with left-sided weakness. Physical exam General: Alert, Oriented x3, Cooperative HEENT: Atraumatic, PERRLA, EOMI, Normocephalic Oral: No Gingival or Mucosal Lesions/ Ulcerations Neck: Supple, No JVD, Negative Carotid Bruits Lungs: Air entry diminished in bilateral lung bases. No crepitation/rhonchi Cardiovascular: Mild sinus tachycardia. Normal S1, Normal S2, No murmurs Abdomen: Bowel Sounds Present, Soft, Non Tender, Non-Distended : No renal angle tenderness. No suprapubic tenderness. Extremities: No edema, Capillary Refill Less than 3 Seconds Skin: No rashes, No breakdown Musculoskeletal: No Tenderness to Palpation of Joints or Extremities Neurological: Mild language deficit, dysarthria. Right-sided weakness. Residual left-sided weakness from previous stroke. Psych/Mental Status: Normal Affect, Appropriate. Assessment & Plan Assessment/Plan (1) CVA (cerebral vascular accident): QUALIFIERS: CVA mechanism: unspecified Qualified Code(s): I63.9 - Cerebral infarction, unspecified PLAN: Plan 82-year-old [facility], patient was completely lucid as per the son in the morning on day of admission. Her speech sounded normal about 10:30 in the morning. After that. Patient was found to be nonverbal speech was garbled as per the son yesterday afternoon. Patient had hemorrhagic stroke about 6 weeks ago and had but is improving. Walking 1. Rule out CVA in the setting of A-fib with a recent history of hemorrhagic stroke: CT head was negative for acute bleed. MRI brain is negative for acute or subacute ischemic infarct and no acute intracranial abnormality. MRI brain reported as Left distal M1 segment saccular aneurysm measuring 3.7 mm long, 3.8 mm wide fundus and a 2.3 mm wide neck. The aneurysmal sac is directed cephalad. This was previously approximately 3 mm long, 3 mm wide fundus and a 2 mm wide neck. In our system, last MRA head December 2019 MRA head was reported normal. SOC consulted to further clarify as MRI or also reported multiple stenoses in other branches of [place] of [place] but unchanged. Last echo in December 2019 reported EF 65% with no evidence for diastolic dysfunction. Bubble contrast study was negative for [id number] interatrial shunt. Modified barium swallow is also being done. 02/04: CT angio from 12/15/2022 reported significant calcification of bilateral carotid terminals with difficult to ascertain degree of stenosis. Proximal portion of anterior cerebral and middle cerebral normal. Bilateral intracranial vertebral arteries vertebrobasilar junction basilar artery and proximal posterior cerebral arteries normal. Bilateral intracranial ICA unremarkable. 1 cm intraparenchymal hemorrhage within the right anterior thalamic/hypothalamic region with mild associated vasogenic edema. No significant mass effect. Calcified and noncalcified atheromatous disease of bilateral CCA worse on the right less than 50% stenosis. I talked to the patient's son and other family members present in the room. With that new finding of MRI and does not have access to the previous imaging 01/01/2020 reported significant change and therefore transfer call was started to . The neurosurgeon from call back and a new MRI brain and MRI findings were discussed. He thinks enlargement of the saccular aneurysm is not big or growth rate is not significant to require urgent transfer or acute intervention. He advised outpatient follow-up with neurosurgery. I called the son again and notified about my conversation with the neurosurgeon. My colleague discussed with the patient's son, power of disability attorney for health, w that her [id number] score is a 7 which puts her stroke risk at around 10 %/year. We discussed the fact that she has had episodes of significant nosebleeds as well as the recent thalamic hemorrhage 6 weeks ago. She has a high risk of recurrent ischemic strokes but she is also at risk for hemorrhagic issues given her history. We discussed prognosis as well as goals of care if her mental status does not improve. He is receptive to hospice but not at the moment. She also had PEG tube which was recently removed and son will decide upon further PEG tube insertion. Patient on permissive hypertension for now as she is unable to take medications 2. HTN/HLD/A-fib/chronic diastolic CHF ? permissive hypertension ? The patient on as needed labetalol and hydralazine available ? Can restart her home medications in the next 24 to 48 hours if she passes her dysphagia evaluations ? She is allergic to statins, will continue with gentle IV fluid hydration as she is unable to take any oral fluid 3. Hypothyroidism ? Stable ? Can continue Synthroid when able to take p.o. 4. Anxiety/depression ? Stable ? Can continue with her home Zoloft when she is able to take p.o. DVT: SCDs Clinical Impression(s) from Imaging Studies Brain CT 02/03/23 12:50 IMPRESSION: No acute intracranial process identified. Chronic involutional and white matter changes. Resolution of right thalamic hemorrhage. Electronically Signed: Carlene Alan MD at 13:09 EDT , ADDENDUM: 02/03/23 1316 IMPRESSION: No acute intracranial process identified. Chronic involutional and white matter changes. Resolution of right thalamic hemorrhage. N.B. : The above Results were Read Back by Carlene Alan MD to Dr Noe Zambrano MD, and understanding confirmed on 02/03/2023 13:09:53 (ET). Electronically Signed: Carlene Alan MD at 13:09 EDT , Chest X-Ray 02/03/23 14:05 IMPRESSION: No significant interval change. Chronic interstitial opacities in the lungs. Electronically Signed: Carlene Alan MD at 14:15 EDT , Brain MRI 02/04/23 09:15 IMPRESSION: 1. No MRI evidence of acute or subacute ischemic infarct or acute intracranial abnormality. 2. Progression of chronic white matter ischemic changes in both cerebral hemispheres when compared to 01/01/2020. Electronically Signed: Fahad Carrington MD at 10:51 EDT , Head MRA 02/04/23 09:15 IMPRESSION: 1. 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 The aneurysmal sac is directed cephalad. This was previously approximately 3 mm long, 3 mm wide fundus and a 2 mm wide neck. This is feasible for endovascular coil therapy. 2. High-grade stenosis of the right A1 A2 junction, 50% stenosis in the proximal half of the left A1 segment and segmental high-grade stenosis of the midline A2 segments and the anterior pericallosal arteries. This is unchanged. 3. Less than 50% stenosis of the right distal M1 segment and bifurcation with minimal irregular plaques along the right M2 segments. This is unchanged. 4. 50% stenosis of the distal basilar artery proximal to the origins of the superior cerebellar arteries. This is unchanged. 5. High-grade stenosis at the origin of the most superior cerebellar artery and segmental high-grade stenosis of the remaining left superior cerebellar artery. Widely patent right superior cerebellar artery. These are unchanged. 6. High-grade stenosis of the right P1 segment portion and segmental high-grade stenosis of the bilateral P2 and P3 segments of both posterior cerebral arteries. These are unchanged. Electronically Signed: Fahad Carrington MD at 11:11 EDT , Charges/Coding Addendum Addendum: Total time of the visit including total time spent in counseling or coordination of care, (more than 50% of the total time, spent in obtaining medical information from nurses and other ancillary care providers,explaining to the patient about labs, imaging, diagnosis and management of active complex medical conditions), transfer line coordinator, discussion with neurosurgeon, review of labs and imaging clinical update to patient's son and family is 70 minutes Visit Charges Inpatient E&M: [id number] [facility] Hosp L3
--- NOTE | 2023-02-04 10:11 | CASEMGMT ---
Updates sent to [facility] Anna Duong
[2023-02-04] MEDS: Aspirin 300 MG Suppository RC (12:20)
--- NOTE | 2023-02-04 13:37 | TELEMED_ITS ---
[facility] Telemed has confirmed receipt of a request for visit. This document confirms receipt of the order initiating the consult. To find the results of the consultation, please view the patient's reports for the scanned Telemed Consult.
--- NOTE | 2023-02-04 14:04 | SP.MBSS_ITS ---
Modified Barium Swallow - Patient Information Study Date: 02/04/23 Study Time: 13:30 Direct Billable Minutes: 130 Total Minutes procedure & reportin Diagnosis: CVA (I69.3) Referring Physician: Catalino Ibarra Reason for Referral: Objectively assess swallow function, risk for aspiration, and determine recommendations for least restrictive diet textures and compensatory strategies to improve safety of swallow. Medical History: Richelle Saucedo is a 82yo F who presents from longterm home w/ concerns for stroke-like symptoms characterized by garbled speech, non-verbal. Admitted to PCU for observation. Patient failed RN dysphagia screen, therefore speech therapy was consulted. Patient showing overt s/s of penetration/aspiration during Bedside Swallow Evaluation. Recommendations for MBSS prior to diet advancement d/t patient's history. This patient is known to this speech therapist from prior TCU admission (December 2022-January 2023). [facility] re: Patient presented to [facility] ED on 12/15/22 after falling and hitting her head. CT brain showed R intracranial hemorrhage. Patient then was transferred to [facility] for further work-up and treatment. Speech therapy was consulted where she failed MBSS and alternative means of nutrition and hydration was recommended. G-tube was inserted at . Patient was transferred to [facility] for additional rehabilitation where she participated in MBSS on 01/09/23 w/ recommendations for mechanical soft w/ chopped meats and thin liquids. No aspiration observed during study. Recommended strategies re: double swallows, slow rate of intake, no straws. Patient transferred to [facility] TCU on 01/10/23 to continue rehabilitation where she tolerated soft and bite size textures / thin liquids w/ little to no difficulty. G-tube was removed prior to d/c to longterm facility for long-term care. Current Diet Ordered: NPO Mental Status: Impaired - mild to moderate cognitive impairment Respiratory Status: Oxygenating on Room Air - Penetration-Aspiration Scale Penetration-Aspiration Scale: OBJECTIVE ASSESSMENT OF SWALLOW FUNCTION (QUANTITATIVE ? PER TRIAL): PENETRATION / ASPIRATION SCALE (STONE): 1 = does not enter airway 2 = enters airway/above vocal folds/ejected 3 = enters airway/above vocal folds/not ejected 4 = enters airway/contacts vocal folds/ejected 5 = enters airway/contacts vocal folds/not ejected 6 = enters airway/below vocal folds/ejected 7 = enters airway/below vocal folds/not ejected despite effort 8 = enters airway/below vocal folds/no effort VIDEOFLOROSCOPIC SCALE SCORE (STONE): Grade I = aspiration of material that has penetrated into the laryngeal vestibule, intact cough reflex Grade II = aspiration < 10 % of the bolus, intact cough reflex Grade III = aspiration of < 10 % of the bolus, reduced cough reflex or aspiration of > 10 % of the bolus, intact cough reflex Grade IV = aspiration of > 10 % of the bolus, reduced cough reflex - Penetration-Aspiration Scale Score Thin Liquid via teaspoon Result: 1= does not enter airway Thin Liquid via small single sip from cup Result: 1= does not enter airway Thin Liquid via small single sip from cup Trial 2 Result: 2= enter airway/above vocal folds/ejected Thin Liquid via single sip from straw Result: 4= enters airway/contacts vocal folds/ejected Pudding Result: 1= does not enter airway Cookie Result: 1= does not enter airway Thin Liquid via small single sip from cup Trial 3 Result: 1= does not enter airway - Oral Phase Labial Seal: No Labial Escape Tongue Control During Bolus Hold: Escape to lateral buccal cavity/floor of mouth Bolus Preparation/Mastication: Slow prolonged chewing/mashing with complete r ecollection Bolus Transport/Lingual Motion: Slowed tongue motion Oral Residue: Residue collection on oral structures - Pharyngeal Phase Initiation of Pharyngeal Swallow: Bolus head in valleculae Soft Palate Elevation: No bolus between soft palate and pharyngeal wall Laryngeal Elevation: Partial superior movement thyroid cart/partial apprx aryt- epig petiole Anterior Hyoid Excursion: Partial anterior movement Epiglottic Movement: Partial inversion Laryngeal Vestibule Closure at Height of Swallow: Incomplete; narrow column of air/contrast in laryngeal vestibule Pharyngeal Stripping Wave: Present - diminished Pharyngoesophageal Segment Opening: Complete distension and complete duration; no obstruction of flow Tongue Base Retraction: Narrow column of contrast between tongue base & post. pharyngeal wall Pharyngeal Residue: Trace residue within or on pharyngeal structures - Treatment Strategies Effects of treatment strategies attemped:: double swallow = effective - Diagnosis/Impression Diagnosis: mild oropharyngeal dysphagia R13.12 Impression: Patient presents w/ mild oropharyngeal dysphagia. Oral phase primarily marked by... - mild mastication insufficiency d/t rotary chewing - suboptimal lingual control w/ slowed AP transit - swallow onset delay resulting in premature bolus loss to the valleculae Pharyngeal phase primarily marked by... - reduced laryngeal elevation and anterior hyoid excursion - delayed epiglottic inversion w/ penetration observed w/ thin via cup 1x and thin via straw 1x which was fully ejected from the airway - no aspiration observed across all consistencies - cued dry swallow to eliminate oral and pharyngeal residues which was effective - Recommendations Diet: Regular Textures - Easy to Chew, Thin Liquids Compensatory Strategies: Small Bites, Small Sips, No Straws, Slow Rate, Feed only when alert, Multiple Swallows, Alternate bites/solids and sips/liquids, Sitting upright, Remain sitting upright for 30 minutes after PO intake, Minimize/decrease distractions, Assist with verbal cues to use recommended strategies Supervision: 1:1 Close Supervision Recommend Repeat Modified Barium Swallow: No Need for Skilled Speech Therapy Services: Yes Comment: Will recommend the patient for continued dysphagia therapy to address mild deficits in oropharyngeal swallow function. Would consider the patient for oropharyngeal strengthening to improve lingual coordination, laryngeal elevation and hyoid excursion. The patient would benefit from thorough education regarding diet recommendations and recommended compensatory strategies. Education Completed: 1. Described result of evaluation., 2. Pt understands evaluation & agrees with goals and treatment plan. - Status Active ST Patient: Active - Contact Information [facility] Speech Therapy:: La Puri M.A. [facility]CHIEF TECHNOLOGIST Speech-Language Pathologist [facility] [address] [place] [address] [email or web address] [phone] 02/04/23 15:00
--- NOTE | 2023-02-04 16:23 | CASEMGMT ---
ZHEN POZO in to complete TELLEZ form. ZHEN POZO explained TELLEZ form, patient voiced understanding. Patient signed TELLEZ form and filed in chart. Patient provided copy of signed TELLEZ Form. Patient had no further questions or concerns at this time.
[2023-02-04] MEDS: Metoprolol Tartrate 25 MG Tablet 37.5 MG PO ×2 (16:44→21:03)
[2023-02-04] MEDS: Acetaminophen 325 MG Tablet 975 MG PO (21:03)
[2023-02-05] VITALS (7 sets, daily range): BP systolic 109–147; BP diastolic 70–88; PULSE 65–78; RESP 14–20; TEMP 36.6; O2SAT 94–98; BMI 24.7
[2023-02-05] MEDS: Levothyroxine 150 MCG Tablet PO (04:48)
[2023-02-05] MEDS: Acetaminophen 325 MG Tablet 975 MG PO ×2 (05:32→13:58)
[2023-02-05] MEDS: Potassium Chloride Oral Tablet 20 MEQ PO (09:07)
[2023-02-05] MEDS: Metoprolol Tartrate 25 MG Tablet 37.5 MG PO (09:07)
[2023-02-05] MEDS: Torsemide 20 MG Tablet PO (09:07)
[2023-02-05] MEDS: Sertraline 50 MG Tablet 75 MG PO (09:09)
[2023-02-05] MEDS: Digoxin 125 MCG Tablet PO (09:10)
--- NOTE | 2023-02-05 10:07 | CASEMGMT ---
AMILCAR called patient's son Tom and confirmed the plan is for patient to return to [place]. AMILCAR let Tom know that patient may be returning to [place] today. Maryam Westbrook HELP DESK ASSOCIATE NARDA
--- NOTE | 2023-02-05 11:10 | PCM.TXEXTCAR ---
Diet Diet Order/Speech Therapy: 02/04/23 16:21 Diet: Regular - General Food consistency:: Easy to Chew Liquid Consistency:: Regular/Thin Is pt able to select menu?: Yes Diet Comments: 1:1 supervision, no straws. Routine Orders/Code Status Suppository Type: Dulcolax 10mg Suppository Frequency: Daily PRN Code Status: DNRCC-A Therapies Weight Bearing: Weight bearing as tolerated Extremity Affected:: Bilateral Lower Physical Therapy: Eval and Treat Occupational Therapy: Eval and Treat Speech Therapy: Eval and Treat Problem/Diagnosis (1) CVA (cerebral vascular accident): Status: Chronic Code(s): I63.9 - Cerebral infarction, unspecified Plan 82-year-old female was brought from retirement for concern of a stroke, patient was completely lucid as per the son in the morning on day of admission. Her speech sounded normal about 10:30 in the morning. After that. Patient was found to be nonverbal speech was garbled as per the son yesterday afternoon. Patient had hemorrhagic stroke about 6 weeks ago and had but is improving. Walking 1. Rule out CVA in the setting of A-fib with a recent history of hemorrhagic stroke: CT head was negative for acute bleed. MRI brain is negative for acute or subacute ischemic infarct and no acute intracranial abnormality. MRI brain reported as Left distal M1 segment saccular aneurysm measuring 3.7 mm long, 3.8 mm wide fundus and a 2.3 mm wide neck. The aneurysmal sac is directed cephalad. This was previously approximately 3 mm long, 3 mm wide fundus and a 2 mm wide neck. In our system, last MRA head December 2019 MRA head was reported normal. SOC consulted to further clarify as MRI or also reported multiple stenoses in other branches of [place] but unchanged. Last echo in December 2019 reported EF 65% with no evidence for diastolic dysfunction. Bubble contrast study was negative for [id number] interatrial shunt. Modified barium swallow is also being done. 02/04: CT angio from 12/15/2022 reported significant calcification of bilateral carotid terminals with difficult to ascertain degree of stenosis. Proximal portion of anterior cerebral and middle cerebral normal. Bilateral intracranial vertebral arteries vertebrobasilar junction basilar artery and proximal posterior cerebral arteries normal. Bilateral intracranial ICA unremarkable. 1 cm intraparenchymal hemorrhage within the right anterior thalamic/hypothalamic region with mild associated vasogenic edema. No significant mass effect. Calcified and noncalcified atheromatous disease of bilateral CCA worse on the right less than 50% stenosis. I talked to the patient's son and other family members present in the room. With that new finding of MRI and does not have access to the previous imaging 01/01/2020 reported significant change and therefore transfer call was started to . The neurosurgeon from call back and a new MRI brain and MRI findings were discussed. He thinks enlargement of the saccular aneurysm is not big or growth rate is not significant to require urgent transfer or acute intervention. He advised outpatient follow-up with neurosurgery. I called the son again and notified about my conversation with the neurosurgeon. My colleague discussed with the patient's son, power of corporate associate attorney for health, w that her [id number] score is a 7 which puts her stroke risk at around 10 %/year. We discussed the fact that she has had episodes of significant nosebleeds as well as the recent thalamic hemorrhage 6 weeks ago. She has a high risk of recurrent ischemic strokes but she is also at risk for hemorrhagic issues given her history. We discussed prognosis as well as goals of care if her mental status does not improve. He is receptive to hospice but not at the moment. She also had PEG tube which was recently removed and son will decide upon further PEG tube insertion. Patient on permissive hypertension for now as she is unable to take medications 2. HTN/HLD/A-fib/chronic diastolic CHF ? permissive hypertension ? The patient on as needed labetalol and hydralazine available ? Can restart her home medications in the next 24 to 48 hours if she passes her dysphagia evaluations ? She is allergic to statins, will continue with gentle IV fluid hydration as she is unable to take any oral fluid 3. Hypothyroidism ? Stable ? Can continue Synthroid when able to take p.o. 4. Anxiety/depression ? Stable ? Can continue with her home Zoloft when she is able to take p.o. DVT: SCDs Clinical Impression(s) from Imaging Studies Brain CT 02/03/23 12:50 IMPRESSION: No acute intracranial process identified. Chronic involutional and white matter changes. Resolution of right thalamic hemorrhage. Electronically Signed: Carlene Alan MD at 13:09 EDT , ADDENDUM: 02/03/23 1316 IMPRESSION: No acute intracranial process identified. Chronic involutional and white matter changes. Resolution of right thalamic hemorrhage. N.B. : The above Results were Read Back by Carlene Alan MD to Dr Noe Zambrano MD, and understanding confirmed on 02/03/2023 13:09:53 (ET). Electronically Signed: Carlene Alan MD at 13:09 EDT , Chest X-Ray 02/03/23 14:05 IMPRESSION: No significant interval change. Chronic interstitial opacities in the lungs. Electronically Signed: Carlene Alan MD at 14:15 EDT , Brain MRI 02/04/23 09:15 IMPRESSION: 1. No MRI evidence of acute or subacute ischemic infarct or acute intracranial abnormality. 2. Progression of chronic white matter ischemic changes in both cerebral hemispheres when compared to 01/01/2020. Electronically Signed: Fahad Carrington MD at 10:51 EDT , Head MRA 02/04/23 09:15 IMPRESSION: 1. 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 The aneurysmal sac is directed cephalad. This was previously approximately 3 mm long, 3 mm wide fundus and a 2 mm wide neck. This is feasible for endovascular coil therapy. 2. High-grade stenosis of the right A1 A2 junction, 50% stenosis in the proximal half of the left A1 segment and segmental high-grade stenosis of the midline A2 segments and the anterior pericallosal arteries. This is unchanged. 3. Less than 50% stenosis of the right distal M1 segment and bifurcation with minimal irregular plaques along the right M2 segments. This is unchanged. 4. 50% stenosis of the distal basilar artery proximal to the origins of the superior cerebellar arteries. This is unchanged. 5. High-grade stenosis at the origin of the most superior cerebellar artery and segmental high-grade stenosis of the remaining left superior cerebellar artery. Widely patent right superior cerebellar artery. These are unchanged. 6. High-grade stenosis of the right P1 segment portion and segmental high-grade stenosis of the bilateral P2 and P3 segments of both posterior cerebral arteries. These are unchanged. Electronically Signed: Fahad Carrington MD at 11:11 EDT , Allergies/Procedures Done in Hospital Allergies amlodipine Allergy (Verified 02/03/23 13:31) Swelling atorvastatin calcium [From Lipitor] Allergy (Verified 02/03/23 13:31) Unknown diltiazem Allergy (Verified 02/03/23 13:31) Swelling erythromycin base [Erythromycin Base] Allergy (Verified 02/03/23 13:31) Unknown Iodinated Contrast Media Allergy (Verified 02/03/23 13:31) Unknown latex Allergy (Verified 02/03/23 13:31) Unknown Penicillins Allergy (Verified 02/03/23 13:31) Rash pregabalin [From Lyrica] Allergy (Verified 02/03/23 13:31) Swelling Sulfa (Sulfonamide Antibiotics) Allergy (Verified 02/03/23 13:31) Other triamcinolone acetonide [From Kenalog] Allergy (Verified 02/03/23 13:31) Other bumetanide [From Bumex] Adverse Reaction (Severe, Verified 02/03/23 13:31) Red, Splotchy rash furosemide [From Lasix] Adverse Reaction (Severe, Verified 02/03/23 13:31) Red, splotchy rash clarithromycin [From Biaxin] Adverse Reaction (Verified 02/03/23 13:31) Other lisinopril Adverse Reaction (Verified 02/03/23 13:31) Other rosuvastatin calcium [From Crestor] Adverse Reaction (Verified 02/03/23 13:31) Other spironolactone Adverse Reaction (Verified 02/03/23 13:31) Low blood pressure tramadol HCl [From Ultram] Adverse Reaction (Verified 02/03/23 13:31) Vomiting Type of Care/Length of Stay Estimated LOS: Convalescent Care Less Than 30 days Type of Care Needed: Skilled Rehab Potential: Fair Prognosis: Fair Additional Orders/Day of Discharge Day of Discharge: 02/05/23 Dietary and Speech Recommendations Dietitian Recommendations/Changes: Recommend PO diet as tolerated to Cardiac with consistency/texture as per TELE GROUT SEWER LINE REPAIRER. If PO nutrition remains contraindicated, recommend enteral nutrition support to meet estimated pro/energy needs. ONS as needed as deemed safe for PO. Discharge Plan Admission Admit Date/Time: 02/03/23 15:52 Primary Reason for Your Visit: Concern for stroke. Attending Provider: Catalino Ibarra Primary Care Provider: Ricky Kellogg Consulting Providers: Wade Ram Instructions Additional Instructions / Restrictions: Follow-up with the neurologist Dr.Cathy Aguirre neurologist in 2 weeks. Follow-up with neurosurgery Dr. Marlon Caban in 4 weeks for left MCA aneurysm. Discharge Orders/Prescriptions Prescriptions: New aspirin 81 mg tablet,chewable 81 mg PO DAILY Qty: 30 0RF ezetimibe [Zetia] 10 mg tablet 10 mg PO DAILY Qty: 30 0RF Continued acetaminophen 325 mg Tablet 975 mg PO Q8 Qty: 0 0RF torsemide 20 mg Tablet 20 mg PO DAILY Qty: 0 0RF levothyroxine 150 mcg Tablet 150 mcg PO DAILY@0500 Qty: 0 0RF digoxin 125 mcg (0.125 mg) Tablet 125 mcg PO DAILY@0800 Qty: 0 0RF sertraline 50 mg Tablet 75 mg PO DAILY Qty: 0 0RF baclofen 10 mg Tablet 5 mg PO TID PRN (Reason: Muscle Spasm) Qty: 0 0RF potassium chloride [Klor-Con M20] 20 mEq Tablet,Er Particles/Crystals 20 meq PO DAILYCM Qty: 0 0RF nystatin [Nyamyc] 100,000 unit/gram Powder 1 applic topical BID Qty: 0 0RF Protocol: *Topical Application Instructions APPLICATION INSTRUCTIONS: Apply to groin metoprolol tartrate 25 mg Tablet 37.5 mg PO BID Qty: 0 0RF zinc oxide 20 % Ointment 1 applic TOPICAL BID Referrals / Follow Up: Ricky Kellogg MD [Primary Care Provider] - In 1 Week Disposition Disposition (needs filled in before D/C Order can be placed): [facility] (1) CVA (cerebral vascular accident) Qualifiers: CVA mechanism: unspecified Qualified Code(s): I63.9 - Cerebral infarction, unspecified
--- NOTE | 2023-02-05 14:20 | PCM.DC.SUM ---
Providers Date of Admission: 02/03/23 Primary Care Physician: Dr. Ricky Kellogg MD Reason For Visit: CVA RULEOUT Diagnosis Discharge Diagnosis (1) CVA (cerebral vascular accident): Status: Chronic Code(s): I63.9 - Cerebral infarction, unspecified Qualifiers: CVA mechanism: unspecified Qualified Code(s): I63.9 - Cerebral infarction, unspecified Plan 82-year-old female was brought from [facility] for concern of a stroke, patient was completely lucid as per the son in the morning on day of admission. Her speech sounded normal about 10:30 in the morning. After that. Patient was found to be nonverbal speech was garbled as per the son yesterday afternoon. Patient had hemorrhagic stroke about 6 weeks ago and had but is improving. Walking 1. Rule out CVA in the setting of A-fib with a recent history of hemorrhagic stroke: CT head was negative for acute bleed. MRI brain is negative for acute or subacute ischemic infarct and no acute intracranial abnormality. MRI brain reported as Left distal M1 segment saccular aneurysm measuring 3.7 mm long, 3.8 mm wide fundus and a 2.3 mm wide neck. The aneurysmal sac is directed cephalad. This was previously approximately 3 mm long, 3 mm wide fundus and a 2 mm wide neck. In our system, last MRA head December 2019 MRA head was reported normal. SOC consulted to further clarify as MRI or also reported multiple stenoses in other branches of [place] but unchanged. Last echo in December 2019 reported EF 65% with no evidence for diastolic dysfunction. Bubble contrast study was negative for ptnok-bo-vooh interatrial shunt. Modified barium swallow is also being done. 02/04: CT angio from 12/15/2022 reported significant calcification of bilateral carotid terminals with difficult to ascertain degree of stenosis. Proximal portion of anterior cerebral and middle cerebral normal. Bilateral intracranial vertebral arteries vertebrobasilar junction basilar artery and proximal posterior cerebral arteries normal. Bilateral intracranial ICA unremarkable. 1 cm intraparenchymal hemorrhage within the right anterior thalamic/hypothalamic region with mild associated vasogenic edema. No significant mass effect. Calcified and noncalcified atheromatous disease of bilateral CCA worse on the right less than 50% stenosis. 02/05: I talked to the patient and son after my discussion with the neurosurgery in through the learning center coordinator. The neurosurgeon thinks enlargement of the saccular aneurysm is not big or growth rate is not significant to require urgent transfer or acute intervention. He advised outpatient follow-up with neurosurgery. Advised follow-up with neurology Dr.Cathy Aguirre in 2 weeks and with neurosurgery Dr. Marlon Caban. Patient had brief about 10 to 15 minutes of aphasia noticed by the nurse and son. Patient was not able to speak out words but this resolved. I saw the patient in morning and in afternoon and patient is back on baseline. Detail pathophysiology of speech, aphasia discussed at different levels including receptive motor, conduction and global aphasia. 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 SOC neurologist recommended baby aspirin. Patient is allergic to statin therefore Zetia started as a trial.2D echo shows normal left atrium. Patient had full stroke work-up in about 6 weeks ago. Last discharge summary from January 2023, Eliquis was discontinued. Advised follow-up with neurology to discuss about when to resume Eliquis. 2. 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 In discharge instruction from as mentioned Zyprexa 7.5 mg at bedtime. After discussion with son it was found that the medication was giving more side effect like increasing her involuntary movements and tremors therefore was discontinued. Advised follow-up with movement disorder clinic in . 3. HTN/HLD/A-fib/chronic diastolic CHF ? permissive hypertension ? The patient on as needed labetalol and hydralazine available ? Can restart her home medications in the next 24 to 48 hours if she passes her dysphagia evaluations ? She is allergic to statins, will continue with gentle IV fluid hydration as she is unable to take any oral fluid 4.. Hypothyroidism ? Stable ? Can continue Synthroid when able to take p.o. 4. Anxiety/depression ? Stable ? Can continue with her home Zoloft when she is able to take p.o. DVT: SCDs Clinical Impression(s) from Imaging Studies Brain CT 02/03/23 12:50 IMPRESSION: No acute intracranial process identified. Chronic involutional and white matter changes. Resolution of right thalamic hemorrhage. Electronically Signed: Carlene Alan MD at 13:09 EDT , ADDENDUM: 02/03/23 1316 IMPRESSION: No acute intracranial process identified. Chronic involutional and white matter changes. Resolution of right thalamic hemorrhage. N.B. : The above Results were Read Back by Carlene Alan MD to Dr Noe Zambrano MD, and understanding confirmed on 02/03/2023 13:09:53 (ET). Electronically Signed: Carlene Alan MD at 13:09 EDT , Chest X-Ray 02/03/23 14:05 IMPRESSION: No significant interval change. Chronic interstitial opacities in the lungs. Electronically Signed: Carlene Alan MD at 14:15 EDT , Brain MRI 02/04/23 09:15 IMPRESSION: 1. No MRI evidence of acute or subacute ischemic infarct or acute intracranial abnormality. 2. Progression of chronic white matter ischemic changes in both cerebral hemispheres when compared to 01/01/2020. Electronically Signed: Fahad Carrington MD at 10:51 EDT , Head MRA 02/04/23 09:15 IMPRESSION: 1. 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 The aneurysmal sac is directed cephalad. This was previously approximately 3 mm long, 3 mm wide fundus and a 2 mm wide neck. This is feasible for endovascular coil therapy. 2. High-grade stenosis of the right A1 A2 junction, 50% stenosis in the proximal half of the left A1 segment and segmental high-grade stenosis of the midline A2 segments and the anterior pericallosal arteries. This is unchanged. 3. Less than 50% stenosis of the right distal M1 segment and bifurcation with minimal irregular plaques along the right M2 segments. This is unchanged. 4. 50% stenosis of the distal basilar artery proximal to the origins of the superior cerebellar arteries. This is unchanged. 5. High-grade stenosis at the origin of the most superior cerebellar artery and segmental high-grade stenosis of the remaining left superior cerebellar artery. Widely patent right superior cerebellar artery. These are unchanged. 6. High-grade stenosis of the right P1 segment portion and segmental high-grade stenosis of the bilateral P2 and P3 segments of both posterior cerebral arteries. These are unchanged. Electronically Signed: Fahad Carrington MD at 11:11 EDT , Medications at Discharge Home Medications acetaminophen 325 mg tablet 975 mg PO Q8 #0 tabs 01/28/23 baclofen 10 mg tablet 5 mg PO TID PRN Muscle Spasm #0 tabs 01/28/23 digoxin 125 mcg (0.125 mg) tablet 125 mcg PO DAILY@0800 #0 tabs 01/28/23 levothyroxine 150 mcg tablet 150 mcg PO DAILY@0500 #0 tabs 01/28/23 metoprolol tartrate 25 mg tablet 37.5 mg PO BID #0 tabs 01/28/23 nystatin 100,000 unit/gram topical powder (Nyamyc) 1 applic topical BID #0 grams 01/28/23 potassium chloride 20 mEq tablet,extended release(part/cryst) (Klor-Con M) 20 meq PO DAILYCM #0 tabs 01/28/23 sertraline 50 mg tablet 75 mg PO DAILY #0 tabs 01/28/23 torsemide 20 mg tablet 20 mg PO DAILY #0 tabs 01/28/23 zinc oxide 20 % topical ointment 1 applic topical BID RASH 02/03/23 aspirin 81 mg chewable tablet 81 mg PO DAILY #30 tabs 02/05/23 ezetimibe 10 mg tablet (Zetia) 10 mg PO DAILY #30 tabs 02/05/23 Physical Exam Narrative Seen and examined. Patient on baseline. Still has right-sided weakness and chronic left-sided weakness. Patient has mild 15 minutes of aphasia around noontime. This was observed by the patient's son and the nursing staff. Physical exam General: Alert, Oriented x3, Cooperative HEENT: Atraumatic, PERRLA, EOMI, Normocephalic Oral: No Gingival or Mucosal Lesions/ Ulcerations Neck: Supple, No JVD, Negative Carotid Bruits Lungs: Air entry diminished in bilateral lung bases. No crepitation/rhonchi Cardiovascular: Mild sinus tachycardia. Normal S1, Normal S2, No murmurs Abdomen: Bowel Sounds Present, Soft, Non Tender, Non-Distended : No renal angle tenderness. No suprapubic tenderness. Extremities: No edema, Capillary Refill Less than 3 Seconds Skin: No rashes, No breakdown Musculoskeletal: No Tenderness to Palpation of Joints or Extremities Neurological: Mild language deficit, dysarthria. Decreased speech output and flow. Right-sided weakness. Residual left-sided weakness from previous stroke. Unsteady gait. Involuntary movement mainly of upper extremities, head and neck and upper trunk Psych/Mental Status: Normal Affect, Appropriate. Weight / BMI Weight Weight: 162 lb 11.218 oz Body Mass Index (BMI) 24.7 ABG / Lab / Microbiology Data Result Diagrams: 02/04/23 06:03 02/04/23 06:03 Microbiology: Microbiology 02/04/23 17:00 Nasal Secretion SARS-CoV-2 Antigen (Rapid) - Final Radiography Diagnostic Testing: Radiology Impression Carotid Duplex 02/03/23 16:11 Interpretation Summary Mild (<50%) stenosis right extracranial internal carotid. Mild (<50%) stenosis left extracranial internal carotid. Patent and antegrade vertebrals bilaterally. Ordering Physician: Wade Ram Referring Physician: Sabino Kellogg MD Performed By: Alessandra Valdez RVT Echocardiogram 02/03/23 16:11 Interpretation Summary The estimated ejection fraction is 55-60 %. Normal LV systolic function. No previous study to compare Ordering Physician: Wade Ram Performed By: Kena Abdul RCS Meaningful Use Info Meaningful Use Diagnoses (Choose all that apply): None applicable Discharge Plan Admission Admit Date/Time: 02/03/23 15:52 Primary Reason for Your Visit: Concern for stroke. Attending Provider: Catalino Ibarra Primary Care Provider: Ricky Kellogg Consulting Providers: Wade Ram Instructions Additional Instructions / Restrictions: Follow-up with the neurologist Dr.Cathy Aguirre neurologist in 2 weeks. Follow-up with neurosurgery Dr. Marlon Caban in 4 weeks for left MCA aneurysm. Discharge Orders/Prescriptions Prescriptions: New aspirin 81 mg tablet,chewable 81 mg PO DAILY Qty: 30 0RF ezetimibe [Zetia] 10 mg tablet 10 mg PO DAILY Qty: 30 0RF Continued acetaminophen 325 mg Tablet 975 mg PO Q8 Qty: 0 0RF torsemide 20 mg Tablet 20 mg PO DAILY Qty: 0 0RF levothyroxine 150 mcg Tablet 150 mcg PO DAILY@0500 Qty: 0 0RF digoxin 125 mcg (0.125 mg) Tablet 125 mcg PO DAILY@0800 Qty: 0 0RF sertraline 50 mg Tablet 75 mg PO DAILY Qty: 0 0RF baclofen 10 mg Tablet 5 mg PO TID PRN (Reason: Muscle Spasm) Qty: 0 0RF potassium chloride [Klor-Con M20] 20 mEq Tablet,Er Particles/Crystals 20 meq PO DAILYCM Qty: 0 0RF nystatin [Nyamyc] 100,000 unit/gram Powder 1 applic topical BID Qty: 0 0RF Protocol: *Topical Application Instructions APPLICATION INSTRUCTIONS: Apply to groin metoprolol tartrate 25 mg Tablet 37.5 mg PO BID Qty: 0 0RF zinc oxide 20 % Ointment 1 applic TOPICAL BID Referrals / Follow Up: Ricky Kellogg MD [Primary Care Provider] - In 1 Week Disposition Disposition (needs filled in before D/C Order can be placed): [facility] Facility Charges/Coding Visit Charges Inpatient E&M: 80548 Disch Hosp >30min
--- NOTE | 2023-02-05 14:28 | PHA.DC.MR ---
Pharmacy Service has performed discharge medication reconciliation for this patient. The patient's discharge medication list was reviewed for discrepancies and discrepancies were resolved. Home Medications acetaminophen 325 mg tablet 975 mg PO Q8 #0 tabs 01/28/23 baclofen 10 mg tablet 5 mg PO TID PRN Muscle Spasm #0 tabs 01/28/23 digoxin 125 mcg (0.125 mg) tablet 125 mcg PO DAILY@0800 #0 tabs 01/28/23 levothyroxine 150 mcg tablet 150 mcg PO DAILY@0500 #0 tabs 01/28/23 metoprolol tartrate 25 mg tablet 37.5 mg PO BID #0 tabs 01/28/23 nystatin 100,000 unit/gram topical powder (Nyamyc) 1 applic topical BID #0 grams 01/28/23 potassium chloride 20 mEq tablet,extended release(part/cryst) (Klor-Con M) 20 meq PO DAILYCM #0 tabs 01/28/23 sertraline 50 mg tablet 75 mg PO DAILY #0 tabs 01/28/23 torsemide 20 mg tablet 20 mg PO DAILY #0 tabs 01/28/23 zinc oxide 20 % topical ointment 1 applic topical BID RASH 02/03/23 aspirin 81 mg chewable tablet 81 mg PO DAILY #30 tabs 02/05/23 ezetimibe 10 mg tablet (Zetia) 10 mg PO DAILY #30 tabs 02/05/23
--- NOTE | 2023-02-05 15:26 | CASEMGMT ---
Patient is ready for discharge back to [facility]. AMILCAR called [facility] and arranged for patient to get picked up at 5p via cot. SW sent orders, COVID test, and package pick up time to [facility]. AMILCAR notified RN and guidance secretary. AMILCAR spoke with patient's son Tom earlier and he is aware patient is being discharged today. Plan: d/c back to [facility] under intermediate level of care. [facility] via [facility]. Maryam LABOY
== END 2023-02-05 14:19 | disposition intermediate care facility (04) ==
LOC: ED 13:23 → PCU 15:19
PROVIDERS: Admitting Provider Family Medicine; Emergency Provider Emergency Medicine; PCP Family Medicine; Visit Provider Internal Medicine
DX: R47.01 Aphasia (principal); I69.351 Hemiplegia and hemiparesis following cerebral infarction affecting right dominant side; I50.32 Chronic diastolic (congestive) heart failure; I11.0 Hypertensive heart disease with heart failure; I27.21 Secondary pulmonary arterial hypertension; I48.11 Longstanding persistent atrial fibrillation; E78.5 Hyperlipidemia, unspecified; F41.9 Anxiety disorder, unspecified; G89.29 Other chronic pain; I25.10 Atherosclerotic heart disease of native coronary artery without angina pectoris; R29.703 NIHSS score 3; G31.84 Mild cognitive impairment of uncertain or unknown etiology; Z79.899 Other long term (current) drug therapy; F32.A Depression, unspecified; Z66 Do not resuscitate; G47.33 Obstructive sleep apnea (adult) (pediatric); E03.9 Hypothyroidism, unspecified; Z79.890 Hormone replacement therapy; R53.1 Weakness; I65.23 Occlusion and stenosis of bilateral carotid arteries; R47.1 Dysarthria and anarthria; R13.12 Dysphagia, oropharyngeal phase
CPT/HCPCS: 36415; 70450; 70544; 70551; 71045; 74230; 80048; 80061; 81002; 84484; 85025; 85610; 85730; 87811; 92526; 92610; 92611; 93005; 93306; 93880; 94762; 96361; 96374; 97162; 97166; 97802; 99221; 99285; J7030; A4216; G0378; J3490

== ENCOUNTER → 2023-02-25 | Outpatient (REF) | payer MEDICARE, SELFPAY ==
[2023-02-25 09:56] LABS: Absolute Lymphocyte Count 1.15 X10^3/uL (0.83-4.51); Absolute Neutrophil Count 7.8 X10^3/uL (2.0-7.7); Eosinophil# 0.52 X10^3/uL; Hematocrit 43.4 % (37-47); Hemoglobin 14.2 g/dL (12.0-15.0); Lymphocyte # 1.15 X10^3/ul (0.83-4.51); Mean Corp Hgb Conc 32.7 g/dL (32-36); Mean Corpuscular Hgb 31.3 pg (27.0-32.0); Mean Corpuscular Volume 95.6 fL (81-99); Mean Platelet Vol. 10.6 fl (6.2-12.0); Monocyte# 0.87 X10^3/uL; Monocyte% 8.3 % (0-10); NRBC Flagged by Analyzer 0 % (0-5); Neutrophil # 7.79 X10^3/uL (2.7-7.7); Neutrophil % 74.2 % (47-70); Platelet Count 359 K/mm3 (150-450); RBC Distribution Width CV 14.3 % (11.6-14.6); RBC Distribution Width SD 50.3 fl (35.1-43.9); Red Blood Count 4.54 M/mm3 (4.2-5.4); White Blood Count 10.5 K/mm3 (4.4-11.0)
[2023-02-25 10:18] LABS: AST(SGOT) 29 U/L (15-37); Alanine Aminotransfer ALT/SGPT 28 U/L (13-56); Anion Gap 9 (5-15); BUN 22 mg/dL (7-18); BUN/Creat Ratio 40.2 RATIO (10-20); Calcium,Total 9.7 mg/dL (8.5-10.1); Chloride 108 mmol/L (98-107); Creatinine, Serum 0.55 mg/dL (0.55-1.02); EST Glomerular Filtration Rate 113 mL/min (>60); Est Glom Filt Rate - Afr Amer 137 mL/min (>60); Glucose 85 mg/dL (74-106); Potassium 3.2 mmol/L (3.5-5.1); Sodium Level 142 mmol/L (136-145)
== END ==
LOC: OLS.WHLEAS 04:00
PROVIDERS: PCP Family Medicine; Referring Provider Internal Medicine; Visit Provider Internal Medicine
DX: G45.9 Transient cerebral ischemic attack, unspecified (principal); I48.0 Paroxysmal atrial fibrillation; S06.30AD Unspecified focal traumatic brain injury with loss of consciousness status unknown, subsequent encounter; M62.81 Muscle weakness (generalized); Z79.899 Other long term (current) drug therapy
CPT/HCPCS: 36415; 80048; 84443; 84450; 84460; 85025

== ENCOUNTER → 2023-03-01 | Outpatient (REF) | payer MEDICARE, SELFPAY ==
[2023-03-01 07:53] LABS: Potassium 3.7 mmol/L (3.5-5.1)
== END ==
LOC: OLS.WHLEAS 05:00
PROVIDERS: PCP Family Medicine; Visit Provider Internal Medicine
DX: I50.32 Chronic diastolic (congestive) heart failure (principal); G45.9 Transient cerebral ischemic attack, unspecified; I48.0 Paroxysmal atrial fibrillation; M62.81 Muscle weakness (generalized); S06.30AD Unspecified focal traumatic brain injury with loss of consciousness status unknown, subsequent encounter
CPT/HCPCS: 36415; 84132

== ENCOUNTER → 2023-03-11 | Outpatient (REF) | payer MEDICARE, SELFPAY ==
[2023-03-11 09:20] LABS: AST(SGOT) 46 U/L (15-37); Alanine Aminotransfer ALT/SGPT 33 U/L (13-56); Albumin, Serum 2.3 g/dL (3.2-5.0); Alkaline Phosphatase 167 U/L (45-117); Bilirubin, Direct 0.11 mg/dL (0.00-0.30); Globulin 5.1 g/dL (2.2-4.2); Protein, Total 7.4 g/dL (6.4-8.2)
== END ==
LOC: OLS.WHLEAS 04:00
PROVIDERS: PCP Family Medicine; Referring Provider Internal Medicine; Visit Provider Internal Medicine
DX: I48.0 Paroxysmal atrial fibrillation (principal); G45.9 Transient cerebral ischemic attack, unspecified; S06.30AD Unspecified focal traumatic brain injury with loss of consciousness status unknown, subsequent encounter; M62.81 Muscle weakness (generalized)
CPT/HCPCS: 36415; 80076

== ENCOUNTER → 2023-03-21 | Outpatient (REF) | payer MEDICARE, SELFPAY ==
[2023-03-21 09:17] LABS: Absolute Lymphocyte Count 1.23 X10^3/uL (0.83-4.51); Eosinophil# 0.72 X10^3/uL; Eosinophils% 7.3 % (0-5); Hematocrit 41.6 % (37-47); Hemoglobin 13.3 g/dL (12.0-15.0); Lymphocyte # 1.23 X10^3/ul (0.83-4.51); Lymphocyte % 12.5 % (19-41); Mean Corpuscular Hgb 31.2 pg (27.0-32.0); Mean Corpuscular Volume 97.7 fL (81-99); Mean Platelet Vol. 10.7 fl (6.2-12.0); Monocyte# 0.79 X10^3/uL; NRBC Flagged by Analyzer 0 % (0-5); Neutrophil # 6.98 X10^3/uL (2.7-7.7); Neutrophil % 70.7 % (47-70); Platelet Count 307 K/mm3 (150-450); RBC Distribution Width CV 14.6 % (11.6-14.6); RBC Distribution Width SD 52.7 fl (35.1-43.9); Red Blood Count 4.26 M/mm3 (4.2-5.4); White Blood Count 9.9 K/mm3 (4.4-11.0)
[2023-03-21 09:34] LABS: Anion Gap 9 (5-15); BUN 17 mg/dL (7-18); BUN/Creat Ratio 29.8 RATIO (10-20); Calcium,Total 9.1 mg/dL (8.5-10.1); Chloride 105 mmol/L (98-107); Creatinine, Serum 0.57 mg/dL (0.55-1.02); EST Glomerular Filtration Rate 107 mL/min (>60); Est Glom Filt Rate - Afr Amer 130 mL/min (>60); Glucose 85 mg/dL (74-106); Potassium 3.9 mmol/L (3.5-5.1); Sodium Level 139 mmol/L (136-145)
[2023-03-21 09:42] LABS: Digoxin Level 1.13 ng/mL (0.80-2.00)
== END ==
LOC: OLS.WHLTCC 05:00
PROVIDERS: PCP Family Medicine; Visit Provider Internal Medicine
DX: I48.0 Paroxysmal atrial fibrillation (principal); M62.81 Muscle weakness (generalized); Z86.73 Personal history of transient ischemic attack (TIA), and cerebral infarction without residual deficits
CPT/HCPCS: 36415; 80048; 80162; 85025

== ENCOUNTER → 2023-03-22 | Outpatient (REF) | payer MEDICARE, SELFPAY ==
[2023-03-22 06:40] LABS: Absolute Lymphocyte Count 1.41 X10^3/uL (0.83-4.51); Absolute Neutrophil Count 6.8 X10^3/uL (2.0-7.7); Basophil# 0.08 X10^3/uL; Basophil% 0.8 % (0-1); Eosinophil# 0.75 X10^3/uL; Eosinophils% 7.6 % (0-5); Hematocrit 40.4 % (37-47); Hemoglobin 13.1 g/dL (12.0-15.0); Lymphocyte # 1.41 X10^3/ul (0.83-4.51); Lymphocyte % 14.2 % (19-41); Mean Corp Hgb Conc 32.4 g/dL (32-36); Mean Corpuscular Hgb 31.7 pg (27.0-32.0); Mean Corpuscular Volume 97.8 fL (81-99); Mean Platelet Vol. 10.4 fl (6.2-12.0); Monocyte# 0.83 X10^3/uL; Monocyte% 8.4 % (0-10); NRBC Flagged by Analyzer 0 % (0-5); Neutrophil # 6.79 X10^3/uL (2.7-7.7); Neutrophil % 68.3 % (47-70); Platelet Count 295 K/mm3 (150-450); RBC Distribution Width CV 14.9 % (11.6-14.6); RBC Distribution Width SD 52.8 fl (35.1-43.9); Red Blood Count 4.13 M/mm3 (4.2-5.4); White Blood Count 9.9 K/mm3 (4.4-11.0)
[2023-03-22 06:53] LABS: Anion Gap 4 (5-15); BUN 22 mg/dL (7-18); BUN/Creat Ratio 37.5 RATIO (10-20); Calcium,Total 9.7 mg/dL (8.5-10.1); Chloride 108 mmol/L (98-107); Creatinine, Serum 0.59 mg/dL (0.55-1.02); EST Glomerular Filtration Rate 104 mL/min (>60); Est Glom Filt Rate - Afr Amer 126 mL/min (>60); Glucose 89 mg/dL (74-106); Potassium 3.9 mmol/L (3.5-5.1); Sodium Level 141 mmol/L (136-145)
[2023-03-22 07:14] LABS: Digoxin Level 1.17 ng/mL (0.80-2.00)
== END ==
LOC: OLS.WHLEAS 05:00
PROVIDERS: PCP Family Medicine; Visit Provider Internal Medicine
DX: I48.0 Paroxysmal atrial fibrillation (principal)
CPT/HCPCS: 36415; 80048; 80162; 85025

== ENCOUNTER → 2023-03-25 | Outpatient (REF) | payer MEDICARE, SELFPAY ==
[2023-03-25 08:49] LABS: Absolute Neutrophil Count 6.5 X10^3/uL (2.0-7.7); Basophil# 0.09 X10^3/uL; Eosinophil# 0.54 X10^3/uL; Eosinophils% 5.7 % (0-5); Hematocrit 42.8 % (37-47); Hemoglobin 13.4 g/dL (12.0-15.0); Mean Corp Hgb Conc 31.3 g/dL (32-36); Mean Corpuscular Hgb 31.2 pg (27.0-32.0); Mean Corpuscular Volume 99.8 fL (81-99); Monocyte# 0.76 X10^3/uL; Monocyte% 8.1 % (0-10); NRBC Flagged by Analyzer 0 % (0-5); Neutrophil # 6.47 X10^3/uL (2.7-7.7); Neutrophil % 68.8 % (47-70); Platelet Count 301 K/mm3 (150-450); RBC Distribution Width CV 14.8 % (11.6-14.6); RBC Distribution Width SD 53.9 fl (35.1-43.9); Red Blood Count 4.29 M/mm3 (4.2-5.4); White Blood Count 9.4 K/mm3 (4.4-11.0)
[2023-03-25 09:11] LABS: AST(SGOT) 31 U/L (15-37); Alanine Aminotransfer ALT/SGPT 27 U/L (13-56); Anion Gap 5 (5-15); BUN 21 mg/dL (7-18); Chloride 105 mmol/L (98-107); Creatinine, Serum 0.57 mg/dL (0.55-1.02); EST Glomerular Filtration Rate 108 mL/min (>60); Est Glom Filt Rate - Afr Amer 131 mL/min (>60); Glucose 91 mg/dL (74-106); Potassium 3.5 mmol/L (3.5-5.1); Sodium Level 139 mmol/L (136-145); Thyroid Stim Hormone (TSH) 3.49 uIU/mL (0.358-3.74)
== END ==
LOC: OLS.WHLEAS 05:00
PROVIDERS: PCP Family Medicine; Visit Provider Internal Medicine
DX: I48.0 Paroxysmal atrial fibrillation (principal); S06.30AS Unspecified focal traumatic brain injury with loss of consciousness status unknown, sequela; M62.81 Muscle weakness (generalized); Z86.73 Personal history of transient ischemic attack (TIA), and cerebral infarction without residual deficits
CPT/HCPCS: 36415; 80048; 84443; 84450; 84460; 85025

== ENCOUNTER → 2023-04-08 | Outpatient (REF) | payer MEDICARE, SELFPAY ==
[2023-04-08 09:37] LABS: Absolute Lymphocyte Count 1.46 X10^3/uL (0.83-4.51); Basophil# 0.09 X10^3/uL; Basophil% 0.9 % (0-1); Eosinophil# 0.67 X10^3/uL; Eosinophils% 6.6 % (0-5); Hematocrit 38.6 % (37-47); Hemoglobin 12.4 g/dL (12.0-15.0); Lymphocyte # 1.46 X10^3/ul (0.83-4.51); Lymphocyte % 14.3 % (19-41); Mean Corp Hgb Conc 32.1 g/dL (32-36); Mean Corpuscular Volume 99.5 fL (81-99); Mean Platelet Vol. 10.7 fl (6.2-12.0); Monocyte# 0.88 X10^3/uL; Monocyte% 8.6 % (0-10); NRBC Flagged by Analyzer 0 % (0-5); Neutrophil # 7.04 X10^3/uL (2.7-7.7); Neutrophil % 69.2 % (47-70); Platelet Count 342 K/mm3 (150-450); RBC Distribution Width SD 54.7 fl (35.1-43.9); Red Blood Count 3.88 M/mm3 (4.2-5.4); White Blood Count 10.2 K/mm3 (4.4-11.0)
[2023-04-08 10:13] LABS: AST(SGOT) 34 U/L (15-37); Alanine Aminotransfer ALT/SGPT 30 U/L (13-56); Anion Gap 6 (5-15); BUN 24 mg/dL (7-18); BUN/Creat Ratio 43.3 RATIO (10-20); Calcium,Total 9.7 mg/dL (8.5-10.1); Chloride 107 mmol/L (98-107); Creatinine, Serum 0.55 mg/dL (0.55-1.02); EST Glomerular Filtration Rate 111 mL/min (>60); Est Glom Filt Rate - Afr Amer 135 mL/min (>60); Glucose 90 mg/dL (74-106); Potassium 3.8 mmol/L (3.5-5.1); Sodium Level 139 mmol/L (136-145); Thyroid Stim Hormone (TSH) 4.79 uIU/mL (0.358-3.74)
== END ==
LOC: OLS.WHLEAS 05:00
PROVIDERS: PCP Family Medicine; Visit Provider Internal Medicine
DX: I48.0 Paroxysmal atrial fibrillation (principal); S06.30AD Unspecified focal traumatic brain injury with loss of consciousness status unknown, subsequent encounter; M62.81 Muscle weakness (generalized); Z86.73 Personal history of transient ischemic attack (TIA), and cerebral infarction without residual deficits
CPT/HCPCS: 36415; 80048; 84443; 84450; 84460; 85025

== ENCOUNTER → 2023-04-09 05:00 | Outpatient (REF) | payer MEDICARE, SELFPAY ==
[2023-04-09 14:08] LABS: T4 Free Direct 1.15 ng/dL (0.76-1.46)
== END ==
LOC: OLS.WHLEAS 05:00
PROVIDERS: PCP Family Medicine; Referring Provider Internal Medicine; Visit Provider Internal Medicine
DX: E03.9 Hypothyroidism, unspecified (principal); I48.0 Paroxysmal atrial fibrillation; M62.81 Muscle weakness (generalized); S06.30AD Unspecified focal traumatic brain injury with loss of consciousness status unknown, subsequent encounter; Z86.73 Personal history of transient ischemic attack (TIA), and cerebral infarction without residual deficits
CPT/HCPCS: 36415; 84439; 84480

== ENCOUNTER → 2023-04-22 | Outpatient (REF) | payer MEDICARE, SELFPAY ==
[2023-04-22 08:46] LABS: Absolute Lymphocyte Count 1.47 X10^3/uL (0.83-4.51); Absolute Neutrophil Count 7.8 X10^3/uL (2.0-7.7); Basophil# 0.11 X10^3/uL; Eosinophil# 0.67 X10^3/uL; Eosinophils% 6.1 % (0-5); Hematocrit 39.3 % (37-47); Hemoglobin 12.6 g/dL (12.0-15.0); Lymphocyte # 1.47 X10^3/ul (0.83-4.51); Lymphocyte % 13.5 % (19-41); Mean Corp Hgb Conc 32.1 g/dL (32-36); Mean Corpuscular Hgb 31.9 pg (27.0-32.0); Mean Corpuscular Volume 99.5 fL (81-99); Mean Platelet Vol. 10.4 fl (6.2-12.0); Monocyte# 0.85 X10^3/uL; Monocyte% 7.8 % (0-10); NRBC Flagged by Analyzer 0 % (0-5); Neutrophil # 7.76 X10^3/uL (2.7-7.7); Neutrophil % 71.1 % (47-70); Platelet Count 316 K/mm3 (150-450); RBC Distribution Width CV 14.8 % (11.6-14.6); RBC Distribution Width SD 54.6 fl (35.1-43.9); Red Blood Count 3.95 M/mm3 (4.2-5.4); White Blood Count 10.9 K/mm3 (4.4-11.0)
[2023-04-22 09:16] LABS: AST(SGOT) 31 U/L (15-37); Alanine Aminotransfer ALT/SGPT 27 U/L (13-56); Albumin, Serum 2.4 g/dL (3.2-5.0); Alkaline Phosphatase 163 U/L (45-117); Anion Gap 4 (5-15); BUN 25 mg/dL (7-18); BUN/Creat Ratio 51.1 RATIO (10-20); Bilirubin, Direct 0.13 mg/dL (0.00-0.30); Calcium,Total 9.6 mg/dL (8.5-10.1); Chloride 107 mmol/L (98-107); Creatinine, Serum 0.49 mg/dL (0.55-1.02); EST Glomerular Filtration Rate 128 mL/min (>60); Est Glom Filt Rate - Afr Amer 155 mL/min (>60); Globulin 4.7 g/dL (2.2-4.2); Glucose 84 mg/dL (74-106); Potassium 3.8 mmol/L (3.5-5.1); Protein, Total 7.1 g/dL (6.4-8.2); Sodium Level 140 mmol/L (136-145); Thyroid Stim Hormone (TSH) 7.12 uIU/mL (0.358-3.74)
== END ==
LOC: OLS.WHLEAS 05:00
PROVIDERS: PCP Family Medicine; Visit Provider Internal Medicine
DX: I48.0 Paroxysmal atrial fibrillation (principal); S06.30AD Unspecified focal traumatic brain injury with loss of consciousness status unknown, subsequent encounter; R53.81 Other malaise; G31.84 Mild cognitive impairment of uncertain or unknown etiology; G47.33 Obstructive sleep apnea (adult) (pediatric)
CPT/HCPCS: 36415; 80048; 80076; 80162; 84443; 85025